=== PATIENT | male | born 1940 | race Caucasian/White ===

== ENCOUNTER 2016-11-11 22:28 | Inpatient (IN) | payer MEDICARE, MEDICAID ==
--- NOTE | 2016-11-11 22:32 | ED Physician Chart ---
Chief Complaint/HPI - Patient Information Date Seen:: 11/11/16 Time Seen:: 22:32 Chief Complaint:: abnormal labs History of Present Illness:: 76-year-old male brought in with acute, severe, abnormal labs that were discovered this morning. Patient has elevated creatinine above 5 and elevated BUN above 100. History limited as patient has underlying dementia and is unable to provide any history History provided by EMS, EMS run sheet and transfer documents Allergies:: Allergies Allergy/AdvReac Type Severity Reaction Status Date / Time No Known Allergies Allergy Verified 09/14/16 12:32 Historian:: EMS Review:: Nurse's Note Reviewed, EMS run form Reviewed, Transfer documents Reviewed Review of Systems - Review of Systems Other: Complete system review otherwise unremarkable except as noted in HPI. Past Medical History - Past Medical History Past Medical History: HTN, CVA/TIA, Dementia Family History: None Social History: Non Smoker, No Alcohol, No Drug Use, Care Facility Surgical History: None Psychiatricy History: Dementia Medication: Reviewed Family Medical History - Family Member Mother History Unknown: Yes Physical Exam - Physical Examination Other:: INITIAL VITAL SIGNS: Reviewed by tn GENERAL: Patient is lying on gurney HEAD: Head is normocephalic. No evidence of trauma. No scalp or facial swelling EYES: No scleral icterus bilaterally ENT: Oropharynx is clear of exudate and erythema. Mucous membranes are dry. NECK: Supple. No meningismus. No masses. No evidence of trauma. No cervical spine bony step-offs or crepitus to palpation RESPIRATORY: No tachypnea. Clear to auscultation bilaterally. CV: Regular rate and rhythm. No murmurs, rubs, or gallops ABDOMEN: Soft, non-distended. No masses. G-tube in place. BACK: No ecchymoses. No evidence of trauma EXTREMITIES: Normal to inspection and palpation. No deformity SKIN: Warm and dry. No obvious rash. No jaundice NEUROLOGIC: Face is symmetric. Withdraws to pain in all extremities Labs/Radiology/EKG Results - Lab Results Results: Lab Results 11/11/16 11/11/16 11/11/16 Range/Units 22:40 22:58 22:58 WBC 12.6 H D (4.8-10.8) Th/cmm RBC 3.38 L (3.80-5.80) Mil/cmm Hgb 10.5 L D (12.6-17.4) gm/dL Hct 31.5 L D (39.0-49.0) % MCV 93.2 (80-99) fl MCH 31.1 H (27.0-31.0) pg MCHC Differential 33.4 (28.0-36.0) pg RDW 15.1 (11.5-20.0) % Plt Count 184 (150-400) Th/cmm MPV 11.4 fl Neutrophils % 68.6 (40.0-80.0) % Lymphocytes % 15.6 L (20.0-50.0) % Monocytes % 7.5 (2.0-10.0) % Eosinophils % 7.8 H (0.0-5.0) % Basophils % 0.5 (0.0-2.0) % PT 10.6 (9.5-11.5) SECONDS INR 1.07 (0.5-1.4) PTT (Actin FS) 27.1 (26.0-38.0) SECONDS Potassium (3.5-5.1) mEq/L Chloride (98-107) mEq/L Carbon Dioxide (21.0-31.0) mEq/L Anion Gap (7.0-16.0) BUN (7-25) mg/dL Creatinine (0.7-1.3) mg/dL Est GFR ( Amer) Est GFR (Non-Af Amer) BUN/Creatinine Ratio Glucose (70-105) mg/dL Whole Bld Lactic Acid (0.60-2.00) mmol/L Calcium (8.6-10.3) mg/dL Total Bilirubin (0.3-1.0) mg/dL AST (13-39) U/L ALT (7-52) U/L Alkaline Phosphatase (34-104) U/L Creatine Kinase (30-223) U/L Total Protein (6.0-8.3) gm/dL Albumin (4.2-5.5) gm/dL Globulin gm/dL Albumin/Globulin Ratio (1.0-1.8) Urine Source CATH Urine Color YELLOW Urine Clarity HAZY (CLEAR) Urine pH 7.5 Ur Specific [place] 1.020 (1.005-1.030) Urine Protein >300 H (NEGATIVE) mg/dL Urine Glucose (UA) NEGATIVE (NEGATIVE) mg/dL Urine Ketones NEGATIVE (NEGATIVE) mg/dL Urine Blood MODERATE H (NEGATIVE) Urine Nitrate NEGATIVE (NEGATIVE) Urine Bilirubin NEGATIVE (NEGATIVE) Urine Urobilinogen 0.2 (0.2 - 1.0) E.U./dL Ur Leukocyte Esterase SMALL H (NEGATIVE) Urine RBC 5-10 H (0-5) /hpf Urine WBC 6-10 H (0-5) /hpf Ur Epithelial Cells FEW (FEW) /lpf Urine Bacteria MODERATE (NONE SEEN) /hpf 11/11/16 11/11/16 Range/Units 22:58 22:58 WBC (4.8-10.8) Th/cmm RBC (3.80-5.80) Mil/cmm Hgb (12.6-17.4) gm/dL Hct (39.0-49.0) % MCV (80-99) fl MCH (27.0-31.0) pg MCHC Differential (28.0-36.0) pg RDW (11.5-20.0) % Plt Count (150-400) Th/cmm MPV fl Neutrophils % (40.0-80.0) % Lymphocytes % (20.0-50.0) % Monocytes % (2.0-10.0) % Eosinophils % (0.0-5.0) % Basophils % (0.0-2.0) % PT (9.5-11.5) SECONDS INR (0.5-1.4) PTT (Actin FS) (26.0-38.0) SECONDS Potassium 4.0 (3.5-5.1) mEq/L Chloride 121 H (98-107) mEq/L Carbon Dioxide 26.9 (21.0-31.0) mEq/L Anion Gap 15.1 (7.0-16.0) BUN 122 H* (7-25) mg/dL Creatinine 5.4 H* (0.7-1.3) mg/dL Est GFR ( Amer) TNP Est GFR (Non-Af Amer) TNP BUN/Creatinine Ratio 22.6 Glucose 88 (70-105) mg/dL Whole Bld Lactic Acid 1.85 (0.60-2.00) mmol/L Calcium 8.7 (8.6-10.3) mg/dL Total Bilirubin 0.3 (0.3-1.0) mg/dL AST 45 H (13-39) U/L ALT 61 H (7-52) U/L Alkaline Phosphatase 68 (34-104) U/L Creatine Kinase 180 (30-223) U/L Total Protein 7.9 (6.0-8.3) gm/dL Albumin 3.0 L (4.2-5.5) gm/dL Globulin 4.9 gm/dL Albumin/Globulin Ratio 0.6 L (1.0-1.8) Urine Source Urine Color Urine Clarity (CLEAR) Urine pH Ur Specific [place] (1.005-1.030) Urine Protein (NEGATIVE) mg/dL Urine Glucose (UA) (NEGATIVE) mg/dL Urine Ketones (NEGATIVE) mg/dL Urine Blood (NEGATIVE) Urine Nitrate (NEGATIVE) Urine Bilirubin (NEGATIVE) Urine Urobilinogen (0.2 - 1.0) E.U./dL Ur Leukocyte Esterase (NEGATIVE) Urine RBC (0-5) /hpf Urine WBC (0-5) /hpf Ur Epithelial Cells (FEW) /lpf Urine Bacteria (NONE SEEN) /hpf - Radiology Results Results: Single AP VIEW Portable Chest X-ray was interpreted independently and contemporaneously by Wilmer Camp MD: No cardiomegaly Normal mediastinum Possible left lower lobe infiltrates. No pneumothorax No soft tissue or bony abnormalities - EKG Interpretations Comments:: 12-lead EKG Interpretation by Wilmer Camp MD: Normal Sinus Rhythm with ventricular rate of 87 beats per minute Normal axis Normal intervals No acute ST or T wave changes. No obvious STEMI ED Septic Shock - . Is Septic Shock (SBP<90, OR Lactate>4 mmol\L) present?: No Reassessment (Disposition) - Reassessment Reassessment:: The patient has acute renal failure with a creatinine of 5.4 and a BUN of 122. Sodium is 160+. Appears to have severe dehydration. We have ordered IV fluids here in the ER. Also appears to have a UTI. We have ordered IV Cipro here in the ER. Discussed the case in detail with Dr. Marsh who expressed good understanding of the case. He will admit the patient his service for further workup and treatment. Reassessment Condition:: Unchanged - Diagnosis Diagnosis:: Acute renal failure Severe dehydration UTI, acute, site unspecified, with hematuria Pneumonia, left lower lobe - Patient Disposition Discharge/Transfer:: Acute Care w/in this hosp Admitted to:: Telemetry Admitting Medical Physician:: Roberto Marsh Time:: 23:33 Condition at Disposition:: Stable ED Discharge Plan - Patient Disposition Admit/Discharge/Transfer: Acute Care w/in this hosp
[2016-11-11] MEDS ORDERED: Sodium Chloride 0.9% 1,000 ML IV ONE (22:38)
[2016-11-11 23:13] LABS: % BASOPHILS 0.5 % (0.0-2.0); % EOSINOPHILS 7.8 % (0.0-5.0); % LYMPHOCYTES 15.6 % (20.0-50.0); % MONOCYTES 7.5 % (2.0-10.0); % NEUTROPHILS 68.6 % (40.0-80.0); MEAN CELL VOLUME 93.2 fl (80-99); MEAN CORPUSCULAR HEMOGLOBIN 31.1 pg (27.0-31.0); MEAN CORPUSCULAR HGB CONC 33.4 pg (28.0-36.0); MEAN PLATELET VOLUME 11.4 fl; NEUTROPHILE ABSOLUTE 8.6 Th/cmm (1.8-8.0); PLATELET COUNT 184 Th/cmm (150-400); RED BLOOD COUNT 3.38 Mil/cmm (3.80-5.80); RED CELL DISTRIBUTION WIDTH 15.1 % (11.5-20.0)
[2016-11-11 23:16] LABS: HEMATOCRIT 31.5 % (39.0-49.0); HEMOGLOBIN 10.5 gm/dL (12.6-17.4); WHITE BLOOD COUNT 12.6 Th/cmm (4.8-10.8)
[2016-11-11 23:21] LABS: URINE BILIRUBIN NEGATIVE (NEGATIVE); URINE BLOOD MODERATE (NEGATIVE); URINE COLOR YELLOW; URINE GLUCOSE (UA) NEGATIVE (NEGATIVE); URINE KETONE NEGATIVE (NEGATIVE); URINE PH 7.5; URINE PROTEIN >300 mg/dL (NEGATIVE); URINE UROBILINOGEN 0.2 E.U./dL (0.2 - 1.0)
[2016-11-11 23:22] LABS: URINE BACTERIA MODERATE /hpf (NONE SEEN); URINE EPITHELIAL CELLS FEW /lpf (FEW)
[2016-11-11 23:23] LABS: INR 1.07 (0.5-1.4); PROTHROMBIN TIME (TEST) 10.6 SECONDS (9.5-11.5)
[2016-11-11 23:24] LABS: ALB/GLOB RATIO 0.6 (1.0-1.8); ALKALINE PHOSPHATASE 68 U/L (34-104); ANION GAP 15.1 (7.0-16.0); BILIRUBIN,TOTAL 0.3 mg/dL (0.3-1.0); BUN/CREATININE RATIO 22.6; CALCIUM SERUM 8.7 mg/dL (8.6-10.3); CARBON DIOXIDE 26.9 mEq/L (21.0-31.0); CHLORIDE 121 mEq/L (98-107); GLUCOSE 88 mg/dL (70-105); SGOT 45 U/L (13-39); SGPT/ALT 61 U/L (7-52)
[2016-11-11] MEDS ORDERED: Piperacillin Sodium/Tazobact 3.375 gm Vial IV ONE (23:42)
[2016-11-11] MEDS ORDERED: Sodium Chloride 0.9% 1,000 ML IV SCH (23:45)
[2016-11-11 23:49] LABS: SODIUM SERUM 159 mEq/L (136-145)
[2016-11-11 23:50] LABS: BUN - UREA NITROGEN 122 mg/dL (7-25); CREATININE - SERUM 5.4 mg/dL (0.7-1.3)
[2016-11-12] MEDS ORDERED: Albuterol Nebulizer 2.5mg/3mL HHN PRN (00:01)
[2016-11-12] MEDS ORDERED: Maalox 30 mL Cup GT PRN (00:01)
[2016-11-12] MEDS ORDERED: Magnesium Hydroxide (MOM) 30 mL UDC GT PRN (00:01)
[2016-11-12] MEDS ORDERED: Levofloxacin 500mg/100mL 500 MG/100 ML BAG IV ONE (00:15)
[2016-11-12 05:35] LABS: % BASOPHILS 0.3 % (0.0-2.0); % LYMPHOCYTES 15.7 % (20.0-50.0); % MONOCYTES 7.8 % (2.0-10.0); % NEUTROPHILS 69.2 % (40.0-80.0); MEAN CORPUSCULAR HEMOGLOBIN 31.7 pg (27.0-31.0); MEAN CORPUSCULAR HGB CONC 34.1 pg (28.0-36.0); MEAN PLATELET VOLUME 10.9 fl; NEUTROPHILE ABSOLUTE 9.4 Th/cmm (1.8-8.0); PLATELET COUNT 174 Th/cmm (150-400); RED BLOOD COUNT 2.84 Mil/cmm (3.80-5.80); RED CELL DISTRIBUTION WIDTH 14.7 % (11.5-20.0); WHITE BLOOD COUNT 13.4 Th/cmm (4.8-10.8)
[2016-11-12 05:41] LABS: HEMATOCRIT 26.4 % (39.0-49.0)
[2016-11-12 05:58] LABS: ANION GAP 11.6 (7.0-16.0); BUN/CREATININE RATIO 22.3; CALCIUM SERUM 8.2 mg/dL (8.6-10.3); CARBON DIOXIDE 25.5 mEq/L (21.0-31.0); CHLORIDE 127 mEq/L (98-107); GLUCOSE 103 mg/dL (70-105); POTASSIUM SERUM 4.1 mEq/L (3.5-5.1)
[2016-11-12 06:01] LABS: SODIUM SERUM 160 mEq/L (136-145)
[2016-11-12 06:02] LABS: BUN - UREA NITROGEN 118 mg/dL (7-25); CREATININE - SERUM 5.3 mg/dL (0.7-1.3)
[2016-11-12] MEDS ORDERED: Fleet Enema 135 mL RC PRN (09:00)
[2016-11-12] MEDS: Levetiracetam 500 mg/5mL 5mL UDC GT SCH ×2 (09:14→21:54)
[2016-11-12] MEDS: Ferrous Sulfate 300 MG/5 ML UDC GT SCH (09:14)
[2016-11-12] MEDS: POLYETHYLENE GLYCOL 3350 17 GM PACK GT SCH (09:16)
[2016-11-12] MEDS: Dextrose 5% 1,000 ML IV SCH (09:16)
[2016-11-12] MEDS: Multivitamin w/ Minerals 15 mL UDC GT SCH (09:22)
--- NOTE | 2016-11-12 10:24 | Diagnostic Imaging Report ---
CHEST X-RAY: AP view INDICATION: Cough COMPARISON: Chest x-ray 09/16/2016 FINDINGS: Small right effusion is noted. No focal consolidation identified. Chronic lung changes are noted. Heart size is at the upper limits of normal. Atherosclerosis is noted. Degenerative changes of the spine are noted. IMPRESSION: Small right pleural effusion. The less likely french of pneumonia right lung base cannot be excluded. Chronic lung changes with no evidence of melissa CHF. Atherosclerotic vascular disease.
[2016-11-12] MEDS: Albuterol/Ipratropium Neb 3 ML AERS HHN SCH ×2 (15:01→19:07)
[2016-11-12] MEDS: Budesonide 0.5 Mg/2 mL Ud HHN SCH (15:03)
--- NOTE | 2016-11-12 18:34 | History & Physical ---
The patient was brought to the ER from normal labs. Yesterday, he was admitted for increasing renal failure. The patient is an elderly 76-year-old male. The patient has high BUN and creatinine and is known to have history of hypertension, history of CVA, history of dementia, and history of TIA. The patient was somewhat dehydrated. PHYSICAL EXAMINATION: HEAD: Normal. ENT: Normal. LUNGS: Clear. CARDIOVASCULAR SYSTEM: . The patient was found to have very high BUN and creatinine and also evidence of urinary infection. BUN was 122, creatinine was 5.4. The patient's chest x-ray showed no cardiomegaly, left pleural lobe infiltrate. DIAGNOSES: Diagnoses of acute on chronic renal failure, severe dehydration, urinary tract infection, and pneumonia were made. The patient is being admitted. I will go ahead and admit the patient and give antibiotics and fluids and I will have Dr. Brown see the patient as well as Dr. Ellis see the patient. I will follow the patient. JOB# [id number]
--- NOTE | 2016-11-13 03:17 | Progress Notes ---
PULMONARY CONSULTATION REASON FOR CONSULTATION: Help the patient with possible pneumonia. CONSULT NOTE: This is a 76-year-old gentleman who was found to have significant mental status abnormality associated with significant level of elevation of renal dysfunction testing. Subsequently, the patient was brought to the hospital for further care and necessary treatment. As the patient's chest x-ray was abnormal, I was asked to see this patient for further care and necessary treatment. The patient has had a stroke before and has been bedridden, has dysphagia, aphasia according to son and has been having G-tube for a long time and other history includes history of hypertension. Other history related to smoking, etc., is not available to me at this particular time. PHYSICAL EXAMINATION: GENERAL: This is an elderly looking gentleman. He is totally bedridden, snoring. Barely opens eyes, not in acute distress. VITAL SIGNS: The patient's recorded vitals: Temperature is 98.5. Blood pressure 133/73, saturation is 94 on supplemental oxygen. HEENT: Examination of the head is essentially unremarkable. Pupils appear to be equal and reactive to light. Oral cavity shows poor dental hygiene, though a thorough examination of the throat could not be done. NECK: No nodes in the neck could be palpated. CHEST: Shows occasional retail pharmacist noise with diminished air entry. HEART: Regular. ABDOMEN: G-tube otherwise unremarkable. EXTREMITIES: Shows significant muscle contractures. The patient's chest x-ray showed right lower lobe haziness, questionable fluid, possibly infiltrate. The patient's other lab shows white count is 12.6, hemoglobin 10.5. Sodium is 159, BUN is 122. Creatinine is 5.4 and slightly elevation of liver profile with albumin 3.0. ASSESSMENT: 1. The patient probably may have pneumonia in right side, though exact etiology not clear, this is either fluid or what. 2. Significant dehydration with renal azotemia. 3. History of previous cerebrovascular accident, hypertension, and also suspect obstructive sleep apnea syndrome and also has some moderate bacteria in urine. PLANS AND SUGGESTIONS: We will go ahead and get a CT of the chest, breathing treatment. We will await for CT so aggressive pneumonia treatment has to be done, and I will also follow up electrolytes, etc., in a closely manner and go from there. JOB# [id number]
[2016-11-13] MEDS: Budesonide 0.5 Mg/2 mL Ud HHN SCH (06:55)
[2016-11-13] MEDS: Albuterol/Ipratropium Neb 3 ML AERS HHN SCH ×4 (06:55→19:07)
[2016-11-13 07:23] LABS: % BASOPHILS 0.6 % (0.0-2.0); % EOSINOPHILS 8.1 % (0.0-5.0); % LYMPHOCYTES 15.1 % (20.0-50.0); % MONOCYTES 7.3 % (2.0-10.0); % NEUTROPHILS 68.9 % (40.0-80.0); HEMATOCRIT 26.4 % (39.0-49.0); HEMOGLOBIN 9.1 gm/dL (12.6-17.4); MEAN CELL VOLUME 92.6 fl (80-99); MEAN CORPUSCULAR HEMOGLOBIN 31.9 pg (27.0-31.0); MEAN CORPUSCULAR HGB CONC 34.5 pg (28.0-36.0); MEAN PLATELET VOLUME 11.4 fl; NEUTROPHILE ABSOLUTE 7.5 Th/cmm (1.8-8.0); PLATELET COUNT 172 Th/cmm (150-400); RED BLOOD COUNT 2.86 Mil/cmm (3.80-5.80); RED CELL DISTRIBUTION WIDTH 14.4 % (11.5-20.0)
[2016-11-13 07:36] LABS: ALB/GLOB RATIO 0.6 (1.0-1.8); ALKALINE PHOSPHATASE 72 U/L (34-104); ANION GAP 9.6 (7.0-16.0); BILIRUBIN,TOTAL 0.3 mg/dL (0.3-1.0); BUN/CREATININE RATIO 22.7; CALCIUM SERUM 8.2 mg/dL (8.6-10.3); CHLORIDE 121 mEq/L (98-107); GLUCOSE 118 mg/dL (70-105); POTASSIUM SERUM 3.6 mEq/L (3.5-5.1); SGOT 35 U/L (13-39); SGPT/ALT 48 U/L (7-52); SODIUM SERUM 154 mEq/L (136-145)
[2016-11-13 07:45] LABS: BUN - UREA NITROGEN 118 mg/dL (7-25); CREATININE - SERUM 5.2 mg/dL (0.7-1.3)
[2016-11-13 09:08] LABS: pH 7.47 (7.35-7.45)
[2016-11-13 09:09] LABS: ABG SOURCE Arterial; ALLEN TEST PASS; BE(B) 3.9 mmol/L (-3.0-3.0); CRITICAL VALUES REPORTED BY PW; FIO2 21; HCO3 27.7 mmol/L (20.0-26.0)
--- NOTE | 2016-11-13 09:31 | Consultation ---
ATTENDING PHYSICIAN: Sean Marsh M.D. INSPECTOR CRYSTAL: Blake Anderson M.D. REASON FOR CONSULTATION: Worsening kidney function, electrolyte imbalance and fluid management. History was taken from son named, Moy. HISTORY OF PRESENT ILLNESS: This is a 76-year-old male with past medical history of chronic kidney disease, who was brought in because of worsening lab values. Two ____ prior to consultation, the patient was diagnosed to have chronic kidney disease. His kidney function gradually deteriorated. A few days prior to admission, labs done revealed a sodium of 167 with a BUN/creatinine of 115/5.23. He was subsequently brought to the Emergency Room. He had a sodium of 160 and BUN/creatinine of 118/5.3. He had no nausea or vomiting, no diarrhea. PAST MEDICAL HISTORY: 1. 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 3. Status post respiratory failure, ventilator dependent and successfully extubated. 4. Chronic kidney disease. 5. Dysphagia. 6. Anemia of chronic disease. 7. History of healthcare-acquired pneumonia. 8. Essential hypertension. PAST SURGICAL HISTORY: 1. Status post tracheostomy. 2. Status post PEG placement. CURRENT MEDICATIONS: The patient is currently on acetaminophen, Albuterol, aspirin, bisacodyl, budesonide, Pepcid, alprazolam, Levetiracetam, levofloxacin, magnesium hydroxide, metoprolol, polyethylene glycol, Senna, Zosyn, amlodipine, clonidine. ALLERGIES: Allergic to cephalexin. FAMILY HISTORY: Unable to obtain directly from the patient. SOCIAL HISTORY: Unable to obtain directly from the patient. REVIEW OF SYSTEMS: Again, I was unable to decipher from the patient. However, per transfer notes, patient currently has a gastrostomy tube feeding. CONSTITUTIONAL: No fever, no chills. HEENT: No mention of headaches, no dizziness. CARDIORESPIRATORY: He did have a history of respiratory failure, vent-dependent, was successfully extubated. At this point, he does not have any shortness of breath, chest pain, palpitations, diaphoresis, or cough. GASTROINTESTINAL: He had no nausea or vomiting, abdominal pain or cramping, hematemesis, melena, hematochezia, no diarrhea. ENDOCRINE: No history of diabetes, thyroid abnormalities or dyslipidemia. MUSCULOSKELETAL: Multiple joint arthralgias. GENITOURINARY: He has a history of chronic kidney disease. No dysuria, no hematuria. However, urinalysis was suggestive of a UTI. HEMATOLOGIC: He has history of anemia of chronic disease. NEUROPSYCHIATRIC: No syncopal episode or seizure activity. He has a history of epilepsy. PHYSICAL EXAMINATION: GENERAL: The patient is stuporous, but comfortable. VITAL SIGNS: His blood pressure is 133/73, pulse 89, temperature 98.5 degrees. SKIN: Poor turgor, warm. No rash, no jaundice appreciated. HEENT: Head normocephalic, atraumatic. Eyes, unable to assess extraocular muscles. Anicteric sclerae. Nose, midline nasal septum. Mouth: Dry mucosa with poor dentition. NECK: Supple, no adenopathy, no thyromegaly, no bruits. He has a midline trach stoma. CHEST AND CVS: S1, S2. No rub, murmur, no gallop appreciated. Point of maximal impulse fifth intercostal space, left midclavicular line. No abdominal or femoral bruits appreciated. LUNGS: Equal expansion. No use of accessory muscles. No supraclavicular retractions. Decreased breath sounds, but no rales or wheezes appreciated. ABDOMEN: Mildly globular, soft. Positive for bowel sounds. No bruits either diastolic or systolic. RECTAL: Lax sphincter tone. GENITOURINARY: Normal appearing male genitalia. MUSCULOSKELETAL: No effusions present in his joints, but unable to assess his range of motion. EXTREMITIES: No evidence of any edema, cyanosis or clubbing with palpable femoral, but unable to fully appreciate popliteal as well as dorsalis pedis pulses. NEUROLOGIC: As mentioned, the patient is stuporous, unable to follow my neuro commands, so I was unable to pursue further on my neuro exam. LABORATORY DATA: Revealed sodium 160, potassium 4.5, chloride 127, bicarbonate 25, BUN 118, creatinine 5.3, glucose 103, calcium 8.2. White count 13.4, hemoglobin 9, hematocrit 26.4, polys 69.2%, platelets 173, albumin 3. Chest x-ray showed small right effusion with questionable right-sided pneumonia. IMPRESSION: 1. Acute kidney injury on chronic kidney disease, MDRD GFR 11.3 mL per minute, stage V. 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 The patient also may have developed chronic interstitial nephritis with exposure to several nephrotoxic medications such as chemotherapy, antibiotics etc. Acute kidney injury is initially prerenal. The patient currently is on tube feedings. However, this may not be enough to replenish both sensible and insensible fluid losses. His physical exam revealed dry oral mucosa with poor skin turgor with a very concentrated urine. These are all suggestive of dehydration, which could lead to a decrease in effective circulating volume. His prerenal azotemia eventually progressed to acute tubular injury. He also has possibly ongoing complicated urinary tract infection and the bacteria may eventually give rise to acute interstitial nephritis. 2. Hypernatremia secondary to severe dehydration. 3. Severe dehydration. 4. Sepsis, possibly due to right-sided healthcare-acquired pneumonia and also a complicated urinary tract infection. 5. Smart's palsy complicated by epilepsy. 6. Status post respiratory failure, vent-dependent, status post extubation. 7. Dysphagia, status post percutaneous endoscopic gastrostomy placement. 8. Anemia of chronic disease. 9. Essential hypertension. PLAN: 1. Switch IV fluids with D5W. 2. Urine sodium, eosinophils, creatinine. 3. A 24-hour urine collection. 4. Renal ultrasound. 5. Follow-up electrolytes. Thank you Dr. Marsh for this consult. I will follow the patient closely with you. JOB# [id number]
[2016-11-13] MEDS: Levetiracetam 500 mg/5mL 5mL UDC GT SCH ×2 (09:46→22:12)
[2016-11-13] MEDS: Ferrous Sulfate 300 MG/5 ML UDC GT SCH (09:46)
[2016-11-13] MEDS: POLYETHYLENE GLYCOL 3350 17 GM PACK GT SCH (09:49)
--- NOTE | 2016-11-13 09:53 | Diagnostic Imaging Report ---
CT scan of the chest without intravenous contrast HISTORY: Pneumonia Total DLP equals 258 CTDI equals 8.1 Axial sections were obtained from a level above the clavicles down to level below the diaphragm. The exam demonstrates a moderate right pleural effusion. The heart size is generous. Coronary artery and atherosclerotic vascular calcification is seen. Normal-sized lymph nodes are noted within the mediastinum. There is a 2 mm calcified nodule within the right lower lobe consistent with old granulomatous disease. No definite hilar abnormalities. Faint infiltrate noted in the left lower lobe along with a minimal left pleural effusion. Degenerative changes seen throughout the spine. IMPRESSION: 1. Moderate right pleural effusion along with evidence of a minimal left pleural effusion. Questionable underlying infiltrate. 2. Questionable faint infiltrate left lower lobe. Pneumonia cannot be excluded. 3. Small calcified nodules within the right lower lobe consistent with old granulomatous disease 4. Cardiomegaly with evidence of coronary artery and atherosclerotic vascular disease.
--- NOTE | 2016-11-13 12:59 | General Progress Note ---
Subjective - Review of Systems Service Date: 11/13/16 Subjective: more awake, trying to communicate Objective - Results Result Diagrams: 11/13/16 05:45 11/13/16 05:45 Recent Labs: Laboratory Last Values WBC 11.0 Th/cmm (4.8-10.8) H 11/13/16 05:45 RBC 2.86 Mil/cmm (3.80-5.80) L 11/13/16 05:45 Hgb 9.1 gm/dL (12.6-17.4) L 11/13/16 05:45 Hct 26.4 % (39.0-49.0) L 11/13/16 05:45 MCV 92.6 fl (80-99) 11/13/16 05:45 MCH 31.9 pg (27.0-31.0) H 11/13/16 05:45 MCHC Differential 34.5 pg (28.0-36.0) 11/13/16 05:45 RDW 14.4 % (11.5-20.0) 11/13/16 05:45 Plt Count 172 Th/cmm (150-400) 11/13/16 05:45 MPV 11.4 fl 11/13/16 05:45 Neutrophils % 68.9 % (40.0-80.0) 11/13/16 05:45 Lymphocytes % 15.1 % (20.0-50.0) L 11/13/16 05:45 Monocytes % 7.3 % (2.0-10.0) 11/13/16 05:45 Eosinophils % 8.1 % (0.0-5.0) H 11/13/16 05:45 Basophils % 0.6 % (0.0-2.0) 11/13/16 05:45 Eos Smear Source URINE 11/12/16 16:30 Eos Smear Total Cells NONE SEEN (NONE SEEN) 11/12/16 16:30 PT 10.6 SECONDS (9.5-11.5) 11/11/16 22:58 INR 1.07 (0.5-1.4) 11/11/16 22:58 PTT (Actin FS) 27.1 SECONDS (26.0-38.0) 11/11/16 22:58 Specimen Source Arterial 11/13/16 08:50 Sample Site Left Radial 11/13/16 08:50 pH 7.47 (7.35-7.45) H 11/13/16 08:50 pCO2 38.0 mmHg (35.0-45.0) 11/13/16 08:50 pO2 67.0 mmHg (80.0-100.0) L 11/13/16 08:50 HCO3 27.7 mmol/L (20.0-26.0) H 11/13/16 08:50 Base Excess 3.9 mmol/L (-3.0-3.0) H 11/13/16 08:50 O2 Saturation 94.0 % (92.0-100.0) 11/13/16 08:50 Juan R Test PASS 11/13/16 08:50 Inspired O2 21 11/13/16 08:50 Critical Value PW 11/13/16 08:50 Sodium 154 mEq/L (136-145) H 11/13/16 05:45 Potassium 3.6 mEq/L (3.5-5.1) 11/13/16 05:45 Chloride 121 mEq/L (98-107) H 11/13/16 05:45 Carbon Dioxide 27.0 mEq/L (21.0-31.0) 11/13/16 05:45 Anion Gap 9.6 (7.0-16.0) 11/13/16 05:45 BUN 118 mg/dL (7-25) H* 11/13/16 05:45 Creatinine 5.2 mg/dL (0.7-1.3) H* 11/13/16 05:45 Est GFR ( Amer) TNP 11/13/16 05:45 Est GFR (Non-Af Amer) TNP 11/13/16 05:45 BUN/Creatinine Ratio 22.7 11/13/16 05:45 Glucose 118 mg/dL (70-105) H 11/13/16 05:45 Whole Bld Lactic Acid 1.85 mmol/L (0.60-2.00) 11/11/16 22:58 Uric Acid 6.9 mg/dL (4.4-7.6) 11/13/16 05:45 Calcium 8.2 mg/dL (8.6-10.3) L 11/13/16 05:45 Total Bilirubin 0.3 mg/dL (0.3-1.0) 11/13/16 05:45 AST 35 U/L (13-39) 11/13/16 05:45 ALT 48 U/L (7-52) 11/13/16 05:45 Alkaline Phosphatase 72 U/L (34-104) 11/13/16 05:45 Ammonia 37 umol/L (16-53) 11/13/16 05:45 Creatine Kinase 180 U/L (30-223) 11/11/16 22:58 Total Protein 7.0 gm/dL (6.0-8.3) 11/13/16 05:45 Albumin 2.7 gm/dL (4.2-5.5) L 11/13/16 05:45 Globulin 4.3 gm/dL 11/13/16 05:45 Albumin/Globulin Ratio 0.6 (1.0-1.8) L 11/13/16 05:45 TSH 3.46 uIU/ml (0.34-5.60) 11/13/16 05:45 Urine Source CATH 11/11/16 22:40 Urine Color YELLOW 11/11/16 22:40 Urine Clarity HAZY (CLEAR) 11/11/16 22:40 Urine pH 7.5 11/11/16 22:40 Ur Specific [place] 1.020 (1.005-1.030) 11/11/16 22:40 Urine Protein >300 mg/dL (NEGATIVE) H 11/11/16 22:40 Urine Glucose (UA) NEGATIVE mg/dL (NEGATIVE) 11/11/16 22:40 Urine Ketones NEGATIVE mg/dL (NEGATIVE) 11/11/16 22:40 Urine Blood MODERATE (NEGATIVE) H 11/11/16 22:40 Urine Nitrate NEGATIVE (NEGATIVE) 11/11/16 22:40 Urine Bilirubin NEGATIVE (NEGATIVE) 11/11/16 22:40 Urine Urobilinogen 0.2 E.U./dL (0.2 - 1.0) 11/11/16 22:40 Ur Leukocyte Esterase SMALL (NEGATIVE) H 11/11/16 22:40 Urine RBC 5-10 /hpf (0-5) H 11/11/16 22:40 Urine WBC 6-10 /hpf (0-5) H 11/11/16 22:40 Ur Epithelial Cells FEW /lpf (FEW) 11/11/16 22:40 Urine Bacteria MODERATE /hpf (NONE SEEN) 11/11/16 22:40 Ur Random Sodium 52 mmol/L 11/12/16 16:30 Urine Creatinine 62.0 mg/dl (39.0-259.0) 11/12/16 16:30 - Physical Exam Vitals and I&O: Vital Signs Temp 97.9 F 11/13/16 09:00 Pulse 80 11/13/16 12:42 Resp 18 11/13/16 11:17 BP 117/64 11/13/16 12:42 Pulse Ox 97 11/13/16 11:17 Intake & Output 11/12/16 11/13/16 11/13/16 18:59 06:59 18:59 Intake Total 505 Output Total 900 Balance -395 Intake: Tube Feeding 505 Output: Urine 900 Active Medications: Current Medications Acetaminophen (Tylenol 650mg/20.3ml Suspension) 650 mg GT Q4HR PRN PRN Reason: Pain (Mild) Acetaminophen (Tylenol 650mg/20.3ml Suspension) 650 mg GT Q4HR PRN PRN Reason: TEMP> 101 Acetaminophen (Tylenol 650mg/20.3ml Suspension) 1,000 mg GT Q4HR PRN PRN Reason: Pain (Moderate) Acetaminophen/Hydrocodone Bitart ([place] 5mg/325mg) 1 tab PO Q6HR PRN PRN Reason: Pain (Severe) Stop: 01/11/17 00:00 Al Hydrox/Mg Hydrox/Simethicone (Maalox) 30 ml GT Q6HR PRN PRN Reason: Heartburn Stop: 01/11/17 00:00 Albuterol Sulfate (Albuterol 2.5mg/3ml Neb Ud) 2.5 mg HHN Q6HR PRN PRN Reason: sob/wheezing Stop: 01/11/17 00:00 Albuterol/Ipratropium (Duoneb Neb) 3 ml HHN [id number] [facility] Stop: 01/11/17 14:59 Last Admin: 11/13/16 11:17 Dose: 3 ml Amlodipine Besylate (Norvasc) 5 mg GT DAILY [facility] Stop: 01/11/17 08:59 Last Admin: 11/13/16 09:48 Dose: 5 mg Aspirin (Aspirin) 325 mg GT DAILY [facility] Stop: 01/11/17 08:59 Last Admin: 11/13/16 09:47 Dose: 325 mg Bisacodyl (Dulcolax 10 Mg Supp) 10 mg RC PRN PRN PRN Reason: Constipation Stop: 01/11/17 00:00 Budesonide (Pulmicort) 0.5 mg HHN DAILYRT [facility] Stop: 01/11/17 14:29 Last Admin: 11/13/16 06:55 Dose: 0.5 mg Clonidine HCl (Catapres) 0.1 mg GT Q12HR PRN PRN Reason: SBP GREATER THAN 160 Stop: 01/11/17 13:59 Famotidine (Pepcid) 20 mg GT DAILY [facility] Stop: 01/11/17 08:59 Last Admin: 11/13/16 09:49 Dose: 20 mg Ferrous Sulfate (Iron) 450 mg GT DAILY [facility] Stop: 01/11/17 08:59 Last Admin: 11/13/16 09:46 Dose: 450 mg Hydralazine HCl (Apresoline) 25 mg GT Q8HR [facility] Stop: 01/11/17 04:59 Last Admin: 11/13/16 12:42 Dose: 25 mg Levofloxacin (Levaquin Pb) 250 mg in 50 mls @ 50 mls/hr IV Q48HR [facility] Stop: 01/12/17 20:59 Dextrose (D5w) 1,000 mls @ 125 mls/hr IV .Q8H [facility] Stop: 01/11/17 08:25 Last Admin: 11/12/16 09:16 Dose: 125 mls/hr Levetiracetam (Keppra) 750 mg GT Q12HR [facility] Stop: 01/11/17 08:59 Last Admin: 11/13/16 09:46 Dose: 750 mg Lorazepam (Ativan) 0.5 mg GT Q6HR PRN; Protocol PRN Reason: Anxiety Stop: 01/11/17 00:00 Magnesium Hydroxide (Milk Of Magnesia) 30 ml GT HS PRN PRN Reason: Constipation Stop: 01/11/17 00:00 Metoprolol Tartrate (Lopressor) 12.5 mg GT BID [facility] Stop: 01/11/17 08:59 Last Admin: 11/13/16 09:48 Dose: 12.5 mg Multivitamins/Minerals (Theragran M) 15 ml GT DAILY [facility] Stop: 01/11/17 08:59 Last Admin: 11/12/16 09:22 Dose: 15 ml Polyethylene Glycol (Miralax) 17 gm GT DAILY [facility] Stop: 01/11/17 08:59 Last Admin: 11/13/16 09:49 Dose: 17 gm Senna (Senna) 17.2 mg GT DAILY [facility] Stop: 01/11/17 08:59 Last Admin: 11/13/16 09:47 Dose: 17.2 mg Sodium Phosphate (Fleet Enema) 135 ml RC DAILY PRN PRN Reason: Constipation Stop: 01/11/17 08:59 General: No acute distress HEENT: Atraumatic, Mucous membr. moist/pink Neck: Supple, +2 carotid pulse wo bruit, Other (open trache stoma) Cardiovascular: Regular rate, Normal S1, Normal S2 Lungs: Other (decrease BS) Abdomen: Bowel sounds, Soft Neurological: Sensation intact Skin: no Rash Assessment/Plan - Problem List Patient Problems: All Active Problems H/O chronic renal failure syndrome (Acute) Z87.448 H/O: HTN (hypertension) (Acute) Z86.79 Respiratory failure (Acute) J96.90 Right lower lobe pneumonia (Acute) J18.9 h/o anemia (Acute) s/p g tube (Acute) - Assessment Assessment: brittany on ckd hypernatremia severe dehydration sepsis 2nd to left hap, Cx UTI Smart's palsy/epilepsy S/P resp failure on vent, s/p extubation dysphaga s/p PEG anemia of cd ess htn - Plan Plan: kidney fnc still the same Na down to 154 CT chest showed B/L effusions, Left pna discussed w/ son, Moy, extensively need for dialysis he will discuss w/ rest of family & decide f/u electrolytes, cbc
--- NOTE | 2016-11-13 15:17 | General Progress Note ---
Subjective - Review of Systems Service Date: 11/13/16 Subjective: awake, alert, nad Objective - Results Result Diagrams: 11/13/16 05:45 11/13/16 05:45 Recent Labs: Laboratory Last Values WBC 11.0 Th/cmm (4.8-10.8) H 11/13/16 05:45 RBC 2.86 Mil/cmm (3.80-5.80) L 11/13/16 05:45 Hgb 9.1 gm/dL (12.6-17.4) L 11/13/16 05:45 Hct 26.4 % (39.0-49.0) L 11/13/16 05:45 MCV 92.6 fl (80-99) 11/13/16 05:45 MCH 31.9 pg (27.0-31.0) H 11/13/16 05:45 MCHC Differential 34.5 pg (28.0-36.0) 11/13/16 05:45 RDW 14.4 % (11.5-20.0) 11/13/16 05:45 Plt Count 172 Th/cmm (150-400) 11/13/16 05:45 MPV 11.4 fl 11/13/16 05:45 Neutrophils % 68.9 % (40.0-80.0) 11/13/16 05:45 Lymphocytes % 15.1 % (20.0-50.0) L 11/13/16 05:45 Monocytes % 7.3 % (2.0-10.0) 11/13/16 05:45 Eosinophils % 8.1 % (0.0-5.0) H 11/13/16 05:45 Basophils % 0.6 % (0.0-2.0) 11/13/16 05:45 Eos Smear Source URINE 11/12/16 16:30 Eos Smear Total Cells NONE SEEN (NONE SEEN) 11/12/16 16:30 PT 10.6 SECONDS (9.5-11.5) 11/11/16 22:58 INR 1.07 (0.5-1.4) 11/11/16 22:58 PTT (Actin FS) 27.1 SECONDS (26.0-38.0) 11/11/16 22:58 Specimen Source Arterial 11/13/16 08:50 Sample Site Left Radial 11/13/16 08:50 pH 7.47 (7.35-7.45) H 11/13/16 08:50 pCO2 38.0 mmHg (35.0-45.0) 11/13/16 08:50 pO2 67.0 mmHg (80.0-100.0) L 11/13/16 08:50 HCO3 27.7 mmol/L (20.0-26.0) H 11/13/16 08:50 Base Excess 3.9 mmol/L (-3.0-3.0) H 11/13/16 08:50 O2 Saturation 94.0 % (92.0-100.0) 11/13/16 08:50 Juan R Test PASS 11/13/16 08:50 Inspired O2 21 11/13/16 08:50 Critical Value PW 11/13/16 08:50 Sodium 154 mEq/L (136-145) H 11/13/16 05:45 Potassium 3.6 mEq/L (3.5-5.1) 11/13/16 05:45 Chloride 121 mEq/L (98-107) H 11/13/16 05:45 Carbon Dioxide 27.0 mEq/L (21.0-31.0) 11/13/16 05:45 Anion Gap 9.6 (7.0-16.0) 11/13/16 05:45 BUN 118 mg/dL (7-25) H* 11/13/16 05:45 Creatinine 5.2 mg/dL (0.7-1.3) H* 11/13/16 05:45 Est GFR ( Amer) TNP 11/13/16 05:45 Est GFR (Non-Af Amer) TNP 11/13/16 05:45 BUN/Creatinine Ratio 22.7 11/13/16 05:45 Glucose 118 mg/dL (70-105) H 11/13/16 05:45 Whole Bld Lactic Acid 1.85 mmol/L (0.60-2.00) 11/11/16 22:58 Uric Acid 6.9 mg/dL (4.4-7.6) 11/13/16 05:45 Calcium 8.2 mg/dL (8.6-10.3) L 11/13/16 05:45 Total Bilirubin 0.3 mg/dL (0.3-1.0) 11/13/16 05:45 AST 35 U/L (13-39) 11/13/16 05:45 ALT 48 U/L (7-52) 11/13/16 05:45 Alkaline Phosphatase 72 U/L (34-104) 11/13/16 05:45 Ammonia 37 umol/L (16-53) 11/13/16 05:45 Creatine Kinase 180 U/L (30-223) 11/11/16 22:58 Total Protein 7.0 gm/dL (6.0-8.3) 11/13/16 05:45 Albumin 2.7 gm/dL (4.2-5.5) L 11/13/16 05:45 Globulin 4.3 gm/dL 11/13/16 05:45 Albumin/Globulin Ratio 0.6 (1.0-1.8) L 11/13/16 05:45 TSH 3.46 uIU/ml (0.34-5.60) 11/13/16 05:45 Urine Source CATH 11/11/16 22:40 Urine Color YELLOW 11/11/16 22:40 Urine Clarity HAZY (CLEAR) 11/11/16 22:40 Urine pH 7.5 11/11/16 22:40 Ur Specific [place] 1.020 (1.005-1.030) 11/11/16 22:40 Urine Protein >300 mg/dL (NEGATIVE) H 11/11/16 22:40 Urine Glucose (UA) NEGATIVE mg/dL (NEGATIVE) 11/11/16 22:40 Urine Ketones NEGATIVE mg/dL (NEGATIVE) 11/11/16 22:40 Urine Blood MODERATE (NEGATIVE) H 11/11/16 22:40 Urine Nitrate NEGATIVE (NEGATIVE) 11/11/16 22:40 Urine Bilirubin NEGATIVE (NEGATIVE) 11/11/16 22:40 Urine Urobilinogen 0.2 E.U./dL (0.2 - 1.0) 11/11/16 22:40 Ur Leukocyte Esterase SMALL (NEGATIVE) H 11/11/16 22:40 Urine RBC 5-10 /hpf (0-5) H 11/11/16 22:40 Urine WBC 6-10 /hpf (0-5) H 11/11/16 22:40 Ur Epithelial Cells FEW /lpf (FEW) 11/11/16 22:40 Urine Bacteria MODERATE /hpf (NONE SEEN) 11/11/16 22:40 Ur Random Sodium 52 mmol/L 11/12/16 16:30 Urine Creatinine 62.0 mg/dl (39.0-259.0) 11/12/16 16:30 - Physical Exam Vitals and I&O: Vital Signs Temp 97.9 F 11/13/16 09:00 Pulse 92 11/13/16 14:01 Resp 18 11/13/16 14:01 BP 117/64 11/13/16 12:42 Pulse Ox 97 11/13/16 14:01 Intake & Output 11/12/16 11/13/16 11/13/16 18:59 06:59 18:59 Intake Total 505 Output Total 900 Balance -395 Intake: Tube Feeding 505 Output: Urine 900 Active Medications: Current Medications Acetaminophen (Tylenol 650mg/20.3ml Suspension) 650 mg GT Q4HR PRN PRN Reason: Pain (Mild) Acetaminophen (Tylenol 650mg/20.3ml Suspension) 650 mg GT Q4HR PRN PRN Reason: TEMP> 101 Acetaminophen (Tylenol 650mg/20.3ml Suspension) 1,000 mg GT Q4HR PRN PRN Reason: Pain (Moderate) Acetaminophen/Hydrocodone Bitart ([place] 5mg/325mg) 1 tab PO Q6HR PRN PRN Reason: Pain (Severe) Stop: 01/11/17 00:00 Al Hydrox/Mg Hydrox/Simethicone (Maalox) 30 ml GT Q6HR PRN PRN Reason: Heartburn Stop: 01/11/17 00:00 Albuterol Sulfate (Albuterol 2.5mg/3ml Neb Ud) 2.5 mg HHN Q6HR PRN PRN Reason: sob/wheezing Stop: 01/11/17 00:00 Albuterol/Ipratropium (Duoneb Neb) 3 ml HHN [id number] [facility] Stop: 01/11/17 14:59 Last Admin: 11/13/16 14:00 Dose: 3 ml Amlodipine Besylate (Norvasc) 5 mg GT DAILY [facility] Stop: 01/11/17 08:59 Last Admin: 11/13/16 09:48 Dose: 5 mg Aspirin (Aspirin) 325 mg GT DAILY [facility] Stop: 01/11/17 08:59 Last Admin: 11/13/16 09:47 Dose: 325 mg Bisacodyl (Dulcolax 10 Mg Supp) 10 mg RC PRN PRN PRN Reason: Constipation Stop: 01/11/17 00:00 Budesonide (Pulmicort) 0.5 mg HHN DAILYRT [facility] Stop: 01/11/17 14:29 Last Admin: 11/13/16 06:55 Dose: 0.5 mg Clonidine HCl (Catapres) 0.1 mg GT Q12HR PRN PRN Reason: SBP GREATER THAN 160 Stop: 01/11/17 13:59 Famotidine (Pepcid) 20 mg GT DAILY [facility] Stop: 01/11/17 08:59 Last Admin: 11/13/16 09:49 Dose: 20 mg Ferrous Sulfate (Iron) 450 mg GT DAILY [facility] Stop: 01/11/17 08:59 Last Admin: 11/13/16 09:46 Dose: 450 mg Hydralazine HCl (Apresoline) 25 mg GT Q8HR [facility] Stop: 01/11/17 04:59 Last Admin: 11/13/16 12:42 Dose: 25 mg Levofloxacin (Levaquin Pb) 250 mg in 50 mls @ 50 mls/hr IV Q48HR [facility] Stop: 01/12/17 20:59 Dextrose (D5w) 1,000 mls @ 125 mls/hr IV .Q8H [facility] Stop: 01/11/17 08:25 Last Admin: 11/12/16 09:16 Dose: 125 mls/hr Levetiracetam (Keppra) 750 mg GT Q12HR [facility] Stop: 01/11/17 08:59 Last Admin: 11/13/16 09:46 Dose: 750 mg Lorazepam (Ativan) 0.5 mg GT Q6HR PRN; Protocol PRN Reason: Anxiety Stop: 01/11/17 00:00 Magnesium Hydroxide (Milk Of Magnesia) 30 ml GT HS PRN PRN Reason: Constipation Stop: 01/11/17 00:00 Metoprolol Tartrate (Lopressor) 12.5 mg GT BID [facility] Stop: 01/11/17 08:59 Last Admin: 11/13/16 09:48 Dose: 12.5 mg Multivitamins/Minerals (Theragran M) 15 ml GT DAILY [facility] Stop: 01/11/17 08:59 Last Admin: 11/12/16 09:22 Dose: 15 ml Polyethylene Glycol (Miralax) 17 gm GT DAILY [facility] Stop: 01/11/17 08:59 Last Admin: 11/13/16 09:49 Dose: 17 gm Senna (Senna) 17.2 mg GT DAILY [facility] Stop: 01/11/17 08:59 Last Admin: 11/13/16 09:47 Dose: 17.2 mg Sodium Phosphate (Fleet Enema) 135 ml RC DAILY PRN PRN Reason: Constipation Stop: 01/11/17 08:59 General: Alert, Cooperative Neck: Supple Cardiovascular: Regular rate Lungs: Clear to auscultation Abdomen: Bowel sounds Assessment/Plan - Problem List Patient Problems: All Active Problems H/O chronic renal failure syndrome (Acute) Z87.448 H/O: HTN (hypertension) (Acute) Z86.79 Respiratory failure (Acute) J96.90 Right lower lobe pneumonia (Acute) J18.9 h/o anemia (Acute) s/p g tube (Acute) - Plan Plan: ivabx cbc/bmp in am cpm
[2016-11-13] MEDS: Dextrose 5% 1,000 ML IV SCH (17:02)
[2016-11-13 18:10] LABS: TOTAL PROTEIN 24 HR URINE 3265.5 mg/24 hr (0-165)
[2016-11-13] MEDS: Multivitamin w/ Minerals 15 mL UDC GT SCH (19:00)
[2016-11-13 19:01] LABS: SURFACE AREA 1.71
[2016-11-13] MEDS: Hydrocodone/APAP 5mg/325mg Tab PO PRN (22:13)
[2016-11-13] MEDS: Levofloxacin 250 mg/50 mL Premix Bag IV SCH (22:48)
--- NOTE | 2016-11-14 00:25 | Admit Criteria Form ---
Admit Criteria Forms - Admit Criteria Diagnosis: UROLOGIC DISEASE [facility] Clinical Indications for Admission to Inpatient Care (Place ' X' for any and all applicable criteria): Hospital admission is needed for appropriate care of the patient because of ANY ONE of the following: [ ]I. New-onset Reduced urine output, or hydronephrosis remaining after emergency or observation level care indicated by ANY ONE the following (1)(2) [ ]a) Urine output less than 0.5 mL/kg/hour for 6 hours in adult [ ]b) Anuria (urine output less than 0.1 mL/kg/hour) for 4 hours in any age group [ ]c) Reduced output in child as indicated by ANY ONE of the following (3) [ ]i) Urine output less than 2 mL/kg/hour for 6 hours in infant younger than 2 [ ]ii) Urine output less than 1 mL/kg/hour for 6 hours in child younger than 12 years [ ]iii) Urine output less than 0.75 mL/kg/hour for 6 hours in adolescent younger than 18 years [ ]II. Acute urinary retention requiring inpatient management as indicated by ANY ONE of the following(1)(13): [ ]a) Hemodynamic instability remaining after emergency or observation level care (as appropriate) [ ]b) Retention cannot be alleviated via emergency or observation level care (eg, urinary catheter placement) [ ]c) Acute neurologic etiology (eg, cauda equina) [ ]d) Dehydration or other complications not manageable with emergency or observation level care [ ]e) Acute kidney injury (that does not qualify as Acute renal failure ) requiring inpatient care indicated by ALL of the following(5)(6)(7)(8)(9): [ ]i) Acute kidney injury indicated by ANY ONE of the following: [ ]1) 2-fold or more rise in serum creatinine from baseline [ ]2) Reduction of more than 50% in estimated glomerular filtration rate from baseline [ ]3) Urine output less than 0.5 mL/kg/hr for 12 hours despite adequate volume status [ ]ii) Worsening clinical status (eg, rising creatinine) despite outpatient and observation care treatment (eg, hydration) [ ]III. Gross hematuria requiring inpatient management as indicated by ANY ONE of the following(1)(2): [ ]a) Evidence of renal obstruction [ ]b) Reduced urine output (eg urine output <0.5mL/kg per hr over 6 hrs) [ ]c) Clot retention after urinary catheterization and irrigation [ ]d) Anemia [ ]e) Systemic cause needing inpatient treatment (eg, Goodpasture syndrome) [X ]IV. Urologic infection requiring inpatient care as indicated by ANY ONE of the following(10)(11)(12): [X ]a) Dehydration that is severe or persistent [ ]b) Hemodynamic instability [ ]c) Failure of, or inability to tolerate, outpatient treatment regimen [ X]d) Increased creatinine without known prior cause [ ]e) Known renal or urologic abnormalities (eg, indwelling catheter , structural abnormalities) [ ]f) Recent urologic manipulation [ ]g) Urinary obstruction [ ]h) Immunocompromised state [ ]V. Renal disease needing inpatient care (eg, nephritis, nephrosis) as indicated by ANY ONE of the following(2)(3)(4): [ ]a) Systemic cause (eg, Goodpasture syndrome) needing inpatient care(5) [ ]b) Rapidly progressive disease needing inpatient care (eg, plasmapheresis, immunosuppression)(6) [ ]c) Hemoptysis [ ]d) Hemolysis or thrombosis [ ]e) Anasarca needing inpatient care [ ]f) Hemolytic uremic syndrome(7)(8) [ ]g) Acute renal failure [ ]h) Significant uremic complications as indicated by ANY ONE of the following(1)(2)(3): [ ]i) Outpatient therapy is ineffective or not feasible for ANY ONE of the following: [ ]1) Severe heart failure [ ]2) Severe hypertension [ ]3) Pleural effusion [ ]4) Pericarditis or pericardial effusion [ ]ii) Cardiac arrhythmias of immediate concern [ ]iii) Recurrent seizures [ ]iv) Bleeding abnormalities (eg, platelet dysfunction) with active (eg, gastrointestinal) bleeding [ ]v) Dialysis indicated before long-term access or ambulatory arrangements can be made [ ]vi) Significant metabolic or electrolyte abnormalities (eg , severe acidosis or hyperkalemia) [ ]vii) Intractable nausea or vomiting [ ]viii) Encephalopathy [ ]. New-onset oliguria, anuria, or hydronephrosis not responsive to emergency and observation care treatment (as appropriate)(1) [ ]VII. Trauma to renal, genital, or urologic system requiring inpatient medical care(14)(15)(16)(17) [ ]VIII.Scrotal, testicular, or epididymal disorder requiring inpatient care indicated by ANY ONE of the following(1)(14)(15)(16): [ ]a) Scrotal edema or infection not manageable with emergency or observation level care [ ]b) Orchitis not manageable with emergency or observation level care [ ]c) Epididymitis not manageable with emergency or observation level of care [ ]d) Other scrotal, testicular, or epididymal disorder (eg, infection, inflammation) not manageable with emergency or observation level care [ ]IX. Urologic Disease and ALL of the following: [ ]a) Symptom or finding for which emergency and observation care have failed or are not considered appropriate (Use General Criteria: Observation Care as appropriate) [ ]b) Presence of ANY ONE of the following: [ ]i) A General Admission Criteria [ ]ii) A Pediatric General Admission Criteria The [facility] content [facility] by [facility] has been revised. The portions of the content which have been revised are identified through the use of italic text or in bold, and [facility] has neither reviewed nor approved the modified material. All other unmodified content is copyright [facility]. Please see references footnoted in the original [facility] edition 2016 Admit Criteria Met?: Yes
--- NOTE | 2016-11-14 03:58 | Progress Notes ---
PROBLEM LIST: 1.Acute tracheobronchitis with possibly pneumonia. 2.Severe dehydration. 3.Previous history of cerebrovascular accident. 4.Chronic tracheocutaneous fistula. SYMPTOMS: Nil. He appears to be more awake than yesterday. No respiratory distress, lot of secretions from tracheocutaneous fistula, though moves his eyes [id number], but no other significant response with communication or moving the extremities, etc. PHYSICAL EXAMINATION: VITAL SIGNS: Temperature is 97.9, pulse is 102, blood pressure 117/64, saturation 97 on supplemental oxygen and oral cavity limited. Exam unremarkable. NECK: Shows lot of secretions from tracheocutaneous fistula. CHEST: Shows diminished air entry with occasional secretory noise. HEART: Regular. ABDOMEN: Shows G-tube, otherwise unremarkable. LABORATORY DATA: The patient's lab white count is 11,000, hemoglobin 9.1. ABG, pO2 is 67 on room air. Sodium has dropped to 154, creatinine is ____ and BUN is still 118. ASSESSMENT: The patient is clinically stable, improving with tracheobronchitis, questionable infiltrate, right basal area. PLANS AND SUGGESTIONS: We will continue current antibiotic, hydration. We will follow through CT of the chest, etc. and go from there. JOB# [id number]
[2016-11-14 05:34] LABS: % BASOPHILS 0.3 % (0.0-2.0); % EOSINOPHILS 7.5 % (0.0-5.0); % LYMPHOCYTES 12.8 % (20.0-50.0); % MONOCYTES 6.6 % (2.0-10.0); % NEUTROPHILS 72.8 % (40.0-80.0); HEMATOCRIT 26.7 % (39.0-49.0); HEMOGLOBIN 9.1 gm/dL (12.6-17.4); MEAN CORPUSCULAR HEMOGLOBIN 31.6 pg (27.0-31.0); MEAN PLATELET VOLUME 11.5 fl; NEUTROPHILE ABSOLUTE 7.2 Th/cmm (1.8-8.0); PLATELET COUNT 177 Th/cmm (150-400); RED BLOOD COUNT 2.88 Mil/cmm (3.80-5.80); RED CELL DISTRIBUTION WIDTH 14.7 % (11.5-20.0); WHITE BLOOD COUNT 9.9 Th/cmm (4.8-10.8)
[2016-11-14 05:46] LABS: ANION GAP 13.2 (7.0-16.0); BUN/CREATININE RATIO 23.8; CALCIUM SERUM 8.7 mg/dL (8.6-10.3); CARBON DIOXIDE 26.6 mEq/L (21.0-31.0); CHLORIDE 116 mEq/L (98-107); GLUCOSE 147 mg/dL (70-105); POTASSIUM SERUM 3.8 mEq/L (3.5-5.1); SODIUM SERUM 152 mEq/L (136-145)
[2016-11-14 05:48] LABS: BUN - UREA NITROGEN 112 mg/dL (7-25)
[2016-11-14 05:49] LABS: CREATININE - SERUM 4.7 mg/dL (0.7-1.3)
[2016-11-14] MEDS: Albuterol/Ipratropium Neb 3 ML AERS HHN SCH ×4 (06:54→19:00)
[2016-11-14] MEDS: Budesonide 0.5 Mg/2 mL Ud HHN SCH (06:54)
--- NOTE | 2016-11-14 09:41 | Diagnostic Imaging Report ---
CHEST X-RAY: AP view INDICATION: Pneumonia COMPARISON: Chest x-ray 11/11/2016 FINDINGS: Small bilateral effusions are noted. Chronic lung changes are seen with no evidence of melissa CHF. No focal consolidation identified. Heart size is at the upper limits of normal. IMPRESSION: Small bilateral effusions. No focal consolidation identified.
[2016-11-14] MEDS: Multivitamin w/ Minerals Tab GT SCH (09:45)
[2016-11-14] MEDS: Levetiracetam 500 mg/5mL 5mL UDC GT SCH ×2 (09:47→22:35)
[2016-11-14] MEDS: Ferrous Sulfate 300 MG/5 ML UDC GT SCH (09:48)
[2016-11-14] MEDS: POLYETHYLENE GLYCOL 3350 17 GM PACK GT SCH (09:50)
--- NOTE | 2016-11-14 10:06 | General Progress Note ---
Subjective - Review of Systems Subjective: awake, alert, nad Objective - Results Result Diagrams: 11/14/16 05:00 11/14/16 05:00 Recent Labs: Laboratory Last Values WBC 9.9 Th/cmm (4.8-10.8) 11/14/16 05:00 RBC 2.88 Mil/cmm (3.80-5.80) L 11/14/16 05:00 Hgb 9.1 gm/dL (12.6-17.4) L 11/14/16 05:00 Hct 26.7 % (39.0-49.0) L 11/14/16 05:00 MCV 93.0 fl (80-99) 11/14/16 05:00 MCH 31.6 pg (27.0-31.0) H 11/14/16 05:00 MCHC Differential 34.0 pg (28.0-36.0) 11/14/16 05:00 RDW 14.7 % (11.5-20.0) 11/14/16 05:00 Plt Count 177 Th/cmm (150-400) 11/14/16 05:00 MPV 11.5 fl 11/14/16 05:00 Neutrophils % 72.8 % (40.0-80.0) 11/14/16 05:00 Lymphocytes % 12.8 % (20.0-50.0) L 11/14/16 05:00 Monocytes % 6.6 % (2.0-10.0) 11/14/16 05:00 Eosinophils % 7.5 % (0.0-5.0) H 11/14/16 05:00 Basophils % 0.3 % (0.0-2.0) 11/14/16 05:00 Eos Smear Source URINE 11/12/16 16:30 Eos Smear Total Cells NONE SEEN (NONE SEEN) 11/12/16 16:30 PT 10.6 SECONDS (9.5-11.5) 11/11/16 22:58 INR 1.07 (0.5-1.4) 11/11/16 22:58 PTT (Actin FS) 27.1 SECONDS (26.0-38.0) 11/11/16 22:58 Specimen Source Arterial 11/13/16 08:50 Sample Site Left Radial 11/13/16 08:50 pH 7.47 (7.35-7.45) H 11/13/16 08:50 pCO2 38.0 mmHg (35.0-45.0) 11/13/16 08:50 pO2 67.0 mmHg (80.0-100.0) L 11/13/16 08:50 HCO3 27.7 mmol/L (20.0-26.0) H 11/13/16 08:50 Base Excess 3.9 mmol/L (-3.0-3.0) H 11/13/16 08:50 O2 Saturation 94.0 % (92.0-100.0) 11/13/16 08:50 Juan R Test PASS 11/13/16 08:50 Inspired O2 21 11/13/16 08:50 Critical Value PW 11/13/16 08:50 Sodium 152 mEq/L (136-145) H 11/14/16 05:00 Potassium 3.8 mEq/L (3.5-5.1) 11/14/16 05:00 Chloride 116 mEq/L (98-107) H 11/14/16 05:00 Carbon Dioxide 26.6 mEq/L (21.0-31.0) 11/14/16 05:00 Anion Gap 13.2 (7.0-16.0) 11/14/16 05:00 BUN 112 mg/dL (7-25) H* 11/14/16 05:00 Creatinine 4.7 mg/dL (0.7-1.3) H* 11/14/16 05:00 Est GFR ( Amer) TNP 11/14/16 05:00 Est GFR (Non-Af Amer) [facility] 11/14/16 05:00 BUN/Creatinine Ratio 23.8 11/14/16 05:00 Glucose 147 mg/dL (70-105) H 11/14/16 05:00 Whole Bld Lactic Acid 1.85 mmol/L (0.60-2.00) 11/11/16 22:58 Uric Acid 6.9 mg/dL (4.4-7.6) 11/13/16 05:45 Calcium 8.7 mg/dL (8.6-10.3) 11/14/16 05:00 Total Bilirubin 0.3 mg/dL (0.3-1.0) 11/13/16 05:45 AST 35 U/L (13-39) 11/13/16 05:45 ALT 48 U/L (7-52) 11/13/16 05:45 Alkaline Phosphatase 72 U/L (34-104) 11/13/16 05:45 Ammonia 37 umol/L (16-53) 11/13/16 05:45 Creatine Kinase 180 U/L (30-223) 11/11/16 22:58 Total Protein 7.0 gm/dL (6.0-8.3) 11/13/16 05:45 Albumin 2.7 gm/dL (4.2-5.5) L 11/13/16 05:45 Globulin 4.3 gm/dL 11/13/16 05:45 Albumin/Globulin Ratio 0.6 (1.0-1.8) L 11/13/16 05:45 TSH 3.46 uIU/ml (0.34-5.60) 11/13/16 05:45 Urine Source CATH 11/11/16 22:40 Urine Color YELLOW 11/11/16 22:40 Urine Clarity HAZY (CLEAR) 11/11/16 22:40 Urine pH 7.5 11/11/16 22:40 Ur Specific [place] 1.020 (1.005-1.030) 11/11/16 22:40 Urine Protein >300 mg/dL (NEGATIVE) H 11/11/16 22:40 Urine Glucose (UA) NEGATIVE mg/dL (NEGATIVE) 11/11/16 22:40 Urine Ketones NEGATIVE mg/dL (NEGATIVE) 11/11/16 22:40 Urine Blood MODERATE (NEGATIVE) H 11/11/16 22:40 Urine Nitrate NEGATIVE (NEGATIVE) 11/11/16 22:40 Urine Bilirubin NEGATIVE (NEGATIVE) 11/11/16 22:40 Urine Urobilinogen 0.2 E.U./dL (0.2 - 1.0) 11/11/16 22:40 Ur Leukocyte Esterase SMALL (NEGATIVE) H 11/11/16 22:40 Urine RBC 5-10 /hpf (0-5) H 11/11/16 22:40 Urine WBC 6-10 /hpf (0-5) H 11/11/16 22:40 Ur Epithelial Cells FEW /lpf (FEW) 11/11/16 22:40 Urine Bacteria MODERATE /hpf (NONE SEEN) 11/11/16 22:40 Urine Osmolality 637 mOsmol/kg 11/12/16 16:30 U Random Total Protein 311.0 mg/dL 11/13/16 16:30 Ur Random Sodium 52 mmol/L 11/12/16 16:30 Urine Collection Time 24 hours 11/13/16 16:30 Urine Total Volume 1050 ml 11/13/16 16:30 Urine Creatinine 63.0 mg/dl (39.0-259.0) 11/13/16 16:30 Creat Clearance 24 Hr 9 ml/min (97.00-137.00) L 11/13/16 16:30 U Tot Protein 24h, Calc 3265.5 mg/24 hr (0-165) H 11/13/16 16:30 Body Surface Area 1.71 11/13/16 16:30 - Physical Exam Vitals and I&O: Vital Signs Temp 98.4 F 11/14/16 08:00 Pulse 93 11/14/16 09:49 Resp 20 11/14/16 08:00 BP 139/75 11/14/16 09:49 Pulse Ox 94 11/14/16 08:00 Intake & Output 11/13/16 11/14/16 11/14/16 18:59 06:59 18:59 Intake Total 125 50 Balance 125 50 Intake: Intake, IV Amount 50 Levofloxacin 250mg/50mL 50 250 mg In 50 ml @ 50 mls/ hr IV Q48HR REPLACED BY [facility] Rx#: [id number] Tube Feeding 125 Other: # Bowel Movements 2 Stool Characteristics Soft Formed Brown Active Medications: Current Medications Acetaminophen (Tylenol 650mg/20.3ml Suspension) 650 mg GT Q4HR PRN PRN Reason: Pain (Mild) Acetaminophen (Tylenol 650mg/20.3ml Suspension) 650 mg GT Q4HR PRN PRN Reason: TEMP> 101 Acetaminophen (Tylenol 650mg/20.3ml Suspension) 1,000 mg GT Q4HR PRN PRN Reason: Pain (Moderate) Acetaminophen/Hydrocodone Bitart ([place] 5mg/325mg) 1 tab PO Q6HR PRN PRN Reason: Pain (Severe) Stop: 01/11/17 00:00 Last Admin: 11/13/16 22:13 Dose: 1 tab Al Hydrox/Mg Hydrox/Simethicone (Maalox) 30 ml GT Q6HR PRN PRN Reason: Heartburn Stop: 01/11/17 00:00 Albuterol Sulfate (Albuterol 2.5mg/3ml Neb Ud) 2.5 mg HHN Q6HR PRN PRN Reason: sob/wheezing Stop: 01/11/17 00:00 Albuterol/Ipratropium (Duoneb Neb) 3 ml HHN [id number] REPLACED BY [facility] Stop: 01/11/17 14:59 Last Admin: 11/14/16 06:54 Dose: 3 ml Amlodipine Besylate (Norvasc) 5 mg GT DAILY REPLACED BY [facility] Stop: 01/11/17 08:59 Last Admin: 11/14/16 09:49 Dose: 5 mg Aspirin (Aspirin) 325 mg GT DAILY REPLACED BY [facility] Stop: 01/11/17 08:59 Last Admin: 11/14/16 09:48 Dose: 325 mg Bisacodyl (Dulcolax 10 Mg Supp) 10 mg RC PRN PRN PRN Reason: Constipation Stop: 01/11/17 00:00 Budesonide (Pulmicort) 0.5 mg HHN DAILYRT REPLACED BY [facility] Stop: 01/11/17 14:29 Last Admin: 11/14/16 06:54 Dose: 0.5 mg Clonidine HCl (Catapres) 0.1 mg GT Q12HR PRN PRN Reason: SBP GREATER THAN 160 Stop: 01/11/17 13:59 Famotidine (Pepcid) 20 mg GT DAILY REPLACED BY [facility] Stop: 01/11/17 08:59 Last Admin: 11/14/16 09:49 Dose: 20 mg Ferrous Sulfate (Iron) 450 mg GT DAILY REPLACED BY [facility] Stop: 01/11/17 08:59 Last Admin: 11/14/16 09:48 Dose: 450 mg Hydralazine HCl (Apresoline) 25 mg GT Q8HR RUY Stop: 01/11/17 04:59 Last Admin: 11/14/16 06:00 Dose: 25 mg Levofloxacin (Levaquin Pb) 250 mg in 50 mls @ 50 mls/hr IV Q48HR REPLACED BY [facility] Stop: 01/12/17 20:59 Last Infusion: 11/14/16 00:07 Dose: Infused Dextrose (D5w) 1,000 mls @ 125 mls/hr IV .Q8H REPLACED BY [facility] Stop: 01/11/17 08:25 Last Admin: 11/13/16 17:02 Dose: 125 mls/hr Levetiracetam (Keppra) 750 mg GT Q12HR RUY Stop: 01/11/17 08:59 Last Admin: 11/14/16 09:47 Dose: 750 mg Lorazepam (Ativan) 0.5 mg GT Q6HR PRN; Protocol PRN Reason: Anxiety Stop: 01/11/17 00:00 Last Admin: 11/14/16 06:31 Dose: 0.5 mg Magnesium Hydroxide (Milk Of Magnesia) 30 ml GT HS PRN PRN Reason: Constipation Stop: 01/11/17 00:00 Metoprolol Tartrate (Lopressor) 12.5 mg GT BID RUY Stop: 01/11/17 08:59 Last Admin: 11/14/16 09:49 Dose: 12.5 mg Polyethylene Glycol (Miralax) 17 gm GT DAILY RUY Stop: 01/11/17 08:59 Last Admin: 11/14/16 09:50 Dose: 17 gm Senna (Senna) 17.2 mg GT DAILY RUY Stop: 01/11/17 08:59 Last Admin: 11/14/16 09:48 Dose: 17.2 mg Sodium Phosphate (Fleet Enema) 135 ml RC DAILY PRN PRN Reason: Constipation Stop: 01/11/17 08:59 Assessment/Plan - Problem List Patient Problems: All Active Problems H/O chronic renal failure syndrome (Acute) Z87.448 H/O: HTN (hypertension) (Acute) Z86.79 Respiratory failure (Acute) J96.90 Right lower lobe pneumonia (Acute) J18.9 h/o anemia (Acute) s/p g tube (Acute) - Plan Plan: ivabx cbc/bmp in am cpm
--- NOTE | 2016-11-14 10:53 | Diagnostic Imaging Report ---
Renal ultrasound HISTORY: Acute on chronic renal disease. COMPARISON: CT chest on 11/12/2016 Technique: Sonography of the kidneys and urinary bladder was performed in multiple planes. FINDINGS: Exam is limited due to bowel gas. A right pleural effusion is noted. The right kidney measures 11.1 x 5.6 cm demonstrating increased echogenicity. Limited evaluation demonstrate no obvious focal lesions or evidence of hydronephrosis. The left kidney was not well-visualized. The urinary bladder wall appears mildly thickened. The right effusion is incidentally noted. IMPRESSION: Limited exam due to bowel gas. The left kidney was not visualized. Increased echogenicity of the right kidney which is likely due to underlying medical renal disease. Mild thickening of the urinary bladder wall. Inflammatory or infectious process cannot be excluded. Please correlate clinically. Right pleural effusion incidentally noted. If necessary CT follow-up may also be obtained.
--- NOTE | 2016-11-14 13:46 | General Progress Note ---
Subjective - Review of Systems Service Date: 11/14/16 Subjective: sleeping, comfortable Objective - Results Result Diagrams: 11/14/16 05:00 11/14/16 05:00 Recent Labs: Laboratory Last Values WBC 9.9 Th/cmm (4.8-10.8) 11/14/16 05:00 RBC 2.88 Mil/cmm (3.80-5.80) L 11/14/16 05:00 Hgb 9.1 gm/dL (12.6-17.4) L 11/14/16 05:00 Hct 26.7 % (39.0-49.0) L 11/14/16 05:00 MCV 93.0 fl (80-99) 11/14/16 05:00 MCH 31.6 pg (27.0-31.0) H 11/14/16 05:00 MCHC Differential 34.0 pg (28.0-36.0) 11/14/16 05:00 RDW 14.7 % (11.5-20.0) 11/14/16 05:00 Plt Count 177 Th/cmm (150-400) 11/14/16 05:00 MPV 11.5 fl 11/14/16 05:00 Neutrophils % 72.8 % (40.0-80.0) 11/14/16 05:00 Lymphocytes % 12.8 % (20.0-50.0) L 11/14/16 05:00 Monocytes % 6.6 % (2.0-10.0) 11/14/16 05:00 Eosinophils % 7.5 % (0.0-5.0) H 11/14/16 05:00 Basophils % 0.3 % (0.0-2.0) 11/14/16 05:00 Eos Smear Source URINE 11/12/16 16:30 Eos Smear Total Cells NONE SEEN (NONE SEEN) 11/12/16 16:30 PT 10.6 SECONDS (9.5-11.5) 11/11/16 22:58 INR 1.07 (0.5-1.4) 11/11/16 22:58 PTT (Actin FS) 27.1 SECONDS (26.0-38.0) 11/11/16 22:58 Specimen Source Arterial 11/13/16 08:50 Sample Site Left Radial 11/13/16 08:50 pH 7.47 (7.35-7.45) H 11/13/16 08:50 pCO2 38.0 mmHg (35.0-45.0) 11/13/16 08:50 pO2 67.0 mmHg (80.0-100.0) L 11/13/16 08:50 HCO3 27.7 mmol/L (20.0-26.0) H 11/13/16 08:50 Base Excess 3.9 mmol/L (-3.0-3.0) H 11/13/16 08:50 O2 Saturation 94.0 % (92.0-100.0) 11/13/16 08:50 Juan R Test PASS 11/13/16 08:50 Inspired O2 21 11/13/16 08:50 Critical Value PW 11/13/16 08:50 Sodium 152 mEq/L (136-145) H 11/14/16 05:00 Potassium 3.8 mEq/L (3.5-5.1) 11/14/16 05:00 Chloride 116 mEq/L (98-107) H 11/14/16 05:00 Carbon Dioxide 26.6 mEq/L (21.0-31.0) 11/14/16 05:00 Anion Gap 13.2 (7.0-16.0) 11/14/16 05:00 BUN 112 mg/dL (7-25) H* 11/14/16 05:00 Creatinine 4.7 mg/dL (0.7-1.3) H* 11/14/16 05:00 Est GFR ( Amer) TNP 11/14/16 05:00 Est GFR (Non-Af Amer) [facility] 11/14/16 05:00 BUN/Creatinine Ratio 23.8 11/14/16 05:00 Glucose 147 mg/dL (70-105) H 11/14/16 05:00 Whole Bld Lactic Acid 1.85 mmol/L (0.60-2.00) 11/11/16 22:58 Uric Acid 6.9 mg/dL (4.4-7.6) 11/13/16 05:45 Calcium 8.7 mg/dL (8.6-10.3) 11/14/16 05:00 Total Bilirubin 0.3 mg/dL (0.3-1.0) 11/13/16 05:45 AST 35 U/L (13-39) 11/13/16 05:45 ALT 48 U/L (7-52) 11/13/16 05:45 Alkaline Phosphatase 72 U/L (34-104) 11/13/16 05:45 Ammonia 37 umol/L (16-53) 11/13/16 05:45 Creatine Kinase 180 U/L (30-223) 11/11/16 22:58 Total Protein 7.0 gm/dL (6.0-8.3) 11/13/16 05:45 Albumin 2.7 gm/dL (4.2-5.5) L 11/13/16 05:45 Globulin 4.3 gm/dL 11/13/16 05:45 Albumin/Globulin Ratio 0.6 (1.0-1.8) L 11/13/16 05:45 TSH 3.46 uIU/ml (0.34-5.60) 11/13/16 05:45 Urine Source CATH 11/11/16 22:40 Urine Color YELLOW 11/11/16 22:40 Urine Clarity HAZY (CLEAR) 11/11/16 22:40 Urine pH 7.5 11/11/16 22:40 Ur Specific [place] 1.020 (1.005-1.030) 11/11/16 22:40 Urine Protein >300 mg/dL (NEGATIVE) H 11/11/16 22:40 Urine Glucose (UA) NEGATIVE mg/dL (NEGATIVE) 11/11/16 22:40 Urine Ketones NEGATIVE mg/dL (NEGATIVE) 11/11/16 22:40 Urine Blood MODERATE (NEGATIVE) H 11/11/16 22:40 Urine Nitrate NEGATIVE (NEGATIVE) 11/11/16 22:40 Urine Bilirubin NEGATIVE (NEGATIVE) 11/11/16 22:40 Urine Urobilinogen 0.2 E.U./dL (0.2 - 1.0) 11/11/16 22:40 Ur Leukocyte Esterase SMALL (NEGATIVE) H 11/11/16 22:40 Urine RBC 5-10 /hpf (0-5) H 11/11/16 22:40 Urine WBC 6-10 /hpf (0-5) H 11/11/16 22:40 Ur Epithelial Cells FEW /lpf (FEW) 11/11/16 22:40 Urine Bacteria MODERATE /hpf (NONE SEEN) 11/11/16 22:40 Urine Osmolality 637 mOsmol/kg 11/12/16 16:30 U Random Total Protein 311.0 mg/dL 11/13/16 16:30 Ur Random Sodium 52 mmol/L 11/12/16 16:30 Urine Collection Time 24 hours 11/13/16 16:30 Urine Total Volume 1050 ml 11/13/16 16:30 Urine Creatinine 63.0 mg/dl (39.0-259.0) 11/13/16 16:30 Creat Clearance 24 Hr 9 ml/min (97.00-137.00) L 11/13/16 16:30 U Tot Protein 24h, Calc 3265.5 mg/24 hr (0-165) H 11/13/16 16:30 Body Surface Area 1.71 11/13/16 16:30 - Physical Exam Vitals and I&O: Vital Signs Temp 98.2 F 11/14/16 12:12 Pulse 84 11/14/16 12:12 Resp 20 11/14/16 12:12 BP 123/75 11/14/16 12:12 Pulse Ox 94 11/14/16 12:12 Intake & Output 11/13/16 11/14/16 11/14/16 18:59 06:59 18:59 Intake Total 125 50 Balance 125 50 Intake: Intake, IV Amount 50 Levofloxacin 250mg/50mL 50 250 mg In 50 ml @ 50 mls/ hr IV Q48HR [facility] Rx#: [id number] Tube Feeding 125 Other: # Bowel Movements 2 Stool Characteristics Soft Formed Brown Active Medications: Current Medications Acetaminophen (Tylenol 650mg/20.3ml Suspension) 650 mg GT Q4HR PRN PRN Reason: Pain (Mild) Acetaminophen (Tylenol 650mg/20.3ml Suspension) 650 mg GT Q4HR PRN PRN Reason: TEMP> 101 Acetaminophen (Tylenol 650mg/20.3ml Suspension) 1,000 mg GT Q4HR PRN PRN Reason: Pain (Moderate) Acetaminophen/Hydrocodone Bitart ([place] 5mg/325mg) 1 tab PO Q6HR PRN PRN Reason: Pain (Severe) Stop: 01/11/17 00:00 Last Admin: 11/13/16 22:13 Dose: 1 tab Al Hydrox/Mg Hydrox/Simethicone (Maalox) 30 ml GT Q6HR PRN PRN Reason: Heartburn Stop: 01/11/17 00:00 Albuterol Sulfate (Albuterol 2.5mg/3ml Neb Ud) 2.5 mg HHN Q6HR PRN PRN Reason: sob/wheezing Stop: 01/11/17 00:00 Albuterol/Ipratropium (Duoneb Neb) 3 ml HHN [id number] [facility] Stop: 01/11/17 14:59 Last Admin: 11/14/16 11:05 Dose: 3 ml Amlodipine Besylate (Norvasc) 5 mg GT DAILY [facility] Stop: 01/11/17 08:59 Last Admin: 11/14/16 09:49 Dose: 5 mg Aspirin (Aspirin) 325 mg GT DAILY [facility] Stop: 01/11/17 08:59 Last Admin: 11/14/16 09:48 Dose: 325 mg Bisacodyl (Dulcolax 10 Mg Supp) 10 mg RC PRN PRN PRN Reason: Constipation Stop: 01/11/17 00:00 Budesonide (Pulmicort) 0.5 mg HHN DAILYRT [facility] Stop: 01/11/17 14:29 Last Admin: 11/14/16 06:54 Dose: 0.5 mg Clonidine HCl (Catapres) 0.1 mg GT Q12HR PRN PRN Reason: SBP GREATER THAN 160 Stop: 01/11/17 13:59 Famotidine (Pepcid) 20 mg GT DAILY [facility] Stop: 01/11/17 08:59 Last Admin: 11/14/16 09:49 Dose: 20 mg Ferrous Sulfate (Iron) 450 mg GT DAILY [facility] Stop: 01/11/17 08:59 Last Admin: 11/14/16 09:48 Dose: 450 mg Hydralazine HCl (Apresoline) 25 mg GT Q8HR [facility] Stop: 01/11/17 04:59 Last Admin: 11/14/16 06:00 Dose: 25 mg Levofloxacin (Levaquin Pb) 250 mg in 50 mls @ 50 mls/hr IV Q48HR [facility] Stop: 01/12/17 20:59 Last Infusion: 11/14/16 00:07 Dose: Infused Dextrose (D5w) 1,000 mls @ 125 mls/hr IV .Q8H [facility] Stop: 01/11/17 08:25 Last Admin: 11/13/16 17:02 Dose: 125 mls/hr Levetiracetam (Keppra) 750 mg GT Q12HR [facility] Stop: 01/11/17 08:59 Last Admin: 11/14/16 09:47 Dose: 750 mg Lorazepam (Ativan) 0.5 mg GT Q6HR PRN; Protocol PRN Reason: Anxiety Stop: 01/11/17 00:00 Last Admin: 11/14/16 06:31 Dose: 0.5 mg Magnesium Hydroxide (Milk Of Magnesia) 30 ml GT HS PRN PRN Reason: Constipation Stop: 01/11/17 00:00 Metoprolol Tartrate (Lopressor) 12.5 mg GT BID [facility] Stop: 01/11/17 08:59 Last Admin: 11/14/16 09:49 Dose: 12.5 mg Polyethylene Glycol (Miralax) 17 gm GT DAILY [facility] Stop: 01/11/17 08:59 Last Admin: 11/14/16 09:50 Dose: 17 gm Senna (Senna) 17.2 mg GT DAILY [facility] Stop: 01/11/17 08:59 Last Admin: 11/14/16 09:48 Dose: 17.2 mg Sodium Phosphate (Fleet Enema) 135 ml RC DAILY PRN PRN Reason: Constipation Stop: 01/11/17 08:59 General: No acute distress HEENT: Atraumatic, Mucous membr. moist/pink Neck: Supple, +2 carotid pulse wo bruit Cardiovascular: Regular rate, Normal S1, Normal S2 Lungs: Clear to auscultation Abdomen: Bowel sounds, Soft Extremities: no Edema Neurological: Sensation intact Skin: no Rash Assessment/Plan - Problem List Patient Problems: All Active Problems H/O chronic renal failure syndrome (Acute) Z87.448 H/O: HTN (hypertension) (Acute) Z86.79 Respiratory failure (Acute) J96.90 Right lower lobe pneumonia (Acute) J18.9 h/o anemia (Acute) s/p g tube (Acute) - Assessment Assessment: brittany on ckd hypernatremia severe dehydration sepsis 2nd to left hap, Cx UTI Smart's palsy/epilepsy S/P resp failure on vent, s/p extubation dysphaga s/p PEG anemia of cd ess htn - Plan Plan: kidney fnc still the same Na down to 152 CT chest showed B/L effusions, Left pna discussed w/ son, Moy, extensively need for dialysis he will discuss w/ rest of family & decide f/u electrolytes
[2016-11-15] MEDS: Dextrose 5% 1,000 ML IV SCH ×2 (05:27→21:47)
[2016-11-15 07:02] LABS: % BASOPHILS 0.4 % (0.0-2.0); % EOSINOPHILS 7.3 % (0.0-5.0); % LYMPHOCYTES 11.8 % (20.0-50.0); % MONOCYTES 4.9 % (2.0-10.0); % NEUTROPHILS 75.6 % (40.0-80.0); HEMATOCRIT 27.8 % (39.0-49.0); HEMOGLOBIN 9.5 gm/dL (12.6-17.4); MEAN CELL VOLUME 91.4 fl (80-99); MEAN CORPUSCULAR HEMOGLOBIN 31.1 pg (27.0-31.0); MEAN PLATELET VOLUME 10.4 fl; NEUTROPHILE ABSOLUTE 8.7 Th/cmm (1.8-8.0); PLATELET COUNT 167 Th/cmm (150-400); RED BLOOD COUNT 3.05 Mil/cmm (3.80-5.80); RED CELL DISTRIBUTION WIDTH 14.3 % (11.5-20.0); WHITE BLOOD COUNT 11.4 Th/cmm (4.8-10.8)
[2016-11-15 07:32] LABS: ANION GAP 12.3 (7.0-16.0); CALCIUM SERUM 9.1 mg/dL (8.6-10.3); CARBON DIOXIDE 24.6 mEq/L (21.0-31.0); CHLORIDE 116 mEq/L (98-107); GLUCOSE 204 mg/dL (70-105); POTASSIUM SERUM 3.9 mEq/L (3.5-5.1); SODIUM SERUM 149 mEq/L (136-145)
[2016-11-15] MEDS: Albuterol/Ipratropium Neb 3 ML AERS HHN SCH ×3 (07:39→15:21)
[2016-11-15] MEDS: Budesonide 0.5 Mg/2 mL Ud HHN SCH (07:39)
[2016-11-15 07:44] LABS: BUN - UREA NITROGEN 103 mg/dL (7-25)
[2016-11-15 07:45] LABS: CREATININE - SERUM 4.3 mg/dL (0.7-1.3)
--- NOTE | 2016-11-15 07:48 | Progress Notes ---
PULMONARY PROGRESS NOTE PROBLEM LIST: 1. Acute tracheobronchitis. 2. Right-sided effusion. 3. Severe dehydration with renal failure. 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 SYMPTOMS: Nil. The patient is snoring, awake, but no meaningful communication could be done. PHYSICAL EXAMINATION: VITAL SIGNS: The patient's recorded vitals: Temperature is 97.6, blood pressure 126/72, and saturation 94 on ____. NECK: A lot of drainage from chronic tracheocutaneous fistula. CHEST: Shows diminished air entry, mostly in the right basal area with occasional secretory noise. HEART: Regular. ABDOMEN: Shows G-tube, otherwise unremarkable. LABORATORY DATA: The patient's white count is trending down to 9900, hemoglobin is 9.1 and electrolytes show sodium has dropped down to 152. Creatinine is still high, but better on downward trend with 4.7 and BUN is ____. ASSESSMENT: The patient clinically appears to be slowly improving, right-sided effusion, tracheobronchitis with tracheocutaneous fistula with suspect obstructive sleep apnea syndrome. PLANS AND SUGGESTIONS: We will go ahead and continue current treatment. We will follow through chest x-ray. Discussed with RN about cleaning the area of tracheocutaneous fully and dressing with OpSite or similar dressing and go from there. JOB# [id number]
[2016-11-15] MEDS: Ferrous Sulfate 300 MG/5 ML UDC GT SCH (08:21)
[2016-11-15] MEDS: Levetiracetam 500 mg/5mL 5mL UDC GT SCH ×2 (08:21→21:45)
[2016-11-15] MEDS: POLYETHYLENE GLYCOL 3350 17 GM PACK GT SCH (08:22)
[2016-11-15] MEDS: Multivitamin w/ Minerals Tab GT SCH (08:22)
--- NOTE | 2016-11-15 09:44 | General Progress Note ---
Subjective - Review of Systems Subjective: awake, alert, nad Objective - Results Result Diagrams: 11/15/16 06:47 11/15/16 06:47 Recent Labs: Laboratory Last Values WBC 11.4 Th/cmm (4.8-10.8) H 11/15/16 06:47 RBC 3.05 Mil/cmm (3.80-5.80) L 11/15/16 06:47 Hgb 9.5 gm/dL (12.6-17.4) L 11/15/16 06:47 Hct 27.8 % (39.0-49.0) L 11/15/16 06:47 MCV 91.4 fl (80-99) 11/15/16 06:47 MCH 31.1 pg (27.0-31.0) H 11/15/16 06:47 MCHC Differential 34.0 pg (28.0-36.0) 11/15/16 06:47 RDW 14.3 % (11.5-20.0) 11/15/16 06:47 Plt Count 167 Th/cmm (150-400) 11/15/16 06:47 MPV 10.4 fl 11/15/16 06:47 Neutrophils % 75.6 % (40.0-80.0) 11/15/16 06:47 Lymphocytes % 11.8 % (20.0-50.0) L 11/15/16 06:47 Monocytes % 4.9 % (2.0-10.0) 11/15/16 06:47 Eosinophils % 7.3 % (0.0-5.0) H 11/15/16 06:47 Basophils % 0.4 % (0.0-2.0) 11/15/16 06:47 Eos Smear Source URINE 11/12/16 16:30 Eos Smear Total Cells NONE SEEN (NONE SEEN) 11/12/16 16:30 PT 10.6 SECONDS (9.5-11.5) 11/11/16 22:58 INR 1.07 (0.5-1.4) 11/11/16 22:58 PTT (Actin FS) 27.1 SECONDS (26.0-38.0) 11/11/16 22:58 Specimen Source Arterial 11/13/16 08:50 Sample Site Left Radial 11/13/16 08:50 pH 7.47 (7.35-7.45) H 11/13/16 08:50 pCO2 38.0 mmHg (35.0-45.0) 11/13/16 08:50 pO2 67.0 mmHg (80.0-100.0) L 11/13/16 08:50 HCO3 27.7 mmol/L (20.0-26.0) H 11/13/16 08:50 Base Excess 3.9 mmol/L (-3.0-3.0) H 11/13/16 08:50 O2 Saturation 94.0 % (92.0-100.0) 11/13/16 08:50 Juan R Test PASS 11/13/16 08:50 Inspired O2 21 11/13/16 08:50 Critical Value PW 11/13/16 08:50 Sodium 149 mEq/L (136-145) H 11/15/16 06:47 Potassium 3.9 mEq/L (3.5-5.1) 11/15/16 06:47 Chloride 116 mEq/L (98-107) H 11/15/16 06:47 Carbon Dioxide 24.6 mEq/L (21.0-31.0) 11/15/16 06:47 Anion Gap 12.3 (7.0-16.0) 11/15/16 06:47 BUN 103 mg/dL (7-25) H* 11/15/16 06:47 Creatinine 4.3 mg/dL (0.7-1.3) H* 11/15/16 06:47 Est GFR ( Amer) TNP 11/15/16 06:47 Est GFR (Non-Af Amer) TNP 11/15/16 06:47 BUN/Creatinine Ratio 24.0 11/15/16 06:47 Glucose 204 mg/dL (70-105) H 11/15/16 06:47 Hemoglobin A1c % 4.8 % (4.0-6.0) 11/15/16 06:47 Whole Bld Lactic Acid 1.85 mmol/L (0.60-2.00) 11/11/16 22:58 Uric Acid 6.9 mg/dL (4.4-7.6) 11/13/16 05:45 Calcium 9.1 mg/dL (8.6-10.3) 11/15/16 06:47 Total Bilirubin 0.3 mg/dL (0.3-1.0) 11/13/16 05:45 AST 35 U/L (13-39) 11/13/16 05:45 ALT 48 U/L (7-52) 11/13/16 05:45 Alkaline Phosphatase 72 U/L (34-104) 11/13/16 05:45 Ammonia 37 umol/L (16-53) 11/13/16 05:45 Creatine Kinase 180 U/L (30-223) 11/11/16 22:58 Total Protein 7.0 gm/dL (6.0-8.3) 11/13/16 05:45 Albumin 2.7 gm/dL (4.2-5.5) L 11/13/16 05:45 Globulin 4.3 gm/dL 11/13/16 05:45 Albumin/Globulin Ratio 0.6 (1.0-1.8) L 11/13/16 05:45 TSH 3.46 uIU/ml (0.34-5.60) 11/13/16 05:45 Urine Source CATH 11/11/16 22:40 Urine Color YELLOW 11/11/16 22:40 Urine Clarity HAZY (CLEAR) 11/11/16 22:40 Urine pH 7.5 11/11/16 22:40 Ur Specific [place] 1.020 (1.005-1.030) 11/11/16 22:40 Urine Protein >300 mg/dL (NEGATIVE) H 11/11/16 22:40 Urine Glucose (UA) NEGATIVE mg/dL (NEGATIVE) 11/11/16 22:40 Urine Ketones NEGATIVE mg/dL (NEGATIVE) 11/11/16 22:40 Urine Blood MODERATE (NEGATIVE) H 11/11/16 22:40 Urine Nitrate NEGATIVE (NEGATIVE) 11/11/16 22:40 Urine Bilirubin NEGATIVE (NEGATIVE) 11/11/16 22:40 Urine Urobilinogen 0.2 E.U./dL (0.2 - 1.0) 11/11/16 22:40 Ur Leukocyte Esterase SMALL (NEGATIVE) H 11/11/16 22:40 Urine RBC 5-10 /hpf (0-5) H 11/11/16 22:40 Urine WBC 6-10 /hpf (0-5) H 11/11/16 22:40 Ur Epithelial Cells FEW /lpf (FEW) 11/11/16 22:40 Urine Bacteria MODERATE /hpf (NONE SEEN) 11/11/16 22:40 Urine Osmolality 637 mOsmol/kg 11/12/16 16:30 U Random Total Protein 311.0 mg/dL 11/13/16 16:30 Ur Random Sodium 52 mmol/L 11/12/16 16:30 Urine Collection Time 24 hours 11/13/16 16:30 Urine Total Volume 1050 ml 11/13/16 16:30 Urine Creatinine 63.0 mg/dl (39.0-259.0) 11/13/16 16:30 Creat Clearance 24 Hr 9 ml/min (97.00-137.00) L 11/13/16 16:30 U Tot Protein 24h, Calc 3265.5 mg/24 hr (0-165) H 11/13/16 16:30 Body Surface Area 1.71 11/13/16 16:30 - Physical Exam Vitals and I&O: Vital Signs Temp 97 F 11/15/16 04:00 Pulse 90 11/15/16 08:23 Resp 19 11/15/16 04:00 BP 114/61 11/15/16 08:23 Pulse Ox 96 11/15/16 04:00 Intake & Output 11/14/16 11/15/16 11/15/16 18:59 06:59 18:59 Intake Total 400 Output Total 2150 Balance -1750 Intake: Tube Feeding 400 Output: Urine 2150 Other: # Bowel Movements 0 Active Medications: Current Medications Acetaminophen (Tylenol 650mg/20.3ml Suspension) 650 mg GT Q4HR PRN PRN Reason: Pain (Mild) Acetaminophen (Tylenol 650mg/20.3ml Suspension) 650 mg GT Q4HR PRN PRN Reason: TEMP> 101 Acetaminophen (Tylenol 650mg/20.3ml Suspension) 1,000 mg GT Q4HR PRN PRN Reason: Pain (Moderate) Acetaminophen/Hydrocodone Bitart ([place] 5mg/325mg) 1 tab PO Q6HR PRN PRN Reason: Pain (Severe) Stop: 01/11/17 00:00 Last Admin: 11/13/16 22:13 Dose: 1 tab Al Hydrox/Mg Hydrox/Simethicone (Maalox) 30 ml GT Q6HR PRN PRN Reason: Heartburn Stop: 01/11/17 00:00 Albuterol Sulfate (Albuterol 2.5mg/3ml Neb Ud) 2.5 mg HHN Q6HR PRN PRN Reason: sob/wheezing Stop: 01/11/17 00:00 Albuterol/Ipratropium (Duoneb Neb) 3 ml HHN [id number] [facility] Stop: 01/11/17 14:59 Last Admin: 11/15/16 07:39 Dose: 3 ml Amlodipine Besylate (Norvasc) 5 mg GT DAILY [facility] Stop: 01/11/17 08:59 Last Admin: 11/15/16 08:22 Dose: 5 mg Aspirin (Aspirin) 325 mg GT DAILY [facility] Stop: 01/11/17 08:59 Last Admin: 11/15/16 08:22 Dose: 325 mg Bisacodyl (Dulcolax 10 Mg Supp) 10 mg RC PRN PRN PRN Reason: Constipation Stop: 01/11/17 00:00 Budesonide (Pulmicort) 0.5 mg HHN DAILYRT [facility] Stop: 01/11/17 14:29 Last Admin: 11/15/16 07:39 Dose: 0.5 mg Clonidine HCl (Catapres) 0.1 mg GT Q12HR PRN PRN Reason: SBP GREATER THAN 160 Stop: 01/11/17 13:59 Famotidine (Pepcid) 20 mg GT DAILY [facility] Stop: 01/11/17 08:59 Last Admin: 11/15/16 08:22 Dose: 20 mg Ferrous Sulfate (Iron) 450 mg GT DAILY [facility] Stop: 01/11/17 08:59 Last Admin: 11/15/16 08:21 Dose: 450 mg Hydralazine HCl (Apresoline) 25 mg GT Q8HR [facility] Stop: 01/11/17 04:59 Last Admin: 11/15/16 05:27 Dose: 25 mg Levofloxacin (Levaquin Pb) 250 mg in 50 mls @ 50 mls/hr IV Q48HR [facility] Stop: 01/12/17 20:59 Last Infusion: 11/14/16 00:07 Dose: Infused Dextrose (D5w) 1,000 mls @ 125 mls/hr IV .Q8H [facility] Stop: 01/11/17 08:25 Last Admin: 11/15/16 05:27 Dose: 125 mls/hr Levetiracetam (Keppra) 750 mg GT Q12HR [facility] Stop: 01/11/17 08:59 Last Admin: 11/15/16 08:21 Dose: 750 mg Lorazepam (Ativan) 0.5 mg GT Q6HR PRN; Protocol PRN Reason: Anxiety Stop: 01/11/17 00:00 Last Admin: 11/14/16 06:31 Dose: 0.5 mg Magnesium Hydroxide (Milk Of Magnesia) 30 ml GT HS PRN PRN Reason: Constipation Stop: 01/11/17 00:00 Metoprolol Tartrate (Lopressor) 12.5 mg GT BID [facility] Stop: 01/11/17 08:59 Last Admin: 11/15/16 08:23 Dose: 12.5 mg Polyethylene Glycol (Miralax) 17 gm GT DAILY [facility] Stop: 01/11/17 08:59 Last Admin: 11/15/16 08:22 Dose: 17 gm Senna (Senna) 17.2 mg GT DAILY [facility] Stop: 01/11/17 08:59 Last Admin: 11/15/16 08:22 Dose: 17.2 mg Sodium Phosphate (Fleet Enema) 135 ml RC DAILY PRN PRN Reason: Constipation Stop: 01/11/17 08:59 Assessment/Plan - Problem List Patient Problems: All Active Problems H/O chronic renal failure syndrome (Acute) Z87.448 H/O: HTN (hypertension) (Acute) Z86.79 Respiratory failure (Acute) J96.90 Right lower lobe pneumonia (Acute) J18.9 h/o anemia (Acute) s/p g tube (Acute) - Plan Plan: ivabx cbc/bmp in am cpm
--- NOTE | 2016-11-15 10:11 | General Progress Note ---
Subjective - Review of Systems Service Date: 11/15/16 Subjective: sleeping, comfortable Objective - Results Result Diagrams: 11/15/16 06:47 11/15/16 06:47 Recent Labs: Laboratory Last Values WBC 11.4 Th/cmm (4.8-10.8) H 11/15/16 06:47 RBC 3.05 Mil/cmm (3.80-5.80) L 11/15/16 06:47 Hgb 9.5 gm/dL (12.6-17.4) L 11/15/16 06:47 Hct 27.8 % (39.0-49.0) L 11/15/16 06:47 MCV 91.4 fl (80-99) 11/15/16 06:47 MCH 31.1 pg (27.0-31.0) H 11/15/16 06:47 MCHC Differential 34.0 pg (28.0-36.0) 11/15/16 06:47 RDW 14.3 % (11.5-20.0) 11/15/16 06:47 Plt Count 167 Th/cmm (150-400) 11/15/16 06:47 MPV 10.4 fl 11/15/16 06:47 Neutrophils % 75.6 % (40.0-80.0) 11/15/16 06:47 Lymphocytes % 11.8 % (20.0-50.0) L 11/15/16 06:47 Monocytes % 4.9 % (2.0-10.0) 11/15/16 06:47 Eosinophils % 7.3 % (0.0-5.0) H 11/15/16 06:47 Basophils % 0.4 % (0.0-2.0) 11/15/16 06:47 Eos Smear Source URINE 11/12/16 16:30 Eos Smear Total Cells NONE SEEN (NONE SEEN) 11/12/16 16:30 PT 10.6 SECONDS (9.5-11.5) 11/11/16 22:58 INR 1.07 (0.5-1.4) 11/11/16 22:58 PTT (Actin FS) 27.1 SECONDS (26.0-38.0) 11/11/16 22:58 Specimen Source Arterial 11/13/16 08:50 Sample Site Left Radial 11/13/16 08:50 pH 7.47 (7.35-7.45) H 11/13/16 08:50 pCO2 38.0 mmHg (35.0-45.0) 11/13/16 08:50 pO2 67.0 mmHg (80.0-100.0) L 11/13/16 08:50 HCO3 27.7 mmol/L (20.0-26.0) H 11/13/16 08:50 Base Excess 3.9 mmol/L (-3.0-3.0) H 11/13/16 08:50 O2 Saturation 94.0 % (92.0-100.0) 11/13/16 08:50 Juan R Test PASS 11/13/16 08:50 Inspired O2 21 11/13/16 08:50 Critical Value PW 11/13/16 08:50 Sodium 149 mEq/L (136-145) H 11/15/16 06:47 Potassium 3.9 mEq/L (3.5-5.1) 11/15/16 06:47 Chloride 116 mEq/L (98-107) H 11/15/16 06:47 Carbon Dioxide 24.6 mEq/L (21.0-31.0) 11/15/16 06:47 Anion Gap 12.3 (7.0-16.0) 11/15/16 06:47 BUN 103 mg/dL (7-25) H* 11/15/16 06:47 Creatinine 4.3 mg/dL (0.7-1.3) H* 11/15/16 06:47 Est GFR ( Amer) TNP 11/15/16 06:47 Est GFR (Non-Af Amer) TN 11/15/16 06:47 BUN/Creatinine Ratio 24.0 11/15/16 06:47 Glucose 204 mg/dL (70-105) H 11/15/16 06:47 Hemoglobin A1c % 4.8 % (4.0-6.0) 11/15/16 06:47 Whole Bld Lactic Acid 1.85 mmol/L (0.60-2.00) 11/11/16 22:58 Uric Acid 6.9 mg/dL (4.4-7.6) 11/13/16 05:45 Calcium 9.1 mg/dL (8.6-10.3) 11/15/16 06:47 Total Bilirubin 0.3 mg/dL (0.3-1.0) 11/13/16 05:45 AST 35 U/L (13-39) 11/13/16 05:45 ALT 48 U/L (7-52) 11/13/16 05:45 Alkaline Phosphatase 72 U/L (34-104) 11/13/16 05:45 Ammonia 37 umol/L (16-53) 11/13/16 05:45 Creatine Kinase 180 U/L (30-223) 11/11/16 22:58 Total Protein 7.0 gm/dL (6.0-8.3) 11/13/16 05:45 Albumin 2.7 gm/dL (4.2-5.5) L 11/13/16 05:45 Globulin 4.3 gm/dL 11/13/16 05:45 Albumin/Globulin Ratio 0.6 (1.0-1.8) L 11/13/16 05:45 TSH 3.46 uIU/ml (0.34-5.60) 11/13/16 05:45 Urine Source CATH 11/11/16 22:40 Urine Color YELLOW 11/11/16 22:40 Urine Clarity HAZY (CLEAR) 11/11/16 22:40 Urine pH 7.5 11/11/16 22:40 Ur Specific [place] 1.020 (1.005-1.030) 11/11/16 22:40 Urine Protein >300 mg/dL (NEGATIVE) H 11/11/16 22:40 Urine Glucose (UA) NEGATIVE mg/dL (NEGATIVE) 11/11/16 22:40 Urine Ketones NEGATIVE mg/dL (NEGATIVE) 11/11/16 22:40 Urine Blood MODERATE (NEGATIVE) H 11/11/16 22:40 Urine Nitrate NEGATIVE (NEGATIVE) 11/11/16 22:40 Urine Bilirubin NEGATIVE (NEGATIVE) 11/11/16 22:40 Urine Urobilinogen 0.2 E.U./dL (0.2 - 1.0) 11/11/16 22:40 Ur Leukocyte Esterase SMALL (NEGATIVE) H 11/11/16 22:40 Urine RBC 5-10 /hpf (0-5) H 11/11/16 22:40 Urine WBC 6-10 /hpf (0-5) H 11/11/16 22:40 Ur Epithelial Cells FEW /lpf (FEW) 11/11/16 22:40 Urine Bacteria MODERATE /hpf (NONE SEEN) 11/11/16 22:40 Urine Osmolality 637 mOsmol/kg 11/12/16 16:30 U Random Total Protein 311.0 mg/dL 11/13/16 16:30 Ur Random Sodium 52 mmol/L 11/12/16 16:30 Urine Collection Time 24 hours 11/13/16 16:30 Urine Total Volume 1050 ml 11/13/16 16:30 Urine Creatinine 63.0 mg/dl (39.0-259.0) 11/13/16 16:30 Creat Clearance 24 Hr 9 ml/min (97.00-137.00) L 11/13/16 16:30 U Tot Protein 24h, Calc 3265.5 mg/24 hr (0-165) H 11/13/16 16:30 Body Surface Area 1.71 11/13/16 16:30 - Physical Exam Vitals and I&O: Vital Signs Temp 97 F 11/15/16 04:00 Pulse 90 11/15/16 08:23 Resp 19 11/15/16 04:00 BP 114/61 11/15/16 08:23 Pulse Ox 96 11/15/16 04:00 Intake & Output 11/14/16 11/15/16 11/15/16 18:59 06:59 18:59 Intake Total 400 Output Total 2150 Balance -1750 Intake: Tube Feeding 400 Output: Urine 2150 Other: # Bowel Movements 0 Active Medications: Current Medications Acetaminophen (Tylenol 650mg/20.3ml Suspension) 650 mg GT Q4HR PRN PRN Reason: Pain (Mild) Acetaminophen (Tylenol 650mg/20.3ml Suspension) 650 mg GT Q4HR PRN PRN Reason: TEMP> 101 Acetaminophen (Tylenol 650mg/20.3ml Suspension) 1,000 mg GT Q4HR PRN PRN Reason: Pain (Moderate) Acetaminophen/Hydrocodone Bitart ([place] 5mg/325mg) 1 tab PO Q6HR PRN PRN Reason: Pain (Severe) Stop: 01/11/17 00:00 Last Admin: 11/13/16 22:13 Dose: 1 tab Al Hydrox/Mg Hydrox/Simethicone (Maalox) 30 ml GT Q6HR PRN PRN Reason: Heartburn Stop: 01/11/17 00:00 Albuterol Sulfate (Albuterol 2.5mg/3ml Neb Ud) 2.5 mg HHN Q6HR PRN PRN Reason: sob/wheezing Stop: 01/11/17 00:00 Albuterol/Ipratropium (Duoneb Neb) 3 ml HHN [id number] [facility] Stop: 01/11/17 14:59 Last Admin: 11/15/16 07:39 Dose: 3 ml Amlodipine Besylate (Norvasc) 5 mg GT DAILY [facility] Stop: 01/11/17 08:59 Last Admin: 11/15/16 08:22 Dose: 5 mg Aspirin (Aspirin) 325 mg GT DAILY [facility] Stop: 01/11/17 08:59 Last Admin: 11/15/16 08:22 Dose: 325 mg Bisacodyl (Dulcolax 10 Mg Supp) 10 mg RC PRN PRN PRN Reason: Constipation Stop: 01/11/17 00:00 Budesonide (Pulmicort) 0.5 mg HHN DAILYRT [facility] Stop: 01/11/17 14:29 Last Admin: 11/15/16 07:39 Dose: 0.5 mg Clonidine HCl (Catapres) 0.1 mg GT Q12HR PRN PRN Reason: SBP GREATER THAN 160 Stop: 01/11/17 13:59 Famotidine (Pepcid) 20 mg GT DAILY [facility] Stop: 01/11/17 08:59 Last Admin: 11/15/16 08:22 Dose: 20 mg Ferrous Sulfate (Iron) 450 mg GT DAILY [facility] Stop: 01/11/17 08:59 Last Admin: 11/15/16 08:21 Dose: 450 mg Hydralazine HCl (Apresoline) 25 mg GT Q8HR [facility] Stop: 01/11/17 04:59 Last Admin: 11/15/16 05:27 Dose: 25 mg Levofloxacin (Levaquin Pb) 250 mg in 50 mls @ 50 mls/hr IV Q48HR [facility] Stop: 01/12/17 20:59 Last Infusion: 11/14/16 00:07 Dose: Infused Dextrose (D5w) 1,000 mls @ 125 mls/hr IV .Q8H [facility] Stop: 01/11/17 08:25 Last Admin: 11/15/16 05:27 Dose: 125 mls/hr Levetiracetam (Keppra) 750 mg GT Q12HR [facility] Stop: 01/11/17 08:59 Last Admin: 11/15/16 08:21 Dose: 750 mg Lorazepam (Ativan) 0.5 mg GT Q6HR PRN; Protocol PRN Reason: Anxiety Stop: 01/11/17 00:00 Last Admin: 11/14/16 06:31 Dose: 0.5 mg Magnesium Hydroxide (Milk Of Magnesia) 30 ml GT HS PRN PRN Reason: Constipation Stop: 01/11/17 00:00 Metoprolol Tartrate (Lopressor) 12.5 mg GT BID [facility] Stop: 01/11/17 08:59 Last Admin: 11/15/16 08:23 Dose: 12.5 mg Polyethylene Glycol (Miralax) 17 gm GT DAILY [facility] Stop: 01/11/17 08:59 Last Admin: 11/15/16 08:22 Dose: 17 gm Senna (Senna) 17.2 mg GT DAILY [facility] Stop: 01/11/17 08:59 Last Admin: 11/15/16 08:22 Dose: 17.2 mg Sodium Phosphate (Fleet Enema) 135 ml RC DAILY PRN PRN Reason: Constipation Stop: 01/11/17 08:59 General: No acute distress HEENT: Atraumatic, Mucous membr. moist/pink Neck: Supple, +2 carotid pulse wo bruit Cardiovascular: Regular rate, Normal S1, Normal S2 Lungs: Other (few rhonchi) Abdomen: Bowel sounds, Soft Extremities: no Edema Neurological: Sensation intact Skin: no Rash Assessment/Plan - Problem List Patient Problems: All Active Problems H/O chronic renal failure syndrome (Acute) Z87.448 H/O: HTN (hypertension) (Acute) Z86.79 Respiratory failure (Acute) J96.90 Right lower lobe pneumonia (Acute) J18.9 h/o anemia (Acute) s/p g tube (Acute) - Assessment Assessment: brittany on ckd hypernatremia severe dehydration sepsis 2nd to left hap, Cx UTI Smart's palsy/epilepsy S/P resp failure on vent, s/p extubation dysphaga s/p PEG anemia of cd ess htn - Plan Plan: kidney fnc barely improved Na down to 149 CT chest showed B/L effusions, Left pna discussed w/ son, Moy, extensively need for dialysis he will discuss w/ rest of family & decide f/u electrolytes
--- NOTE | 2016-11-15 10:27 | Diagnostic Imaging Report ---
Portable chest x-ray HISTORY: Shortness of breath, pneumonia Compared to prior exam of 11/14/2016, there is a very poor inspiration. Evidence for small right pleural effusion. The heart size appears generous. IMPRESSION: 1. Little change in findings consistent with a small right pleural effusion and probable cardiomegaly. The findings may be associated with congestive heart failure. Clinical correlation is needed.
--- NOTE | 2016-11-15 12:12 | Operative Report ---
PREOPERATIVE DIAGNOSES: 1. Acute renal failure on chronic kidney disease. 2. Hypertension. 3. Status post tracheostomy for respiratory failure. 4. Osteosarcoma post chemotherapy. POSTOPERATIVE DIAGNOSES: 1. Acute renal failure on chronic kidney disease. 2. Hypertension. 3. Status post tracheostomy for respiratory failure. 4. Osteosarcoma post chemotherapy. OPERATION DONE: Insertion of Kaden catheter, left subclavian vein under ultrasound guidance. DESCRIPTION OF PROCEDURE: The left chest was prepped with ChloraPrep and draped in appropriate manner. Then, 1% lidocaine was used to infiltrate the site located by ultrasound. Incision was made and size 18 needle was ____. The guidewire was inserted, the dilator and then the triple lumen catheter. It was anchored to chest wall with 3-0 silk. Portable chest x-ray will be ordered. JOB# [id number]
--- NOTE | 2016-11-15 17:18 | Consultation ---
VASCULAR CONSULTATION REFERRING PHYSICIAN: Blake Anderson M.D. REASON FOR CONSULTATION: Need for Kaden catheter for acute renal failure on chronic kidney disease. Thank you for referring this patient to me. HISTORY OF PRESENT ILLNESS: This is a 76-year-old male with worsening kidney function, seen and followed by Dr. Anderson. PAST MEDICAL HISTORY: Includes osteosarcoma post-chemotherapy, Smart's palsy, respiratory failure, chronic kidney disease, dysphagia, anemia, essential hypertension. LABORATORY STUDY: Today shows BUN rising to 103 with creatinine of 4.3. Potassium is 3.9. Hemoglobin is 9.5 with WBC of 11,400. PHYSICAL EXAMINATION: The patient does not respond much to questions. He is speaking. PLAN: There is a recent tracheostomy, which has been removed and is still healing. We will place the Kaden catheter in the subclavian location under ultrasound guidance. Informed consent discussed and given by family. JOB# [id number]
[2016-11-15] MEDS: Levofloxacin 250 mg/50 mL Premix Bag IV SCH (21:43)
[2016-11-16 07:17] LABS: % BASOPHILS 0.4 % (0.0-2.0); % EOSINOPHILS 5.8 % (0.0-5.0); % LYMPHOCYTES 14.4 % (20.0-50.0); % MONOCYTES 6.4 % (2.0-10.0); HEMATOCRIT 27.2 % (39.0-49.0); HEMOGLOBIN 9.4 gm/dL (12.6-17.4); MEAN CELL VOLUME 90.7 fl (80-99); MEAN CORPUSCULAR HEMOGLOBIN 31.3 pg (27.0-31.0); MEAN CORPUSCULAR HGB CONC 34.5 pg (28.0-36.0); MEAN PLATELET VOLUME 10.1 fl; NEUTROPHILE ABSOLUTE 8.8 Th/cmm (1.8-8.0); PLATELET COUNT 170 Th/cmm (150-400); RED BLOOD COUNT 2.99 Mil/cmm (3.80-5.80); RED CELL DISTRIBUTION WIDTH 13.9 % (11.5-20.0)
[2016-11-16] MEDS: Budesonide 0.5 Mg/2 mL Ud HHN SCH (07:26)
[2016-11-16] MEDS: Albuterol/Ipratropium Neb 3 ML AERS HHN SCH ×4 (07:26→20:25)
--- NOTE | 2016-11-16 07:31 | General Progress Note ---
Subjective - Review of Systems Subjective: awake, alert, nad Objective - Results Result Diagrams: 11/15/16 06:47 11/15/16 06:47 Recent Labs: Laboratory Last Values WBC 11.4 Th/cmm (4.8-10.8) H 11/15/16 06:47 RBC 3.05 Mil/cmm (3.80-5.80) L 11/15/16 06:47 Hgb 9.5 gm/dL (12.6-17.4) L 11/15/16 06:47 Hct 27.8 % (39.0-49.0) L 11/15/16 06:47 MCV 91.4 fl (80-99) 11/15/16 06:47 MCH 31.1 pg (27.0-31.0) H 11/15/16 06:47 MCHC Differential 34.0 pg (28.0-36.0) 11/15/16 06:47 RDW 14.3 % (11.5-20.0) 11/15/16 06:47 Plt Count 167 Th/cmm (150-400) 11/15/16 06:47 MPV 10.4 fl 11/15/16 06:47 Neutrophils % 75.6 % (40.0-80.0) 11/15/16 06:47 Lymphocytes % 11.8 % (20.0-50.0) L 11/15/16 06:47 Monocytes % 4.9 % (2.0-10.0) 11/15/16 06:47 Eosinophils % 7.3 % (0.0-5.0) H 11/15/16 06:47 Basophils % 0.4 % (0.0-2.0) 11/15/16 06:47 Eos Smear Source URINE 11/12/16 16:30 Eos Smear Total Cells NONE SEEN (NONE SEEN) 11/12/16 16:30 PT 10.6 SECONDS (9.5-11.5) 11/11/16 22:58 INR 1.07 (0.5-1.4) 11/11/16 22:58 PTT (Actin FS) 27.1 SECONDS (26.0-38.0) 11/11/16 22:58 Specimen Source Arterial 11/13/16 08:50 Sample Site Left Radial 11/13/16 08:50 pH 7.47 (7.35-7.45) H 11/13/16 08:50 pCO2 38.0 mmHg (35.0-45.0) 11/13/16 08:50 pO2 67.0 mmHg (80.0-100.0) L 11/13/16 08:50 HCO3 27.7 mmol/L (20.0-26.0) H 11/13/16 08:50 Base Excess 3.9 mmol/L (-3.0-3.0) H 11/13/16 08:50 O2 Saturation 94.0 % (92.0-100.0) 11/13/16 08:50 Juan R Test PASS 11/13/16 08:50 Inspired O2 21 11/13/16 08:50 Critical Value PW 11/13/16 08:50 Sodium 149 mEq/L (136-145) H 11/15/16 06:47 Potassium 3.9 mEq/L (3.5-5.1) 11/15/16 06:47 Chloride 116 mEq/L (98-107) H 11/15/16 06:47 Carbon Dioxide 24.6 mEq/L (21.0-31.0) 11/15/16 06:47 Anion Gap 12.3 (7.0-16.0) 11/15/16 06:47 BUN 103 mg/dL (7-25) H* 11/15/16 06:47 Creatinine 4.3 mg/dL (0.7-1.3) H* 11/15/16 06:47 Est GFR ( Amer) TNP 11/15/16 06:47 Est GFR (Non-Af Amer) TNP 11/15/16 06:47 BUN/Creatinine Ratio 24.0 11/15/16 06:47 Glucose 204 mg/dL (70-105) H 11/15/16 06:47 Hemoglobin A1c % 4.8 % (4.0-6.0) 11/15/16 06:47 Whole Bld Lactic Acid 1.85 mmol/L (0.60-2.00) 11/11/16 22:58 Uric Acid 6.9 mg/dL (4.4-7.6) 11/13/16 05:45 Calcium 9.1 mg/dL (8.6-10.3) 11/15/16 06:47 Total Bilirubin 0.3 mg/dL (0.3-1.0) 11/13/16 05:45 AST 35 U/L (13-39) 11/13/16 05:45 ALT 48 U/L (7-52) 11/13/16 05:45 Alkaline Phosphatase 72 U/L (34-104) 11/13/16 05:45 Ammonia 37 umol/L (16-53) 11/13/16 05:45 Creatine Kinase 180 U/L (30-223) 11/11/16 22:58 Total Protein 7.0 gm/dL (6.0-8.3) 11/13/16 05:45 Albumin 2.7 gm/dL (4.2-5.5) L 11/13/16 05:45 Globulin 4.3 gm/dL 11/13/16 05:45 Albumin/Globulin Ratio 0.6 (1.0-1.8) L 11/13/16 05:45 TSH 3.46 uIU/ml (0.34-5.60) 11/13/16 05:45 Urine Source CATH 11/11/16 22:40 Urine Color YELLOW 11/11/16 22:40 Urine Clarity HAZY (CLEAR) 11/11/16 22:40 Urine pH 7.5 11/11/16 22:40 Ur Specific [place] 1.020 (1.005-1.030) 11/11/16 22:40 Urine Protein >300 mg/dL (NEGATIVE) H 11/11/16 22:40 Urine Glucose (UA) NEGATIVE mg/dL (NEGATIVE) 11/11/16 22:40 Urine Ketones NEGATIVE mg/dL (NEGATIVE) 11/11/16 22:40 Urine Blood MODERATE (NEGATIVE) H 11/11/16 22:40 Urine Nitrate NEGATIVE (NEGATIVE) 11/11/16 22:40 Urine Bilirubin NEGATIVE (NEGATIVE) 11/11/16 22:40 Urine Urobilinogen 0.2 E.U./dL (0.2 - 1.0) 11/11/16 22:40 Ur Leukocyte Esterase SMALL (NEGATIVE) H 11/11/16 22:40 Urine RBC 5-10 /hpf (0-5) H 11/11/16 22:40 Urine WBC 6-10 /hpf (0-5) H 11/11/16 22:40 Ur Epithelial Cells FEW /lpf (FEW) 11/11/16 22:40 Urine Bacteria MODERATE /hpf (NONE SEEN) 11/11/16 22:40 Urine Osmolality 637 mOsmol/kg 11/12/16 16:30 U Random Total Protein 311.0 mg/dL 11/13/16 16:30 Ur Random Sodium 52 mmol/L 11/12/16 16:30 Urine Collection Time 24 hours 11/13/16 16:30 Urine Total Volume 1050 ml 11/13/16 16:30 Urine Creatinine 63.0 mg/dl (39.0-259.0) 11/13/16 16:30 Creat Clearance 24 Hr 9 ml/min (97.00-137.00) L 11/13/16 16:30 U Tot Protein 24h, Calc 3265.5 mg/24 hr (0-165) H 11/13/16 16:30 Body Surface Area 1.71 11/13/16 16:30 - Physical Exam Vitals and I&O: Vital Signs Temp 96.0 F 11/16/16 04:00 Pulse 89 11/16/16 04:00 Resp 20 11/16/16 04:00 BP 138/84 11/16/16 04:00 Pulse Ox 98 11/16/16 04:00 Intake & Output 11/15/16 11/16/16 11/16/16 18:59 06:59 18:59 Intake Total 1540 Output Total 500 Balance 1040 Intake: Intake, IV Amount 1000 Dextrose 5% 1,000 ml @ 1000 125 mls/hr IV .Q8H [facility] Rx #:[id number] Tube Feeding 540 Output: Hemodialysis 500 Active Medications: Current Medications Acetaminophen (Tylenol 650mg/20.3ml Suspension) 650 mg GT Q4HR PRN PRN Reason: Pain (Mild) Acetaminophen (Tylenol 650mg/20.3ml Suspension) 650 mg GT Q4HR PRN PRN Reason: TEMP> 101 Acetaminophen (Tylenol 650mg/20.3ml Suspension) 1,000 mg GT Q4HR PRN PRN Reason: Pain (Moderate) Acetaminophen/Hydrocodone Bitart ([place] 5mg/325mg) 1 tab PO Q6HR PRN PRN Reason: Pain (Severe) Stop: 01/11/17 00:00 Last Admin: 11/13/16 22:13 Dose: 1 tab Al Hydrox/Mg Hydrox/Simethicone (Maalox) 30 ml GT Q6HR PRN PRN Reason: Heartburn Stop: 01/11/17 00:00 Albuterol Sulfate (Albuterol 2.5mg/3ml Neb Ud) 2.5 mg HHN Q6HR PRN PRN Reason: sob/wheezing Stop: 01/11/17 00:00 Albuterol/Ipratropium (Duoneb Neb) 3 ml HHN [id number] [facility] Stop: 01/11/17 14:59 Last Admin: 11/16/16 07:26 Dose: 3 ml Amlodipine Besylate (Norvasc) 5 mg GT DAILY [facility] Stop: 01/11/17 08:59 Last Admin: 11/15/16 08:22 Dose: 5 mg Aspirin (Aspirin) 325 mg GT DAILY [facility] Stop: 01/11/17 08:59 Last Admin: 11/15/16 08:22 Dose: 325 mg Bisacodyl (Dulcolax 10 Mg Supp) 10 mg RC PRN PRN PRN Reason: Constipation Stop: 01/11/17 00:00 Budesonide (Pulmicort) 0.5 mg HHN DAILYRT [facility] Stop: 01/11/17 14:29 Last Admin: 11/16/16 07:26 Dose: 0.5 mg Clonidine HCl (Catapres) 0.1 mg GT Q12HR PRN PRN Reason: SBP GREATER THAN 160 Stop: 01/11/17 13:59 Famotidine (Pepcid) 20 mg GT DAILY [facility] Stop: 01/11/17 08:59 Last Admin: 11/15/16 08:22 Dose: 20 mg Ferrous Sulfate (Iron) 450 mg GT DAILY [facility] Stop: 01/11/17 08:59 Last Admin: 11/15/16 08:21 Dose: 450 mg Hydralazine HCl (Apresoline) 25 mg GT Q8HR [facility] Stop: 01/11/17 04:59 Last Admin: 11/15/16 21:44 Dose: 25 mg Levofloxacin (Levaquin Pb) 250 mg in 50 mls @ 50 mls/hr IV Q48HR [facility] Stop: 01/12/17 20:59 Last Admin: 11/15/16 21:43 Dose: 50 mls/hr Dextrose (D5w) 1,000 mls @ 125 mls/hr IV .Q8H [facility] Stop: 01/11/17 08:25 Last Admin: 11/15/16 21:47 Dose: 125 mls/hr Levetiracetam (Keppra) 750 mg GT Q12HR [facility] Stop: 01/11/17 08:59 Last Admin: 11/15/16 21:45 Dose: 750 mg Lorazepam (Ativan) 0.5 mg GT Q6HR PRN; Protocol PRN Reason: Anxiety Stop: 01/11/17 00:00 Last Admin: 11/14/16 06:31 Dose: 0.5 mg Magnesium Hydroxide (Milk Of Magnesia) 30 ml GT HS PRN PRN Reason: Constipation Stop: 01/11/17 00:00 Metoprolol Tartrate (Lopressor) 12.5 mg GT BID [facility] Stop: 01/11/17 08:59 Last Admin: 11/15/16 16:31 Dose: Not Given Polyethylene Glycol (Miralax) 17 gm GT DAILY [facility] Stop: 01/11/17 08:59 Last Admin: 11/15/16 08:22 Dose: 17 gm Senna (Senna) 17.2 mg GT DAILY [facility] Stop: 01/11/17 08:59 Last Admin: 11/15/16 08:22 Dose: 17.2 mg Sodium Phosphate (Fleet Enema) 135 ml RC DAILY PRN PRN Reason: Constipation Stop: 01/11/17 08:59 Assessment/Plan - Problem List Patient Problems: All Active Problems H/O chronic renal failure syndrome (Acute) Z87.448 H/O: HTN (hypertension) (Acute) Z86.79 Respiratory failure (Acute) J96.90 Right lower lobe pneumonia (Acute) J18.9 h/o anemia (Acute) s/p g tube (Acute) - Plan Plan: ivabx cbc/bmp in am cpm
[2016-11-16 07:55] LABS: ANION GAP 7.7 (7.0-16.0); BUN - UREA NITROGEN 50 mg/dL (7-25); BUN/CREATININE RATIO 17.2; CALCIUM SERUM 9.5 mg/dL (8.6-10.3); CARBON DIOXIDE 27.1 mEq/L (21.0-31.0); CHLORIDE 108 mEq/L (98-107); CREATININE - SERUM 2.9 mg/dL (0.7-1.3); GLUCOSE 134 mg/dL (70-105); POTASSIUM SERUM 3.8 mEq/L (3.5-5.1); SODIUM SERUM 139 mEq/L (136-145)
[2016-11-16] MEDS: Multivitamin w/ Minerals Tab GT SCH (10:38)
[2016-11-16] MEDS: Ferrous Sulfate 300 MG/5 ML UDC GT SCH (10:38)
[2016-11-16] MEDS: Levetiracetam 500 mg/5mL 5mL UDC GT SCH ×2 (10:39→22:20)
--- NOTE | 2016-11-16 11:03 | Diagnostic Imaging Report ---
Portable chest x-ray HISTORY: Shortness of breath, vascular catheter placement Compared with prior exam performed earlier in the day, a left-sided vascular catheter is been inserted. The tip is in the region of the superior vena cava at the junction with the left brachiocephalic vein. There is a poor inspiration. The heart appears enlarged. Blunting of the right costophrenic angle may be associated with a small effusion. No pneumothorax. IMPRESSION: 1. New vascular catheter with the tip in the region of the superior vena cava at the junction with the left brachiocephalic vein 2. Cardiomegaly 3. Suggestion of a small right pleural effusion
--- NOTE | 2016-11-16 13:17 | Progress Notes ---
PROBLEM LIST: 1. Acute pneumonitis, tracheobronchitis. 2. Right-sided fluid. 3. Prerenal azotemia with renal failure. SYMPTOMS: None, still not verbal. No specific ____ symptomatology. PHYSICAL EXAMINATION: VITAL SIGNS: The patient's temperature is 97.6, blood pressure 115/74. NECK: JVP not visualized. CHEST: Shows diminished air entry with occasional rhonchi. IMAGING: Chest x-ray still shows haziness in the bases, otherwise, unremarkable. LABORATORY DATA: The patient's pertinent laboratory studies, white count is 11.4, hemoglobin 9.5, sodium has gone down to ____ 149, creatinine has dropped down from 5.6 to 4.3, BUN is dropping down to ____ 103. ASSESSMENT: The patient clinically seemingly improving with hydration, etc. Respiratory murray stable, it may with some possible ____ spacing with possibly aspiration. 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 PLANS AND SUGGESTIONS: We will go ahead and continue current treatment or follow through chest x-ray, lab in the next few days and go from there. JOB# [id number]
[2016-11-16] MEDS: POLYETHYLENE GLYCOL 3350 17 GM PACK GT SCH (13:47)
--- NOTE | 2016-11-16 15:47 | General Progress Note ---
Subjective - Review of Systems Service Date: 11/16/16 Subjective: more awale, but looks depressed Objective - Results Result Diagrams: 11/16/16 07:02 11/16/16 07:02 Recent Labs: Laboratory Last Values WBC 12.0 Th/cmm (4.8-10.8) H 11/16/16 07:02 RBC 2.99 Mil/cmm (3.80-5.80) L 11/16/16 07:02 Hgb 9.4 gm/dL (12.6-17.4) L 11/16/16 07:02 Hct 27.2 % (39.0-49.0) L 11/16/16 07:02 MCV 90.7 fl (80-99) 11/16/16 07:02 MCH 31.3 pg (27.0-31.0) H 11/16/16 07:02 MCHC Differential 34.5 pg (28.0-36.0) 11/16/16 07:02 RDW 13.9 % (11.5-20.0) 11/16/16 07:02 Plt Count 170 Th/cmm (150-400) 11/16/16 07:02 MPV 10.1 fl 11/16/16 07:02 Neutrophils % 73.0 % (40.0-80.0) 11/16/16 07:02 Lymphocytes % 14.4 % (20.0-50.0) L 11/16/16 07:02 Monocytes % 6.4 % (2.0-10.0) 11/16/16 07:02 Eosinophils % 5.8 % (0.0-5.0) H 11/16/16 07:02 Basophils % 0.4 % (0.0-2.0) 11/16/16 07:02 Eos Smear Source URINE 11/12/16 16:30 Eos Smear Total Cells NONE SEEN (NONE SEEN) 11/12/16 16:30 PT 10.6 SECONDS (9.5-11.5) 11/11/16 22:58 INR 1.07 (0.5-1.4) 11/11/16 22:58 PTT (Actin FS) 27.1 SECONDS (26.0-38.0) 11/11/16 22:58 Specimen Source Arterial 11/13/16 08:50 Sample Site Left Radial 11/13/16 08:50 pH 7.47 (7.35-7.45) H 11/13/16 08:50 pCO2 38.0 mmHg (35.0-45.0) 11/13/16 08:50 pO2 67.0 mmHg (80.0-100.0) L 11/13/16 08:50 HCO3 27.7 mmol/L (20.0-26.0) H 11/13/16 08:50 Base Excess 3.9 mmol/L (-3.0-3.0) H 11/13/16 08:50 O2 Saturation 94.0 % (92.0-100.0) 11/13/16 08:50 Juan R Test PASS 11/13/16 08:50 Inspired O2 21 11/13/16 08:50 Critical Value PW 11/13/16 08:50 Sodium 139 mEq/L (136-145) 11/16/16 07:02 Potassium 3.8 mEq/L (3.5-5.1) 11/16/16 07:02 Chloride 108 mEq/L (98-107) H 11/16/16 07:02 Carbon Dioxide 27.1 mEq/L (21.0-31.0) 11/16/16 07:02 Anion Gap 7.7 (7.0-16.0) 11/16/16 07:02 BUN 50 mg/dL (7-25) H 11/16/16 07:02 Creatinine 2.9 mg/dL (0.7-1.3) H 11/16/16 07:02 Est GFR ( Amer) TNP 11/16/16 07:02 Est GFR (Non-Af Amer) TNP 11/16/16 07:02 BUN/Creatinine Ratio 17.2 11/16/16 07:02 Glucose 134 mg/dL (70-105) H 11/16/16 07:02 Hemoglobin A1c % 4.8 % (4.0-6.0) 11/15/16 06:47 Whole Bld Lactic Acid 1.85 mmol/L (0.60-2.00) 11/11/16 22:58 Uric Acid 6.9 mg/dL (4.4-7.6) 11/13/16 05:45 Calcium 9.5 mg/dL (8.6-10.3) 11/16/16 07:02 Total Bilirubin 0.3 mg/dL (0.3-1.0) 11/13/16 05:45 AST 35 U/L (13-39) 11/13/16 05:45 ALT 48 U/L (7-52) 11/13/16 05:45 Alkaline Phosphatase 72 U/L (34-104) 11/13/16 05:45 Ammonia 37 umol/L (16-53) 11/13/16 05:45 Creatine Kinase 180 U/L (30-223) 11/11/16 22:58 Total Protein 7.0 gm/dL (6.0-8.3) 11/13/16 05:45 Albumin 2.7 gm/dL (4.2-5.5) L 11/13/16 05:45 Globulin 4.3 gm/dL 11/13/16 05:45 Albumin/Globulin Ratio 0.6 (1.0-1.8) L 11/13/16 05:45 TSH 3.46 uIU/ml (0.34-5.60) 11/13/16 05:45 Urine Source CATH 11/11/16 22:40 Urine Color YELLOW 11/11/16 22:40 Urine Clarity HAZY (CLEAR) 11/11/16 22:40 Urine pH 7.5 11/11/16 22:40 Ur Specific [place] 1.020 (1.005-1.030) 11/11/16 22:40 Urine Protein >300 mg/dL (NEGATIVE) H 11/11/16 22:40 Urine Glucose (UA) NEGATIVE mg/dL (NEGATIVE) 11/11/16 22:40 Urine Ketones NEGATIVE mg/dL (NEGATIVE) 11/11/16 22:40 Urine Blood MODERATE (NEGATIVE) H 11/11/16 22:40 Urine Nitrate NEGATIVE (NEGATIVE) 11/11/16 22:40 Urine Bilirubin NEGATIVE (NEGATIVE) 11/11/16 22:40 Urine Urobilinogen 0.2 E.U./dL (0.2 - 1.0) 11/11/16 22:40 Ur Leukocyte Esterase SMALL (NEGATIVE) H 11/11/16 22:40 Urine RBC 5-10 /hpf (0-5) H 11/11/16 22:40 Urine WBC 6-10 /hpf (0-5) H 11/11/16 22:40 Ur Epithelial Cells FEW /lpf (FEW) 11/11/16 22:40 Urine Bacteria MODERATE /hpf (NONE SEEN) 11/11/16 22:40 Urine Osmolality 637 mOsmol/kg 11/12/16 16:30 U Random Total Protein 311.0 mg/dL 11/13/16 16:30 Ur Random Sodium 52 mmol/L 11/12/16 16:30 Urine Collection Time 24 hours 11/13/16 16:30 Urine Total Volume 1050 ml 11/13/16 16:30 Urine Creatinine 63.0 mg/dl (39.0-259.0) 11/13/16 16:30 Creat Clearance 24 Hr 9 ml/min (97.00-137.00) L 11/13/16 16:30 U Tot Protein 24h, Calc 3265.5 mg/24 hr (0-165) H 11/13/16 16:30 Body Surface Area 1.71 11/13/16 16:30 - Physical Exam Vitals and I&O: Vital Signs Temp 96.0 F 11/16/16 04:00 Pulse 78 11/16/16 13:46 Resp 16 11/16/16 11:05 BP 101/59 11/16/16 13:46 Pulse Ox 95 11/16/16 11:05 Intake & Output 11/15/16 11/16/16 11/16/16 18:59 06:59 18:59 Intake Total 1540 Output Total 500 Balance 1040 Intake: Intake, IV Amount 1000 Dextrose 5% 1,000 ml @ 1000 125 mls/hr IV .Q8H [facility] Rx #:[id number] Tube Feeding 540 Output: Hemodialysis 500 Active Medications: Current Medications Acetaminophen (Tylenol 650mg/20.3ml Suspension) 650 mg GT Q4HR PRN PRN Reason: Pain (Mild) Acetaminophen (Tylenol 650mg/20.3ml Suspension) 650 mg GT Q4HR PRN PRN Reason: TEMP> 101 Acetaminophen (Tylenol 650mg/20.3ml Suspension) 1,000 mg GT Q4HR PRN PRN Reason: Pain (Moderate) Acetaminophen/Hydrocodone Bitart ([place] 5mg/325mg) 1 tab PO Q6HR PRN PRN Reason: Pain (Severe) Stop: 01/11/17 00:00 Last Admin: 11/13/16 22:13 Dose: 1 tab Al Hydrox/Mg Hydrox/Simethicone (Maalox) 30 ml GT Q6HR PRN PRN Reason: Heartburn Stop: 01/11/17 00:00 Albuterol Sulfate (Albuterol 2.5mg/3ml Neb Ud) 2.5 mg HHN Q6HR PRN PRN Reason: sob/wheezing Stop: 01/11/17 00:00 Albuterol/Ipratropium (Duoneb Neb) 3 ml HHN [id number] [facility] Stop: 01/11/17 14:59 Last Admin: 11/16/16 15:29 Dose: 3 ml Amlodipine Besylate (Norvasc) 5 mg GT DAILY [facility] Stop: 01/11/17 08:59 Last Admin: 11/16/16 10:37 Dose: 5 mg Aspirin (Aspirin) 325 mg GT DAILY [facility] Stop: 01/11/17 08:59 Last Admin: 11/16/16 10:37 Dose: 325 mg Bisacodyl (Dulcolax 10 Mg Supp) 10 mg RC PRN PRN PRN Reason: Constipation Stop: 01/11/17 00:00 Budesonide (Pulmicort) 0.5 mg HHN DAILYRT [facility] Stop: 01/11/17 14:29 Last Admin: 11/16/16 07:26 Dose: 0.5 mg Clonidine HCl (Catapres) 0.1 mg GT Q12HR PRN PRN Reason: SBP GREATER THAN 160 Stop: 01/11/17 13:59 Famotidine (Pepcid) 20 mg GT DAILY [facility] Stop: 01/11/17 08:59 Last Admin: 11/16/16 10:38 Dose: 20 mg Ferrous Sulfate (Iron) 450 mg GT DAILY [facility] Stop: 01/11/17 08:59 Last Admin: 11/16/16 10:38 Dose: 450 mg Hydralazine HCl (Apresoline) 25 mg GT Q8HR [facility] Stop: 01/11/17 04:59 Last Admin: 11/16/16 13:46 Dose: 25 mg Levofloxacin (Levaquin Pb) 250 mg in 50 mls @ 50 mls/hr IV Q48HR [facility] Stop: 01/12/17 20:59 Last Admin: 11/15/16 21:43 Dose: 50 mls/hr Dextrose (D5w) 1,000 mls @ 125 mls/hr IV .Q8H [facility] Stop: 01/11/17 08:25 Last Admin: 11/15/16 21:47 Dose: 125 mls/hr Levetiracetam (Keppra) 750 mg GT Q12HR [facility] Stop: 01/11/17 08:59 Last Admin: 11/16/16 10:39 Dose: 750 mg Lorazepam (Ativan) 0.5 mg GT Q6HR PRN; Protocol PRN Reason: Anxiety Stop: 01/11/17 00:00 Last Admin: 11/14/16 06:31 Dose: 0.5 mg Magnesium Hydroxide (Milk Of Magnesia) 30 ml GT HS PRN PRN Reason: Constipation Stop: 01/11/17 00:00 Metoprolol Tartrate (Lopressor) 12.5 mg GT BID [facility] Stop: 01/11/17 08:59 Last Admin: 11/16/16 10:36 Dose: 12.5 mg Polyethylene Glycol (Miralax) 17 gm GT DAILY [facility] Stop: 01/11/17 08:59 Last Admin: 11/16/16 13:47 Dose: 17 gm Senna (Senna) 17.2 mg GT DAILY [facility] Stop: 01/11/17 08:59 Last Admin: 11/16/16 10:38 Dose: 17.2 mg Sodium Phosphate (Fleet Enema) 135 ml RC DAILY PRN PRN Reason: Constipation Stop: 01/11/17 08:59 General: Alert, No acute distress HEENT: Atraumatic, Mucous membr. moist/pink Neck: Supple, +2 carotid pulse wo bruit Cardiovascular: Regular rate, Normal S1, Normal S2 Lungs: Clear to auscultation Abdomen: Bowel sounds, Soft Extremities: no Edema Neurological: Sensation intact Skin: no Rash Assessment/Plan - Problem List Patient Problems: All Active Problems H/O chronic renal failure syndrome (Acute) Z87.448 H/O: HTN (hypertension) (Acute) Z86.79 Respiratory failure (Acute) J96.90 Right lower lobe pneumonia (Acute) J18.9 h/o anemia (Acute) s/p g tube (Acute) - Assessment Assessment: esrd on hd sepsis 2nd to left hap, Cx UTI Smart's palsy/epilepsy S/P resp failure on vent, s/p extubation dysphaga s/p PEG anemia of cd ess htn - Plan Plan: kidney fnc barely improved Na down to 139 CT chest showed B/L effusions, Left pna schedule for hd in am f/u electrolytes start epogen
[2016-11-16] MEDS: Dextrose 5% 1,000 ML IV SCH (22:28)
--- NOTE | 2016-11-17 04:34 | Progress Notes ---
PROBLEM LIST: 1. Acute tracheobronchitis. 2. Right-sided effusion. 3. Obstructive sleep apnea syndrome. 4. 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 SYMPTOMS: Nil, is more awake though no significant verbal communication could be done. PHYSICAL EXAMINATION: VITAL SIGNS: The patient is afebrile, heart rate is in 70s-80s, blood pressure is normotensive, his saturation is 95 on room air. Trach site appears to be not much changed. NECK: No nodes in the neck could be palpated. CHEST: Shows scattered rhonchi with generalized diminished on the right basal area. HEART: Regular. ABDOMEN: Soft, nontender with G-tube. LABORATORY DATA: Shows hemoglobin 12.0 with hemoglobin 9.4____, sodium is 139____ after dialysis sodium is 139 and BUN is 50, creatinine is 2.9. ASSESSMENT: The patient clinically appears to be stable. Overall, metabolically significantly improved, still the patient has an effusion on the right side. PLANS AND SUGGESTIONS: We will continue current treatment. We will followup chest x-ray in the next day or two and follow up the electrolytes, etc., and then go from there. JOB# [id number]
[2016-11-17 05:33] LABS: % BASOPHILS 0.4 % (0.0-2.0); HEMOGLOBIN 8.7 gm/dL (12.6-17.4); MEAN CELL VOLUME 90.9 fl (80-99); RED BLOOD COUNT 2.74 Mil/cmm (3.80-5.80)
[2016-11-17 05:48] LABS: % EOSINOPHILS 6.1 % (0.0-5.0); % MONOCYTES 7.5 % (2.0-10.0); HEMATOCRIT 24.9 % (39.0-49.0); MEAN CORPUSCULAR HEMOGLOBIN 31.8 pg (27.0-31.0); MEAN PLATELET VOLUME 9.7 fl; NEUTROPHILE ABSOLUTE 7.2 Th/cmm (1.8-8.0); PLATELET COUNT 176 Th/cmm (150-400); RED CELL DISTRIBUTION WIDTH 13.9 % (11.5-20.0); WHITE BLOOD COUNT 10.1 Th/cmm (4.8-10.8)
[2016-11-17] MEDS: Budesonide 0.5 Mg/2 mL Ud HHN SCH (06:39)
[2016-11-17] MEDS: Albuterol/Ipratropium Neb 3 ML AERS HHN SCH ×4 (06:39→19:07)
[2016-11-17] MEDS: POLYETHYLENE GLYCOL 3350 17 GM PACK GT SCH (09:22)
[2016-11-17] MEDS: Levetiracetam 500 mg/5mL 5mL UDC GT SCH ×2 (09:24→21:48)
--- NOTE | 2016-11-17 09:24 | General Progress Note ---
Subjective - Review of Systems Subjective: awake, alert, nad Objective - Results Result Diagrams: 11/17/16 05:05 11/16/16 07:02 Recent Labs: Laboratory Last Values WBC 10.1 Th/cmm (4.8-10.8) 11/17/16 05:05 RBC 2.74 Mil/cmm (3.80-5.80) L 11/17/16 05:05 Hgb 8.7 gm/dL (12.6-17.4) L 11/17/16 05:05 Hct 24.9 % (39.0-49.0) L 11/17/16 05:05 MCV 90.9 fl (80-99) 11/17/16 05:05 MCH 31.8 pg (27.0-31.0) H 11/17/16 05:05 MCHC Differential 35.0 pg (28.0-36.0) 11/17/16 05:05 RDW 13.9 % (11.5-20.0) 11/17/16 05:05 Plt Count 176 Th/cmm (150-400) 11/17/16 05:05 MPV 9.7 fl 11/17/16 05:05 Neutrophils % 71.0 % (40.0-80.0) 11/17/16 05:05 Lymphocytes % 15.0 % (20.0-50.0) L 11/17/16 05:05 Monocytes % 7.5 % (2.0-10.0) 11/17/16 05:05 Eosinophils % 6.1 % (0.0-5.0) H 11/17/16 05:05 Basophils % 0.4 % (0.0-2.0) 11/17/16 05:05 Eos Smear Source URINE 11/12/16 16:30 Eos Smear Total Cells NONE SEEN (NONE SEEN) 11/12/16 16:30 PT 10.6 SECONDS (9.5-11.5) 11/11/16 22:58 INR 1.07 (0.5-1.4) 11/11/16 22:58 PTT (Actin FS) 27.1 SECONDS (26.0-38.0) 11/11/16 22:58 Specimen Source Arterial 11/13/16 08:50 Sample Site Left Radial 11/13/16 08:50 pH 7.47 (7.35-7.45) H 11/13/16 08:50 pCO2 38.0 mmHg (35.0-45.0) 11/13/16 08:50 pO2 67.0 mmHg (80.0-100.0) L 11/13/16 08:50 HCO3 27.7 mmol/L (20.0-26.0) H 11/13/16 08:50 Base Excess 3.9 mmol/L (-3.0-3.0) H 11/13/16 08:50 O2 Saturation 94.0 % (92.0-100.0) 11/13/16 08:50 Juan R Test PASS 11/13/16 08:50 Inspired O2 21 11/13/16 08:50 Critical Value PW 11/13/16 08:50 Sodium 139 mEq/L (136-145) 11/16/16 07:02 Potassium 3.8 mEq/L (3.5-5.1) 11/16/16 07:02 Chloride 108 mEq/L (98-107) H 11/16/16 07:02 Carbon Dioxide 27.1 mEq/L (21.0-31.0) 11/16/16 07:02 Anion Gap 7.7 (7.0-16.0) 11/16/16 07:02 BUN 50 mg/dL (7-25) H 11/16/16 07:02 Creatinine 2.9 mg/dL (0.7-1.3) H 11/16/16 07:02 Est GFR ( Amer) TNP 11/16/16 07:02 Est GFR (Non-Af Amer) TNP 11/16/16 07:02 BUN/Creatinine Ratio 17.2 11/16/16 07:02 Glucose 134 mg/dL (70-105) H 11/16/16 07:02 Hemoglobin A1c % 4.8 % (4.0-6.0) 11/15/16 06:47 Whole Bld Lactic Acid 1.85 mmol/L (0.60-2.00) 11/11/16 22:58 Uric Acid 6.9 mg/dL (4.4-7.6) 11/13/16 05:45 Calcium 9.5 mg/dL (8.6-10.3) 11/16/16 07:02 Total Bilirubin 0.3 mg/dL (0.3-1.0) 11/13/16 05:45 AST 35 U/L (13-39) 11/13/16 05:45 ALT 48 U/L (7-52) 11/13/16 05:45 Alkaline Phosphatase 72 U/L (34-104) 11/13/16 05:45 Ammonia 51 umol/L (16-53) 11/17/16 05:05 Creatine Kinase 180 U/L (30-223) 11/11/16 22:58 Total Protein 7.0 gm/dL (6.0-8.3) 11/13/16 05:45 Albumin 2.7 gm/dL (4.2-5.5) L 11/13/16 05:45 Globulin 4.3 gm/dL 11/13/16 05:45 Albumin/Globulin Ratio 0.6 (1.0-1.8) L 11/13/16 05:45 TSH 3.46 uIU/ml (0.34-5.60) 11/13/16 05:45 Urine Source CATH 11/11/16 22:40 Urine Color YELLOW 11/11/16 22:40 Urine Clarity HAZY (CLEAR) 11/11/16 22:40 Urine pH 7.5 11/11/16 22:40 Ur Specific [place] 1.020 (1.005-1.030) 11/11/16 22:40 Urine Protein >300 mg/dL (NEGATIVE) H 11/11/16 22:40 Urine Glucose (UA) NEGATIVE mg/dL (NEGATIVE) 11/11/16 22:40 Urine Ketones NEGATIVE mg/dL (NEGATIVE) 11/11/16 22:40 Urine Blood MODERATE (NEGATIVE) H 11/11/16 22:40 Urine Nitrate NEGATIVE (NEGATIVE) 11/11/16 22:40 Urine Bilirubin NEGATIVE (NEGATIVE) 11/11/16 22:40 Urine Urobilinogen 0.2 E.U./dL (0.2 - 1.0) 11/11/16 22:40 Ur Leukocyte Esterase SMALL (NEGATIVE) H 11/11/16 22:40 Urine RBC 5-10 /hpf (0-5) H 11/11/16 22:40 Urine WBC 6-10 /hpf (0-5) H 11/11/16 22:40 Ur Epithelial Cells FEW /lpf (FEW) 11/11/16 22:40 Urine Bacteria MODERATE /hpf (NONE SEEN) 11/11/16 22:40 Urine Osmolality 637 mOsmol/kg 11/12/16 16:30 U Random Total Protein 311.0 mg/dL 11/13/16 16:30 Ur Random Sodium 52 mmol/L 11/12/16 16:30 Urine Collection Time 24 hours 11/13/16 16:30 Urine Total Volume 1050 ml 11/13/16 16:30 Urine Creatinine 63.0 mg/dl (39.0-259.0) 11/13/16 16:30 Creat Clearance 24 Hr 9 ml/min (97.00-137.00) L 11/13/16 16:30 U Tot Protein 24h, Calc 3265.5 mg/24 hr (0-165) H 11/13/16 16:30 Body Surface Area 1.71 11/13/16 16:30 - Physical Exam Vitals and I&O: Vital Signs Temp 98 F 11/17/16 04:00 Pulse 94 11/17/16 06:51 Resp 16 11/17/16 06:51 BP 138/77 11/17/16 05:34 Pulse Ox 99 11/17/16 06:51 Intake & Output 11/16/16 11/17/16 11/17/16 18:59 06:59 18:59 Output Total 600 850 Balance -600 -850 Output: Urine 600 850 Active Medications: Current Medications Acetaminophen (Tylenol 650mg/20.3ml Suspension) 650 mg GT Q4HR PRN PRN Reason: Pain (Mild) Acetaminophen (Tylenol 650mg/20.3ml Suspension) 650 mg GT Q4HR PRN PRN Reason: TEMP> 101 Acetaminophen (Tylenol 650mg/20.3ml Suspension) 1,000 mg GT Q4HR PRN PRN Reason: Pain (Moderate) Acetaminophen/Hydrocodone Bitart ([place] 5mg/325mg) 1 tab PO Q6HR PRN PRN Reason: Pain (Severe) Stop: 01/11/17 00:00 Last Admin: 11/13/16 22:13 Dose: 1 tab Al Hydrox/Mg Hydrox/Simethicone (Maalox) 30 ml GT Q6HR PRN PRN Reason: Heartburn Stop: 01/11/17 00:00 Albuterol Sulfate (Albuterol 2.5mg/3ml Neb Ud) 2.5 mg HHN Q6HR PRN PRN Reason: sob/wheezing Stop: 01/11/17 00:00 Albuterol/Ipratropium (Duoneb Neb) 3 ml HHN [id number] [facility] Stop: 01/11/17 14:59 Last Admin: 11/17/16 06:39 Dose: 3 ml Amlodipine Besylate (Norvasc) 5 mg GT DAILY [facility] Stop: 01/11/17 08:59 Last Admin: 11/16/16 10:37 Dose: 5 mg Aspirin (Aspirin) 325 mg GT DAILY RUY Stop: 01/11/17 08:59 Last Admin: 11/16/16 10:37 Dose: 325 mg Bisacodyl (Dulcolax 10 Mg Supp) 10 mg RC PRN PRN PRN Reason: Constipation Stop: 01/11/17 00:00 Budesonide (Pulmicort) 0.5 mg HHN DAILYRT [facility] Stop: 01/11/17 14:29 Last Admin: 11/17/16 06:39 Dose: 0.5 mg Clonidine HCl (Catapres) 0.1 mg GT Q12HR PRN PRN Reason: SBP GREATER THAN 160 Stop: 01/11/17 13:59 Epoetin Lucien (Epogen) 10,000 units SUBQ MoWeFr [facility] Stop: 01/16/17 15:47 Famotidine (Pepcid) 20 mg GT DAILY [facility] Stop: 01/11/17 08:59 Last Admin: 11/16/16 10:38 Dose: 20 mg Ferrous Sulfate (Iron) 450 mg GT DAILY [facility] Stop: 01/11/17 08:59 Last Admin: 11/16/16 10:38 Dose: 450 mg Hydralazine HCl (Apresoline) 25 mg GT Q8HR [facility] Stop: 01/11/17 04:59 Last Admin: 11/17/16 05:34 Dose: 25 mg Levofloxacin (Levaquin Pb) 250 mg in 50 mls @ 50 mls/hr IV Q48HR [facility] Stop: 01/12/17 20:59 Last Admin: 11/15/16 21:43 Dose: 50 mls/hr Dextrose (D5w) 1,000 mls @ 125 mls/hr IV .Q8H [facility] Stop: 01/11/17 08:25 Last Admin: 11/16/16 22:28 Dose: 125 mls/hr Levetiracetam (Keppra) 750 mg GT Q12HR RUY Stop: 01/11/17 08:59 Last Admin: 11/16/16 22:20 Dose: 750 mg Lorazepam (Ativan) 0.5 mg GT Q6HR PRN; Protocol PRN Reason: Anxiety Stop: 01/11/17 00:00 Last Admin: 11/14/16 06:31 Dose: 0.5 mg Magnesium Hydroxide (Milk Of Magnesia) 30 ml GT HS PRN PRN Reason: Constipation Stop: 01/11/17 00:00 Metoprolol Tartrate (Lopressor) 12.5 mg GT BID RUY Stop: 01/11/17 08:59 Last Admin: 11/16/16 17:31 Dose: 12.5 mg Polyethylene Glycol (Miralax) 17 gm GT DAILY RUY Stop: 01/11/17 08:59 Last Admin: 11/16/16 13:47 Dose: 17 gm Senna (Senna) 17.2 mg GT DAILY RUY Stop: 01/11/17 08:59 Last Admin: 11/16/16 10:38 Dose: 17.2 mg Sodium Phosphate (Fleet Enema) 135 ml RC DAILY PRN PRN Reason: Constipation Stop: 01/11/17 08:59 Assessment/Plan - Problem List Patient Problems: All Active Problems H/O chronic renal failure syndrome (Acute) Z87.448 H/O: HTN (hypertension) (Acute) Z86.79 Respiratory failure (Acute) J96.90 Right lower lobe pneumonia (Acute) J18.9 h/o anemia (Acute) s/p g tube (Acute) - Plan Plan: ivabx cbc/bmp in am cpm
[2016-11-17] MEDS: Ferrous Sulfate 300 MG/5 ML UDC GT SCH (09:25)
[2016-11-17] MEDS: Multivitamin w/ Minerals Tab GT SCH (09:26)
[2016-11-17] MEDS: Dextrose 5% 1,000 ML IV SCH ×2 (09:26→22:02)
--- NOTE | 2016-11-17 10:46 | Diagnostic Imaging Report ---
Portable chest x-ray HISTORY: Shortness of breath Compared with prior exam of 11/15/2016, there remains evidence of a small right pleural effusion. IMPRESSION: 1. Little change in the cardiopulmonary status with evidence of a persistent small right pleural effusion
--- NOTE | 2016-11-17 17:09 | General Progress Note ---
Subjective - Review of Systems Service Date: 11/17/16 Subjective: more awale, but looks depressed, not in distress Objective - Results Result Diagrams: 11/17/16 05:05 11/16/16 07:02 Recent Labs: Laboratory Last Values WBC 10.1 Th/cmm (4.8-10.8) 11/17/16 05:05 RBC 2.74 Mil/cmm (3.80-5.80) L 11/17/16 05:05 Hgb 8.7 gm/dL (12.6-17.4) L 11/17/16 05:05 Hct 24.9 % (39.0-49.0) L 11/17/16 05:05 MCV 90.9 fl (80-99) 11/17/16 05:05 MCH 31.8 pg (27.0-31.0) H 11/17/16 05:05 MCHC Differential 35.0 pg (28.0-36.0) 11/17/16 05:05 RDW 13.9 % (11.5-20.0) 11/17/16 05:05 Plt Count 176 Th/cmm (150-400) 11/17/16 05:05 MPV 9.7 fl 11/17/16 05:05 Neutrophils % 71.0 % (40.0-80.0) 11/17/16 05:05 Lymphocytes % 15.0 % (20.0-50.0) L 11/17/16 05:05 Monocytes % 7.5 % (2.0-10.0) 11/17/16 05:05 Eosinophils % 6.1 % (0.0-5.0) H 11/17/16 05:05 Basophils % 0.4 % (0.0-2.0) 11/17/16 05:05 Eos Smear Source URINE 11/12/16 16:30 Eos Smear Total Cells NONE SEEN (NONE SEEN) 11/12/16 16:30 PT 10.6 SECONDS (9.5-11.5) 11/11/16 22:58 INR 1.07 (0.5-1.4) 11/11/16 22:58 PTT (Actin FS) 27.1 SECONDS (26.0-38.0) 11/11/16 22:58 Specimen Source Arterial 11/13/16 08:50 Sample Site Left Radial 11/13/16 08:50 pH 7.47 (7.35-7.45) H 11/13/16 08:50 pCO2 38.0 mmHg (35.0-45.0) 11/13/16 08:50 pO2 67.0 mmHg (80.0-100.0) L 11/13/16 08:50 HCO3 27.7 mmol/L (20.0-26.0) H 11/13/16 08:50 Base Excess 3.9 mmol/L (-3.0-3.0) H 11/13/16 08:50 O2 Saturation 94.0 % (92.0-100.0) 11/13/16 08:50 Juan R Test PASS 11/13/16 08:50 Inspired O2 21 11/13/16 08:50 Critical Value PW 11/13/16 08:50 Sodium 139 mEq/L (136-145) 11/16/16 07:02 Potassium 3.8 mEq/L (3.5-5.1) 11/16/16 07:02 Chloride 108 mEq/L (98-107) H 11/16/16 07:02 Carbon Dioxide 27.1 mEq/L (21.0-31.0) 11/16/16 07:02 Anion Gap 7.7 (7.0-16.0) 11/16/16 07:02 BUN 50 mg/dL (7-25) H 11/16/16 07:02 Creatinine 2.9 mg/dL (0.7-1.3) H 11/16/16 07:02 Est GFR ( Amer) TNP 11/16/16 07:02 Est GFR (Non-Af Amer) TN 11/16/16 07:02 BUN/Creatinine Ratio 17.2 11/16/16 07:02 Glucose 134 mg/dL (70-105) H 11/16/16 07:02 Hemoglobin A1c % 4.8 % (4.0-6.0) 11/15/16 06:47 Whole Bld Lactic Acid 1.85 mmol/L (0.60-2.00) 11/11/16 22:58 Uric Acid 6.9 mg/dL (4.4-7.6) 11/13/16 05:45 Calcium 9.5 mg/dL (8.6-10.3) 11/16/16 07:02 Total Bilirubin 0.3 mg/dL (0.3-1.0) 11/13/16 05:45 AST 35 U/L (13-39) 11/13/16 05:45 ALT 48 U/L (7-52) 11/13/16 05:45 Alkaline Phosphatase 72 U/L (34-104) 11/13/16 05:45 Ammonia 51 umol/L (16-53) 11/17/16 05:05 Creatine Kinase 180 U/L (30-223) 11/11/16 22:58 Total Protein 7.0 gm/dL (6.0-8.3) 11/13/16 05:45 Albumin 2.7 gm/dL (4.2-5.5) L 11/13/16 05:45 Globulin 4.3 gm/dL 11/13/16 05:45 Albumin/Globulin Ratio 0.6 (1.0-1.8) L 11/13/16 05:45 TSH 3.46 uIU/ml (0.34-5.60) 11/13/16 05:45 Urine Source CATH 11/11/16 22:40 Urine Color YELLOW 11/11/16 22:40 Urine Clarity HAZY (CLEAR) 11/11/16 22:40 Urine pH 7.5 11/11/16 22:40 Ur Specific [place] 1.020 (1.005-1.030) 11/11/16 22:40 Urine Protein >300 mg/dL (NEGATIVE) H 11/11/16 22:40 Urine Glucose (UA) NEGATIVE mg/dL (NEGATIVE) 11/11/16 22:40 Urine Ketones NEGATIVE mg/dL (NEGATIVE) 11/11/16 22:40 Urine Blood MODERATE (NEGATIVE) H 11/11/16 22:40 Urine Nitrate NEGATIVE (NEGATIVE) 11/11/16 22:40 Urine Bilirubin NEGATIVE (NEGATIVE) 11/11/16 22:40 Urine Urobilinogen 0.2 E.U./dL (0.2 - 1.0) 11/11/16 22:40 Ur Leukocyte Esterase SMALL (NEGATIVE) H 11/11/16 22:40 Urine RBC 5-10 /hpf (0-5) H 11/11/16 22:40 Urine WBC 6-10 /hpf (0-5) H 11/11/16 22:40 Ur Epithelial Cells FEW /lpf (FEW) 11/11/16 22:40 Urine Bacteria MODERATE /hpf (NONE SEEN) 11/11/16 22:40 Urine Osmolality 637 mOsmol/kg 11/12/16 16:30 U Random Total Protein 311.0 mg/dL 11/13/16 16:30 Ur Random Sodium 52 mmol/L 11/12/16 16:30 Urine Collection Time 24 hours 11/13/16 16:30 Urine Total Volume 1050 ml 11/13/16 16:30 Urine Creatinine 63.0 mg/dl (39.0-259.0) 11/13/16 16:30 Creat Clearance 24 Hr 9 ml/min (97.00-137.00) L 11/13/16 16:30 U Tot Protein 24h, Calc 3265.5 mg/24 hr (0-165) H 11/13/16 16:30 Body Surface Area 1.71 11/13/16 16:30 - Physical Exam Vitals and I&O: Vital Signs Temp 97.1 F 11/17/16 12:00 Pulse 76 11/17/16 15:25 Resp 18 11/17/16 15:25 BP 127/61 11/17/16 12:00 Pulse Ox 96 11/17/16 15:25 Intake & Output 11/16/16 11/17/16 11/17/16 18:59 06:59 18:59 Intake Total 1000 Output Total 600 850 Balance -600 150 Intake: Intake, IV Amount 1000 Dextrose 5% 1,000 ml @ 1000 125 mls/hr IV .Q8H [facility] Rx #:[id number] Output: Urine 600 850 Active Medications: Current Medications Acetaminophen (Tylenol 650mg/20.3ml Suspension) 650 mg GT Q4HR PRN PRN Reason: Pain (Mild) Acetaminophen (Tylenol 650mg/20.3ml Suspension) 650 mg GT Q4HR PRN PRN Reason: TEMP> 101 Acetaminophen (Tylenol 650mg/20.3ml Suspension) 1,000 mg GT Q4HR PRN PRN Reason: Pain (Moderate) Acetaminophen/Hydrocodone Bitart ([place] 5mg/325mg) 1 tab PO Q6HR PRN PRN Reason: Pain (Severe) Stop: 01/11/17 00:00 Last Admin: 11/13/16 22:13 Dose: 1 tab Al Hydrox/Mg Hydrox/Simethicone (Maalox) 30 ml GT Q6HR PRN PRN Reason: Heartburn Stop: 01/11/17 00:00 Albuterol Sulfate (Albuterol 2.5mg/3ml Neb Ud) 2.5 mg HHN Q6HR PRN PRN Reason: sob/wheezing Stop: 01/11/17 00:00 Albuterol/Ipratropium (Duoneb Neb) 3 ml HHN [id number] [facility] Stop: 01/11/17 14:59 Last Admin: 11/17/16 15:16 Dose: 3 ml Amlodipine Besylate (Norvasc) 5 mg GT DAILY [facility] Stop: 01/11/17 08:59 Last Admin: 11/17/16 09:23 Dose: 5 mg Aspirin (Aspirin) 325 mg GT DAILY [facility] Stop: 01/11/17 08:59 Last Admin: 11/17/16 09:22 Dose: 325 mg Bisacodyl (Dulcolax 10 Mg Supp) 10 mg RC PRN PRN PRN Reason: Constipation Stop: 01/11/17 00:00 Budesonide (Pulmicort) 0.5 mg HHN DAILYRT [facility] Stop: 01/11/17 14:29 Last Admin: 11/17/16 06:39 Dose: 0.5 mg Clonidine HCl (Catapres) 0.1 mg GT Q12HR PRN PRN Reason: SBP GREATER THAN 160 Stop: 01/11/17 13:59 Epoetin Lucien (Epogen) 10,000 units SUBQ MoWeFr [facility] Stop: 01/16/17 15:47 Famotidine (Pepcid) 20 mg GT DAILY [facility] Stop: 01/11/17 08:59 Last Admin: 11/17/16 09:24 Dose: 20 mg Ferrous Sulfate (Iron) 450 mg GT DAILY [facility] Stop: 01/11/17 08:59 Last Admin: 11/17/16 09:25 Dose: 450 mg Hydralazine HCl (Apresoline) 25 mg GT Q8HR [facility] Stop: 01/11/17 04:59 Last Admin: 11/17/16 13:37 Dose: Not Given Levofloxacin (Levaquin Pb) 250 mg in 50 mls @ 50 mls/hr IV Q48HR [facility] Stop: 01/12/17 20:59 Last Admin: 11/15/16 21:43 Dose: 50 mls/hr Dextrose (D5w) 1,000 mls @ 125 mls/hr IV .Q8H RUY Stop: 01/11/17 08:25 Last Admin: 11/17/16 09:26 Dose: 125 mls/hr Levetiracetam (Keppra) 750 mg GT Q12HR RUY Stop: 01/11/17 08:59 Last Admin: 11/17/16 09:24 Dose: 750 mg Lorazepam (Ativan) 0.5 mg GT Q6HR PRN; Protocol PRN Reason: Anxiety Stop: 01/11/17 00:00 Last Admin: 11/14/16 06:31 Dose: 0.5 mg Magnesium Hydroxide (Milk Of Magnesia) 30 ml GT HS PRN PRN Reason: Constipation Stop: 01/11/17 00:00 Metoprolol Tartrate (Lopressor) 12.5 mg GT BID RUY Stop: 01/11/17 08:59 Last Admin: 11/17/16 16:39 Dose: Not Given Polyethylene Glycol (Miralax) 17 gm GT DAILY RUY Stop: 01/11/17 08:59 Last Admin: 11/17/16 09:22 Dose: 17 gm Senna (Senna) 17.2 mg GT DAILY RUY Stop: 01/11/17 08:59 Last Admin: 11/17/16 09:22 Dose: 17.2 mg Sodium Phosphate (Fleet Enema) 135 ml RC DAILY PRN PRN Reason: Constipation Stop: 01/11/17 08:59 General: Alert, No acute distress HEENT: Atraumatic, EOMI, Mucous membr. moist/pink Neck: Supple, +2 carotid pulse wo bruit Cardiovascular: Regular rate, Normal S1, Normal S2 Lungs: Other (scattered rhonchi) Abdomen: Bowel sounds, Soft Extremities: no Edema Assessment/Plan - Problem List Patient Problems: All Active Problems H/O chronic renal failure syndrome (Acute) Z87.448 H/O: HTN (hypertension) (Acute) Z86.79 Respiratory failure (Acute) J96.90 Right lower lobe pneumonia (Acute) J18.9 h/o anemia (Acute) s/p g tube (Acute) - Assessment Assessment: esrd on hd sepsis 2nd to left hap, Cx UTI Smart's palsy/epilepsy S/P resp failure on vent, s/p extubation dysphaga s/p PEG anemia of cd ess htn - Plan Plan: no change kidney fnc CT chest showed B/L effusions, Left pna schedule for hd today f/u cxr start epogen
[2016-11-17] MEDS: Epoetin Alfa 20000 Units/mL Vial SUBQ SCH (17:42)
[2016-11-17] MEDS: Levofloxacin 250 mg/50 mL Premix Bag IV SCH (21:46)
--- NOTE | 2016-11-18 03:52 | Progress Notes ---
PROBLEM LIST: 1. Right-sided effusion, infiltrate. 2. Acute renal failure, on hemodialysis. 3. Metabolic disease. 4. 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 The patient is currently on dialysis, offers no specific new____. SYMPTOMS: Appears to be more verbal. PHYSICAL EXAMINATION: VITAL SIGNS: The patient's temperature is 97, saturation is 99% on 2 liters of oxygen, heart rate is in 70s. ENT: Shows no new changes. There is still leak from the previous trach site at tracheocutaneous fistula. CHEST: Shows diminished air entry on the right base. HEART: Regular. ABDOMEN: Shows G-tube; otherwise, unremarkable. LABORATORY DATA: White count is 10,000, hemoglobin 8.7 and the patient's other laboratory studies are pending. Chest x-ray shows some haziness in the right basal area. ASSESSMENT: The patient is clinically stable, not much changed, mentally improving. PLANS AND SUGGESTIONS: Continue current treatment. Follow up electrolytes, etc. and go from there. JOB# [id number]
[2016-11-18 04:12] LABS: HEP B CORE IGM Negative (Negative); HEP C ANTIBODY <0.1 s/co ratio (0.0-0.9)
[2016-11-18 05:04] LABS: % BASOPHILS 0.4 % (0.0-2.0); % EOSINOPHILS 5.5 % (0.0-5.0); % LYMPHOCYTES 14.6 % (20.0-50.0); % MONOCYTES 10.2 % (2.0-10.0); % NEUTROPHILS 69.3 % (40.0-80.0); HEMOGLOBIN 8.1 gm/dL (12.6-17.4); MEAN CELL VOLUME 90.7 fl (80-99); MEAN CORPUSCULAR HEMOGLOBIN 31.1 pg (27.0-31.0); MEAN CORPUSCULAR HGB CONC 34.2 pg (28.0-36.0); MEAN PLATELET VOLUME 10.1 fl; NEUTROPHILE ABSOLUTE 7.2 Th/cmm (1.8-8.0); PLATELET COUNT 178 Th/cmm (150-400); RED CELL DISTRIBUTION WIDTH 14.2 % (11.5-20.0); WHITE BLOOD COUNT 10.4 Th/cmm (4.8-10.8)
[2016-11-18 05:25] LABS: HEMATOCRIT 23.6 % (39.0-49.0)
[2016-11-18] MEDS: Dextrose 5% 1,000 ML IV SCH ×2 (06:25→17:00)
[2016-11-18] MEDS: Albuterol/Ipratropium Neb 3 ML AERS HHN SCH ×4 (07:00→19:54)
[2016-11-18] MEDS: Budesonide 0.5 Mg/2 mL Ud HHN SCH (07:00)
--- NOTE | 2016-11-18 08:00 | General Progress Note ---
Subjective - Review of Systems Subjective: awake, alert, nad Objective - Results Result Diagrams: 11/18/16 04:40 11/16/16 07:02 Recent Labs: Laboratory Last Values WBC 10.4 Th/cmm (4.8-10.8) 11/18/16 04:40 RBC 2.60 Mil/cmm (3.80-5.80) L 11/18/16 04:40 Hgb 8.1 gm/dL (12.6-17.4) L 11/18/16 04:40 Hct 23.6 % (39.0-49.0) L* 11/18/16 04:40 MCV 90.7 fl (80-99) 11/18/16 04:40 MCH 31.1 pg (27.0-31.0) H 11/18/16 04:40 MCHC Differential 34.2 pg (28.0-36.0) 11/18/16 04:40 RDW 14.2 % (11.5-20.0) 11/18/16 04:40 Plt Count 178 Th/cmm (150-400) 11/18/16 04:40 MPV 10.1 fl 11/18/16 04:40 Neutrophils % 69.3 % (40.0-80.0) 11/18/16 04:40 Lymphocytes % 14.6 % (20.0-50.0) L 11/18/16 04:40 Monocytes % 10.2 % (2.0-10.0) H 11/18/16 04:40 Eosinophils % 5.5 % (0.0-5.0) H 11/18/16 04:40 Basophils % 0.4 % (0.0-2.0) 11/18/16 04:40 Eos Smear Source URINE 11/12/16 16:30 Eos Smear Total Cells NONE SEEN (NONE SEEN) 11/12/16 16:30 PT 10.6 SECONDS (9.5-11.5) 11/11/16 22:58 INR 1.07 (0.5-1.4) 11/11/16 22:58 PTT (Actin FS) 27.1 SECONDS (26.0-38.0) 11/11/16 22:58 Specimen Source Arterial 11/13/16 08:50 Sample Site Left Radial 11/13/16 08:50 pH 7.47 (7.35-7.45) H 11/13/16 08:50 pCO2 38.0 mmHg (35.0-45.0) 11/13/16 08:50 pO2 67.0 mmHg (80.0-100.0) L 11/13/16 08:50 HCO3 27.7 mmol/L (20.0-26.0) H 11/13/16 08:50 Base Excess 3.9 mmol/L (-3.0-3.0) H 11/13/16 08:50 O2 Saturation 94.0 % (92.0-100.0) 11/13/16 08:50 Juan R Test PASS 11/13/16 08:50 Inspired O2 21 11/13/16 08:50 Critical Value PW 11/13/16 08:50 Sodium 139 mEq/L (136-145) 11/16/16 07:02 Potassium 3.8 mEq/L (3.5-5.1) 11/16/16 07:02 Chloride 108 mEq/L (98-107) H 11/16/16 07:02 Carbon Dioxide 27.1 mEq/L (21.0-31.0) 11/16/16 07:02 Anion Gap 7.7 (7.0-16.0) 11/16/16 07:02 BUN 50 mg/dL (7-25) H 11/16/16 07:02 Creatinine 2.9 mg/dL (0.7-1.3) H 11/16/16 07:02 Est GFR ( Amer) TNP 11/16/16 07:02 Est GFR (Non-Af Amer) [place] 11/16/16 07:02 BUN/Creatinine Ratio 17.2 11/16/16 07:02 Glucose 134 mg/dL (70-105) H 11/16/16 07:02 Hemoglobin A1c % 4.8 % (4.0-6.0) 11/15/16 06:47 Whole Bld Lactic Acid 1.85 mmol/L (0.60-2.00) 11/11/16 22:58 Uric Acid 6.9 mg/dL (4.4-7.6) 11/13/16 05:45 Calcium 9.5 mg/dL (8.6-10.3) 11/16/16 07:02 Total Bilirubin 0.3 mg/dL (0.3-1.0) 11/13/16 05:45 AST 35 U/L (13-39) 11/13/16 05:45 ALT 48 U/L (7-52) 11/13/16 05:45 Alkaline Phosphatase 72 U/L (34-104) 11/13/16 05:45 Ammonia 51 umol/L (16-53) 11/17/16 05:05 Creatine Kinase 180 U/L (30-223) 11/11/16 22:58 Total Protein 7.0 gm/dL (6.0-8.3) 11/13/16 05:45 Albumin 2.7 gm/dL (4.2-5.5) L 11/13/16 05:45 Globulin 4.3 gm/dL 11/13/16 05:45 Albumin/Globulin Ratio 0.6 (1.0-1.8) L 11/13/16 05:45 TSH 3.46 uIU/ml (0.34-5.60) 11/13/16 05:45 Urine Source CATH 11/11/16 22:40 Urine Color YELLOW 11/11/16 22:40 Urine Clarity HAZY (CLEAR) 11/11/16 22:40 Urine pH 7.5 11/11/16 22:40 Ur Specific [place] 1.020 (1.005-1.030) 11/11/16 22:40 Urine Protein >300 mg/dL (NEGATIVE) H 11/11/16 22:40 Urine Glucose (UA) NEGATIVE mg/dL (NEGATIVE) 11/11/16 22:40 Urine Ketones NEGATIVE mg/dL (NEGATIVE) 11/11/16 22:40 Urine Blood MODERATE (NEGATIVE) H 11/11/16 22:40 Urine Nitrate NEGATIVE (NEGATIVE) 11/11/16 22:40 Urine Bilirubin NEGATIVE (NEGATIVE) 11/11/16 22:40 Urine Urobilinogen 0.2 E.U./dL (0.2 - 1.0) 11/11/16 22:40 Ur Leukocyte Esterase SMALL (NEGATIVE) H 11/11/16 22:40 Urine RBC 5-10 /hpf (0-5) H 11/11/16 22:40 Urine WBC 6-10 /hpf (0-5) H 11/11/16 22:40 Ur Epithelial Cells FEW /lpf (FEW) 11/11/16 22:40 Urine Bacteria MODERATE /hpf (NONE SEEN) 11/11/16 22:40 Urine Osmolality 637 mOsmol/kg 11/12/16 16:30 U Random Total Protein 311.0 mg/dL 11/13/16 16:30 Ur Random Sodium 52 mmol/L 11/12/16 16:30 Urine Collection Time 24 hours 11/13/16 16:30 Urine Total Volume 1050 ml 11/13/16 16:30 Urine Creatinine 63.0 mg/dl (39.0-259.0) 11/13/16 16:30 Creat Clearance 24 Hr 9 ml/min (97.00-137.00) L 11/13/16 16:30 U Tot Protein 24h, Calc 3265.5 mg/24 hr (0-165) H 11/13/16 16:30 Body Surface Area 1.71 11/13/16 16:30 Hepatitis A IgM Ab Negative (Negative) 11/15/16 10:30 Hep Bs Antigen Negative (Negative) 11/15/16 10:30 Hep B Core IgM Ab Negative (Negative) 11/15/16 10:30 Hepatitis C Antibody <0.1 s/co ratio (0.0-0.9) 11/15/16 10:30 - Physical Exam Vitals and I&O: Vital Signs Temp 97.4 F 11/18/16 04:00 Pulse 89 11/18/16 06:16 Resp 18 11/18/16 04:00 BP 138/77 11/18/16 06:16 Pulse Ox 99 11/18/16 04:00 Intake & Output 11/17/16 11/18/16 11/18/16 18:59 06:59 18:59 Intake Total 1000 1000 300 Output Total 800 Balance 1000 1000 -500 Intake: Intake, IV Amount 1000 1000 Dextrose 5% 1,000 ml @ 1000 1000 125 mls/hr IV .Q8H [facility] Rx #:[id number] Oral 0 Tube Feeding 300 Output: Urine 800 Active Medications: Current Medications Acetaminophen (Tylenol 650mg/20.3ml Suspension) 650 mg GT Q4HR PRN PRN Reason: Pain (Mild) Acetaminophen (Tylenol 650mg/20.3ml Suspension) 650 mg GT Q4HR PRN PRN Reason: TEMP> 101 Acetaminophen (Tylenol 650mg/20.3ml Suspension) 1,000 mg GT Q4HR PRN PRN Reason: Pain (Moderate) Acetaminophen/Hydrocodone Bitart ([place] 5mg/325mg) 1 tab PO Q6HR PRN PRN Reason: Pain (Severe) Stop: 01/11/17 00:00 Last Admin: 11/13/16 22:13 Dose: 1 tab Al Hydrox/Mg Hydrox/Simethicone (Maalox) 30 ml GT Q6HR PRN PRN Reason: Heartburn Stop: 01/11/17 00:00 Albuterol Sulfate (Albuterol 2.5mg/3ml Neb Ud) 2.5 mg HHN Q6HR PRN PRN Reason: sob/wheezing Stop: 01/11/17 00:00 Albuterol/Ipratropium (Duoneb Neb) 3 ml HHN [id number] [facility] Stop: 01/11/17 14:59 Last Admin: 11/18/16 07:00 Dose: 3 ml Amlodipine Besylate (Norvasc) 5 mg GT DAILY [facility] Stop: 01/11/17 08:59 Last Admin: 11/17/16 09:23 Dose: 5 mg Aspirin (Aspirin) 325 mg GT DAILY [facility] Stop: 01/11/17 08:59 Last Admin: 11/17/16 09:22 Dose: 325 mg Bisacodyl (Dulcolax 10 Mg Supp) 10 mg RC PRN PRN PRN Reason: Constipation Stop: 01/11/17 00:00 Budesonide (Pulmicort) 0.5 mg HHN DAILYRT [facility] Stop: 01/11/17 14:29 Last Admin: 11/18/16 07:00 Dose: 0.5 mg Clonidine HCl (Catapres) 0.1 mg GT Q12HR PRN PRN Reason: SBP GREATER THAN 160 Stop: 01/11/17 13:59 Epoetin Lucien (Epogen) 10,000 units SUBQ MoWeFr [facility] Stop: 01/16/17 15:47 Last Admin: 11/17/16 17:42 Dose: 10,000 units Famotidine (Pepcid) 20 mg GT DAILY [facility] Stop: 01/11/17 08:59 Last Admin: 11/17/16 09:24 Dose: 20 mg Ferrous Sulfate (Iron) 450 mg GT DAILY [facility] Stop: 01/11/17 08:59 Last Admin: 11/17/16 09:25 Dose: 450 mg Hydralazine HCl (Apresoline) 25 mg GT Q8HR [facility] Stop: 01/11/17 04:59 Last Admin: 11/18/16 06:16 Dose: 25 mg Levofloxacin (Levaquin Pb) 250 mg in 50 mls @ 50 mls/hr IV Q48HR [facility] Stop: 01/12/17 20:59 Last Admin: 11/17/16 21:46 Dose: 50 mls/hr Dextrose (D5w) 1,000 mls @ 125 mls/hr IV .Q8H [facility] Stop: 01/11/17 08:25 Last Admin: 11/18/16 06:25 Dose: 125 mls/hr Levetiracetam (Keppra) 750 mg GT Q12HR [facility] Stop: 01/11/17 08:59 Last Admin: 11/17/16 21:48 Dose: 750 mg Lorazepam (Ativan) 0.5 mg GT Q6HR PRN; Protocol PRN Reason: Anxiety Stop: 01/11/17 00:00 Last Admin: 11/14/16 06:31 Dose: 0.5 mg Magnesium Hydroxide (Milk Of Magnesia) 30 ml GT HS PRN PRN Reason: Constipation Stop: 01/11/17 00:00 Metoprolol Tartrate (Lopressor) 12.5 mg GT BID [facility] Stop: 01/11/17 08:59 Last Admin: 11/17/16 16:39 Dose: Not Given Polyethylene Glycol (Miralax) 17 gm GT DAILY [facility] Stop: 01/11/17 08:59 Last Admin: 11/17/16 09:22 Dose: 17 gm Senna (Senna) 17.2 mg GT DAILY [facility] Stop: 01/11/17 08:59 Last Admin: 11/17/16 09:22 Dose: 17.2 mg Sodium Phosphate (Fleet Enema) 135 ml RC DAILY PRN PRN Reason: Constipation Stop: 01/11/17 08:59 Assessment/Plan - Problem List Patient Problems: All Active Problems H/O chronic renal failure syndrome (Acute) Z87.448 H/O: HTN (hypertension) (Acute) Z86.79 Respiratory failure (Acute) J96.90 Right lower lobe pneumonia (Acute) J18.9 h/o anemia (Acute) s/p g tube (Acute) - Plan Plan: ivabx cbc/bmp in am cpm
[2016-11-18] MEDS: Ferrous Sulfate 300 MG/5 ML UDC GT SCH (08:56)
[2016-11-18] MEDS: POLYETHYLENE GLYCOL 3350 17 GM PACK GT SCH (08:56)
[2016-11-18 08:57] LABS: ANION GAP 10.9 (7.0-16.0); BUN - UREA NITROGEN 27 mg/dL (7-25); BUN/CREATININE RATIO 12.3; CALCIUM SERUM 8.4 mg/dL (8.6-10.3); CARBON DIOXIDE 24.7 mEq/L (21.0-31.0); CHLORIDE 97 mEq/L (98-107); CREATININE - SERUM 2.2 mg/dL (0.7-1.3); GLUCOSE 102 mg/dL (70-105); POTASSIUM SERUM 3.6 mEq/L (3.5-5.1); SODIUM SERUM 129 mEq/L (136-145)
[2016-11-18] MEDS: Levetiracetam 500 mg/5mL 5mL UDC GT SCH ×2 (08:57→21:32)
[2016-11-18] MEDS: Multivitamin w/ Minerals Tab GT SCH (08:58)
[2016-11-18 09:54] LABS: % EOSINOPHILS 5.7 % (0.0-5.0); % LYMPHOCYTES 15.2 % (20.0-50.0); % MONOCYTES 9.2 % (2.0-10.0); % NEUTROPHILS 68.9 % (40.0-80.0); HEMOGLOBIN 8.1 gm/dL (12.6-17.4); MEAN CELL VOLUME 90.1 fl (80-99); MEAN CORPUSCULAR HGB CONC 34.5 pg (28.0-36.0); MEAN PLATELET VOLUME 9.7 fl; NEUTROPHILE ABSOLUTE 6.7 Th/cmm (1.8-8.0); PLATELET COUNT 165 Th/cmm (150-400); RED CELL DISTRIBUTION WIDTH 14.2 % (11.5-20.0); WHITE BLOOD COUNT 9.8 Th/cmm (4.8-10.8)
[2016-11-18 09:56] LABS: HEMATOCRIT 23.4 % (39.0-49.0)
--- NOTE | 2016-11-18 11:14 | Diagnostic Imaging Report ---
Portable chest x-ray HISTORY: Shortness of breath, congestive heart failure Compared with prior exam of 11/17/2016, the heart remains enlarged. Persistent right pleural effusion. No focal pulmonary parenchymal processes. IMPRESSION: 1. Persistent cardiomegaly along with evidence of a small right pleural effusion. The findings may be associated with congestive heart failure. Clinical correlation is needed.
[2016-11-18] MEDS: cefTRIAXone 1 GM in 0.9% NS 50 ML IV SCH (11:47)
[2016-11-18] MEDS: Hydrocodone/APAP 5mg/325mg Tab PO PRN (13:55)
--- NOTE | 2016-11-18 14:54 | General Progress Note ---
Subjective - Review of Systems Service Date: 11/18/16 Subjective: more awake, verbal today, not in distress Objective - Results Result Diagrams: 11/18/16 09:45 11/18/16 04:40 Recent Labs: Laboratory Last Values WBC 9.8 Th/cmm (4.8-10.8) 11/18/16 09:45 RBC 2.60 Mil/cmm (3.80-5.80) L 11/18/16 09:45 Hgb 8.1 gm/dL (12.6-17.4) L 11/18/16 09:45 Hct 23.4 % (39.0-49.0) L* 11/18/16 09:45 MCV 90.1 fl (80-99) 11/18/16 09:45 MCH 31.0 pg (27.0-31.0) 11/18/16 09:45 MCHC Differential 34.5 pg (28.0-36.0) 11/18/16 09:45 RDW 14.2 % (11.5-20.0) 11/18/16 09:45 Plt Count 165 Th/cmm (150-400) 11/18/16 09:45 MPV 9.7 fl 11/18/16 09:45 Neutrophils % 68.9 % (40.0-80.0) 11/18/16 09:45 Lymphocytes % 15.2 % (20.0-50.0) L 11/18/16 09:45 Monocytes % 9.2 % (2.0-10.0) 11/18/16 09:45 Eosinophils % 5.7 % (0.0-5.0) H 11/18/16 09:45 Basophils % 1.0 % (0.0-2.0) 11/18/16 09:45 Eos Smear Source URINE 11/12/16 16:30 Eos Smear Total Cells NONE SEEN (NONE SEEN) 11/12/16 16:30 PT 10.6 SECONDS (9.5-11.5) 11/11/16 22:58 INR 1.07 (0.5-1.4) 11/11/16 22:58 PTT (Actin FS) 27.1 SECONDS (26.0-38.0) 11/11/16 22:58 Specimen Source Arterial 11/13/16 08:50 Sample Site Left Radial 11/13/16 08:50 pH 7.47 (7.35-7.45) H 11/13/16 08:50 pCO2 38.0 mmHg (35.0-45.0) 11/13/16 08:50 pO2 67.0 mmHg (80.0-100.0) L 11/13/16 08:50 HCO3 27.7 mmol/L (20.0-26.0) H 11/13/16 08:50 Base Excess 3.9 mmol/L (-3.0-3.0) H 11/13/16 08:50 O2 Saturation 94.0 % (92.0-100.0) 11/13/16 08:50 Juan R Test PASS 11/13/16 08:50 Inspired O2 21 11/13/16 08:50 Critical Value PW 11/13/16 08:50 Sodium 129 mEq/L (136-145) L 11/18/16 04:40 Potassium 3.6 mEq/L (3.5-5.1) 11/18/16 04:40 Chloride 97 mEq/L (98-107) L 11/18/16 04:40 Carbon Dioxide 24.7 mEq/L (21.0-31.0) 11/18/16 04:40 Anion Gap 10.9 (7.0-16.0) 11/18/16 04:40 BUN 27 mg/dL (7-25) H 11/18/16 04:40 Creatinine 2.2 mg/dL (0.7-1.3) H 11/18/16 04:40 Est GFR ( Amer) TNP 11/18/16 04:40 Est GFR (Non-Af Amer) [facility] 11/18/16 04:40 BUN/Creatinine Ratio 12.3 11/18/16 04:40 Glucose 102 mg/dL (70-105) 11/18/16 04:40 Hemoglobin A1c % 4.8 % (4.0-6.0) 11/15/16 06:47 Whole Bld Lactic Acid 1.85 mmol/L (0.60-2.00) 11/11/16 22:58 Uric Acid 6.9 mg/dL (4.4-7.6) 11/13/16 05:45 Calcium 8.4 mg/dL (8.6-10.3) L 11/18/16 04:40 Total Bilirubin 0.3 mg/dL (0.3-1.0) 11/13/16 05:45 AST 35 U/L (13-39) 11/13/16 05:45 ALT 48 U/L (7-52) 11/13/16 05:45 Alkaline Phosphatase 72 U/L (34-104) 11/13/16 05:45 Ammonia 51 umol/L (16-53) 11/17/16 05:05 Creatine Kinase 180 U/L (30-223) 11/11/16 22:58 Total Protein 7.0 gm/dL (6.0-8.3) 11/13/16 05:45 Albumin 2.7 gm/dL (4.2-5.5) L 11/13/16 05:45 Globulin 4.3 gm/dL 11/13/16 05:45 Albumin/Globulin Ratio 0.6 (1.0-1.8) L 11/13/16 05:45 TSH 3.46 uIU/ml (0.34-5.60) 11/13/16 05:45 Urine Source CATH 11/11/16 22:40 Urine Color YELLOW 11/11/16 22:40 Urine Clarity HAZY (CLEAR) 11/11/16 22:40 Urine pH 7.5 11/11/16 22:40 Ur Specific [place] 1.020 (1.005-1.030) 11/11/16 22:40 Urine Protein >300 mg/dL (NEGATIVE) H 11/11/16 22:40 Urine Glucose (UA) NEGATIVE mg/dL (NEGATIVE) 11/11/16 22:40 Urine Ketones NEGATIVE mg/dL (NEGATIVE) 11/11/16 22:40 Urine Blood MODERATE (NEGATIVE) H 11/11/16 22:40 Urine Nitrate NEGATIVE (NEGATIVE) 11/11/16 22:40 Urine Bilirubin NEGATIVE (NEGATIVE) 11/11/16 22:40 Urine Urobilinogen 0.2 E.U./dL (0.2 - 1.0) 11/11/16 22:40 Ur Leukocyte Esterase SMALL (NEGATIVE) H 11/11/16 22:40 Urine RBC 5-10 /hpf (0-5) H 11/11/16 22:40 Urine WBC 6-10 /hpf (0-5) H 11/11/16 22:40 Ur Epithelial Cells FEW /lpf (FEW) 11/11/16 22:40 Urine Bacteria MODERATE /hpf (NONE SEEN) 11/11/16 22:40 Urine Osmolality 637 mOsmol/kg 11/12/16 16:30 U Random Total Protein 311.0 mg/dL 11/13/16 16:30 Ur Random Sodium 52 mmol/L 11/12/16 16:30 Urine Collection Time 24 hours 11/13/16 16:30 Urine Total Volume 1050 ml 11/13/16 16:30 Urine Creatinine 63.0 mg/dl (39.0-259.0) 11/13/16 16:30 Creat Clearance 24 Hr 9 ml/min (97.00-137.00) L 11/13/16 16:30 U Tot Protein 24h, Calc 3265.5 mg/24 hr (0-165) H 11/13/16 16:30 Body Surface Area 1.71 11/13/16 16:30 Hepatitis A IgM Ab Negative (Negative) 11/15/16 10:30 Hep Bs Antigen Negative (Negative) 11/15/16 10:30 Hep B Core IgM Ab Negative (Negative) 11/15/16 10:30 Hepatitis C Antibody <0.1 s/co ratio (0.0-0.9) 11/15/16 10:30 - Physical Exam Vitals and I&O: Vital Signs Temp 98.4 F 11/18/16 12:00 Pulse 94 11/18/16 14:46 Resp 20 11/18/16 14:46 BP 141/76 11/18/16 12:37 Pulse Ox 98 11/18/16 14:46 Intake & Output 11/17/16 11/18/16 11/18/16 18:59 06:59 18:59 Intake Total 1000 1000 300 Output Total 800 Balance 1000 1000 -500 Intake: Intake, IV Amount 1000 1000 Dextrose 5% 1,000 ml @ 1000 1000 125 mls/hr IV .Q8H [facility] Rx #:[id number] Oral 0 Tube Feeding 300 Output: Urine 800 Active Medications: Current Medications Acetaminophen (Tylenol 650mg/20.3ml Suspension) 650 mg GT Q4HR PRN PRN Reason: Pain (Mild) Acetaminophen (Tylenol 650mg/20.3ml Suspension) 650 mg GT Q4HR PRN PRN Reason: TEMP> 101 Acetaminophen (Tylenol 650mg/20.3ml Suspension) 1,000 mg GT Q4HR PRN PRN Reason: Pain (Moderate) Acetaminophen/Hydrocodone Bitart ([place] 5mg/325mg) 1 tab PO Q6HR PRN PRN Reason: Pain (Severe) Stop: 01/11/17 00:00 Last Admin: 11/18/16 13:55 Dose: 1 tab Al Hydrox/Mg Hydrox/Simethicone (Maalox) 30 ml GT Q6HR PRN PRN Reason: Heartburn Stop: 01/11/17 00:00 Albuterol Sulfate (Albuterol 2.5mg/3ml Neb Ud) 2.5 mg HHN Q6HR PRN PRN Reason: sob/wheezing Stop: 01/11/17 00:00 Albuterol/Ipratropium (Duoneb Neb) 3 ml HHN [id number] [facility] Stop: 01/11/17 14:59 Last Admin: 11/18/16 14:45 Dose: 3 ml Amlodipine Besylate (Norvasc) 5 mg GT DAILY [facility] Stop: 01/11/17 08:59 Last Admin: 11/18/16 08:56 Dose: 5 mg Aspirin (Aspirin) 325 mg GT DAILY [facility] Stop: 01/11/17 08:59 Last Admin: 11/18/16 08:57 Dose: 325 mg Bisacodyl (Dulcolax 10 Mg Supp) 10 mg RC PRN PRN PRN Reason: Constipation Stop: 01/11/17 00:00 Budesonide (Pulmicort) 0.5 mg HHN DAILYRT [facility] Stop: 01/11/17 14:29 Last Admin: 11/18/16 07:00 Dose: 0.5 mg Clonidine HCl (Catapres) 0.1 mg GT Q12HR PRN PRN Reason: SBP GREATER THAN 160 Stop: 01/11/17 13:59 Epoetin Lucien (Epogen) 10,000 units SUBQ MoWeFr [facility] Stop: 01/16/17 15:47 Last Admin: 11/17/16 17:42 Dose: 10,000 units Famotidine (Pepcid) 20 mg GT DAILY [facility] Stop: 01/11/17 08:59 Last Admin: 11/18/16 08:57 Dose: 20 mg Ferrous Sulfate (Iron) 450 mg GT DAILY [facility] Stop: 01/11/17 08:59 Last Admin: 11/18/16 08:56 Dose: 450 mg Hydralazine HCl (Apresoline) 25 mg GT Q8HR [facility] Stop: 01/11/17 04:59 Last Admin: 11/18/16 12:37 Dose: 25 mg Dextrose (D5w) 1,000 mls @ 125 mls/hr IV .Q8H [facility] Stop: 01/11/17 08:25 Last Admin: 11/18/16 06:25 Dose: 125 mls/hr Ceftriaxone Sodium 1 gm/ (Sodium Chloride) 50 mls @ 100 mls/hr IV Q24HR [facility] Stop: 01/17/17 11:59 Last Admin: 11/18/16 11:47 Dose: 100 mls/hr Levetiracetam (Keppra) 750 mg GT Q12HR [facility] Stop: 01/11/17 08:59 Last Admin: 11/18/16 08:57 Dose: 750 mg Lorazepam (Ativan) 0.5 mg GT Q6HR PRN; Protocol PRN Reason: Anxiety Stop: 01/11/17 00:00 Last Admin: 11/14/16 06:31 Dose: 0.5 mg Magnesium Hydroxide (Milk Of Magnesia) 30 ml GT HS PRN PRN Reason: Constipation Stop: 01/11/17 00:00 Metoprolol Tartrate (Lopressor) 12.5 mg GT BID [facility] Stop: 01/11/17 08:59 Last Admin: 11/18/16 08:56 Dose: 12.5 mg Polyethylene Glycol (Miralax) 17 gm GT DAILY [facility] Stop: 01/11/17 08:59 Last Admin: 11/18/16 08:56 Dose: 17 gm Senna (Senna) 17.2 mg GT DAILY [facility] Stop: 01/11/17 08:59 Last Admin: 11/18/16 08:57 Dose: 17.2 mg Sodium Phosphate (Fleet Enema) 135 ml RC DAILY PRN PRN Reason: Constipation Stop: 01/11/17 08:59 General: Alert, No acute distress HEENT: Atraumatic, EOMI, Mucous membr. moist/pink Neck: Supple, +2 carotid pulse wo bruit Cardiovascular: Regular rate, Normal S1, Normal S2 Lungs: Clear to auscultation Abdomen: Bowel sounds, Soft Extremities: no Edema Neurological: Sensation intact Skin: no Rash Assessment/Plan - Problem List Patient Problems: All Active Problems H/O chronic renal failure syndrome (Acute) Z87.448 H/O: HTN (hypertension) (Acute) Z86.79 Respiratory failure (Acute) J96.90 Right lower lobe pneumonia (Acute) J18.9 h/o anemia (Acute) s/p g tube (Acute) - Assessment Assessment: esrd on hd sepsis 2nd to left hap, Cx UTI Smart's palsy/epilepsy S/P resp failure on vent, s/p extubation dysphaga s/p PEG anemia of cd ess htn - Plan Plan: no change kidney fnc CT chest showed B/L effusions, Left pna schedule for hd in am f/u cxr start epogen
--- NOTE | 2016-11-19 02:15 | Consultation ---
Inpatient GI consult REFERRING PHYSICIAN: Dr. Marsh. REASON FOR CONSULTATION: Anemia. HISTORY OF PRESENT ILLNESS: This is a 76-year-old male came to the hospital because of dehydration and was found to be anemic. The patient is not a great historian, unable to give any meaningful history. Per staff, no obvious signs of GI bleeding. No nausea, no vomiting. No diarrhea or constipation. PAST MEDICAL HISTORY: Chronic kidney disease, osteosarcoma, Smart's palsy, respiratory failure, chronic kidney disease, dysphagia, anemia of chronic disease, pneumonia, hypertension. PAST SURGICAL HISTORY: Trach and PEG. FAMILY HISTORY: Noncontributory. SOCIAL HISTORY: I believe resident of skilled resident of [facility] er facility. ALLERGIES: KEFLEX. CURRENT MEDICATIONS: Tylenol, Maalox, albuterol, Norvasc, aspirin, Dulcolax, Pulmicort, ceftriaxone, Catapres, Epogen, Pepcid, iron, ____, Keppra, Ativan, milk of magnesia, MiraLax, Lopressor. REVIEW OF SYSTEMS: Unobtainable. PHYSICAL EXAMINATION: VITAL SIGNS: Temperature 97.7, breathing 20, pulse of 96, blood pressure is 123/65, satting 98%. GENERAL: In no apparent distress. EYES: Anicteric, normal conjunctivae. HEENT: Normocephalic, atraumatic. Moist mucous membranes. NECK: Soft, supple. CHEST: Clear effort. CARDIOVASCULAR: Regular rate and rhythm. ABDOMEN: Soft, nontender, nondistended with a G-tube. SKIN: Warm, dry. EXTREMITIES: Reveal no cyanosis. PSYCHOLOGICAL: Somnolent. LABORATORY DATA: Show white count 9.8, hemoglobin 8.1, MCV of 90, platelets 165, BUN 27, creatinine 2.2. IMPRESSION: This is a 76-year-old male with a normocytic anemia, cause could be multifactorial including anemia of chronic disease from chronic kidney disease. No obvious sign of GI bleeding at this time. Stool studies can be obtained to look for any signs of occult blood loss if there is and that would warrant further workup by way of endoscopy, colonoscopy. PLAN: 1.Check stool occult blood. 2.Follow hemoglobin and hematocrit, transfuse as needed. 3.Esophagogastroduodenoscopy, colonoscopy if stool occult blood positive or obvious signs of gastrointestinal bleeding. Thank you, for allowing me to participate, please call me if you have any questions. YOANA: 11/18/2016 12:28 [facility]# [id number]
[2016-11-19] MEDS: Dextrose 5% 1,000 ML IV SCH ×2 (05:16→20:36)
--- NOTE | 2016-11-19 06:42 | Progress Notes ---
PULMONARY PROGRESS NOTE PROBLEM LIST: 1. Acute tracheobronchitis. 2. History of respiratory failure with tracheocutaneous fistula. 3. Acute prerenal azotemia with effusion, currently at dialysis. SYMPTOMS: The patient currently is much awake, alert, and says he is feeling pretty good. No specific new symptomatology at this particular time. PHYSICAL EXAMINATION: VITAL SIGNS: The patient's recorded vitals: Temperature is 98.4, saturation 98% on 2 liters, and respirations 20. NECK: Veins could not be visualized. Still, there is a lot of secretion from fistula, anterior portion of the neck. CHEST: Shows diminished air entry with occasional rhonchi. HEART: Regular. ABDOMEN: Soft and nontender. EXTREMITIES: Shows no peripheral edema. LABORATORY DATA: The patient's pertinent laboratory studies show white count is 9.8, hemoglobin 8.1 and sodium is 129. The patient's creatinine is 2.2 and BUN is 27. ASSESSMENT: The patient clinically overall significantly improved. Renal murray, prerenal azotemia. There is some haziness in the right base on the chest x-ray. PLANS AND SUGGESTIONS: We will continue current treatment. We will follow through on the lab test including chest x-ray, etc. See how it is and go from there. JOB# [id number]
[2016-11-19] MEDS: Albuterol/Ipratropium Neb 3 ML AERS HHN SCH ×4 (07:13→19:19)
[2016-11-19] MEDS: Budesonide 0.5 Mg/2 mL Ud HHN SCH (07:13)
[2016-11-19 07:50] LABS: ANION GAP 7.9 (7.0-16.0); BUN - UREA NITROGEN 33 mg/dL (7-25); BUN/CREATININE RATIO 11.8; CALCIUM SERUM 8.6 mg/dL (8.6-10.3); CARBON DIOXIDE 30.6 mEq/L (21.0-31.0); CHLORIDE 90 mEq/L (98-107); CREATININE - SERUM 2.8 mg/dL (0.7-1.3); GLUCOSE 102 mg/dL (70-105); POTASSIUM SERUM 3.5 mEq/L (3.5-5.1); SODIUM SERUM 125 mEq/L (136-145)
[2016-11-19] MEDS: Ferrous Sulfate 300 MG/5 ML UDC GT SCH (08:29)
[2016-11-19] MEDS: POLYETHYLENE GLYCOL 3350 17 GM PACK GT SCH (08:29)
[2016-11-19] MEDS: Levetiracetam 500 mg/5mL 5mL UDC GT SCH ×2 (08:30→20:32)
[2016-11-19] MEDS: Multivitamin w/ Minerals Tab GT SCH (08:31)
--- NOTE | 2016-11-19 09:19 | General Progress Note ---
Subjective - Review of Systems Subjective: awake, alert, nad Objective - Results Result Diagrams: 11/18/16 09:45 11/19/16 06:15 Recent Labs: Laboratory Last Values WBC 9.8 Th/cmm (4.8-10.8) 11/18/16 09:45 RBC 2.60 Mil/cmm (3.80-5.80) L 11/18/16 09:45 Hgb 8.1 gm/dL (12.6-17.4) L 11/18/16 09:45 Hct 23.4 % (39.0-49.0) L* 11/18/16 09:45 MCV 90.1 fl (80-99) 11/18/16 09:45 MCH 31.0 pg (27.0-31.0) 11/18/16 09:45 MCHC Differential 34.5 pg (28.0-36.0) 11/18/16 09:45 RDW 14.2 % (11.5-20.0) 11/18/16 09:45 Plt Count 165 Th/cmm (150-400) 11/18/16 09:45 MPV 9.7 fl 11/18/16 09:45 Neutrophils % 68.9 % (40.0-80.0) 11/18/16 09:45 Lymphocytes % 15.2 % (20.0-50.0) L 11/18/16 09:45 Monocytes % 9.2 % (2.0-10.0) 11/18/16 09:45 Eosinophils % 5.7 % (0.0-5.0) H 11/18/16 09:45 Basophils % 1.0 % (0.0-2.0) 11/18/16 09:45 Eos Smear Source URINE 11/12/16 16:30 Eos Smear Total Cells NONE SEEN (NONE SEEN) 11/12/16 16:30 PT 10.6 SECONDS (9.5-11.5) 11/11/16 22:58 INR 1.07 (0.5-1.4) 11/11/16 22:58 PTT (Actin FS) 27.1 SECONDS (26.0-38.0) 11/11/16 22:58 Specimen Source Arterial 11/13/16 08:50 Sample Site Left Radial 11/13/16 08:50 pH 7.47 (7.35-7.45) H 11/13/16 08:50 pCO2 38.0 mmHg (35.0-45.0) 11/13/16 08:50 pO2 67.0 mmHg (80.0-100.0) L 11/13/16 08:50 HCO3 27.7 mmol/L (20.0-26.0) H 11/13/16 08:50 Base Excess 3.9 mmol/L (-3.0-3.0) H 11/13/16 08:50 O2 Saturation 94.0 % (92.0-100.0) 11/13/16 08:50 Juan R Test PASS 11/13/16 08:50 Inspired O2 21 11/13/16 08:50 Critical Value PW 11/13/16 08:50 Sodium 125 mEq/L (136-145) L 11/19/16 06:15 Potassium 3.5 mEq/L (3.5-5.1) 11/19/16 06:15 Chloride 90 mEq/L (98-107) L 11/19/16 06:15 Carbon Dioxide 30.6 mEq/L (21.0-31.0) 11/19/16 06:15 Anion Gap 7.9 (7.0-16.0) 11/19/16 06:15 BUN 33 mg/dL (7-25) H 11/19/16 06:15 Creatinine 2.8 mg/dL (0.7-1.3) H 11/19/16 06:15 Est GFR ( Amer) [facility] 11/19/16 06:15 Est GFR (Non-Af Amer) [facility] 11/19/16 06:15 BUN/Creatinine Ratio 11.8 11/19/16 06:15 Glucose 102 mg/dL (70-105) 11/19/16 06:15 Hemoglobin A1c % 4.8 % (4.0-6.0) 11/15/16 06:47 Whole Bld Lactic Acid 1.85 mmol/L (0.60-2.00) 11/11/16 22:58 Uric Acid 6.9 mg/dL (4.4-7.6) 11/13/16 05:45 Calcium 8.6 mg/dL (8.6-10.3) 11/19/16 06:15 Total Bilirubin 0.3 mg/dL (0.3-1.0) 11/13/16 05:45 AST 35 U/L (13-39) 11/13/16 05:45 ALT 48 U/L (7-52) 11/13/16 05:45 Alkaline Phosphatase 72 U/L (34-104) 11/13/16 05:45 Ammonia 51 umol/L (16-53) 11/17/16 05:05 Creatine Kinase 180 U/L (30-223) 11/11/16 22:58 Total Protein 7.0 gm/dL (6.0-8.3) 11/13/16 05:45 Albumin 2.7 gm/dL (4.2-5.5) L 11/13/16 05:45 Globulin 4.3 gm/dL 11/13/16 05:45 Albumin/Globulin Ratio 0.6 (1.0-1.8) L 11/13/16 05:45 TSH 3.46 uIU/ml (0.34-5.60) 11/13/16 05:45 Urine Source CATH 11/11/16 22:40 Urine Color YELLOW 11/11/16 22:40 Urine Clarity HAZY (CLEAR) 11/11/16 22:40 Urine pH 7.5 11/11/16 22:40 Ur Specific [place] 1.020 (1.005-1.030) 11/11/16 22:40 Urine Protein >300 mg/dL (NEGATIVE) H 11/11/16 22:40 Urine Glucose (UA) NEGATIVE mg/dL (NEGATIVE) 11/11/16 22:40 Urine Ketones NEGATIVE mg/dL (NEGATIVE) 11/11/16 22:40 Urine Blood MODERATE (NEGATIVE) H 11/11/16 22:40 Urine Nitrate NEGATIVE (NEGATIVE) 11/11/16 22:40 Urine Bilirubin NEGATIVE (NEGATIVE) 11/11/16 22:40 Urine Urobilinogen 0.2 E.U./dL (0.2 - 1.0) 11/11/16 22:40 Ur Leukocyte Esterase SMALL (NEGATIVE) H 11/11/16 22:40 Urine RBC 5-10 /hpf (0-5) H 11/11/16 22:40 Urine WBC 6-10 /hpf (0-5) H 11/11/16 22:40 Ur Epithelial Cells FEW /lpf (FEW) 11/11/16 22:40 Urine Bacteria MODERATE /hpf (NONE SEEN) 11/11/16 22:40 Urine Osmolality 637 mOsmol/kg 11/12/16 16:30 U Random Total Protein 311.0 mg/dL 11/13/16 16:30 Ur Random Sodium 52 mmol/L 11/12/16 16:30 Urine Collection Time 24 hours 11/13/16 16:30 Urine Total Volume 1050 ml 11/13/16 16:30 Urine Creatinine 63.0 mg/dl (39.0-259.0) 11/13/16 16:30 Creat Clearance 24 Hr 9 ml/min (97.00-137.00) L 11/13/16 16:30 U Tot Protein 24h, Calc 3265.5 mg/24 hr (0-165) H 11/13/16 16:30 Body Surface Area 1.71 11/13/16 16:30 Stool Occult Blood NEGATIVE (NEGATIVE) 11/18/16 17:50 Hepatitis A IgM Ab Negative (Negative) 11/15/16 10:30 Hep Bs Antigen Negative (Negative) 11/15/16 10:30 Hep B Core IgM Ab Negative (Negative) 11/15/16 10:30 Hepatitis C Antibody <0.1 s/co ratio (0.0-0.9) 11/15/16 10:30 - Physical Exam Vitals and I&O: Vital Signs Temp 98.9 F 11/19/16 04:00 Pulse 93 11/19/16 08:38 Resp 20 11/19/16 07:13 BP 118/76 11/19/16 08:38 Pulse Ox 99 11/19/16 07:13 Intake & Output 11/18/16 11/19/16 11/19/16 18:59 06:59 18:59 Intake Total 1350 1640 Output Total 800 700 Balance 550 940 Intake: Intake, IV Amount 1050 1000 Dextrose 5% 1,000 ml @ 1000 1000 125 mls/hr IV .Q8H [facility] Rx #:[id number] cefTRIAXone 1 gm In 50 Sodium Chloride 0.9% 50 ml @ 100 mls/hr IV Q24HR [facility] Rx#:[id number] Oral 0 Tube Feeding 300 540 Other 100 Output: Urine 800 700 Active Medications: Current Medications Acetaminophen (Tylenol 650mg/20.3ml Suspension) 650 mg GT Q4HR PRN PRN Reason: Pain (Mild) Acetaminophen (Tylenol 650mg/20.3ml Suspension) 650 mg GT Q4HR PRN PRN Reason: TEMP> 101 Acetaminophen (Tylenol 650mg/20.3ml Suspension) 1,000 mg GT Q4HR PRN PRN Reason: Pain (Moderate) Acetaminophen/Hydrocodone Bitart ([place] 5mg/325mg) 1 tab PO Q6HR PRN PRN Reason: Pain (Severe) Stop: 01/11/17 00:00 Last Admin: 11/18/16 13:55 Dose: 1 tab Al Hydrox/Mg Hydrox/Simethicone (Maalox) 30 ml GT Q6HR PRN PRN Reason: Heartburn Stop: 01/11/17 00:00 Albuterol Sulfate (Albuterol 2.5mg/3ml Neb Ud) 2.5 mg HHN Q6HR PRN PRN Reason: sob/wheezing Stop: 01/11/17 00:00 Albuterol/Ipratropium (Duoneb Neb) 3 ml HHN [id number] [facility] Stop: 01/11/17 14:59 Last Admin: 11/19/16 07:13 Dose: 3 ml Amlodipine Besylate (Norvasc) 5 mg GT DAILY [facility] Stop: 01/11/17 08:59 Last Admin: 11/19/16 08:38 Dose: Not Given Aspirin (Aspirin) 325 mg GT DAILY [facility] Stop: 01/11/17 08:59 Last Admin: 11/19/16 08:30 Dose: 325 mg Bisacodyl (Dulcolax 10 Mg Supp) 10 mg RC PRN PRN PRN Reason: Constipation Stop: 01/11/17 00:00 Budesonide (Pulmicort) 0.5 mg HHN DAILYRT [facility] Stop: 01/11/17 14:29 Last Admin: 11/19/16 07:13 Dose: 0.5 mg Clonidine HCl (Catapres) 0.1 mg GT Q12HR PRN PRN Reason: SBP GREATER THAN 160 Stop: 01/11/17 13:59 Epoetin Lucien (Epogen) 10,000 units SUBQ MoWeFr [facility] Stop: 01/16/17 15:47 Last Admin: 11/17/16 17:42 Dose: 10,000 units Famotidine (Pepcid) 20 mg GT DAILY [facility] Stop: 01/11/17 08:59 Last Admin: 11/19/16 08:31 Dose: 20 mg Ferrous Sulfate (Iron) 450 mg GT DAILY [facility] Stop: 01/11/17 08:59 Last Admin: 11/19/16 08:29 Dose: 450 mg Hydralazine HCl (Apresoline) 25 mg GT Q8HR [facility] Stop: 01/11/17 04:59 Last Admin: 11/19/16 05:15 Dose: 25 mg Dextrose (D5w) 1,000 mls @ 125 mls/hr IV .Q8H [facility] Stop: 01/11/17 08:25 Last Admin: 11/19/16 05:16 Dose: 125 mls/hr Ceftriaxone Sodium 1 gm/ (Sodium Chloride) 50 mls @ 100 mls/hr IV Q24HR [facility] Stop: 01/17/17 11:59 Last Infusion: 11/18/16 12:30 Dose: Infused Levetiracetam (Keppra) 750 mg GT Q12HR [facility] Stop: 01/11/17 08:59 Last Admin: 11/19/16 08:30 Dose: 750 mg Lorazepam (Ativan) 0.5 mg GT Q6HR PRN; Protocol PRN Reason: Anxiety Stop: 01/11/17 00:00 Last Admin: 11/14/16 06:31 Dose: 0.5 mg Magnesium Hydroxide (Milk Of Magnesia) 30 ml GT HS PRN PRN Reason: Constipation Stop: 01/11/17 00:00 Metoprolol Tartrate (Lopressor) 12.5 mg GT BID [facility] Stop: 01/11/17 08:59 Last Admin: 11/19/16 08:38 Dose: Not Given Miscellaneous (Clinical Monitoring) 1 ea MC PRN PRN PRN Reason: RENAL DOSING Stop: 01/18/17 08:08 Mupirocin (Bactroban Oint) 1 appl NS BID [facility] Stop: 11/23/16 17:01 Polyethylene Glycol (Miralax) 17 gm GT DAILY [facility] Stop: 01/11/17 08:59 Last Admin: 11/19/16 08:29 Dose: 17 gm Senna (Senna) 17.2 mg GT DAILY [facility] Stop: 01/11/17 08:59 Last Admin: 11/19/16 08:31 Dose: 17.2 mg Sodium Phosphate (Fleet Enema) 135 ml RC DAILY PRN PRN Reason: Constipation Stop: 01/11/17 08:59 Assessment/Plan - Problem List Patient Problems: All Active Problems H/O chronic renal failure syndrome (Acute) Z87.448 H/O: HTN (hypertension) (Acute) Z86.79 Respiratory failure (Acute) J96.90 Right lower lobe pneumonia (Acute) J18.9 h/o anemia (Acute) s/p g tube (Acute) - Plan Plan: ivabx cbc/bmp in am cpm
--- NOTE | 2016-11-19 09:56 | Diagnostic Imaging Report ---
CHEST X-RAY: AP view INDICATION: Effusions, pneumonia COMPARISON: Chest x-ray 11/18/2016 FINDINGS: Left subclavian central line is stable. Mild congestive changes are seen with small effusions. Cardiomegaly is noted. IMPRESSION: Mild congestive changes and small effusions.
[2016-11-19] MEDS: cefTRIAXone 1 GM in 0.9% NS 50 ML IV SCH (11:01)
--- NOTE | 2016-11-19 13:11 | General Progress Note ---
Subjective - Review of Systems Service Date: 11/19/16 Subjective: more awake, verbal today, not in distress Objective - Results Result Diagrams: 11/18/16 09:45 11/19/16 06:15 Recent Labs: Laboratory Last Values WBC 9.8 Th/cmm (4.8-10.8) 11/18/16 09:45 RBC 2.60 Mil/cmm (3.80-5.80) L 11/18/16 09:45 Hgb 8.1 gm/dL (12.6-17.4) L 11/18/16 09:45 Hct 23.4 % (39.0-49.0) L* 11/18/16 09:45 MCV 90.1 fl (80-99) 11/18/16 09:45 MCH 31.0 pg (27.0-31.0) 11/18/16 09:45 MCHC Differential 34.5 pg (28.0-36.0) 11/18/16 09:45 RDW 14.2 % (11.5-20.0) 11/18/16 09:45 Plt Count 165 Th/cmm (150-400) 11/18/16 09:45 MPV 9.7 fl 11/18/16 09:45 Neutrophils % 68.9 % (40.0-80.0) 11/18/16 09:45 Lymphocytes % 15.2 % (20.0-50.0) L 11/18/16 09:45 Monocytes % 9.2 % (2.0-10.0) 11/18/16 09:45 Eosinophils % 5.7 % (0.0-5.0) H 11/18/16 09:45 Basophils % 1.0 % (0.0-2.0) 11/18/16 09:45 Eos Smear Source URINE 11/12/16 16:30 Eos Smear Total Cells NONE SEEN (NONE SEEN) 11/12/16 16:30 PT 10.6 SECONDS (9.5-11.5) 11/11/16 22:58 INR 1.07 (0.5-1.4) 11/11/16 22:58 PTT (Actin FS) 27.1 SECONDS (26.0-38.0) 11/11/16 22:58 Specimen Source Arterial 11/13/16 08:50 Sample Site Left Radial 11/13/16 08:50 pH 7.47 (7.35-7.45) H 11/13/16 08:50 pCO2 38.0 mmHg (35.0-45.0) 11/13/16 08:50 pO2 67.0 mmHg (80.0-100.0) L 11/13/16 08:50 HCO3 27.7 mmol/L (20.0-26.0) H 11/13/16 08:50 Base Excess 3.9 mmol/L (-3.0-3.0) H 11/13/16 08:50 O2 Saturation 94.0 % (92.0-100.0) 11/13/16 08:50 Juan R Test PASS 11/13/16 08:50 Inspired O2 21 11/13/16 08:50 Critical Value PW 11/13/16 08:50 Sodium 125 mEq/L (136-145) L 11/19/16 06:15 Potassium 3.5 mEq/L (3.5-5.1) 11/19/16 06:15 Chloride 90 mEq/L (98-107) L 11/19/16 06:15 Carbon Dioxide 30.6 mEq/L (21.0-31.0) 11/19/16 06:15 Anion Gap 7.9 (7.0-16.0) 11/19/16 06:15 BUN 33 mg/dL (7-25) H 11/19/16 06:15 Creatinine 2.8 mg/dL (0.7-1.3) H 11/19/16 06:15 Est GFR ( Amer) TNP 11/19/16 06:15 Est GFR (Non-Af Amer) [place] 11/19/16 06:15 BUN/Creatinine Ratio 11.8 11/19/16 06:15 Glucose 102 mg/dL (70-105) 11/19/16 06:15 Hemoglobin A1c % 4.8 % (4.0-6.0) 11/15/16 06:47 Whole Bld Lactic Acid 1.85 mmol/L (0.60-2.00) 11/11/16 22:58 Uric Acid 6.9 mg/dL (4.4-7.6) 11/13/16 05:45 Calcium 8.6 mg/dL (8.6-10.3) 11/19/16 06:15 Total Bilirubin 0.3 mg/dL (0.3-1.0) 11/13/16 05:45 AST 35 U/L (13-39) 11/13/16 05:45 ALT 48 U/L (7-52) 11/13/16 05:45 Alkaline Phosphatase 72 U/L (34-104) 11/13/16 05:45 Ammonia 51 umol/L (16-53) 11/17/16 05:05 Creatine Kinase 180 U/L (30-223) 11/11/16 22:58 Total Protein 7.0 gm/dL (6.0-8.3) 11/13/16 05:45 Albumin 2.7 gm/dL (4.2-5.5) L 11/13/16 05:45 Globulin 4.3 gm/dL 11/13/16 05:45 Albumin/Globulin Ratio 0.6 (1.0-1.8) L 11/13/16 05:45 TSH 3.46 uIU/ml (0.34-5.60) 11/13/16 05:45 Urine Source CATH 11/11/16 22:40 Urine Color YELLOW 11/11/16 22:40 Urine Clarity HAZY (CLEAR) 11/11/16 22:40 Urine pH 7.5 11/11/16 22:40 Ur Specific [place] 1.020 (1.005-1.030) 11/11/16 22:40 Urine Protein >300 mg/dL (NEGATIVE) H 11/11/16 22:40 Urine Glucose (UA) NEGATIVE mg/dL (NEGATIVE) 11/11/16 22:40 Urine Ketones NEGATIVE mg/dL (NEGATIVE) 11/11/16 22:40 Urine Blood MODERATE (NEGATIVE) H 11/11/16 22:40 Urine Nitrate NEGATIVE (NEGATIVE) 11/11/16 22:40 Urine Bilirubin NEGATIVE (NEGATIVE) 11/11/16 22:40 Urine Urobilinogen 0.2 E.U./dL (0.2 - 1.0) 11/11/16 22:40 Ur Leukocyte Esterase SMALL (NEGATIVE) H 11/11/16 22:40 Urine RBC 5-10 /hpf (0-5) H 11/11/16 22:40 Urine WBC 6-10 /hpf (0-5) H 11/11/16 22:40 Ur Epithelial Cells FEW /lpf (FEW) 11/11/16 22:40 Urine Bacteria MODERATE /hpf (NONE SEEN) 11/11/16 22:40 Urine Osmolality 637 mOsmol/kg 11/12/16 16:30 U Random Total Protein 311.0 mg/dL 11/13/16 16:30 Ur Random Sodium 52 mmol/L 11/12/16 16:30 Urine Collection Time 24 hours 11/13/16 16:30 Urine Total Volume 1050 ml 11/13/16 16:30 Urine Creatinine 63.0 mg/dl (39.0-259.0) 11/13/16 16:30 Creat Clearance 24 Hr 9 ml/min (97.00-137.00) L 11/13/16 16:30 U Tot Protein 24h, Calc 3265.5 mg/24 hr (0-165) H 11/13/16 16:30 Body Surface Area 1.71 11/13/16 16:30 Stool Occult Blood NEGATIVE (NEGATIVE) 11/18/16 17:50 Hepatitis A IgM Ab Negative (Negative) 11/15/16 10:30 Hep Bs Antigen Negative (Negative) 11/15/16 10:30 Hep B Core IgM Ab Negative (Negative) 11/15/16 10:30 Hepatitis C Antibody <0.1 s/co ratio (0.0-0.9) 11/15/16 10:30 - Physical Exam Vitals and I&O: Vital Signs Temp 98.2 F 11/19/16 12:25 Pulse 88 11/19/16 12:33 Resp 20 11/19/16 12:33 BP 134/86 11/19/16 12:25 Pulse Ox 99 11/19/16 12:33 Intake & Output 11/18/16 11/19/16 11/19/16 18:59 06:59 18:59 Intake Total 1350 1640 Output Total 800 700 Balance 550 940 Intake: Intake, IV Amount 1050 1000 Dextrose 5% 1,000 ml @ 1000 1000 125 mls/hr IV .Q8H [facility] Rx #:[id number] cefTRIAXone 1 gm In 50 Sodium Chloride 0.9% 50 ml @ 100 mls/hr IV Q24HR [facility] Rx#:[id number] Oral 0 Tube Feeding 300 540 Other 100 Output: Urine 800 700 Active Medications: Current Medications Acetaminophen (Tylenol 650mg/20.3ml Suspension) 650 mg GT Q4HR PRN PRN Reason: Pain (Mild) Acetaminophen (Tylenol 650mg/20.3ml Suspension) 650 mg GT Q4HR PRN PRN Reason: TEMP> 101 Acetaminophen (Tylenol 650mg/20.3ml Suspension) 1,000 mg GT Q4HR PRN PRN Reason: Pain (Moderate) Acetaminophen/Hydrocodone Bitart ([place] 5mg/325mg) 1 tab PO Q6HR PRN PRN Reason: Pain (Severe) Stop: 01/11/17 00:00 Last Admin: 11/18/16 13:55 Dose: 1 tab Al Hydrox/Mg Hydrox/Simethicone (Maalox) 30 ml GT Q6HR PRN PRN Reason: Heartburn Stop: 01/11/17 00:00 Albuterol Sulfate (Albuterol 2.5mg/3ml Neb Ud) 2.5 mg HHN Q6HR PRN PRN Reason: sob/wheezing Stop: 01/11/17 00:00 Albuterol/Ipratropium (Duoneb Neb) 3 ml HHN [id number] [facility] Stop: 01/11/17 14:59 Last Admin: 11/19/16 12:33 Dose: 3 ml Amlodipine Besylate (Norvasc) 5 mg GT DAILY [facility] Stop: 01/11/17 08:59 Last Admin: 11/19/16 08:38 Dose: Not Given Aspirin (Aspirin) 325 mg GT DAILY [facility] Stop: 01/11/17 08:59 Last Admin: 11/19/16 08:30 Dose: 325 mg Bisacodyl (Dulcolax 10 Mg Supp) 10 mg RC PRN PRN PRN Reason: Constipation Stop: 01/11/17 00:00 Budesonide (Pulmicort) 0.5 mg HHN DAILYRT [facility] Stop: 01/11/17 14:29 Last Admin: 11/19/16 07:13 Dose: 0.5 mg Clonidine HCl (Catapres) 0.1 mg GT Q12HR PRN PRN Reason: SBP GREATER THAN 160 Stop: 01/11/17 13:59 Epoetin Lucien (Epogen) 10,000 units SUBQ MoWeFr [facility] Stop: 01/16/17 15:47 Last Admin: 11/17/16 17:42 Dose: 10,000 units Famotidine (Pepcid) 20 mg GT DAILY [facility] Stop: 01/11/17 08:59 Last Admin: 11/19/16 08:31 Dose: 20 mg Ferrous Sulfate (Iron) 450 mg GT DAILY [facility] Stop: 01/11/17 08:59 Last Admin: 11/19/16 08:29 Dose: 450 mg Hydralazine HCl (Apresoline) 25 mg GT Q8HR [facility] Stop: 01/11/17 04:59 Last Admin: 11/19/16 12:20 Dose: Not Given Dextrose (D5w) 1,000 mls @ 125 mls/hr IV .Q8H [facility] Stop: 01/11/17 08:25 Last Admin: 11/19/16 05:16 Dose: 125 mls/hr Ceftriaxone Sodium 1 gm/ (Sodium Chloride) 50 mls @ 100 mls/hr IV Q24HR [facility] Stop: 01/17/17 11:59 Last Admin: 11/19/16 11:01 Dose: 100 mls/hr Levetiracetam (Keppra) 750 mg GT Q12HR [facility] Stop: 01/11/17 08:59 Last Admin: 11/19/16 08:30 Dose: 750 mg Lorazepam (Ativan) 0.5 mg GT Q6HR PRN; Protocol PRN Reason: Anxiety Stop: 01/11/17 00:00 Last Admin: 11/14/16 06:31 Dose: 0.5 mg Magnesium Hydroxide (Milk Of Magnesia) 30 ml GT HS PRN PRN Reason: Constipation Stop: 01/11/17 00:00 Metoprolol Tartrate (Lopressor) 12.5 mg GT BID [facility] Stop: 01/11/17 08:59 Last Admin: 11/19/16 08:38 Dose: Not Given Miscellaneous (Clinical Monitoring) 1 ea MC PRN PRN PRN Reason: RENAL DOSING Stop: 01/18/17 08:08 Mupirocin (Bactroban Oint) 1 appl NS BID [facility] Stop: 11/23/16 17:01 Last Admin: 11/19/16 09:39 Dose: 1 appl Polyethylene Glycol (Miralax) 17 gm GT DAILY [facility] Stop: 01/11/17 08:59 Last Admin: 11/19/16 08:29 Dose: 17 gm Senna (Senna) 17.2 mg GT DAILY [facility] Stop: 01/11/17 08:59 Last Admin: 11/19/16 08:31 Dose: 17.2 mg Sodium Phosphate (Fleet Enema) 135 ml RC DAILY PRN PRN Reason: Constipation Stop: 01/11/17 08:59 General: Alert, No acute distress HEENT: Atraumatic, EOMI, Mucous membr. moist/pink Neck: Supple, +2 carotid pulse wo bruit Cardiovascular: Regular rate, Normal S1, Normal S2 Lungs: Other (scattered rhonchi) Abdomen: Bowel sounds, Soft Extremities: Clubbing, Pulses Neurological: Sensation intact Skin: no Rash Assessment/Plan - Problem List Patient Problems: All Active Problems H/O chronic renal failure syndrome (Acute) Z87.448 H/O: HTN (hypertension) (Acute) Z86.79 Respiratory failure (Acute) J96.90 Right lower lobe pneumonia (Acute) J18.9 h/o anemia (Acute) s/p g tube (Acute) - Assessment Assessment: esrd on hd sepsis 2nd to left hap, Cx UTI Smart's palsy/epilepsy S/P resp failure on vent, s/p extubation 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
[2016-11-19] MEDS: Epoetin Alfa 20000 Units/mL Vial SUBQ SCH (16:36)
--- NOTE | 2016-11-20 04:05 | Progress Notes ---
PROBLEM LIST: 1. Acute respiratory failure, improved. 2. Tracheobronchitis with possibly pneumonia. 3. Right-sided effusion. 4. Currently on dialysis. SYMPTOMS: The patient is being dialyzed, relatively symptomatic. No respiratory distress, etc. PHYSICAL EXAMINATION: VITAL SIGNS: Temperature is 98.2, saturation is 98% on room air. Respirations in high teens. ENT: Shows no new changes. 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 CHEST: Essentially diminished air entry with occasional rhonchi. HEART: Regular. LABORATORY DATA: The patient's electrolytes, sodium is 125. Creatinine went up to 2.8, BUN is 33 and chest x-ray still shows some haziness on the right basal area. ASSESSMENT: 1.The patient clinically overall doing better, respiratory murray, we suspect obstructive sleep apnea syndrome. 2.Tracheocutaneous fistula and also recent [id number] renal failure. PLANS AND SUGGESTIONS: We will go ahead and continue current treatment. We will follow through other laboratory studies in the next few days and go from there. JOB# [id number]
[2016-11-20 07:58] LABS: BUN - UREA NITROGEN 25 mg/dL (7-25); BUN/CREATININE RATIO 13.2; CALCIUM SERUM 8.3 mg/dL (8.6-10.3); CARBON DIOXIDE 28.2 mEq/L (21.0-31.0); CHLORIDE 94 mEq/L (98-107); CREATININE - SERUM 1.9 mg/dL (0.7-1.3); GLUCOSE 94 mg/dL (70-105); POTASSIUM SERUM 3.2 mEq/L (3.5-5.1); SODIUM SERUM 126 mEq/L (136-145)
[2016-11-20] MEDS: Levetiracetam 500 mg/5mL 5mL UDC GT SCH ×2 (08:22→23:08)
[2016-11-20] MEDS: Ferrous Sulfate 300 MG/5 ML UDC GT SCH (08:22)
[2016-11-20] MEDS: POLYETHYLENE GLYCOL 3350 17 GM PACK GT SCH (08:22)
[2016-11-20] MEDS: Multivitamin w/ Minerals Tab GT SCH (08:23)
[2016-11-20] MEDS: Albuterol/Ipratropium Neb 3 ML AERS HHN SCH ×4 (08:31→19:32)
[2016-11-20] MEDS: Budesonide 0.5 Mg/2 mL Ud HHN SCH (08:32)
[2016-11-20] MEDS: Dextrose 5% 1,000 ML IV SCH (08:36)
--- NOTE | 2016-11-20 09:59 | General Progress Note ---
Subjective - Review of Systems Subjective: awake, alert, nad Objective - Results Result Diagrams: 11/18/16 09:45 11/20/16 06:30 Recent Labs: Laboratory Last Values WBC 9.8 Th/cmm (4.8-10.8) 11/18/16 09:45 RBC 2.60 Mil/cmm (3.80-5.80) L 11/18/16 09:45 Hgb 8.1 gm/dL (12.6-17.4) L 11/18/16 09:45 Hct 23.4 % (39.0-49.0) L* 11/18/16 09:45 MCV 90.1 fl (80-99) 11/18/16 09:45 MCH 31.0 pg (27.0-31.0) 11/18/16 09:45 MCHC Differential 34.5 pg (28.0-36.0) 11/18/16 09:45 RDW 14.2 % (11.5-20.0) 11/18/16 09:45 Plt Count 165 Th/cmm (150-400) 11/18/16 09:45 MPV 9.7 fl 11/18/16 09:45 Neutrophils % 68.9 % (40.0-80.0) 11/18/16 09:45 Lymphocytes % 15.2 % (20.0-50.0) L 11/18/16 09:45 Monocytes % 9.2 % (2.0-10.0) 11/18/16 09:45 Eosinophils % 5.7 % (0.0-5.0) H 11/18/16 09:45 Basophils % 1.0 % (0.0-2.0) 11/18/16 09:45 Eos Smear Source URINE 11/12/16 16:30 Eos Smear Total Cells NONE SEEN (NONE SEEN) 11/12/16 16:30 PT 10.6 SECONDS (9.5-11.5) 11/11/16 22:58 INR 1.07 (0.5-1.4) 11/11/16 22:58 PTT (Actin FS) 27.1 SECONDS (26.0-38.0) 11/11/16 22:58 Specimen Source Arterial 11/13/16 08:50 Sample Site Left Radial 11/13/16 08:50 pH 7.47 (7.35-7.45) H 11/13/16 08:50 pCO2 38.0 mmHg (35.0-45.0) 11/13/16 08:50 pO2 67.0 mmHg (80.0-100.0) L 11/13/16 08:50 HCO3 27.7 mmol/L (20.0-26.0) H 11/13/16 08:50 Base Excess 3.9 mmol/L (-3.0-3.0) H 11/13/16 08:50 O2 Saturation 94.0 % (92.0-100.0) 11/13/16 08:50 Juan R Test PASS 11/13/16 08:50 Inspired O2 21 11/13/16 08:50 Critical Value PW 11/13/16 08:50 Sodium 126 mEq/L (136-145) L 11/20/16 06:30 Potassium 3.2 mEq/L (3.5-5.1) L 11/20/16 06:30 Chloride 94 mEq/L (98-107) L 11/20/16 06:30 Carbon Dioxide 28.2 mEq/L (21.0-31.0) 11/20/16 06:30 Anion Gap 7.0 (7.0-16.0) 11/20/16 06:30 BUN 25 mg/dL (7-25) 11/20/16 06:30 Creatinine 1.9 mg/dL (0.7-1.3) H 11/20/16 06:30 Est GFR ( Amer) TNP 11/20/16 06:30 Est GFR (Non-Af Amer) [facility] 11/20/16 06:30 BUN/Creatinine Ratio 13.2 11/20/16 06:30 Glucose 94 mg/dL (70-105) 11/20/16 06:30 Hemoglobin A1c % 4.8 % (4.0-6.0) 11/15/16 06:47 Whole Bld Lactic Acid 1.85 mmol/L (0.60-2.00) 11/11/16 22:58 Uric Acid 6.9 mg/dL (4.4-7.6) 11/13/16 05:45 Calcium 8.3 mg/dL (8.6-10.3) L 11/20/16 06:30 Total Bilirubin 0.3 mg/dL (0.3-1.0) 11/13/16 05:45 AST 35 U/L (13-39) 11/13/16 05:45 ALT 48 U/L (7-52) 11/13/16 05:45 Alkaline Phosphatase 72 U/L (34-104) 11/13/16 05:45 Ammonia 51 umol/L (16-53) 11/17/16 05:05 Creatine Kinase 180 U/L (30-223) 11/11/16 22:58 Total Protein 7.0 gm/dL (6.0-8.3) 11/13/16 05:45 Albumin 2.7 gm/dL (4.2-5.5) L 11/13/16 05:45 Globulin 4.3 gm/dL 11/13/16 05:45 Albumin/Globulin Ratio 0.6 (1.0-1.8) L 11/13/16 05:45 TSH 3.46 uIU/ml (0.34-5.60) 11/13/16 05:45 Urine Source CATH 11/11/16 22:40 Urine Color YELLOW 11/11/16 22:40 Urine Clarity HAZY (CLEAR) 11/11/16 22:40 Urine pH 7.5 11/11/16 22:40 Ur Specific [place] 1.020 (1.005-1.030) 11/11/16 22:40 Urine Protein >300 mg/dL (NEGATIVE) H 11/11/16 22:40 Urine Glucose (UA) NEGATIVE mg/dL (NEGATIVE) 11/11/16 22:40 Urine Ketones NEGATIVE mg/dL (NEGATIVE) 11/11/16 22:40 Urine Blood MODERATE (NEGATIVE) H 11/11/16 22:40 Urine Nitrate NEGATIVE (NEGATIVE) 11/11/16 22:40 Urine Bilirubin NEGATIVE (NEGATIVE) 11/11/16 22:40 Urine Urobilinogen 0.2 E.U./dL (0.2 - 1.0) 11/11/16 22:40 Ur Leukocyte Esterase SMALL (NEGATIVE) H 11/11/16 22:40 Urine RBC 5-10 /hpf (0-5) H 11/11/16 22:40 Urine WBC 6-10 /hpf (0-5) H 11/11/16 22:40 Ur Epithelial Cells FEW /lpf (FEW) 11/11/16 22:40 Urine Bacteria MODERATE /hpf (NONE SEEN) 11/11/16 22:40 Urine Osmolality 637 mOsmol/kg 11/12/16 16:30 U Random Total Protein 311.0 mg/dL 11/13/16 16:30 Ur Random Sodium 52 mmol/L 11/12/16 16:30 Urine Collection Time 24 hours 11/13/16 16:30 Urine Total Volume 1050 ml 11/13/16 16:30 Urine Creatinine 63.0 mg/dl (39.0-259.0) 11/13/16 16:30 Creat Clearance 24 Hr 9 ml/min (97.00-137.00) L 11/13/16 16:30 U Tot Protein 24h, Calc 3265.5 mg/24 hr (0-165) H 11/13/16 16:30 Body Surface Area 1.71 11/13/16 16:30 Stool Occult Blood NEGATIVE (NEGATIVE) 11/18/16 17:50 Hepatitis A IgM Ab Negative (Negative) 11/15/16 10:30 Hep Bs Antigen Negative (Negative) 11/15/16 10:30 Hep B Core IgM Ab Negative (Negative) 11/15/16 10:30 Hepatitis C Antibody <0.1 s/co ratio (0.0-0.9) 11/15/16 10:30 - Physical Exam Vitals and I&O: Vital Signs Temp 97.8 F 11/20/16 08:00 Pulse 83 11/20/16 08:36 Resp 18 11/20/16 08:36 BP 146/71 11/20/16 08:27 Pulse Ox 99 11/20/16 08:36 Intake & Output 11/19/16 11/20/16 11/20/16 18:59 06:59 18:59 Intake Total 4588 457 7126 Output Total 350 700 Balance 1300 -50 1000 Intake: Intake, IV Amount 1050 1000 Dextrose 5% 1,000 ml @ 1000 1000 125 mls/hr IV .Q8H [facility] Rx #:[id number] cefTRIAXone 1 gm In 50 Sodium Chloride 0.9% 50 ml @ 100 mls/hr IV Q24HR [facility] Rx#:[id number] Tube Feeding 600 650 Output: Urine 350 700 Other: Stool Characteristics Liquid Formed Green Active Medications: Current Medications Acetaminophen (Tylenol 650mg/20.3ml Suspension) 650 mg GT Q4HR PRN PRN Reason: Pain (Mild) Acetaminophen (Tylenol 650mg/20.3ml Suspension) 650 mg GT Q4HR PRN PRN Reason: TEMP> 101 Acetaminophen (Tylenol 650mg/20.3ml Suspension) 1,000 mg GT Q4HR PRN PRN Reason: Pain (Moderate) Acetaminophen/Hydrocodone Bitart ([place] 5mg/325mg) 1 tab PO Q6HR PRN PRN Reason: Pain (Severe) Stop: 01/11/17 00:00 Last Admin: 11/18/16 13:55 Dose: 1 tab Al Hydrox/Mg Hydrox/Simethicone (Maalox) 30 ml GT Q6HR PRN PRN Reason: Heartburn Stop: 01/11/17 00:00 Albuterol Sulfate (Albuterol 2.5mg/3ml Neb Ud) 2.5 mg HHN Q6HR PRN PRN Reason: sob/wheezing Stop: 01/11/17 00:00 Albuterol/Ipratropium (Duoneb Neb) 3 ml HHN [id number] [facility] Stop: 01/11/17 14:59 Last Admin: 11/20/16 08:31 Dose: 3 ml Amlodipine Besylate (Norvasc) 5 mg GT DAILY [facility] Stop: 01/11/17 08:59 Last Admin: 11/20/16 08:26 Dose: 5 mg Aspirin (Aspirin) 325 mg GT DAILY [facility] Stop: 01/11/17 08:59 Last Admin: 11/20/16 08:23 Dose: 325 mg Bisacodyl (Dulcolax 10 Mg Supp) 10 mg RC PRN PRN PRN Reason: Constipation Stop: 01/11/17 00:00 Budesonide (Pulmicort) 0.5 mg HHN DAILYRT [facility] Stop: 01/11/17 14:29 Last Admin: 11/20/16 08:32 Dose: 0.5 mg Clonidine HCl (Catapres) 0.1 mg GT Q12HR PRN PRN Reason: SBP GREATER THAN 160 Stop: 01/11/17 13:59 Epoetin Lucien (Epogen) 10,000 units SUBQ MoWeFr [facility] Stop: 01/16/17 15:47 Last Admin: 11/19/16 16:36 Dose: 10,000 units Famotidine (Pepcid) 20 mg GT DAILY [facility] Stop: 01/11/17 08:59 Last Admin: 11/20/16 08:23 Dose: 20 mg Ferrous Sulfate (Iron) 450 mg GT DAILY [facility] Stop: 01/11/17 08:59 Last Admin: 11/20/16 08:22 Dose: 450 mg Hydralazine HCl (Apresoline) 25 mg GT Q8HR [facility] Stop: 01/11/17 04:59 Last Admin: 11/20/16 06:00 Dose: 25 mg Dextrose (D5w) 1,000 mls @ 125 mls/hr IV .Q8H [facility] Stop: 01/11/17 08:25 Last Admin: 11/20/16 08:36 Dose: 125 mls/hr Ceftriaxone Sodium 1 gm/ (Sodium Chloride) 50 mls @ 100 mls/hr IV Q24HR [facility] Stop: 01/17/17 11:59 Last Infusion: 11/19/16 11:31 Dose: Infused Levetiracetam (Keppra) 750 mg GT Q12HR [facility] Stop: 01/11/17 08:59 Last Admin: 11/20/16 08:22 Dose: 750 mg Lorazepam (Ativan) 0.5 mg GT Q6HR PRN; Protocol PRN Reason: Anxiety Stop: 01/11/17 00:00 Last Admin: 11/14/16 06:31 Dose: 0.5 mg Magnesium Hydroxide (Milk Of Magnesia) 30 ml GT HS PRN PRN Reason: Constipation Stop: 01/11/17 00:00 Metoprolol Tartrate (Lopressor) 12.5 mg GT BID [facility] Stop: 01/11/17 08:59 Last Admin: 11/20/16 08:27 Dose: 12.5 mg Miscellaneous (Clinical Monitoring) 1 ea MC PRN PRN PRN Reason: RENAL DOSING Stop: 01/18/17 08:08 Mupirocin (Bactroban Oint) 1 appl NS BID [facility] Stop: 11/23/16 17:01 Last Admin: 11/20/16 08:23 Dose: 1 appl Polyethylene Glycol (Miralax) 17 gm GT DAILY [facility] Stop: 01/11/17 08:59 Last Admin: 11/20/16 08:22 Dose: 17 gm Senna (Senna) 17.2 mg GT DAILY [facility] Stop: 01/11/17 08:59 Last Admin: 11/19/16 08:31 Dose: 17.2 mg Sodium Phosphate (Fleet Enema) 135 ml RC DAILY PRN PRN Reason: Constipation Stop: 01/11/17 08:59 Assessment/Plan - Problem List Patient Problems: All Active Problems H/O chronic renal failure syndrome (Acute) Z87.448 H/O: HTN (hypertension) (Acute) Z86.79 Respiratory failure (Acute) J96.90 Right lower lobe pneumonia (Acute) J18.9 h/o anemia (Acute) s/p g tube (Acute) - Plan Plan: ivabx cbc/bmp in am cpm
[2016-11-20] MEDS: cefTRIAXone 1 GM in 0.9% NS 50 ML IV SCH (12:03)
[2016-11-20] MEDS ORDERED: Potassium Chloride 20 mEq ER Tab PO ONE (14:35)
--- NOTE | 2016-11-20 14:35 | General Progress Note ---
Subjective - Review of Systems Service Date: 11/20/16 Subjective: more awake, verbal today, not in distress Objective - Results Result Diagrams: 11/18/16 09:45 11/20/16 06:30 Recent Labs: Laboratory Last Values WBC 9.8 Th/cmm (4.8-10.8) 11/18/16 09:45 RBC 2.60 Mil/cmm (3.80-5.80) L 11/18/16 09:45 Hgb 8.1 gm/dL (12.6-17.4) L 11/18/16 09:45 Hct 23.4 % (39.0-49.0) L* 11/18/16 09:45 MCV 90.1 fl (80-99) 11/18/16 09:45 MCH 31.0 pg (27.0-31.0) 11/18/16 09:45 MCHC Differential 34.5 pg (28.0-36.0) 11/18/16 09:45 RDW 14.2 % (11.5-20.0) 11/18/16 09:45 Plt Count 165 Th/cmm (150-400) 11/18/16 09:45 MPV 9.7 fl 11/18/16 09:45 Neutrophils % 68.9 % (40.0-80.0) 11/18/16 09:45 Lymphocytes % 15.2 % (20.0-50.0) L 11/18/16 09:45 Monocytes % 9.2 % (2.0-10.0) 11/18/16 09:45 Eosinophils % 5.7 % (0.0-5.0) H 11/18/16 09:45 Basophils % 1.0 % (0.0-2.0) 11/18/16 09:45 Eos Smear Source URINE 11/12/16 16:30 Eos Smear Total Cells NONE SEEN (NONE SEEN) 11/12/16 16:30 PT 10.6 SECONDS (9.5-11.5) 11/11/16 22:58 INR 1.07 (0.5-1.4) 11/11/16 22:58 PTT (Actin FS) 27.1 SECONDS (26.0-38.0) 11/11/16 22:58 Specimen Source Arterial 11/13/16 08:50 Sample Site Left Radial 11/13/16 08:50 pH 7.47 (7.35-7.45) H 11/13/16 08:50 pCO2 38.0 mmHg (35.0-45.0) 11/13/16 08:50 pO2 67.0 mmHg (80.0-100.0) L 11/13/16 08:50 HCO3 27.7 mmol/L (20.0-26.0) H 11/13/16 08:50 Base Excess 3.9 mmol/L (-3.0-3.0) H 11/13/16 08:50 O2 Saturation 94.0 % (92.0-100.0) 11/13/16 08:50 Juan R Test PASS 11/13/16 08:50 Inspired O2 21 11/13/16 08:50 Critical Value PW 11/13/16 08:50 Sodium 126 mEq/L (136-145) L 11/20/16 06:30 Potassium 3.2 mEq/L (3.5-5.1) L 11/20/16 06:30 Chloride 94 mEq/L (98-107) L 11/20/16 06:30 Carbon Dioxide 28.2 mEq/L (21.0-31.0) 11/20/16 06:30 Anion Gap 7.0 (7.0-16.0) 11/20/16 06:30 BUN 25 mg/dL (7-25) 11/20/16 06:30 Creatinine 1.9 mg/dL (0.7-1.3) H 11/20/16 06:30 Est GFR ( Amer) TNP 11/20/16 06:30 Est GFR (Non-Af Amer) [facility] 11/20/16 06:30 BUN/Creatinine Ratio 13.2 11/20/16 06:30 Glucose 94 mg/dL (70-105) 11/20/16 06:30 Hemoglobin A1c % 4.8 % (4.0-6.0) 11/15/16 06:47 Whole Bld Lactic Acid 1.85 mmol/L (0.60-2.00) 11/11/16 22:58 Uric Acid 6.9 mg/dL (4.4-7.6) 11/13/16 05:45 Calcium 8.3 mg/dL (8.6-10.3) L 11/20/16 06:30 Total Bilirubin 0.3 mg/dL (0.3-1.0) 11/13/16 05:45 AST 35 U/L (13-39) 11/13/16 05:45 ALT 48 U/L (7-52) 11/13/16 05:45 Alkaline Phosphatase 72 U/L (34-104) 11/13/16 05:45 Ammonia 51 umol/L (16-53) 11/17/16 05:05 Creatine Kinase 180 U/L (30-223) 11/11/16 22:58 Total Protein 7.0 gm/dL (6.0-8.3) 11/13/16 05:45 Albumin 2.7 gm/dL (4.2-5.5) L 11/13/16 05:45 Globulin 4.3 gm/dL 11/13/16 05:45 Albumin/Globulin Ratio 0.6 (1.0-1.8) L 11/13/16 05:45 TSH 3.46 uIU/ml (0.34-5.60) 11/13/16 05:45 Urine Source CATH 11/11/16 22:40 Urine Color YELLOW 11/11/16 22:40 Urine Clarity HAZY (CLEAR) 11/11/16 22:40 Urine pH 7.5 11/11/16 22:40 Ur Specific [place] 1.020 (1.005-1.030) 11/11/16 22:40 Urine Protein >300 mg/dL (NEGATIVE) H 11/11/16 22:40 Urine Glucose (UA) NEGATIVE mg/dL (NEGATIVE) 11/11/16 22:40 Urine Ketones NEGATIVE mg/dL (NEGATIVE) 11/11/16 22:40 Urine Blood MODERATE (NEGATIVE) H 11/11/16 22:40 Urine Nitrate NEGATIVE (NEGATIVE) 11/11/16 22:40 Urine Bilirubin NEGATIVE (NEGATIVE) 11/11/16 22:40 Urine Urobilinogen 0.2 E.U./dL (0.2 - 1.0) 11/11/16 22:40 Ur Leukocyte Esterase SMALL (NEGATIVE) H 11/11/16 22:40 Urine RBC 5-10 /hpf (0-5) H 11/11/16 22:40 Urine WBC 6-10 /hpf (0-5) H 11/11/16 22:40 Ur Epithelial Cells FEW /lpf (FEW) 11/11/16 22:40 Urine Bacteria MODERATE /hpf (NONE SEEN) 11/11/16 22:40 Urine Osmolality 637 mOsmol/kg 11/12/16 16:30 U Random Total Protein 311.0 mg/dL 11/13/16 16:30 Ur Random Sodium 52 mmol/L 11/12/16 16:30 Urine Collection Time 24 hours 11/13/16 16:30 Urine Total Volume 1050 ml 11/13/16 16:30 Urine Creatinine 63.0 mg/dl (39.0-259.0) 11/13/16 16:30 Creat Clearance 24 Hr 9 ml/min (97.00-137.00) L 11/13/16 16:30 U Tot Protein 24h, Calc 3265.5 mg/24 hr (0-165) H 11/13/16 16:30 Body Surface Area 1.71 11/13/16 16:30 Stool Occult Blood NEGATIVE (NEGATIVE) 11/20/16 12:12 Hepatitis A IgM Ab Negative (Negative) 11/15/16 10:30 Hep Bs Antigen Negative (Negative) 11/15/16 10:30 Hep B Core IgM Ab Negative (Negative) 11/15/16 10:30 Hepatitis C Antibody <0.1 s/co ratio (0.0-0.9) 11/15/16 10:30 - Physical Exam Vitals and I&O: Vital Signs Temp 97.6 F 11/20/16 12:00 Pulse 90 11/20/16 12:29 Resp 18 11/20/16 12:29 BP 138/63 11/20/16 12:04 Pulse Ox 98 11/20/16 12:29 Intake & Output 11/19/16 11/20/16 11/20/16 18:59 06:59 18:59 Intake Total 5074 423 4615 Output Total 350 700 Balance 1300 -50 1000 Intake: Intake, IV Amount 1050 1000 Dextrose 5% 1,000 ml @ 1000 1000 125 mls/hr IV .Q8H [facility] Rx #:[id number] cefTRIAXone 1 gm In 50 Sodium Chloride 0.9% 50 ml @ 100 mls/hr IV Q24HR [facility] Rx#:[id number] Tube Feeding 600 650 Output: Urine 350 700 Other: Stool Characteristics Liquid Formed Green Active Medications: Current Medications Acetaminophen (Tylenol 650mg/20.3ml Suspension) 650 mg GT Q4HR PRN PRN Reason: Pain (Mild) Acetaminophen (Tylenol 650mg/20.3ml Suspension) 650 mg GT Q4HR PRN PRN Reason: TEMP> 101 Acetaminophen (Tylenol 650mg/20.3ml Suspension) 1,000 mg GT Q4HR PRN PRN Reason: Pain (Moderate) Last Admin: 11/20/16 10:42 Dose: 1,000 mg Acetaminophen/Hydrocodone Bitart ([place] 5mg/325mg) 1 tab PO Q6HR PRN PRN Reason: Pain (Severe) Stop: 01/11/17 00:00 Last Admin: 11/18/16 13:55 Dose: 1 tab Al Hydrox/Mg Hydrox/Simethicone (Maalox) 30 ml GT Q6HR PRN PRN Reason: Heartburn Stop: 01/11/17 00:00 Albuterol Sulfate (Albuterol 2.5mg/3ml Neb Ud) 2.5 mg HHN Q6HR PRN PRN Reason: sob/wheezing Stop: 01/11/17 00:00 Albuterol/Ipratropium (Duoneb Neb) 3 ml HHN [id number] [facility] Stop: 01/11/17 14:59 Last Admin: 11/20/16 12:26 Dose: 3 ml Amlodipine Besylate (Norvasc) 5 mg GT DAILY [facility] Stop: 01/11/17 08:59 Last Admin: 11/20/16 08:26 Dose: 5 mg Aspirin (Aspirin) 325 mg GT DAILY [facility] Stop: 01/11/17 08:59 Last Admin: 11/20/16 08:23 Dose: 325 mg Bisacodyl (Dulcolax 10 Mg Supp) 10 mg RC PRN PRN PRN Reason: Constipation Stop: 01/11/17 00:00 Budesonide (Pulmicort) 0.5 mg HHN DAILYRT [facility] Stop: 01/11/17 14:29 Last Admin: 11/20/16 08:32 Dose: 0.5 mg Clonidine HCl (Catapres) 0.1 mg GT Q12HR PRN PRN Reason: SBP GREATER THAN 160 Stop: 01/11/17 13:59 Epoetin Lucien (Epogen) 10,000 units SUBQ MoWeFr [facility] Stop: 01/16/17 15:47 Last Admin: 11/19/16 16:36 Dose: 10,000 units Famotidine (Pepcid) 20 mg GT DAILY [facility] Stop: 01/11/17 08:59 Last Admin: 11/20/16 08:23 Dose: 20 mg Ferrous Sulfate (Iron) 450 mg GT DAILY [facility] Stop: 01/11/17 08:59 Last Admin: 11/20/16 08:22 Dose: 450 mg Hydralazine HCl (Apresoline) 25 mg GT Q8HR [facility] Stop: 01/11/17 04:59 Last Admin: 11/20/16 12:04 Dose: 25 mg Dextrose (D5w) 1,000 mls @ 125 mls/hr IV .Q8H [facility] Stop: 01/11/17 08:25 Last Admin: 11/20/16 08:36 Dose: 125 mls/hr Ceftriaxone Sodium 1 gm/ (Sodium Chloride) 50 mls @ 100 mls/hr IV Q24HR [facility] Stop: 01/17/17 11:59 Last Admin: 11/20/16 12:03 Dose: 100 mls/hr Levetiracetam (Keppra) 750 mg GT Q12HR [facility] Stop: 01/11/17 08:59 Last Admin: 11/20/16 08:22 Dose: 750 mg Lorazepam (Ativan) 0.5 mg GT Q6HR PRN; Protocol PRN Reason: Anxiety Stop: 01/11/17 00:00 Last Admin: 11/14/16 06:31 Dose: 0.5 mg Magnesium Hydroxide (Milk Of Magnesia) 30 ml GT HS PRN PRN Reason: Constipation Stop: 01/11/17 00:00 Metoprolol Tartrate (Lopressor) 12.5 mg GT BID [facility] Stop: 01/11/17 08:59 Last Admin: 11/20/16 08:27 Dose: 12.5 mg Miscellaneous (Clinical Monitoring) 1 ea MC PRN PRN PRN Reason: RENAL DOSING Stop: 01/18/17 08:08 Mupirocin (Bactroban Oint) 1 appl NS BID [facility] Stop: 11/23/16 17:01 Last Admin: 11/20/16 08:23 Dose: 1 appl Polyethylene Glycol (Miralax) 17 gm GT DAILY [facility] Stop: 01/11/17 08:59 Last Admin: 11/20/16 08:22 Dose: 17 gm Senna (Senna) 17.2 mg GT DAILY [facility] Stop: 01/11/17 08:59 Last Admin: 11/20/16 10:00 Dose: 17.2 mg Sodium Phosphate (Fleet Enema) 135 ml RC DAILY PRN PRN Reason: Constipation Stop: 01/11/17 08:59 General: Alert, No acute distress HEENT: Atraumatic, Mucous membr. moist/pink Neck: Supple, +2 carotid pulse wo bruit Cardiovascular: Regular rate, Normal S1, Normal S2 Lungs: Clear to auscultation Abdomen: Bowel sounds, Soft Extremities: no Edema Neurological: Sensation intact Skin: no Rash Assessment/Plan - Problem List Patient Problems: All Active Problems H/O chronic renal failure syndrome (Acute) Z87.448 H/O: HTN (hypertension) (Acute) Z86.79 Respiratory failure (Acute) J96.90 Right lower lobe pneumonia (Acute) J18.9 h/o anemia (Acute) s/p g tube (Acute) - Assessment Assessment: esrd on hd sepsis 2nd to left hap, Cx UTI Smart's palsy/epilepsy S/P resp failure on vent, s/p extubation dysphaga s/p PEG anemia of cd ess htn hyponatremia, hypokalemia - Plan Plan: no change kidney fnc CT chest showed B/L effusions, Left pna schedule for hd in am start epogen replace K
--- NOTE | 2016-11-20 22:30 | Progress Notes ---
PULMONARY PROGRESS NOTE PROBLEM LIST: 1. Right-sided effusion. 2. Tracheobronchitis. 3. Severe electrolyte imbalance. 4. Tracheocutaneous fistula. SYMPTOMS: Nil. The patient is sleeping, arousable, no specific new symptomatology at this particular time. PHYSICAL EXAMINATION: VITAL SIGNS: The patient's recorded vitals: Blood pressure is within normal limits. The patient is afebrile. CHEST: Shows occasional rhonchi with diminished air entry. HEART: Regular. ABDOMEN: Soft and nontender. LABORATORY DATA: The patient still has slightly elevated creatinine and BUN. ASSESSMENT: The patient clinically appears to be slightly improved and improving. PLANS AND SUGGESTIONS: We will go ahead and continue current treatment. I agree with ____ and we will be glad to follow along the ____ and go from there. JOB# [id number]
[2016-11-21] MEDS: Albuterol/Ipratropium Neb 3 ML AERS HHN SCH ×4 (07:23→19:46)
[2016-11-21] MEDS: Budesonide 0.5 Mg/2 mL Ud HHN SCH (07:23)
[2016-11-21 07:59] LABS: ANION GAP 8.6 (7.0-16.0); BUN - UREA NITROGEN 35 mg/dL (7-25); BUN/CREATININE RATIO 15.9; CALCIUM SERUM 8.4 mg/dL (8.6-10.3); CARBON DIOXIDE 26.5 mEq/L (21.0-31.0); CHLORIDE 91 mEq/L (98-107); CREATININE - SERUM 2.2 mg/dL (0.7-1.3); GLUCOSE 123 mg/dL (70-105); MAGNESIUM 2.4 mg/dL (1.9-2.7); POTASSIUM SERUM 3.1 mEq/L (3.5-5.1); SODIUM SERUM 123 mEq/L (136-145)
--- NOTE | 2016-11-21 08:34 | General Progress Note ---
Subjective - Review of Systems Subjective: awake, alert, nad Objective - Results Result Diagrams: 11/18/16 09:45 11/21/16 06:19 Recent Labs: Laboratory Last Values WBC 9.8 Th/cmm (4.8-10.8) 11/18/16 09:45 RBC 2.60 Mil/cmm (3.80-5.80) L 11/18/16 09:45 Hgb 8.1 gm/dL (12.6-17.4) L 11/18/16 09:45 Hct 23.4 % (39.0-49.0) L* 11/18/16 09:45 MCV 90.1 fl (80-99) 11/18/16 09:45 MCH 31.0 pg (27.0-31.0) 11/18/16 09:45 MCHC Differential 34.5 pg (28.0-36.0) 11/18/16 09:45 RDW 14.2 % (11.5-20.0) 11/18/16 09:45 Plt Count 165 Th/cmm (150-400) 11/18/16 09:45 MPV 9.7 fl 11/18/16 09:45 Neutrophils % 68.9 % (40.0-80.0) 11/18/16 09:45 Lymphocytes % 15.2 % (20.0-50.0) L 11/18/16 09:45 Monocytes % 9.2 % (2.0-10.0) 11/18/16 09:45 Eosinophils % 5.7 % (0.0-5.0) H 11/18/16 09:45 Basophils % 1.0 % (0.0-2.0) 11/18/16 09:45 Eos Smear Source URINE 11/12/16 16:30 Eos Smear Total Cells NONE SEEN (NONE SEEN) 11/12/16 16:30 PT 10.6 SECONDS (9.5-11.5) 11/11/16 22:58 INR 1.07 (0.5-1.4) 11/11/16 22:58 PTT (Actin FS) 27.1 SECONDS (26.0-38.0) 11/11/16 22:58 Specimen Source Arterial 11/13/16 08:50 Sample Site Left Radial 11/13/16 08:50 pH 7.47 (7.35-7.45) H 11/13/16 08:50 pCO2 38.0 mmHg (35.0-45.0) 11/13/16 08:50 pO2 67.0 mmHg (80.0-100.0) L 11/13/16 08:50 HCO3 27.7 mmol/L (20.0-26.0) H 11/13/16 08:50 Base Excess 3.9 mmol/L (-3.0-3.0) H 11/13/16 08:50 O2 Saturation 94.0 % (92.0-100.0) 11/13/16 08:50 Juan R Test PASS 11/13/16 08:50 Inspired O2 21 11/13/16 08:50 Critical Value PW 11/13/16 08:50 Sodium 123 mEq/L (136-145) L 11/21/16 06:19 Potassium 3.1 mEq/L (3.5-5.1) L 11/21/16 06:19 Chloride 91 mEq/L (98-107) L 11/21/16 06:19 Carbon Dioxide 26.5 mEq/L (21.0-31.0) 11/21/16 06:19 Anion Gap 8.6 (7.0-16.0) 11/21/16 06:19 BUN 35 mg/dL (7-25) H 11/21/16 06:19 Creatinine 2.2 mg/dL (0.7-1.3) H 11/21/16 06:19 Est GFR ( Amer) TNP 11/21/16 06:19 Est GFR (Non-Af Amer) TNP 11/21/16 06:19 BUN/Creatinine Ratio 15.9 11/21/16 06:19 Glucose 123 mg/dL (70-105) H 11/21/16 06:19 Hemoglobin A1c % 4.8 % (4.0-6.0) 11/15/16 06:47 Whole Bld Lactic Acid 1.85 mmol/L (0.60-2.00) 11/11/16 22:58 Uric Acid 6.9 mg/dL (4.4-7.6) 11/13/16 05:45 Calcium 8.4 mg/dL (8.6-10.3) L 11/21/16 06:19 Magnesium 2.4 mg/dL (1.9-2.7) 11/21/16 06:19 Total Bilirubin 0.3 mg/dL (0.3-1.0) 11/13/16 05:45 AST 35 U/L (13-39) 11/13/16 05:45 ALT 48 U/L (7-52) 11/13/16 05:45 Alkaline Phosphatase 72 U/L (34-104) 11/13/16 05:45 Ammonia 51 umol/L (16-53) 11/17/16 05:05 Creatine Kinase 180 U/L (30-223) 11/11/16 22:58 Total Protein 7.0 gm/dL (6.0-8.3) 11/13/16 05:45 Albumin 2.7 gm/dL (4.2-5.5) L 11/13/16 05:45 Globulin 4.3 gm/dL 11/13/16 05:45 Albumin/Globulin Ratio 0.6 (1.0-1.8) L 11/13/16 05:45 TSH 3.46 uIU/ml (0.34-5.60) 11/13/16 05:45 Urine Source CATH 11/11/16 22:40 Urine Color YELLOW 11/11/16 22:40 Urine Clarity HAZY (CLEAR) 11/11/16 22:40 Urine pH 7.5 11/11/16 22:40 Ur Specific [place] 1.020 (1.005-1.030) 11/11/16 22:40 Urine Protein >300 mg/dL (NEGATIVE) H 11/11/16 22:40 Urine Glucose (UA) NEGATIVE mg/dL (NEGATIVE) 11/11/16 22:40 Urine Ketones NEGATIVE mg/dL (NEGATIVE) 11/11/16 22:40 Urine Blood MODERATE (NEGATIVE) H 11/11/16 22:40 Urine Nitrate NEGATIVE (NEGATIVE) 11/11/16 22:40 Urine Bilirubin NEGATIVE (NEGATIVE) 11/11/16 22:40 Urine Urobilinogen 0.2 E.U./dL (0.2 - 1.0) 11/11/16 22:40 Ur Leukocyte Esterase SMALL (NEGATIVE) H 11/11/16 22:40 Urine RBC 5-10 /hpf (0-5) H 11/11/16 22:40 Urine WBC 6-10 /hpf (0-5) H 11/11/16 22:40 Ur Epithelial Cells FEW /lpf (FEW) 11/11/16 22:40 Urine Bacteria MODERATE /hpf (NONE SEEN) 11/11/16 22:40 Urine Osmolality 637 mOsmol/kg 11/12/16 16:30 U Random Total Protein 311.0 mg/dL 11/13/16 16:30 Ur Random Sodium 52 mmol/L 11/12/16 16:30 Urine Collection Time 24 hours 11/13/16 16:30 Urine Total Volume 1050 ml 11/13/16 16:30 Urine Creatinine 63.0 mg/dl (39.0-259.0) 11/13/16 16:30 Creat Clearance 24 Hr 9 ml/min (97.00-137.00) L 11/13/16 16:30 U Tot Protein 24h, Calc 3265.5 mg/24 hr (0-165) H 11/13/16 16:30 Body Surface Area 1.71 11/13/16 16:30 Stool Occult Blood NEGATIVE (NEGATIVE) 11/20/16 12:12 Hepatitis A IgM Ab Negative (Negative) 11/15/16 10:30 Hep Bs Antigen Negative (Negative) 11/15/16 10:30 Hep B Core IgM Ab Negative (Negative) 11/15/16 10:30 Hepatitis C Antibody <0.1 s/co ratio (0.0-0.9) 11/15/16 10:30 - Physical Exam Vitals and I&O: Vital Signs Temp 97.6 F 11/21/16 08:00 Pulse 86 11/21/16 08:00 Resp 18 11/21/16 08:00 BP 134/58 11/21/16 08:00 Pulse Ox 96 11/21/16 08:00 Intake & Output 11/20/16 11/21/16 11/21/16 18:59 06:59 18:59 Intake Total 1000 500 Output Total 301 1200 Balance 699 -700 Intake: Intake, IV Amount 1000 Dextrose 5% 1,000 ml @ 1000 125 mls/hr IV .Q8H [facility] Rx #:[id number] Tube Feeding 500 Output: Urine 300 1200 Stool 1 Other: # Bowel Movements 1 Stool Characteristics Formed Formed Active Medications: Current Medications Acetaminophen (Tylenol 650mg/20.3ml Suspension) 650 mg GT Q4HR PRN PRN Reason: Pain (Mild) Acetaminophen (Tylenol 650mg/20.3ml Suspension) 650 mg GT Q4HR PRN PRN Reason: TEMP> 101 Acetaminophen (Tylenol 650mg/20.3ml Suspension) 1,000 mg GT Q4HR PRN PRN Reason: Pain (Moderate) Last Admin: 11/20/16 10:42 Dose: 1,000 mg Acetaminophen/Hydrocodone Bitart ([place] 5mg/325mg) 1 tab PO Q6HR PRN PRN Reason: Pain (Severe) Stop: 01/11/17 00:00 Last Admin: 11/18/16 13:55 Dose: 1 tab Al Hydrox/Mg Hydrox/Simethicone (Maalox) 30 ml GT Q6HR PRN PRN Reason: Heartburn Stop: 01/11/17 00:00 Albuterol Sulfate (Albuterol 2.5mg/3ml Neb Ud) 2.5 mg HHN Q6HR PRN PRN Reason: sob/wheezing Stop: 01/11/17 00:00 Albuterol/Ipratropium (Duoneb Neb) 3 ml HHN [id number] [facility] Stop: 01/11/17 14:59 Last Admin: 11/21/16 07:23 Dose: 3 ml Amlodipine Besylate (Norvasc) 5 mg GT DAILY [facility] Stop: 01/11/17 08:59 Last Admin: 11/20/16 08:26 Dose: 5 mg Aspirin (Aspirin) 325 mg GT DAILY [facility] Stop: 01/11/17 08:59 Last Admin: 11/20/16 08:23 Dose: 325 mg Bisacodyl (Dulcolax 10 Mg Supp) 10 mg RC PRN PRN PRN Reason: Constipation Stop: 01/11/17 00:00 Budesonide (Pulmicort) 0.5 mg HHN DAILYRT [facility] Stop: 01/11/17 14:29 Last Admin: 11/21/16 07:23 Dose: 0.5 mg Clonidine HCl (Catapres) 0.1 mg GT Q12HR PRN PRN Reason: SBP GREATER THAN 160 Stop: 01/11/17 13:59 Epoetin Lucien (Epogen) 10,000 units SUBQ MoWeFr [facility] Stop: 01/16/17 15:47 Last Admin: 11/19/16 16:36 Dose: 10,000 units Famotidine (Pepcid) 20 mg GT DAILY [facility] Stop: 01/11/17 08:59 Last Admin: 11/20/16 08:23 Dose: 20 mg Ferrous Sulfate (Iron) 450 mg GT DAILY [facility] Stop: 01/11/17 08:59 Last Admin: 11/20/16 08:22 Dose: 450 mg Hydralazine HCl (Apresoline) 25 mg GT Q8HR [facility] Stop: 01/11/17 04:59 Last Admin: 11/21/16 05:28 Dose: 25 mg Dextrose (D5w) 1,000 mls @ 125 mls/hr IV .Q8H [facility] Stop: 01/11/17 08:25 Last Admin: 11/20/16 08:36 Dose: 125 mls/hr Ceftriaxone Sodium 1 gm/ (Sodium Chloride) 50 mls @ 100 mls/hr IV Q24HR [facility] Stop: 01/17/17 11:59 Last Admin: 11/20/16 12:03 Dose: 100 mls/hr Levetiracetam (Keppra) 750 mg GT Q12HR [facility] Stop: 01/11/17 08:59 Last Admin: 11/20/16 23:08 Dose: 750 mg Lorazepam (Ativan) 0.5 mg GT Q6HR PRN; Protocol PRN Reason: Anxiety Stop: 01/11/17 00:00 Last Admin: 11/14/16 06:31 Dose: 0.5 mg Magnesium Hydroxide (Milk Of Magnesia) 30 ml GT HS PRN PRN Reason: Constipation Stop: 01/11/17 00:00 Metoprolol Tartrate (Lopressor) 12.5 mg GT BID [facility] Stop: 01/11/17 08:59 Last Admin: 11/20/16 16:27 Dose: 12.5 mg Miscellaneous (Clinical Monitoring) 1 ea MC PRN PRN PRN Reason: RENAL DOSING Stop: 01/18/17 08:08 Mupirocin (Bactroban Oint) 1 appl NS BID [facility] Stop: 11/23/16 17:01 Last Admin: 11/20/16 08:23 Dose: 1 appl Polyethylene Glycol (Miralax) 17 gm GT DAILY [facility] Stop: 01/11/17 08:59 Last Admin: 11/20/16 08:22 Dose: 17 gm Senna (Senna) 17.2 mg GT DAILY [facility] Stop: 01/11/17 08:59 Last Admin: 11/20/16 10:00 Dose: 17.2 mg Sodium Phosphate (Fleet Enema) 135 ml RC DAILY PRN PRN Reason: Constipation Stop: 01/11/17 08:59 Assessment/Plan - Problem List Patient Problems: All Active Problems H/O chronic renal failure syndrome (Acute) Z87.448 H/O: HTN (hypertension) (Acute) Z86.79 Respiratory failure (Acute) J96.90 Right lower lobe pneumonia (Acute) J18.9 h/o anemia (Acute) s/p g tube (Acute) - Plan Plan: ivabx cbc/bmp in am cpm
[2016-11-21] MEDS: Ferrous Sulfate 300 MG/5 ML UDC GT SCH (08:58)
[2016-11-21] MEDS: Multivitamin w/ Minerals Tab GT SCH (08:58)
[2016-11-21] MEDS: Levetiracetam 500 mg/5mL 5mL UDC GT SCH ×2 (08:58→22:11)
[2016-11-21] MEDS: POLYETHYLENE GLYCOL 3350 17 GM PACK GT SCH (08:58)
[2016-11-21] MEDS: Dextrose 5% 1,000 ML IV SCH ×2 (09:49→18:03)
[2016-11-21] MEDS: cefTRIAXone 1 GM in 0.9% NS 50 ML IV SCH (11:23)
--- NOTE | 2016-11-21 13:33 | General Progress Note ---
Subjective - Review of Systems Service Date: 11/21/16 Subjective: more awake, verbal today, not in distress, being dialyzed Objective - Results Result Diagrams: 11/18/16 09:45 11/21/16 06:19 Recent Labs: Laboratory Last Values WBC 9.8 Th/cmm (4.8-10.8) 11/18/16 09:45 RBC 2.60 Mil/cmm (3.80-5.80) L 11/18/16 09:45 Hgb 8.1 gm/dL (12.6-17.4) L 11/18/16 09:45 Hct 23.4 % (39.0-49.0) L* 11/18/16 09:45 MCV 90.1 fl (80-99) 11/18/16 09:45 MCH 31.0 pg (27.0-31.0) 11/18/16 09:45 MCHC Differential 34.5 pg (28.0-36.0) 11/18/16 09:45 RDW 14.2 % (11.5-20.0) 11/18/16 09:45 Plt Count 165 Th/cmm (150-400) 11/18/16 09:45 MPV 9.7 fl 11/18/16 09:45 Neutrophils % 68.9 % (40.0-80.0) 11/18/16 09:45 Lymphocytes % 15.2 % (20.0-50.0) L 11/18/16 09:45 Monocytes % 9.2 % (2.0-10.0) 11/18/16 09:45 Eosinophils % 5.7 % (0.0-5.0) H 11/18/16 09:45 Basophils % 1.0 % (0.0-2.0) 11/18/16 09:45 Eos Smear Source URINE 11/12/16 16:30 Eos Smear Total Cells NONE SEEN (NONE SEEN) 11/12/16 16:30 PT 10.6 SECONDS (9.5-11.5) 11/11/16 22:58 INR 1.07 (0.5-1.4) 11/11/16 22:58 PTT (Actin FS) 27.1 SECONDS (26.0-38.0) 11/11/16 22:58 Specimen Source Arterial 11/13/16 08:50 Sample Site Left Radial 11/13/16 08:50 pH 7.47 (7.35-7.45) H 11/13/16 08:50 pCO2 38.0 mmHg (35.0-45.0) 11/13/16 08:50 pO2 67.0 mmHg (80.0-100.0) L 11/13/16 08:50 HCO3 27.7 mmol/L (20.0-26.0) H 11/13/16 08:50 Base Excess 3.9 mmol/L (-3.0-3.0) H 11/13/16 08:50 O2 Saturation 94.0 % (92.0-100.0) 11/13/16 08:50 Juan R Test PASS 11/13/16 08:50 Inspired O2 21 11/13/16 08:50 Critical Value PW 11/13/16 08:50 Sodium 123 mEq/L (136-145) L 11/21/16 06:19 Potassium 3.1 mEq/L (3.5-5.1) L 11/21/16 06:19 Chloride 91 mEq/L (98-107) L 11/21/16 06:19 Carbon Dioxide 26.5 mEq/L (21.0-31.0) 11/21/16 06:19 Anion Gap 8.6 (7.0-16.0) 11/21/16 06:19 BUN 35 mg/dL (7-25) H 11/21/16 06:19 Creatinine 2.2 mg/dL (0.7-1.3) H 11/21/16 06:19 Est GFR ( Amer) TNP 11/21/16 06:19 Est GFR (Non-Af Amer) [facility] 11/21/16 06:19 BUN/Creatinine Ratio 15.9 11/21/16 06:19 Glucose 123 mg/dL (70-105) H 11/21/16 06:19 Hemoglobin A1c % 4.8 % (4.0-6.0) 11/15/16 06:47 Whole Bld Lactic Acid 1.85 mmol/L (0.60-2.00) 11/11/16 22:58 Uric Acid 6.9 mg/dL (4.4-7.6) 11/13/16 05:45 Calcium 8.4 mg/dL (8.6-10.3) L 11/21/16 06:19 Magnesium 2.4 mg/dL (1.9-2.7) 11/21/16 06:19 Total Bilirubin 0.3 mg/dL (0.3-1.0) 11/13/16 05:45 AST 35 U/L (13-39) 11/13/16 05:45 ALT 48 U/L (7-52) 11/13/16 05:45 Alkaline Phosphatase 72 U/L (34-104) 11/13/16 05:45 Ammonia 51 umol/L (16-53) 11/17/16 05:05 Creatine Kinase 180 U/L (30-223) 11/11/16 22:58 Total Protein 7.0 gm/dL (6.0-8.3) 11/13/16 05:45 Albumin 2.7 gm/dL (4.2-5.5) L 11/13/16 05:45 Globulin 4.3 gm/dL 11/13/16 05:45 Albumin/Globulin Ratio 0.6 (1.0-1.8) L 11/13/16 05:45 TSH 3.46 uIU/ml (0.34-5.60) 11/13/16 05:45 Urine Source CATH 11/11/16 22:40 Urine Color YELLOW 11/11/16 22:40 Urine Clarity HAZY (CLEAR) 11/11/16 22:40 Urine pH 7.5 11/11/16 22:40 Ur Specific [place] 1.020 (1.005-1.030) 11/11/16 22:40 Urine Protein >300 mg/dL (NEGATIVE) H 11/11/16 22:40 Urine Glucose (UA) NEGATIVE mg/dL (NEGATIVE) 11/11/16 22:40 Urine Ketones NEGATIVE mg/dL (NEGATIVE) 11/11/16 22:40 Urine Blood MODERATE (NEGATIVE) H 11/11/16 22:40 Urine Nitrate NEGATIVE (NEGATIVE) 11/11/16 22:40 Urine Bilirubin NEGATIVE (NEGATIVE) 11/11/16 22:40 Urine Urobilinogen 0.2 E.U./dL (0.2 - 1.0) 11/11/16 22:40 Ur Leukocyte Esterase SMALL (NEGATIVE) H 11/11/16 22:40 Urine RBC 5-10 /hpf (0-5) H 11/11/16 22:40 Urine WBC 6-10 /hpf (0-5) H 11/11/16 22:40 Ur Epithelial Cells FEW /lpf (FEW) 11/11/16 22:40 Urine Bacteria MODERATE /hpf (NONE SEEN) 11/11/16 22:40 Urine Osmolality 637 mOsmol/kg 11/12/16 16:30 U Random Total Protein 311.0 mg/dL 11/13/16 16:30 Ur Random Sodium 52 mmol/L 11/12/16 16:30 Urine Collection Time 24 hours 11/13/16 16:30 Urine Total Volume 1050 ml 11/13/16 16:30 Urine Creatinine 63.0 mg/dl (39.0-259.0) 11/13/16 16:30 Creat Clearance 24 Hr 9 ml/min (97.00-137.00) L 11/13/16 16:30 U Tot Protein 24h, Calc 3265.5 mg/24 hr (0-165) H 11/13/16 16:30 Body Surface Area 1.71 11/13/16 16:30 Stool Occult Blood NEGATIVE (NEGATIVE) 11/20/16 12:12 Hepatitis A IgM Ab Negative (Negative) 11/15/16 10:30 Hep Bs Antigen Negative (Negative) 11/15/16 10:30 Hep B Core IgM Ab Negative (Negative) 11/15/16 10:30 Hepatitis C Antibody <0.1 s/co ratio (0.0-0.9) 11/15/16 10:30 - Physical Exam Vitals and I&O: Vital Signs Temp 98.1 F 11/21/16 12:00 Pulse 87 11/21/16 12:00 Resp 18 11/21/16 12:00 BP 126/51 11/21/16 12:00 Pulse Ox 99 11/21/16 12:00 Intake & Output 11/20/16 11/21/16 11/21/16 18:59 06:59 18:59 Intake Total 2050 500 Output Total 301 1200 Balance 1749 -700 Intake: Intake, IV Amount 2050 Dextrose 5% 1,000 ml @ 2000 125 mls/hr IV .Q8H [facility] Rx #:[id number] [id number] 1 gm In 50 Sodium Chloride 0.9% 50 ml @ 100 mls/hr IV Q24HR [facility] Rx#:[id number] Tube Feeding 500 Output: Urine 300 1200 Stool 1 Other: # Bowel Movements 1 Stool Characteristics Formed Formed Active Medications: Current Medications Acetaminophen (Tylenol 650mg/20.3ml Suspension) 650 mg GT Q4HR PRN PRN Reason: Pain (Mild) Acetaminophen (Tylenol 650mg/20.3ml Suspension) 650 mg GT Q4HR PRN PRN Reason: TEMP> 101 Acetaminophen (Tylenol 650mg/20.3ml Suspension) 1,000 mg GT Q4HR PRN PRN Reason: Pain (Moderate) Last Admin: 11/20/16 10:42 Dose: 1,000 mg Acetaminophen/Hydrocodone Bitart ([place] 5mg/325mg) 1 tab PO Q6HR PRN PRN Reason: Pain (Severe) Stop: 01/11/17 00:00 Last Admin: 11/18/16 13:55 Dose: 1 tab Al Hydrox/Mg Hydrox/Simethicone (Maalox) 30 ml GT Q6HR PRN PRN Reason: Heartburn Stop: 01/11/17 00:00 Albuterol Sulfate (Albuterol 2.5mg/3ml Neb Ud) 2.5 mg HHN Q6HR PRN PRN Reason: sob/wheezing Stop: 01/11/17 00:00 Albuterol/Ipratropium (Duoneb Neb) 3 ml HHN [id number] [facility] Stop: 01/11/17 14:59 Last Admin: 11/21/16 11:03 Dose: 3 ml Amlodipine Besylate (Norvasc) 5 mg GT DAILY [facility] Stop: 01/11/17 08:59 Last Admin: 11/21/16 08:57 Dose: 5 mg Aspirin (Aspirin) 325 mg GT DAILY [facility] Stop: 01/11/17 08:59 Last Admin: 11/21/16 08:56 Dose: 325 mg Bisacodyl (Dulcolax 10 Mg Supp) 10 mg RC PRN PRN PRN Reason: Constipation Stop: 01/11/17 00:00 Budesonide (Pulmicort) 0.5 mg HHN DAILYRT [facility] Stop: 01/11/17 14:29 Last Admin: 11/21/16 07:23 Dose: 0.5 mg Clonidine HCl (Catapres) 0.1 mg GT Q12HR PRN PRN Reason: SBP GREATER THAN 160 Stop: 01/11/17 13:59 Epoetin Lucien (Epogen) 10,000 units SUBQ MoWeFr [facility] Stop: 01/16/17 15:47 Last Admin: 11/19/16 16:36 Dose: 10,000 units Famotidine (Pepcid) 20 mg GT DAILY [facility] Stop: 01/11/17 08:59 Last Admin: 11/21/16 08:58 Dose: 20 mg Ferrous Sulfate (Iron) 450 mg GT DAILY [facility] Stop: 01/11/17 08:59 Last Admin: 11/21/16 08:58 Dose: 450 mg Hydralazine HCl (Apresoline) 25 mg GT Q8HR [facility] Stop: 01/11/17 04:59 Last Admin: 11/21/16 05:28 Dose: 25 mg Dextrose (D5w) 1,000 mls @ 125 mls/hr IV .Q8H [facility] Stop: 01/11/17 08:25 Last Admin: 11/21/16 09:49 Dose: 125 mls/hr Ceftriaxone Sodium 1 gm/ (Sodium Chloride) 50 mls @ 100 mls/hr IV Q24HR [facility] Stop: 01/17/17 11:59 Last Admin: 11/21/16 11:23 Dose: 100 mls/hr Levetiracetam (Keppra) 750 mg GT Q12HR [facility] Stop: 01/11/17 08:59 Last Admin: 11/21/16 08:58 Dose: 750 mg Lorazepam (Ativan) 0.5 mg GT Q6HR PRN; Protocol PRN Reason: Anxiety Stop: 01/11/17 00:00 Last Admin: 11/14/16 06:31 Dose: 0.5 mg Magnesium Hydroxide (Milk Of Magnesia) 30 ml GT HS PRN PRN Reason: Constipation Stop: 01/11/17 00:00 Metoprolol Tartrate (Lopressor) 12.5 mg GT BID [facility] Stop: 01/11/17 08:59 Last Admin: 11/21/16 08:56 Dose: 12.5 mg Miscellaneous (Clinical Monitoring) 1 ea MC PRN PRN PRN Reason: RENAL DOSING Stop: 01/18/17 08:08 Mupirocin (Bactroban Oint) 1 appl NS BID [facility] Stop: 11/23/16 17:01 Last Admin: 11/21/16 09:01 Dose: 1 appl Polyethylene Glycol (Miralax) 17 gm GT DAILY [facility] Stop: 01/11/17 08:59 Last Admin: 11/21/16 08:58 Dose: 17 gm Senna (Senna) 17.2 mg GT DAILY [facility] Stop: 01/11/17 08:59 Last Admin: 11/21/16 08:56 Dose: 17.2 mg Sodium Phosphate (Fleet Enema) 135 ml RC DAILY PRN PRN Reason: Constipation Stop: 01/11/17 08:59 General: Alert, No acute distress HEENT: Atraumatic, Mucous membr. moist/pink Neck: Supple, +2 carotid pulse wo bruit Cardiovascular: Regular rate, Normal S1, Normal S2 Lungs: Other (few rhonchi) Abdomen: Bowel sounds, Soft Extremities: no Edema Assessment/Plan - Problem List Patient Problems: All Active Problems H/O chronic renal failure syndrome (Acute) Z87.448 H/O: HTN (hypertension) (Acute) Z86.79 Respiratory failure (Acute) J96.90 Right lower lobe pneumonia (Acute) J18.9 h/o anemia (Acute) s/p g tube (Acute) - Assessment Assessment: esrd on hd sepsis 2nd to left hap, Cx UTI Smart's palsy/epilepsy S/P resp failure on vent, s/p extubation dysphaga s/p PEG anemia of cd ess htn hyponatremia, hypokalemia - Plan Plan: no change kidney fnc CT chest showed B/L effusions, Left pna schedule for hd today start epogen replace K
[2016-11-21 13:40] LABS: % BASOPHILS 0.2 % (0.0-2.0); % EOSINOPHILS 5.5 % (0.0-5.0); % LYMPHOCYTES 10.5 % (20.0-50.0); % MONOCYTES 10.5 % (2.0-10.0); % NEUTROPHILS 73.3 % (40.0-80.0); MEAN CELL VOLUME 91.9 fl (80-99); MEAN CORPUSCULAR HEMOGLOBIN 31.7 pg (27.0-31.0); MEAN CORPUSCULAR HGB CONC 34.5 pg (28.0-36.0); MEAN PLATELET VOLUME 9.2 fl; NEUTROPHILE ABSOLUTE 8.8 Th/cmm (1.8-8.0); PLATELET COUNT 234 Th/cmm (150-400); RED BLOOD COUNT 2.32 Mil/cmm (3.80-5.80); RED CELL DISTRIBUTION WIDTH 14.8 % (11.5-20.0)
[2016-11-21 13:59] LABS: WHITE BLOOD COUNT 11.8 Th/cmm (4.8-10.8)
[2016-11-21 14:03] LABS: HEMATOCRIT 21.4 % (39.0-49.0); HEMOGLOBIN 7.4 gm/dL (12.6-17.4)
[2016-11-21] MEDS ORDERED: Potassium Chloride Elixir 20 mEq /15 mL UDC GT ONE (15:00)
[2016-11-21] MEDS: Epoetin Alfa 20000 Units/mL Vial SUBQ SCH (17:23)
[2016-11-22 05:46] LABS: % BASOPHILS 0.2 % (0.0-2.0); % EOSINOPHILS 6.1 % (0.0-5.0); % MONOCYTES 11.4 % (2.0-10.0); % NEUTROPHILS 69.3 % (40.0-80.0); HEMATOCRIT 30.2 % (39.0-49.0); MEAN CELL VOLUME 87.1 fl (80-99); MEAN CORPUSCULAR HEMOGLOBIN 31.1 pg (27.0-31.0); MEAN CORPUSCULAR HGB CONC 35.7 pg (28.0-36.0); MEAN PLATELET VOLUME 8.3 fl; NEUTROPHILE ABSOLUTE 6.5 Th/cmm (1.8-8.0); PLATELET COUNT 218 Th/cmm (150-400); RED BLOOD COUNT 3.47 Mil/cmm (3.80-5.80); RED CELL DISTRIBUTION WIDTH 14.8 % (11.5-20.0); WHITE BLOOD COUNT 9.4 Th/cmm (4.8-10.8)
[2016-11-22 06:40] LABS: ANION GAP 5.9 (7.0-16.0); BUN - UREA NITROGEN 31 mg/dL (7-25); BUN/CREATININE RATIO 17.2; CALCIUM SERUM 8.9 mg/dL (8.6-10.3); CARBON DIOXIDE 28.1 mEq/L (21.0-31.0); CHLORIDE 97 mEq/L (98-107); CREATININE - SERUM 1.8 mg/dL (0.7-1.3); GLUCOSE 93 mg/dL (70-105); SODIUM SERUM 127 mEq/L (136-145)
[2016-11-22] MEDS: Budesonide 0.5 Mg/2 mL Ud HHN SCH (07:38)
[2016-11-22] MEDS: Albuterol/Ipratropium Neb 3 ML AERS HHN SCH ×3 (07:38→14:51)
[2016-11-22] MEDS: Multivitamin w/ Minerals Tab GT SCH (08:57)
[2016-11-22] MEDS: POLYETHYLENE GLYCOL 3350 17 GM PACK GT SCH (08:58)
[2016-11-22] MEDS: Ferrous Sulfate 300 MG/5 ML UDC GT SCH (08:58)
[2016-11-22] MEDS: Levetiracetam 500 mg/5mL 5mL UDC GT SCH ×2 (08:58→21:29)
--- NOTE | 2016-11-22 09:13 | General Progress Note ---
Subjective - Review of Systems Service Date: 11/22/16 Subjective: more awake, verbal today, not in distress, Objective - Results Result Diagrams: 11/22/16 05:35 11/22/16 05:35 Recent Labs: Laboratory Last Values WBC 9.4 Th/cmm (4.8-10.8) D 11/22/16 05:35 RBC 3.47 Mil/cmm (3.80-5.80) L 11/22/16 05:35 Hgb 7.4 gm/dL (12.6-17.4) L* 11/21/16 06:14 Hct 30.2 % (39.0-49.0) L D 11/22/16 05:35 MCV 87.1 fl (80-99) 11/22/16 05:35 MCH 31.1 pg (27.0-31.0) H 11/22/16 05:35 MCHC Differential 35.7 pg (28.0-36.0) 11/22/16 05:35 RDW 14.8 % (11.5-20.0) 11/22/16 05:35 Plt Count 218 Th/cmm (150-400) 11/22/16 05:35 MPV 8.3 fl 11/22/16 05:35 Neutrophils % 69.3 % (40.0-80.0) 11/22/16 05:35 Lymphocytes % 13.0 % (20.0-50.0) L 11/22/16 05:35 Monocytes % 11.4 % (2.0-10.0) H 11/22/16 05:35 Eosinophils % 6.1 % (0.0-5.0) H 11/22/16 05:35 Basophils % 0.2 % (0.0-2.0) 11/22/16 05:35 Eos Smear Source URINE 11/12/16 16:30 Eos Smear Total Cells NONE SEEN (NONE SEEN) 11/12/16 16:30 PT 10.6 SECONDS (9.5-11.5) 11/11/16 22:58 INR 1.07 (0.5-1.4) 11/11/16 22:58 PTT (Actin FS) 27.1 SECONDS (26.0-38.0) 11/11/16 22:58 Specimen Source Arterial 11/13/16 08:50 Sample Site Left Radial 11/13/16 08:50 pH 7.47 (7.35-7.45) H 11/13/16 08:50 pCO2 38.0 mmHg (35.0-45.0) 11/13/16 08:50 pO2 67.0 mmHg (80.0-100.0) L 11/13/16 08:50 HCO3 27.7 mmol/L (20.0-26.0) H 11/13/16 08:50 Base Excess 3.9 mmol/L (-3.0-3.0) H 11/13/16 08:50 O2 Saturation 94.0 % (92.0-100.0) 11/13/16 08:50 Juan R Test PASS 11/13/16 08:50 Inspired O2 21 11/13/16 08:50 Critical Value PW 11/13/16 08:50 Sodium 127 mEq/L (136-145) L 11/22/16 05:35 Potassium 4.0 mEq/L (3.5-5.1) 11/22/16 05:35 Chloride 97 mEq/L (98-107) L 11/22/16 05:35 Carbon Dioxide 28.1 mEq/L (21.0-31.0) 11/22/16 05:35 Anion Gap 5.9 (7.0-16.0) L 11/22/16 05:35 BUN 31 mg/dL (7-25) H 11/22/16 05:35 Creatinine 1.8 mg/dL (0.7-1.3) H 11/22/16 05:35 Est GFR ( Amer) [facility] 11/22/16 05:35 Est GFR (Non-Af Amer) [facility] 11/22/16 05:35 BUN/Creatinine Ratio 17.2 11/22/16 05:35 Glucose 93 mg/dL (70-105) 11/22/16 05:35 Hemoglobin A1c % 4.8 % (4.0-6.0) 11/15/16 06:47 Whole Bld Lactic Acid 1.85 mmol/L (0.60-2.00) 11/11/16 22:58 Uric Acid 6.9 mg/dL (4.4-7.6) 11/13/16 05:45 Calcium 8.9 mg/dL (8.6-10.3) 11/22/16 05:35 Magnesium 2.4 mg/dL (1.9-2.7) 11/21/16 06:19 Total Bilirubin 0.3 mg/dL (0.3-1.0) 11/13/16 05:45 AST 35 U/L (13-39) 11/13/16 05:45 ALT 48 U/L (7-52) 11/13/16 05:45 Alkaline Phosphatase 72 U/L (34-104) 11/13/16 05:45 Ammonia 51 umol/L (16-53) 11/17/16 05:05 Creatine Kinase 180 U/L (30-223) 11/11/16 22:58 Total Protein 7.0 gm/dL (6.0-8.3) 11/13/16 05:45 Albumin 2.7 gm/dL (4.2-5.5) L 11/13/16 05:45 Globulin 4.3 gm/dL 11/13/16 05:45 Albumin/Globulin Ratio 0.6 (1.0-1.8) L 11/13/16 05:45 TSH 3.46 uIU/ml (0.34-5.60) 11/13/16 05:45 Urine Source CATH 11/11/16 22:40 Urine Color YELLOW 11/11/16 22:40 Urine Clarity HAZY (CLEAR) 11/11/16 22:40 Urine pH 7.5 11/11/16 22:40 Ur Specific [place] 1.020 (1.005-1.030) 11/11/16 22:40 Urine Protein >300 mg/dL (NEGATIVE) H 11/11/16 22:40 Urine Glucose (UA) NEGATIVE mg/dL (NEGATIVE) 11/11/16 22:40 Urine Ketones NEGATIVE mg/dL (NEGATIVE) 11/11/16 22:40 Urine Blood MODERATE (NEGATIVE) H 11/11/16 22:40 Urine Nitrate NEGATIVE (NEGATIVE) 11/11/16 22:40 Urine Bilirubin NEGATIVE (NEGATIVE) 11/11/16 22:40 Urine Urobilinogen 0.2 E.U./dL (0.2 - 1.0) 11/11/16 22:40 Ur Leukocyte Esterase SMALL (NEGATIVE) H 11/11/16 22:40 Urine RBC 5-10 /hpf (0-5) H 11/11/16 22:40 Urine WBC 6-10 /hpf (0-5) H 11/11/16 22:40 Ur Epithelial Cells FEW /lpf (FEW) 11/11/16 22:40 Urine Bacteria MODERATE /hpf (NONE SEEN) 11/11/16 22:40 Urine Osmolality 637 mOsmol/kg 11/12/16 16:30 U Random Total Protein 311.0 mg/dL 11/13/16 16:30 Ur Random Sodium 52 mmol/L 11/12/16 16:30 Urine Collection Time 24 hours 11/13/16 16:30 Urine Total Volume 1050 ml 11/13/16 16:30 Urine Creatinine 63.0 mg/dl (39.0-259.0) 11/13/16 16:30 Creat Clearance 24 Hr 9 ml/min (97.00-137.00) L 11/13/16 16:30 U Tot Protein 24h, Calc 3265.5 mg/24 hr (0-165) H 11/13/16 16:30 Body Surface Area 1.71 11/13/16 16:30 Stool Occult Blood NEGATIVE (NEGATIVE) 11/20/16 12:12 Hepatitis A IgM Ab Negative (Negative) 11/15/16 10:30 Hep Bs Antigen Negative (Negative) 11/15/16 10:30 Hep B Core IgM Ab Negative (Negative) 11/15/16 10:30 Hepatitis C Antibody <0.1 s/co ratio (0.0-0.9) 11/15/16 10:30 Blood Type A POSITIVE 11/21/16 15:56 Antibody Screen NEGATIVE 11/21/16 15:56 Crossmatch See Detail 11/21/16 15:56 - Physical Exam Vitals and I&O: Vital Signs Temp 98.0 F 11/22/16 08:19 Pulse 86 11/22/16 09:01 Resp 18 11/22/16 08:19 BP 155/75 11/22/16 09:01 Pulse Ox 100 11/22/16 08:19 Intake & Output 11/21/16 11/22/16 11/22/16 18:59 06:59 18:59 Intake Total 1000 970 Output Total 600 Balance 1000 370 Intake: Intake, IV Amount 1000 Dextrose 5% 1,000 ml @ 1000 125 mls/hr IV .Q8H [facility] Rx #:[id number] Tube Feeding 970 Output: Urine 600 Other: # Bowel Movements 0 Active Medications: Current Medications Acetaminophen (Tylenol 650mg/20.3ml Suspension) 650 mg GT Q4HR PRN PRN Reason: Pain (Mild) Acetaminophen (Tylenol 650mg/20.3ml Suspension) 650 mg GT Q4HR PRN PRN Reason: TEMP> 101 Acetaminophen (Tylenol 650mg/20.3ml Suspension) 1,000 mg GT Q4HR PRN PRN Reason: Pain (Moderate) Last Admin: 11/20/16 10:42 Dose: 1,000 mg Acetaminophen/Hydrocodone Bitart ([place] 5mg/325mg) 1 tab PO Q6HR PRN PRN Reason: Pain (Severe) Stop: 01/11/17 00:00 Last Admin: 11/18/16 13:55 Dose: 1 tab Al Hydrox/Mg Hydrox/Simethicone (Maalox) 30 ml GT Q6HR PRN PRN Reason: Heartburn Stop: 01/11/17 00:00 Albuterol Sulfate (Albuterol 2.5mg/3ml Neb Ud) 2.5 mg HHN Q6HR PRN PRN Reason: sob/wheezing Stop: 01/11/17 00:00 Albuterol/Ipratropium (Duoneb Neb) 3 ml HHN [id number] [facility] Stop: 01/11/17 14:59 Last Admin: 11/22/16 07:38 Dose: 3 ml Amlodipine Besylate (Norvasc) 5 mg GT DAILY [facility] Stop: 01/11/17 08:59 Last Admin: 11/22/16 09:01 Dose: 5 mg Aspirin (Aspirin) 325 mg GT DAILY [facility] Stop: 01/11/17 08:59 Last Admin: 11/22/16 08:57 Dose: 325 mg Bisacodyl (Dulcolax 10 Mg Supp) 10 mg RC PRN PRN PRN Reason: Constipation Stop: 01/11/17 00:00 Budesonide (Pulmicort) 0.5 mg HHN DAILYRT [facility] Stop: 01/11/17 14:29 Last Admin: 11/22/16 07:38 Dose: 0.5 mg Clonidine HCl (Catapres) 0.1 mg GT Q12HR PRN PRN Reason: SBP GREATER THAN 160 Stop: 01/11/17 13:59 Epoetin Lucien (Epogen) 10,000 units SUBQ MoWeFr [facility] Stop: 01/16/17 15:47 Last Admin: 11/21/16 17:23 Dose: 10,000 units Famotidine (Pepcid) 20 mg GT DAILY [facility] Stop: 01/11/17 08:59 Last Admin: 11/22/16 09:04 Dose: 20 mg Ferrous Sulfate (Iron) 450 mg GT DAILY [facility] Stop: 01/11/17 08:59 Last Admin: 11/22/16 08:58 Dose: 450 mg Hydralazine HCl (Apresoline) 25 mg GT Q8HR [facility] Stop: 01/11/17 04:59 Last Admin: 11/22/16 05:38 Dose: 25 mg Dextrose (D5w) 1,000 mls @ 125 mls/hr IV .Q8H [facility] Stop: 01/11/17 08:25 Last Admin: 11/21/16 18:03 Dose: 125 mls/hr Ceftriaxone Sodium 1 gm/ (Sodium Chloride) 50 mls @ 100 mls/hr IV Q24HR [facility] Stop: 01/17/17 11:59 Last Admin: 11/21/16 11:23 Dose: 100 mls/hr Levetiracetam (Keppra) 750 mg GT Q12HR [facility] Stop: 01/11/17 08:59 Last Admin: 11/22/16 08:58 Dose: 750 mg Lorazepam (Ativan) 0.5 mg GT Q6HR PRN; Protocol PRN Reason: Anxiety Stop: 01/11/17 00:00 Last Admin: 11/14/16 06:31 Dose: 0.5 mg Magnesium Hydroxide (Milk Of Magnesia) 30 ml GT HS PRN PRN Reason: Constipation Stop: 01/11/17 00:00 Metoprolol Tartrate (Lopressor) 12.5 mg GT BID [facility] Stop: 01/11/17 08:59 Last Admin: 11/22/16 09:01 Dose: 12.5 mg Miscellaneous (Clinical Monitoring) 1 ea MC PRN PRN PRN Reason: RENAL DOSING Stop: 01/18/17 08:08 Mupirocin (Bactroban Oint) 1 appl NS BID [facility] Stop: 11/23/16 17:01 Last Admin: 01/21/17 09:03 Dose: 1 appl Polyethylene Glycol (Miralax) 17 gm GT DAILY [facility] Stop: 01/11/17 08:59 Last Admin: 11/22/16 08:58 Dose: 17 gm Senna (Senna) 17.2 mg GT DAILY [facility] Stop: 01/11/17 08:59 Last Admin: 11/22/16 08:58 Dose: 17.2 mg Sodium Phosphate (Fleet Enema) 135 ml RC DAILY PRN PRN Reason: Constipation Stop: 01/11/17 08:59 General: Alert, No acute distress HEENT: Atraumatic, Mucous membr. moist/pink Neck: Supple, +2 carotid pulse wo bruit Cardiovascular: Regular rate, Normal S1, Normal S2 Lungs: Other (few rhonchi) Abdomen: Bowel sounds, Soft Extremities: no Edema Neurological: Sensation intact Skin: no Rash Assessment/Plan - Problem List Patient Problems: All Active Problems H/O chronic renal failure syndrome (Acute) Z87.448 H/O: HTN (hypertension) (Acute) Z86.79 Respiratory failure (Acute) J96.90 Right lower lobe pneumonia (Acute) J18.9 h/o anemia (Acute) s/p g tube (Acute) - Assessment Assessment: esrd on hd sepsis 2nd to left hap, Cx UTI Smart's palsy/epilepsy S/P resp failure on vent, s/p extubation dysphaga s/p PEG anemia of cd ess htn hyponatremia, hypokalemia - Plan Plan: no change kidney fnc CT chest showed B/L effusions, Left pna pt. dialyzed yesterday & tolerated it well continue epogen replace K
--- NOTE | 2016-11-22 10:02 | General Progress Note ---
Subjective - Review of Systems Service Date: 11/22/16 Events since last encounter: no distress Subjective: awake, alert, nad Objective - Results Result Diagrams: 11/22/16 05:35 11/22/16 05:35 Recent Labs: Laboratory Last Values WBC 9.4 Th/cmm (4.8-10.8) D 11/22/16 05:35 RBC 3.47 Mil/cmm (3.80-5.80) L 11/22/16 05:35 Hgb 7.4 gm/dL (12.6-17.4) L* 11/21/16 06:14 Hct 30.2 % (39.0-49.0) L D 11/22/16 05:35 MCV 87.1 fl (80-99) 11/22/16 05:35 MCH 31.1 pg (27.0-31.0) H 11/22/16 05:35 MCHC Differential 35.7 pg (28.0-36.0) 11/22/16 05:35 RDW 14.8 % (11.5-20.0) 11/22/16 05:35 Plt Count 218 Th/cmm (150-400) 11/22/16 05:35 MPV 8.3 fl 11/22/16 05:35 Neutrophils % 69.3 % (40.0-80.0) 11/22/16 05:35 Lymphocytes % 13.0 % (20.0-50.0) L 11/22/16 05:35 Monocytes % 11.4 % (2.0-10.0) H 11/22/16 05:35 Eosinophils % 6.1 % (0.0-5.0) H 11/22/16 05:35 Basophils % 0.2 % (0.0-2.0) 11/22/16 05:35 Eos Smear Source URINE 11/12/16 16:30 Eos Smear Total Cells NONE SEEN (NONE SEEN) 11/12/16 16:30 PT 10.6 SECONDS (9.5-11.5) 11/11/16 22:58 INR 1.07 (0.5-1.4) 11/11/16 22:58 PTT (Actin FS) 27.1 SECONDS (26.0-38.0) 11/11/16 22:58 Specimen Source Arterial 11/13/16 08:50 Sample Site Left Radial 11/13/16 08:50 pH 7.47 (7.35-7.45) H 11/13/16 08:50 pCO2 38.0 mmHg (35.0-45.0) 11/13/16 08:50 pO2 67.0 mmHg (80.0-100.0) L 11/13/16 08:50 HCO3 27.7 mmol/L (20.0-26.0) H 11/13/16 08:50 Base Excess 3.9 mmol/L (-3.0-3.0) H 11/13/16 08:50 O2 Saturation 94.0 % (92.0-100.0) 11/13/16 08:50 Juan R Test PASS 11/13/16 08:50 Inspired O2 21 11/13/16 08:50 Critical Value PW 11/13/16 08:50 Sodium 127 mEq/L (136-145) L 11/22/16 05:35 Potassium 4.0 mEq/L (3.5-5.1) 11/22/16 05:35 Chloride 97 mEq/L (98-107) L 11/22/16 05:35 Carbon Dioxide 28.1 mEq/L (21.0-31.0) 11/22/16 05:35 Anion Gap 5.9 (7.0-16.0) L 11/22/16 05:35 BUN 31 mg/dL (7-25) H 11/22/16 05:35 Creatinine 1.8 mg/dL (0.7-1.3) H 11/22/16 05:35 Est GFR ( Amer) [facility] 11/22/16 05:35 Est GFR (Non-Af Amer) [facility] 11/22/16 05:35 BUN/Creatinine Ratio 17.2 11/22/16 05:35 Glucose 93 mg/dL (70-105) 11/22/16 05:35 Hemoglobin A1c % 4.8 % (4.0-6.0) 11/15/16 06:47 Whole Bld Lactic Acid 1.85 mmol/L (0.60-2.00) 11/11/16 22:58 Uric Acid 6.9 mg/dL (4.4-7.6) 11/13/16 05:45 Calcium 8.9 mg/dL (8.6-10.3) 11/22/16 05:35 Magnesium 2.4 mg/dL (1.9-2.7) 11/21/16 06:19 Total Bilirubin 0.3 mg/dL (0.3-1.0) 11/13/16 05:45 AST 35 U/L (13-39) 11/13/16 05:45 ALT 48 U/L (7-52) 11/13/16 05:45 Alkaline Phosphatase 72 U/L (34-104) 11/13/16 05:45 Ammonia 51 umol/L (16-53) 11/17/16 05:05 Creatine Kinase 180 U/L (30-223) 11/11/16 22:58 Total Protein 7.0 gm/dL (6.0-8.3) 11/13/16 05:45 Albumin 2.7 gm/dL (4.2-5.5) L 11/13/16 05:45 Globulin 4.3 gm/dL 11/13/16 05:45 Albumin/Globulin Ratio 0.6 (1.0-1.8) L 11/13/16 05:45 TSH 3.46 uIU/ml (0.34-5.60) 11/13/16 05:45 Urine Source CATH 11/11/16 22:40 Urine Color YELLOW 11/11/16 22:40 Urine Clarity HAZY (CLEAR) 11/11/16 22:40 Urine pH 7.5 11/11/16 22:40 Ur Specific [place] 1.020 (1.005-1.030) 11/11/16 22:40 Urine Protein >300 mg/dL (NEGATIVE) H 11/11/16 22:40 Urine Glucose (UA) NEGATIVE mg/dL (NEGATIVE) 11/11/16 22:40 Urine Ketones NEGATIVE mg/dL (NEGATIVE) 11/11/16 22:40 Urine Blood MODERATE (NEGATIVE) H 11/11/16 22:40 Urine Nitrate NEGATIVE (NEGATIVE) 11/11/16 22:40 Urine Bilirubin NEGATIVE (NEGATIVE) 11/11/16 22:40 Urine Urobilinogen 0.2 E.U./dL (0.2 - 1.0) 11/11/16 22:40 Ur Leukocyte Esterase SMALL (NEGATIVE) H 11/11/16 22:40 Urine RBC 5-10 /hpf (0-5) H 11/11/16 22:40 Urine WBC 6-10 /hpf (0-5) H 11/11/16 22:40 Ur Epithelial Cells FEW /lpf (FEW) 11/11/16 22:40 Urine Bacteria MODERATE /hpf (NONE SEEN) 11/11/16 22:40 Urine Osmolality 637 mOsmol/kg 11/12/16 16:30 U Random Total Protein 311.0 mg/dL 11/13/16 16:30 Ur Random Sodium 52 mmol/L 11/12/16 16:30 Urine Collection Time 24 hours 11/13/16 16:30 Urine Total Volume 1050 ml 11/13/16 16:30 Urine Creatinine 63.0 mg/dl (39.0-259.0) 11/13/16 16:30 Creat Clearance 24 Hr 9 ml/min (97.00-137.00) L 11/13/16 16:30 U Tot Protein 24h, Calc 3265.5 mg/24 hr (0-165) H 11/13/16 16:30 Body Surface Area 1.71 11/13/16 16:30 Stool Occult Blood NEGATIVE (NEGATIVE) 11/20/16 12:12 Hepatitis A IgM Ab Negative (Negative) 11/15/16 10:30 Hep Bs Antigen Negative (Negative) 11/15/16 10:30 Hep B Core IgM Ab Negative (Negative) 11/15/16 10:30 Hepatitis C Antibody <0.1 s/co ratio (0.0-0.9) 11/15/16 10:30 Blood Type A POSITIVE 11/21/16 15:56 Antibody Screen NEGATIVE 11/21/16 15:56 Crossmatch See Detail 11/21/16 15:56 - Physical Exam Vitals and I&O: Vital Signs Temp 98.0 F 11/22/16 08:19 Pulse 86 11/22/16 09:01 Resp 18 11/22/16 08:19 BP 155/75 11/22/16 09:01 Pulse Ox 100 11/22/16 08:19 Intake & Output 11/21/16 11/22/16 11/22/16 18:59 06:59 18:59 Intake Total 1000 970 Output Total 600 Balance 1000 370 Intake: Intake, IV Amount 1000 Dextrose 5% 1,000 ml @ 1000 125 mls/hr IV .Q8H [facility] Rx #:[id number] Tube Feeding 970 Output: Urine 600 Other: # Bowel Movements 0 Active Medications: Current Medications Acetaminophen (Tylenol 650mg/20.3ml Suspension) 650 mg GT Q4HR PRN PRN Reason: Pain (Mild) Acetaminophen (Tylenol 650mg/20.3ml Suspension) 650 mg GT Q4HR PRN PRN Reason: TEMP> 101 Acetaminophen (Tylenol 650mg/20.3ml Suspension) 1,000 mg GT Q4HR PRN PRN Reason: Pain (Moderate) Last Admin: 11/20/16 10:42 Dose: 1,000 mg Acetaminophen/Hydrocodone Bitart ([place] 5mg/325mg) 1 tab PO Q6HR PRN PRN Reason: Pain (Severe) Stop: 01/11/17 00:00 Last Admin: 11/18/16 13:55 Dose: 1 tab Al Hydrox/Mg Hydrox/Simethicone (Maalox) 30 ml GT Q6HR PRN PRN Reason: Heartburn Stop: 01/11/17 00:00 Albuterol Sulfate (Albuterol 2.5mg/3ml Neb Ud) 2.5 mg HHN Q6HR PRN PRN Reason: sob/wheezing Stop: 01/11/17 00:00 Albuterol/Ipratropium (Duoneb Neb) 3 ml HHN [id number] [facility] Stop: 01/11/17 14:59 Last Admin: 11/22/16 07:38 Dose: 3 ml Amlodipine Besylate (Norvasc) 5 mg GT DAILY [facility] Stop: 01/11/17 08:59 Last Admin: 11/22/16 09:01 Dose: 5 mg Aspirin (Aspirin) 325 mg GT DAILY [facility] Stop: 01/11/17 08:59 Last Admin: 11/22/16 08:57 Dose: 325 mg Bisacodyl (Dulcolax 10 Mg Supp) 10 mg RC PRN PRN PRN Reason: Constipation Stop: 01/11/17 00:00 Budesonide (Pulmicort) 0.5 mg HHN DAILYRT [facility] Stop: 01/11/17 14:29 Last Admin: 11/22/16 07:38 Dose: 0.5 mg Clonidine HCl (Catapres) 0.1 mg GT Q12HR PRN PRN Reason: SBP GREATER THAN 160 Stop: 01/11/17 13:59 Epoetin Lucien (Epogen) 10,000 units SUBQ MoWeFr [facility] Stop: 01/16/17 15:47 Last Admin: 11/21/16 17:23 Dose: 10,000 units Famotidine (Pepcid) 20 mg GT DAILY [facility] Stop: 01/11/17 08:59 Last Admin: 11/22/16 09:04 Dose: 20 mg Ferrous Sulfate (Iron) 450 mg GT DAILY [facility] Stop: 01/11/17 08:59 Last Admin: 11/22/16 08:58 Dose: 450 mg Hydralazine HCl (Apresoline) 25 mg GT Q8HR [facility] Stop: 01/11/17 04:59 Last Admin: 11/22/16 05:38 Dose: 25 mg Dextrose (D5w) 1,000 mls @ 125 mls/hr IV .Q8H [facility] Stop: 01/11/17 08:25 Last Admin: 11/21/16 18:03 Dose: 125 mls/hr Ceftriaxone Sodium 1 gm/ (Sodium Chloride) 50 mls @ 100 mls/hr IV Q24HR [facility] Stop: 01/17/17 11:59 Last Admin: 11/21/16 11:23 Dose: 100 mls/hr Levetiracetam (Keppra) 750 mg GT Q12HR [facility] Stop: 01/11/17 08:59 Last Admin: 11/22/16 08:58 Dose: 750 mg Lorazepam (Ativan) 0.5 mg GT Q6HR PRN; Protocol PRN Reason: Anxiety Stop: 01/11/17 00:00 Last Admin: 11/14/16 06:31 Dose: 0.5 mg Magnesium Hydroxide (Milk Of Magnesia) 30 ml GT HS PRN PRN Reason: Constipation Stop: 01/11/17 00:00 Metoprolol Tartrate (Lopressor) 12.5 mg GT BID [facility] Stop: 01/11/17 08:59 Last Admin: 11/22/16 09:01 Dose: 12.5 mg Miscellaneous (Clinical Monitoring) 1 ea MC PRN PRN PRN Reason: RENAL DOSING Stop: 01/18/17 08:08 Mupirocin (Bactroban Oint) 1 appl NS BID [facility] Stop: 11/23/16 17:01 Last Admin: 11/22/16 09:03 Dose: 1 appl Polyethylene Glycol (Miralax) 17 gm GT DAILY [facility] Stop: 01/11/17 08:59 Last Admin: 11/22/16 08:58 Dose: 17 gm Senna (Senna) 17.2 mg GT DAILY [facility] Stop: 01/11/17 08:59 Last Admin: 11/22/16 08:58 Dose: 17.2 mg Sodium Phosphate (Fleet Enema) 135 ml RC DAILY PRN PRN Reason: Constipation Stop: 01/11/17 08:59 General: No acute distress HEENT: Atraumatic, PERRLA Neck: Supple, JVD, Thyromegaly Cardiovascular: Regular rate Lungs: Clear to auscultation Abdomen: Bowel sounds Assessment/Plan - Problem List Patient Problems: All Active Problems H/O chronic renal failure syndrome (Acute) Z87.448 H/O: HTN (hypertension) (Acute) Z86.79 Respiratory failure (Acute) J96.90 Right lower lobe pneumonia (Acute) J18.9 h/o anemia (Acute) s/p g tube (Acute) - Plan Plan: ivabx cbc/bmp in am cpm
--- NOTE | 2016-11-22 12:03 | Progress Notes ---
PROBLEM LIST: 1. Acute tracheobronchitis, improving right-sided effusion, persistent. 2. 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 3. [id number] renal failure, improving. SYMPTOMS: Nil, feeling okay, still goes to sleep very easily, but no specific other symptomatology otherwise. PHYSICAL EXAMINATION: VITAL SIGNS: The patient's recorded vitals, patient's ____ 98.7, blood pressure 136/76. NECK: Veins could not visualized. 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 CHEST: Shows some secretory noise without any other adventitious breath sounds. HEART: Regular. ABDOMEN: Soft, nontender. LABORATORY DATA: White count is 11.8, hemoglobin 7.4 and sodium is 123, creatinine is 2.2. ASSESSMENT: The patient clinically respiratory murray slightly better, slowly improving, still electrolyte imbalance with renal failure with metabolic syndrome, with some persistent effusion, right side. PLANS AND SUGGESTIONS: We will go and continue current treatment, aggressive inhalation treatment, nocturnal BiPAP and also renal electrolyte imbalance per marketing director assisted living and go from there. JOB# [id number]
[2016-11-22] MEDS: cefTRIAXone 1 GM in 0.9% NS 50 ML IV SCH (12:04)
[2016-11-22] MEDS: Dextrose 5% 1,000 ML IV SCH (17:34)
[2016-11-22 18:45] LABS: HEMOGLOBIN 10.8 gm/dL (12.6-17.4)
[2016-11-23] MEDS: Dextrose 5% 1,000 ML IV SCH ×3 (03:30→21:35)
[2016-11-23] MEDS: Albuterol/Ipratropium Neb 3 ML AERS HHN SCH ×4 (06:51→19:38)
[2016-11-23] MEDS: Budesonide 0.5 Mg/2 mL Ud HHN SCH (06:51)
--- NOTE | 2016-11-23 08:22 | General Progress Note ---
Subjective - Review of Systems Service Date: 11/23/16 Subjective: awake, alert, nad Objective - Results Result Diagrams: 11/22/16 05:35 11/22/16 05:35 Recent Labs: Laboratory Last Values WBC 9.4 Th/cmm (4.8-10.8) D 11/22/16 05:35 RBC 3.47 Mil/cmm (3.80-5.80) L 11/22/16 05:35 Hgb 10.8 gm/dL (12.6-17.4) L D 11/22/16 05:35 Hct 30.2 % (39.0-49.0) L D 11/22/16 05:35 MCV 87.1 fl (80-99) 11/22/16 05:35 MCH 31.1 pg (27.0-31.0) H 11/22/16 05:35 MCHC Differential 35.7 pg (28.0-36.0) 11/22/16 05:35 RDW 14.8 % (11.5-20.0) 11/22/16 05:35 Plt Count 218 Th/cmm (150-400) 11/22/16 05:35 MPV 8.3 fl 11/22/16 05:35 Neutrophils % 69.3 % (40.0-80.0) 11/22/16 05:35 Lymphocytes % 13.0 % (20.0-50.0) L 11/22/16 05:35 Monocytes % 11.4 % (2.0-10.0) H 11/22/16 05:35 Eosinophils % 6.1 % (0.0-5.0) H 11/22/16 05:35 Basophils % 0.2 % (0.0-2.0) 11/22/16 05:35 Eos Smear Source URINE 11/12/16 16:30 Eos Smear Total Cells NONE SEEN (NONE SEEN) 11/12/16 16:30 PT 10.6 SECONDS (9.5-11.5) 11/11/16 22:58 INR 1.07 (0.5-1.4) 11/11/16 22:58 PTT (Actin FS) 27.1 SECONDS (26.0-38.0) 11/11/16 22:58 Specimen Source Arterial 11/13/16 08:50 Sample Site Left Radial 11/13/16 08:50 pH 7.47 (7.35-7.45) H 11/13/16 08:50 pCO2 38.0 mmHg (35.0-45.0) 11/13/16 08:50 pO2 67.0 mmHg (80.0-100.0) L 11/13/16 08:50 HCO3 27.7 mmol/L (20.0-26.0) H 11/13/16 08:50 Base Excess 3.9 mmol/L (-3.0-3.0) H 11/13/16 08:50 O2 Saturation 94.0 % (92.0-100.0) 11/13/16 08:50 Juan R Test PASS 11/13/16 08:50 Inspired O2 21 11/13/16 08:50 Critical Value PW 11/13/16 08:50 Sodium 127 mEq/L (136-145) L 11/22/16 05:35 Potassium 4.0 mEq/L (3.5-5.1) 11/22/16 05:35 Chloride 97 mEq/L (98-107) L 11/22/16 05:35 Carbon Dioxide 28.1 mEq/L (21.0-31.0) 11/22/16 05:35 Anion Gap 5.9 (7.0-16.0) L 11/22/16 05:35 BUN 31 mg/dL (7-25) H 11/22/16 05:35 Creatinine 1.8 mg/dL (0.7-1.3) H 11/22/16 05:35 Est GFR ( Amer) [place] 11/22/16 05:35 Est GFR (Non-Af Amer) [facility] 11/22/16 05:35 BUN/Creatinine Ratio 17.2 11/22/16 05:35 Glucose 93 mg/dL (70-105) 11/22/16 05:35 Hemoglobin A1c % 4.8 % (4.0-6.0) 11/15/16 06:47 Whole Bld Lactic Acid 1.85 mmol/L (0.60-2.00) 11/11/16 22:58 Uric Acid 6.9 mg/dL (4.4-7.6) 11/13/16 05:45 Calcium 8.9 mg/dL (8.6-10.3) 11/22/16 05:35 Magnesium 2.4 mg/dL (1.9-2.7) 11/21/16 06:19 Total Bilirubin 0.3 mg/dL (0.3-1.0) 11/13/16 05:45 AST 35 U/L (13-39) 11/13/16 05:45 ALT 48 U/L (7-52) 11/13/16 05:45 Alkaline Phosphatase 72 U/L (34-104) 11/13/16 05:45 Ammonia 51 umol/L (16-53) 11/17/16 05:05 Creatine Kinase 180 U/L (30-223) 11/11/16 22:58 Total Protein 7.0 gm/dL (6.0-8.3) 11/13/16 05:45 Albumin 2.7 gm/dL (4.2-5.5) L 11/13/16 05:45 Globulin 4.3 gm/dL 11/13/16 05:45 Albumin/Globulin Ratio 0.6 (1.0-1.8) L 11/13/16 05:45 TSH 3.46 uIU/ml (0.34-5.60) 11/13/16 05:45 Urine Source CATH 11/11/16 22:40 Urine Color YELLOW 11/11/16 22:40 Urine Clarity HAZY (CLEAR) 11/11/16 22:40 Urine pH 7.5 11/11/16 22:40 Ur Specific [place] 1.020 (1.005-1.030) 11/11/16 22:40 Urine Protein >300 mg/dL (NEGATIVE) H 11/11/16 22:40 Urine Glucose (UA) NEGATIVE mg/dL (NEGATIVE) 11/11/16 22:40 Urine Ketones NEGATIVE mg/dL (NEGATIVE) 11/11/16 22:40 Urine Blood MODERATE (NEGATIVE) H 11/11/16 22:40 Urine Nitrate NEGATIVE (NEGATIVE) 11/11/16 22:40 Urine Bilirubin NEGATIVE (NEGATIVE) 11/11/16 22:40 Urine Urobilinogen 0.2 E.U./dL (0.2 - 1.0) 11/11/16 22:40 Ur Leukocyte Esterase SMALL (NEGATIVE) H 11/11/16 22:40 Urine RBC 5-10 /hpf (0-5) H 11/11/16 22:40 Urine WBC 6-10 /hpf (0-5) H 11/11/16 22:40 Ur Epithelial Cells FEW /lpf (FEW) 11/11/16 22:40 Urine Bacteria MODERATE /hpf (NONE SEEN) 11/11/16 22:40 Urine Osmolality 637 mOsmol/kg 11/12/16 16:30 U Random Total Protein 311.0 mg/dL 11/13/16 16:30 Ur Random Sodium 52 mmol/L 11/12/16 16:30 Urine Collection Time 24 hours 11/13/16 16:30 Urine Total Volume 1050 ml 11/13/16 16:30 Urine Creatinine 63.0 mg/dl (39.0-259.0) 11/13/16 16:30 Creat Clearance 24 Hr 9 ml/min (97.00-137.00) L 11/13/16 16:30 U Tot Protein 24h, Calc 3265.5 mg/24 hr (0-165) H 11/13/16 16:30 Body Surface Area 1.71 11/13/16 16:30 Stool Occult Blood NEGATIVE (NEGATIVE) 11/20/16 12:12 Hepatitis A IgM Ab Negative (Negative) 11/15/16 10:30 Hep Bs Antigen Negative (Negative) 11/15/16 10:30 Hep B Core IgM Ab Negative (Negative) 11/15/16 10:30 Hepatitis C Antibody <0.1 s/co ratio (0.0-0.9) 11/15/16 10:30 Blood Type A POSITIVE 11/21/16 15:56 Antibody Screen NEGATIVE 11/21/16 15:56 Crossmatch See Detail 11/21/16 15:56 - Physical Exam Vitals and I&O: Vital Signs Temp 97.8 F 11/23/16 07:45 Pulse 89 11/23/16 07:45 Resp 18 11/23/16 07:45 BP 152/102 11/23/16 07:45 Pulse Ox 96 11/23/16 07:45 Intake & Output 11/22/16 11/23/16 11/23/16 18:59 06:59 18:59 Intake Total 900 1540 Output Total 1000 Balance 900 540 Intake: Intake, IV Amount 1000 Dextrose 5% 1,000 ml @ 1000 125 mls/hr IV .Q8H [facility] Rx #:[id number] Tube Feeding 900 540 Output: Urine 1000 Other: # Bowel Movements 2 Stool Characteristics Soft Soft Liquid Liquid Active Medications: Current Medications Acetaminophen (Tylenol 650mg/20.3ml Suspension) 650 mg GT Q4HR PRN PRN Reason: Pain (Mild) Acetaminophen (Tylenol 650mg/20.3ml Suspension) 650 mg GT Q4HR PRN PRN Reason: TEMP> 101 Acetaminophen (Tylenol 650mg/20.3ml Suspension) 1,000 mg GT Q4HR PRN PRN Reason: Pain (Moderate) Last Admin: 11/20/16 10:42 Dose: 1,000 mg Acetaminophen/Hydrocodone Bitart ([place] 5mg/325mg) 1 tab PO Q6HR PRN PRN Reason: Pain (Severe) Stop: 01/11/17 00:00 Last Admin: 11/18/16 13:55 Dose: 1 tab Al Hydrox/Mg Hydrox/Simethicone (Maalox) 30 ml GT Q6HR PRN PRN Reason: Heartburn Stop: 01/11/17 00:00 Albuterol Sulfate (Albuterol 2.5mg/3ml Neb Ud) 2.5 mg HHN Q6HR PRN PRN Reason: sob/wheezing Stop: 01/11/17 00:00 Last Admin: 11/22/16 20:29 Dose: 2.5 mg Albuterol/Ipratropium (Duoneb Neb) 3 ml HHN [id number] [facility] Stop: 01/11/17 14:59 Last Admin: 11/23/16 06:51 Dose: 3 ml Amlodipine Besylate (Norvasc) 5 mg GT DAILY [facility] Stop: 01/11/17 08:59 Last Admin: 11/22/16 09:01 Dose: 5 mg Aspirin (Aspirin) 325 mg GT DAILY [facility] Stop: 01/11/17 08:59 Last Admin: 11/22/16 08:57 Dose: 325 mg Bisacodyl (Dulcolax 10 Mg Supp) 10 mg RC PRN PRN PRN Reason: Constipation Stop: 01/11/17 00:00 Budesonide (Pulmicort) 0.5 mg HHN DAILYRT [facility] Stop: 01/11/17 14:29 Last Admin: 11/23/16 06:51 Dose: 0.5 mg Clonidine HCl (Catapres) 0.1 mg GT Q12HR PRN PRN Reason: SBP GREATER THAN 160 Stop: 01/11/17 13:59 Epoetin Lucien (Epogen) 10,000 units SUBQ MoWeFr [facility] Stop: 01/16/17 15:47 Last Admin: 11/21/16 17:23 Dose: 10,000 units Famotidine (Pepcid) 20 mg GT DAILY [facility] Stop: 01/11/17 08:59 Last Admin: 11/22/16 09:04 Dose: 20 mg Ferrous Sulfate (Iron) 450 mg GT DAILY [facility] Stop: 01/11/17 08:59 Last Admin: 11/22/16 08:58 Dose: 450 mg Hydralazine HCl (Apresoline) 25 mg GT Q8HR [facility] Stop: 01/11/17 04:59 Last Admin: 11/23/16 05:33 Dose: 25 mg Dextrose (D5w) 1,000 mls @ 125 mls/hr IV .Q8H [facility] Stop: 01/11/17 08:25 Last Admin: 11/23/16 03:30 Dose: 125 mls/hr Ceftriaxone Sodium 1 gm/ (Sodium Chloride) 50 mls @ 100 mls/hr IV Q24HR [facility] Stop: 01/17/17 11:59 Last Admin: 11/22/16 12:04 Dose: 100 mls/hr Levetiracetam (Keppra) 750 mg GT Q12HR [facility] Stop: 01/11/17 08:59 Last Admin: 11/22/16 21:29 Dose: 750 mg Lorazepam (Ativan) 0.5 mg GT Q6HR PRN; Protocol PRN Reason: Anxiety Stop: 01/11/17 00:00 Last Admin: 11/14/16 06:31 Dose: 0.5 mg Magnesium Hydroxide (Milk Of Magnesia) 30 ml GT HS PRN PRN Reason: Constipation Stop: 01/11/17 00:00 Metoprolol Tartrate (Lopressor) 12.5 mg GT BID [facility] Stop: 01/11/17 08:59 Last Admin: 11/22/16 17:29 Dose: 12.5 mg Miscellaneous (Clinical Monitoring) 1 ea MC PRN PRN PRN Reason: RENAL DOSING Stop: 01/18/17 08:08 Mupirocin (Bactroban Oint) 1 appl NS BID [facility] Stop: 11/23/16 17:01 Last Admin: 11/22/16 17:32 Dose: 1 appl Polyethylene Glycol (Miralax) 17 gm GT DAILY [facility] Stop: 01/11/17 08:59 Last Admin: 11/22/16 08:58 Dose: 17 gm Senna (Senna) 17.2 mg GT DAILY [facility] Stop: 01/11/17 08:59 Last Admin: 11/22/16 08:58 Dose: 17.2 mg Sodium Phosphate (Fleet Enema) 135 ml RC DAILY PRN PRN Reason: Constipation Stop: 01/11/17 08:59 General: No acute distress HEENT: Atraumatic, PERRLA Neck: Supple, JVD Cardiovascular: Regular rate Lungs: Clear to auscultation Assessment/Plan - Problem List Patient Problems: All Active Problems H/O chronic renal failure syndrome (Acute) Z87.448 H/O: HTN (hypertension) (Acute) Z86.79 Respiratory failure (Acute) J96.90 Right lower lobe pneumonia (Acute) J18.9 h/o anemia (Acute) s/p g tube (Acute) - Plan Plan: ivabx cbc/bmp in am cpm
[2016-11-23] MEDS: Ferrous Sulfate 300 MG/5 ML UDC GT SCH (08:50)
[2016-11-23] MEDS: Levetiracetam 500 mg/5mL 5mL UDC GT SCH ×2 (08:50→21:46)
[2016-11-23] MEDS: POLYETHYLENE GLYCOL 3350 17 GM PACK GT SCH (08:50)
[2016-11-23] MEDS: Multivitamin w/ Minerals Tab GT SCH (08:51)
[2016-11-23] MEDS: cefTRIAXone 1 GM in 0.9% NS 50 ML IV SCH (12:33)
--- NOTE | 2016-11-23 13:06 | General Progress Note ---
Subjective - Review of Systems Service Date: 11/23/16 Subjective: sleeping, arousable, not in distress, Objective - Results Result Diagrams: 11/22/16 05:35 11/22/16 05:35 Recent Labs: Laboratory Last Values WBC 9.4 Th/cmm (4.8-10.8) D 11/22/16 05:35 RBC 3.47 Mil/cmm (3.80-5.80) L 11/22/16 05:35 Hgb 10.8 gm/dL (12.6-17.4) L D 11/22/16 05:35 Hct 30.2 % (39.0-49.0) L D 11/22/16 05:35 MCV 87.1 fl (80-99) 11/22/16 05:35 MCH 31.1 pg (27.0-31.0) H 11/22/16 05:35 MCHC Differential 35.7 pg (28.0-36.0) 11/22/16 05:35 RDW 14.8 % (11.5-20.0) 11/22/16 05:35 Plt Count 218 Th/cmm (150-400) 11/22/16 05:35 MPV 8.3 fl 11/22/16 05:35 Neutrophils % 69.3 % (40.0-80.0) 11/22/16 05:35 Lymphocytes % 13.0 % (20.0-50.0) L 11/22/16 05:35 Monocytes % 11.4 % (2.0-10.0) H 11/22/16 05:35 Eosinophils % 6.1 % (0.0-5.0) H 11/22/16 05:35 Basophils % 0.2 % (0.0-2.0) 11/22/16 05:35 Eos Smear Source URINE 11/12/16 16:30 Eos Smear Total Cells NONE SEEN (NONE SEEN) 11/12/16 16:30 PT 10.6 SECONDS (9.5-11.5) 11/11/16 22:58 INR 1.07 (0.5-1.4) 11/11/16 22:58 PTT (Actin FS) 27.1 SECONDS (26.0-38.0) 11/11/16 22:58 Specimen Source Arterial 11/13/16 08:50 Sample Site Left Radial 11/13/16 08:50 pH 7.47 (7.35-7.45) H 11/13/16 08:50 pCO2 38.0 mmHg (35.0-45.0) 11/13/16 08:50 pO2 67.0 mmHg (80.0-100.0) L 11/13/16 08:50 HCO3 27.7 mmol/L (20.0-26.0) H 11/13/16 08:50 Base Excess 3.9 mmol/L (-3.0-3.0) H 11/13/16 08:50 O2 Saturation 94.0 % (92.0-100.0) 11/13/16 08:50 Juan R Test PASS 11/13/16 08:50 Inspired O2 21 11/13/16 08:50 Critical Value PW 11/13/16 08:50 Sodium 127 mEq/L (136-145) L 11/22/16 05:35 Potassium 4.0 mEq/L (3.5-5.1) 11/22/16 05:35 Chloride 97 mEq/L (98-107) L 11/22/16 05:35 Carbon Dioxide 28.1 mEq/L (21.0-31.0) 11/22/16 05:35 Anion Gap 5.9 (7.0-16.0) L 11/22/16 05:35 BUN 31 mg/dL (7-25) H 11/22/16 05:35 Creatinine 1.8 mg/dL (0.7-1.3) H 11/22/16 05:35 Est GFR ( Amer) [facility] 11/22/16 05:35 Est GFR (Non-Af Amer) [facility] 11/22/16 05:35 BUN/Creatinine Ratio 17.2 11/22/16 05:35 Glucose 93 mg/dL (70-105) 11/22/16 05:35 Hemoglobin A1c % 4.8 % (4.0-6.0) 11/15/16 06:47 Whole Bld Lactic Acid 1.85 mmol/L (0.60-2.00) 11/11/16 22:58 Uric Acid 6.9 mg/dL (4.4-7.6) 11/13/16 05:45 Calcium 8.9 mg/dL (8.6-10.3) 11/22/16 05:35 Magnesium 2.4 mg/dL (1.9-2.7) 11/21/16 06:19 Total Bilirubin 0.3 mg/dL (0.3-1.0) 11/13/16 05:45 AST 35 U/L (13-39) 11/13/16 05:45 ALT 48 U/L (7-52) 11/13/16 05:45 Alkaline Phosphatase 72 U/L (34-104) 11/13/16 05:45 Ammonia 51 umol/L (16-53) 11/17/16 05:05 Creatine Kinase 180 U/L (30-223) 11/11/16 22:58 Total Protein 7.0 gm/dL (6.0-8.3) 11/13/16 05:45 Albumin 2.7 gm/dL (4.2-5.5) L 11/13/16 05:45 Globulin 4.3 gm/dL 11/13/16 05:45 Albumin/Globulin Ratio 0.6 (1.0-1.8) L 11/13/16 05:45 TSH 3.46 uIU/ml (0.34-5.60) 11/13/16 05:45 Urine Source CATH 11/11/16 22:40 Urine Color YELLOW 11/11/16 22:40 Urine Clarity HAZY (CLEAR) 11/11/16 22:40 Urine pH 7.5 11/11/16 22:40 Ur Specific [place] 1.020 (1.005-1.030) 11/11/16 22:40 Urine Protein >300 mg/dL (NEGATIVE) H 11/11/16 22:40 Urine Glucose (UA) NEGATIVE mg/dL (NEGATIVE) 11/11/16 22:40 Urine Ketones NEGATIVE mg/dL (NEGATIVE) 11/11/16 22:40 Urine Blood MODERATE (NEGATIVE) H 11/11/16 22:40 Urine Nitrate NEGATIVE (NEGATIVE) 11/11/16 22:40 Urine Bilirubin NEGATIVE (NEGATIVE) 11/11/16 22:40 Urine Urobilinogen 0.2 E.U./dL (0.2 - 1.0) 11/11/16 22:40 Ur Leukocyte Esterase SMALL (NEGATIVE) H 11/11/16 22:40 Urine RBC 5-10 /hpf (0-5) H 11/11/16 22:40 Urine WBC 6-10 /hpf (0-5) H 11/11/16 22:40 Ur Epithelial Cells FEW /lpf (FEW) 11/11/16 22:40 Urine Bacteria MODERATE /hpf (NONE SEEN) 11/11/16 22:40 Urine Osmolality 637 mOsmol/kg 11/12/16 16:30 U Random Total Protein 311.0 mg/dL 11/13/16 16:30 Ur Random Sodium 52 mmol/L 11/12/16 16:30 Urine Collection Time 24 hours 11/13/16 16:30 Urine Total Volume 1050 ml 11/13/16 16:30 Urine Creatinine 63.0 mg/dl (39.0-259.0) 11/13/16 16:30 Creat Clearance 24 Hr 9 ml/min (97.00-137.00) L 11/13/16 16:30 U Tot Protein 24h, Calc 3265.5 mg/24 hr (0-165) H 11/13/16 16:30 Body Surface Area 1.71 11/13/16 16:30 Stool Occult Blood NEGATIVE (NEGATIVE) 11/20/16 12:12 Hepatitis A IgM Ab Negative (Negative) 11/15/16 10:30 Hep Bs Antigen Negative (Negative) 11/15/16 10:30 Hep B Core IgM Ab Negative (Negative) 11/15/16 10:30 Hepatitis C Antibody <0.1 s/co ratio (0.0-0.9) 11/15/16 10:30 Blood Type A POSITIVE 11/21/16 15:56 Antibody Screen NEGATIVE 11/21/16 15:56 Crossmatch See Detail 11/21/16 15:56 - Physical Exam Vitals and I&O: Vital Signs Temp 97.3 F 11/23/16 12:08 Pulse 81 11/23/16 12:35 Resp 19 11/23/16 12:08 BP 144/87 11/23/16 12:35 Pulse Ox 95 11/23/16 12:08 Intake & Output 11/22/16 11/23/16 11/23/16 18:59 06:59 18:59 Intake Total 950 1540 1000 Output Total 1000 Balance 162 987 2572 Intake: Intake, IV Amount 50 1000 1000 Dextrose 5% 1,000 ml @ 1000 1000 125 mls/hr IV .Q8H [facility] Rx #:[id number] cefTRIAXone 1 gm In 50 Sodium Chloride 0.9% 50 ml @ 100 mls/hr IV Q24HR [facility] Rx#:[id number] Tube Feeding 900 540 Output: Urine 1000 Other: # Bowel Movements 2 Stool Characteristics Soft Soft Soft Liquid Liquid Liquid Active Medications: Current Medications Acetaminophen (Tylenol 650mg/20.3ml Suspension) 650 mg GT Q4HR PRN PRN Reason: Pain (Mild) Acetaminophen (Tylenol 650mg/20.3ml Suspension) 650 mg GT Q4HR PRN PRN Reason: TEMP> 101 Acetaminophen (Tylenol 650mg/20.3ml Suspension) 1,000 mg GT Q4HR PRN PRN Reason: Pain (Moderate) Last Admin: 11/20/16 10:42 Dose: 1,000 mg Acetaminophen/Hydrocodone Bitart ([place] 5mg/325mg) 1 tab PO Q6HR PRN PRN Reason: Pain (Severe) Stop: 01/11/17 00:00 Last Admin: 11/18/16 13:55 Dose: 1 tab Al Hydrox/Mg Hydrox/Simethicone (Maalox) 30 ml GT Q6HR PRN PRN Reason: Heartburn Stop: 01/11/17 00:00 Albuterol Sulfate (Albuterol 2.5mg/3ml Neb Ud) 2.5 mg HHN Q6HR PRN PRN Reason: sob/wheezing Stop: 01/11/17 00:00 Last Admin: 11/22/16 20:29 Dose: 2.5 mg Albuterol/Ipratropium (Duoneb Neb) 3 ml HHN [id number] [facility] Stop: 01/11/17 14:59 Last Admin: 11/23/16 10:55 Dose: 3 ml Amlodipine Besylate (Norvasc) 5 mg GT DAILY [facility] Stop: 01/11/17 08:59 Last Admin: 11/23/16 08:51 Dose: 5 mg Aspirin (Aspirin) 325 mg GT DAILY [facility] Stop: 01/11/17 08:59 Last Admin: 11/23/16 08:50 Dose: 325 mg Bisacodyl (Dulcolax 10 Mg Supp) 10 mg RC PRN PRN PRN Reason: Constipation Stop: 01/11/17 00:00 Budesonide (Pulmicort) 0.5 mg HHN DAILYRT [facility] Stop: 01/11/17 14:29 Last Admin: 11/23/16 06:51 Dose: 0.5 mg Clonidine HCl (Catapres) 0.1 mg GT Q12HR PRN PRN Reason: SBP GREATER THAN 160 Stop: 01/11/17 13:59 Epoetin Lucien (Epogen) 10,000 units SUBQ MoWeFr [facility] Stop: 01/16/17 15:47 Last Admin: 11/21/16 17:23 Dose: 10,000 units Famotidine (Pepcid) 20 mg GT DAILY [facility] Stop: 01/11/17 08:59 Last Admin: 11/23/16 08:51 Dose: 20 mg Ferrous Sulfate (Iron) 450 mg GT DAILY [facility] Stop: 01/11/17 08:59 Last Admin: 11/23/16 08:50 Dose: 450 mg Hydralazine HCl (Apresoline) 25 mg GT Q8HR [facility] Stop: 01/11/17 04:59 Last Admin: 11/23/16 12:35 Dose: 25 mg Dextrose (D5w) 1,000 mls @ 125 mls/hr IV .Q8H [facility] Stop: 01/11/17 08:25 Last Admin: 11/23/16 12:33 Dose: 125 mls/hr Ceftriaxone Sodium 1 gm/ (Sodium Chloride) 50 mls @ 100 mls/hr IV Q24HR [facility] Stop: 01/17/17 11:59 Last Admin: 11/23/16 12:33 Dose: 100 mls/hr Levetiracetam (Keppra) 750 mg GT Q12HR [facility] Stop: 01/11/17 08:59 Last Admin: 11/23/16 08:50 Dose: 750 mg Lorazepam (Ativan) 0.5 mg GT Q6HR PRN; Protocol PRN Reason: Anxiety Stop: 01/11/17 00:00 Last Admin: 11/14/16 06:31 Dose: 0.5 mg Magnesium Hydroxide (Milk Of Magnesia) 30 ml GT HS PRN PRN Reason: Constipation Stop: 01/11/17 00:00 Metoprolol Tartrate (Lopressor) 12.5 mg GT BID [facility] Stop: 01/11/17 08:59 Last Admin: 11/23/16 08:51 Dose: 12.5 mg Miscellaneous (Clinical Monitoring) 1 ea MC PRN PRN PRN Reason: RENAL DOSING Stop: 01/18/17 08:08 Mupirocin (Bactroban Oint) 1 appl NS BID [facility] Stop: 11/23/16 17:01 Last Admin: 11/23/16 09:01 Dose: 1 appl Polyethylene Glycol (Miralax) 17 gm GT DAILY [facility] Stop: 01/11/17 08:59 Last Admin: 11/23/16 08:50 Dose: 17 gm Senna (Senna) 17.2 mg GT DAILY [facility] Stop: 01/11/17 08:59 Last Admin: 11/23/16 08:51 Dose: 17.2 mg Sodium Phosphate (Fleet Enema) 135 ml RC DAILY PRN PRN Reason: Constipation Stop: 01/11/17 08:59 General: No acute distress HEENT: Atraumatic, Mucous membr. moist/pink Neck: Supple, +2 carotid pulse wo bruit Cardiovascular: Regular rate, Normal S1, Normal S2 Lungs: Other (few rhonchi) Abdomen: Bowel sounds, Soft Extremities: no Edema Neurological: Sensation intact Skin: no Rash Assessment/Plan - Problem List Patient Problems: All Active Problems H/O chronic renal failure syndrome (Acute) Z87.448 H/O: HTN (hypertension) (Acute) Z86.79 Respiratory failure (Acute) J96.90 Right lower lobe pneumonia (Acute) J18.9 h/o anemia (Acute) s/p g tube (Acute) - Assessment Assessment: esrd on hd sepsis 2nd to left hap, Cx UTI Smart's palsy/epilepsy S/P resp failure on vent, s/p extubation 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
[2016-11-24] MEDS: Albuterol/Ipratropium Neb 3 ML AERS HHN SCH ×4 (06:32→18:41)
[2016-11-24] MEDS: Budesonide 0.5 Mg/2 mL Ud HHN SCH (06:32)
[2016-11-24 07:26] LABS: % BASOPHILS 0.3 % (0.0-2.0); % EOSINOPHILS 6.5 % (0.0-5.0); % MONOCYTES 13.9 % (2.0-10.0); % NEUTROPHILS 64.3 % (40.0-80.0); HEMATOCRIT 28.8 % (39.0-49.0); HEMOGLOBIN 9.9 gm/dL (12.6-17.4); MEAN CELL VOLUME 89.3 fl (80-99); MEAN CORPUSCULAR HEMOGLOBIN 30.7 pg (27.0-31.0); MEAN CORPUSCULAR HGB CONC 34.3 pg (28.0-36.0); NEUTROPHILE ABSOLUTE 5.7 Th/cmm (1.8-8.0); PLATELET COUNT 238 Th/cmm (150-400); RED BLOOD COUNT 3.22 Mil/cmm (3.80-5.80); RED CELL DISTRIBUTION WIDTH 14.7 % (11.5-20.0)
[2016-11-24 07:41] LABS: ANION GAP 1.3 (7.0-16.0); BUN - UREA NITROGEN 42 mg/dL (7-25); CARBON DIOXIDE 29.1 mEq/L (21.0-31.0); CHLORIDE 89 mEq/L (98-107); CREATININE - SERUM 2.1 mg/dL (0.7-1.3); GLUCOSE 105 mg/dL (70-105); POTASSIUM SERUM 3.4 mEq/L (3.5-5.1)
[2016-11-24 08:08] LABS: SODIUM SERUM 116 mEq/L (136-145)
[2016-11-24] MEDS: POLYETHYLENE GLYCOL 3350 17 GM PACK GT SCH (08:37)
[2016-11-24] MEDS: Levetiracetam 500 mg/5mL 5mL UDC GT SCH ×2 (08:37→21:44)
[2016-11-24] MEDS: Ferrous Sulfate 300 MG/5 ML UDC GT SCH (08:38)
[2016-11-24] MEDS: Multivitamin w/ Minerals Tab GT SCH (08:39)
[2016-11-24 08:51] LABS: HCO3 31.3 mmol/L (20.0-26.0); pH 7.46 (7.35-7.45)
[2016-11-24 08:52] LABS: ABG SOURCE Arterial; BE(B) 6.6 mmol/L (-3.0-3.0); CRITICAL VALUES REPORTED BY SH; FIO2 21
--- NOTE | 2016-11-24 09:35 | Diagnostic Imaging Report ---
Portable chest x-ray HISTORY: Shortness of breath Compared with prior exam of 11/19/2016, the heart remains enlarged. Density noted about the right costophrenic angle consistent with a small pleural effusion. Density noted in the left lower hemithorax that may also be associated with a small effusion. IMPRESSION: 1. Findings consistent with a decrease in a right pleural effusion. 2. Questionable small left pleural effusion 3. Cardiomegaly
--- NOTE | 2016-11-24 10:41 | Progress Notes ---
PULMONARY PROGRESS NOTE PROBLEM LIST: 1. Acute respiratory failure, improving. 2. Suspect obstructive sleep apnea syndrome. SYMPTOMS: Noncommunicative, but not in any acute distress. PHYSICAL EXAMINATION: VITAL SIGNS: The patient's recorded vital signs, temperature ____ and blood pressure 144/85, pulse is 97. HEENT: There is still lot of secretions around the old trache site, ____, mild respiratory distress. LUNGS: Occasional rhonchi with diminished air entry. HEART: Regular. EXTREMITIES: ____. LABORATORY DATA: The patient's white count is 11.8, sodium is 122 and ____. ASSESSMENT: The patient clinically is slowly improving. PLANS AND SUGGESTIONS: We will continue current treatment. We will follow up other laboratory studies including chest x-ray in next day or two. JOB# [id number]
--- NOTE | 2016-11-24 10:47 | Progress Notes ---
PROBLEM LIST: 1. Respiratory failure, improving. 2. Tracheobronchitis. 3. Left-sided effusion. 4. Status post previous intubation including tracheocutaneous fistula. 5. Sakvi-ww-pemoieb renal failure, improved. SYMPTOMS: Nil. The patient is quite ____ with respiratory distress ____. PHYSICAL EXAMINATION: VITAL SIGNS: Temperature is 97, blood pressure 144/87, saturation is ____ on 2 liters of oxygen. ENT: There is still a lot of secretions noted on tracheocutaneous fistula; otherwise, unremarkable. CHEST: Shows occasional secretory noise with diminished air entry. HEART: Regular. ABDOMEN: Shows G-tube; otherwise, unremarkable. LABORATORY DATA: White count is 9.4, hemoglobin 10.8, and sodium is improved to 127, BUN and creatinine is significantly improved, creatinine is now 1.8 with BUN of 31. ASSESSMENT: The patient clinically overall seemingly is slowly improving. PLANS AND SUGGESTIONS: We will go ahead and continue current treatment. We will follow through chest x-ray tomorrow, etc., and go from there. JOB# [id number]
[2016-11-24] MEDS: cefTRIAXone 1 GM in 0.9% NS 50 ML IV SCH (12:23)
[2016-11-24] MEDS ORDERED: Potassium Chloride Elixir 20 mEq /15 mL UDC GT ONE (13:34)
--- NOTE | 2016-11-24 13:34 | General Progress Note ---
Subjective - Review of Systems Service Date: 11/24/16 Subjective: more alert, verbal, comfortable Objective - Results Result Diagrams: 11/24/16 06:05 11/24/16 06:05 Recent Labs: Laboratory Last Values WBC 9.0 Th/cmm (4.8-10.8) 11/24/16 06:05 RBC 3.22 Mil/cmm (3.80-5.80) L 11/24/16 06:05 Hgb 9.9 gm/dL (12.6-17.4) L 11/24/16 06:05 Hct 28.8 % (39.0-49.0) L 11/24/16 06:05 MCV 89.3 fl (80-99) 11/24/16 06:05 MCH 30.7 pg (27.0-31.0) 11/24/16 06:05 MCHC Differential 34.3 pg (28.0-36.0) 11/24/16 06:05 RDW 14.7 % (11.5-20.0) 11/24/16 06:05 Plt Count 238 Th/cmm (150-400) 11/24/16 06:05 MPV 8.0 fl 11/24/16 06:05 Neutrophils % 64.3 % (40.0-80.0) 11/24/16 06:05 Lymphocytes % 15.0 % (20.0-50.0) L 11/24/16 06:05 Monocytes % 13.9 % (2.0-10.0) H 11/24/16 06:05 Eosinophils % 6.5 % (0.0-5.0) H 11/24/16 06:05 Basophils % 0.3 % (0.0-2.0) 11/24/16 06:05 Eos Smear Source URINE 11/12/16 16:30 Eos Smear Total Cells NONE SEEN (NONE SEEN) 11/12/16 16:30 PT 10.6 SECONDS (9.5-11.5) 11/11/16 22:58 INR 1.07 (0.5-1.4) 11/11/16 22:58 PTT (Actin FS) 27.1 SECONDS (26.0-38.0) 11/11/16 22:58 Specimen Source Arterial 11/24/16 08:30 Sample Site RB 11/24/16 08:30 pH 7.46 (7.35-7.45) H 11/24/16 08:30 pCO2 44.0 mmHg (35.0-45.0) 11/24/16 08:30 pO2 72.0 mmHg (80.0-100.0) L 11/24/16 08:30 HCO3 31.3 mmol/L (20.0-26.0) H 11/24/16 08:30 Base Excess 6.6 mmol/L (-3.0-3.0) H 11/24/16 08:30 O2 Saturation 95.0 % (92.0-100.0) 11/24/16 08:30 Juan R Test NA 11/24/16 08:30 Vent Rate NA 11/24/16 08:30 Inspired O2 21 11/24/16 08:30 Tidal Volume NA 11/24/16 08:30 PEEP NA 11/24/16 08:30 Pressure (ins/psv/peep) NA 11/24/16 08:30 Critical Value SH 11/24/16 08:30 Sodium 116 mEq/L (136-145) L* 11/24/16 06:05 Potassium 3.4 mEq/L (3.5-5.1) L 11/24/16 06:05 Chloride 89 mEq/L (98-107) L 11/24/16 06:05 Carbon Dioxide 29.1 mEq/L (21.0-31.0) 11/24/16 06:05 Anion Gap 1.3 (7.0-16.0) L 11/24/16 06:05 BUN 42 mg/dL (7-25) H 11/24/16 06:05 Creatinine 2.1 mg/dL (0.7-1.3) H 11/24/16 06:05 Est GFR ( Amer) TNP 11/24/16 06:05 Est GFR (Non-Af Amer) TNP 11/24/16 06:05 BUN/Creatinine Ratio 20.0 11/24/16 06:05 Glucose 105 mg/dL (70-105) 11/24/16 06:05 Hemoglobin A1c % 4.8 % (4.0-6.0) 11/15/16 06:47 Whole Bld Lactic Acid 1.85 mmol/L (0.60-2.00) 11/11/16 22:58 Uric Acid 6.9 mg/dL (4.4-7.6) 11/13/16 05:45 Calcium 9.0 mg/dL (8.6-10.3) 11/24/16 06:05 Magnesium 2.4 mg/dL (1.9-2.7) 11/21/16 06:19 Total Bilirubin 0.3 mg/dL (0.3-1.0) 11/13/16 05:45 AST 35 U/L (13-39) 11/13/16 05:45 ALT 48 U/L (7-52) 11/13/16 05:45 Alkaline Phosphatase 72 U/L (34-104) 11/13/16 05:45 Ammonia 51 umol/L (16-53) 11/17/16 05:05 Creatine Kinase 180 U/L (30-223) 11/11/16 22:58 Total Protein 7.0 gm/dL (6.0-8.3) 11/13/16 05:45 Albumin 2.7 gm/dL (4.2-5.5) L 11/13/16 05:45 Globulin 4.3 gm/dL 11/13/16 05:45 Albumin/Globulin Ratio 0.6 (1.0-1.8) L 11/13/16 05:45 TSH 3.46 uIU/ml (0.34-5.60) 11/13/16 05:45 Urine Source CATH 11/11/16 22:40 Urine Color YELLOW 11/11/16 22:40 Urine Clarity HAZY (CLEAR) 11/11/16 22:40 Urine pH 7.5 11/11/16 22:40 Ur Specific [place] 1.020 (1.005-1.030) 11/11/16 22:40 Urine Protein >300 mg/dL (NEGATIVE) H 11/11/16 22:40 Urine Glucose (UA) NEGATIVE mg/dL (NEGATIVE) 11/11/16 22:40 Urine Ketones NEGATIVE mg/dL (NEGATIVE) 11/11/16 22:40 Urine Blood MODERATE (NEGATIVE) H 11/11/16 22:40 Urine Nitrate NEGATIVE (NEGATIVE) 11/11/16 22:40 Urine Bilirubin NEGATIVE (NEGATIVE) 11/11/16 22:40 Urine Urobilinogen 0.2 E.U./dL (0.2 - 1.0) 11/11/16 22:40 Ur Leukocyte Esterase SMALL (NEGATIVE) H 11/11/16 22:40 Urine RBC 5-10 /hpf (0-5) H 11/11/16 22:40 Urine WBC 6-10 /hpf (0-5) H 11/11/16 22:40 Ur Epithelial Cells FEW /lpf (FEW) 11/11/16 22:40 Urine Bacteria MODERATE /hpf (NONE SEEN) 11/11/16 22:40 Urine Osmolality 637 mOsmol/kg 11/12/16 16:30 U Random Total Protein 311.0 mg/dL 11/13/16 16:30 Ur Random Sodium 52 mmol/L 11/12/16 16:30 Urine Collection Time 24 hours 11/13/16 16:30 Urine Total Volume 1050 ml 11/13/16 16:30 Urine Creatinine 63.0 mg/dl (39.0-259.0) 11/13/16 16:30 Creat Clearance 24 Hr 9 ml/min (97.00-137.00) L 11/13/16 16:30 U Tot Protein 24h, Calc 3265.5 mg/24 hr (0-165) H 11/13/16 16:30 Body Surface Area 1.71 11/13/16 16:30 Stool Occult Blood NEGATIVE (NEGATIVE) 11/20/16 12:12 Hepatitis A IgM Ab Negative (Negative) 11/15/16 10:30 Hep Bs Antigen Negative (Negative) 11/15/16 10:30 Hep B Core IgM Ab Negative (Negative) 11/15/16 10:30 Hepatitis C Antibody <0.1 s/co ratio (0.0-0.9) 11/15/16 10:30 Blood Type A POSITIVE 11/21/16 15:56 Antibody Screen NEGATIVE 11/21/16 15:56 Crossmatch See Detail 11/21/16 15:56 - Physical Exam Vitals and I&O: Vital Signs Temp 97.8 F 11/24/16 08:00 Pulse 85 11/24/16 10:37 Resp 18 11/24/16 10:37 BP 141/75 11/24/16 08:00 Pulse Ox 99 11/24/16 10:37 Intake & Output 11/23/16 11/24/16 11/24/16 18:59 06:59 18:59 Intake Total 1590 1540 Output Total 1600 1700 Balance -10 -160 Intake: Intake, IV Amount 1050 1000 Dextrose 5% 1,000 ml @ 1000 1000 125 mls/hr IV .Q8H [facility] Rx #:[id number] cefTRIAXone 1 gm In 50 Sodium Chloride 0.9% 50 ml @ 100 mls/hr IV Q24HR [facility] Rx#:[id number] Tube Feeding 540 540 Output: Urine 1600 1700 Other: # Bowel Movements 2 Stool Characteristics Soft Soft Liquid Liquid Liquid Active Medications: Current Medications Acetaminophen (Tylenol 650mg/20.3ml Suspension) 650 mg GT Q4HR PRN PRN Reason: Pain (Mild) Acetaminophen (Tylenol 650mg/20.3ml Suspension) 650 mg GT Q4HR PRN PRN Reason: TEMP> 101 Acetaminophen (Tylenol 650mg/20.3ml Suspension) 1,000 mg GT Q4HR PRN PRN Reason: Pain (Moderate) Last Admin: 11/20/16 10:42 Dose: 1,000 mg Acetaminophen/Hydrocodone Bitart ([place] 5mg/325mg) 1 tab PO Q6HR PRN PRN Reason: Pain (Severe) Stop: 01/11/17 00:00 Last Admin: 11/18/16 13:55 Dose: 1 tab Al Hydrox/Mg Hydrox/Simethicone (Maalox) 30 ml GT Q6HR PRN PRN Reason: Heartburn Stop: 01/11/17 00:00 Albuterol Sulfate (Albuterol 2.5mg/3ml Neb Ud) 2.5 mg HHN Q6HR PRN PRN Reason: sob/wheezing Stop: 01/11/17 00:00 Last Admin: 11/22/16 20:29 Dose: 2.5 mg Albuterol/Ipratropium (Duoneb Neb) 3 ml HHN [id number] [facility] Stop: 01/11/17 14:59 Last Admin: 11/24/16 10:33 Dose: 3 ml Amlodipine Besylate (Norvasc) 5 mg GT DAILY [facility] Stop: 01/11/17 08:59 Last Admin: 11/23/16 08:51 Dose: 5 mg Aspirin (Aspirin) 325 mg GT DAILY [facility] Stop: 01/11/17 08:59 Last Admin: 11/24/16 08:39 Dose: 325 mg Bisacodyl (Dulcolax 10 Mg Supp) 10 mg RC PRN PRN PRN Reason: Constipation Stop: 01/11/17 00:00 Budesonide (Pulmicort) 0.5 mg HHN DAILYRT [facility] Stop: 01/11/17 14:29 Last Admin: 11/24/16 06:32 Dose: 0.5 mg Clonidine HCl (Catapres) 0.1 mg GT Q12HR PRN PRN Reason: SBP GREATER THAN 160 Stop: 01/11/17 13:59 Epoetin Lucien (Epogen) 10,000 units SUBQ MoWeFr [facility] Stop: 01/16/17 15:47 Last Admin: 11/21/16 17:23 Dose: 10,000 units Famotidine (Pepcid) 20 mg GT DAILY [facility] Stop: 01/11/17 08:59 Last Admin: 11/24/16 08:39 Dose: 20 mg Ferrous Sulfate (Iron) 450 mg GT DAILY [facility] Stop: 01/11/17 08:59 Last Admin: 11/24/16 08:38 Dose: 450 mg Hydralazine HCl (Apresoline) 25 mg GT Q8HR [facility] Stop: 01/11/17 04:59 Last Admin: 11/24/16 05:45 Dose: 25 mg Dextrose (D5w) 1,000 mls @ 125 mls/hr IV .Q8H [facility] Stop: 01/11/17 08:25 Last Admin: 11/23/16 21:35 Dose: 125 mls/hr Ceftriaxone Sodium 1 gm/ (Sodium Chloride) 50 mls @ 100 mls/hr IV Q24HR [facility] Stop: 01/17/17 11:59 Last Admin: 11/24/16 12:23 Dose: 100 mls/hr Levetiracetam (Keppra) 750 mg GT Q12HR [facility] Stop: 01/11/17 08:59 Last Admin: 11/24/16 08:37 Dose: 750 mg Lorazepam (Ativan) 0.5 mg GT Q6HR PRN; Protocol PRN Reason: Anxiety Stop: 01/11/17 00:00 Last Admin: 11/14/16 06:31 Dose: 0.5 mg Magnesium Hydroxide (Milk Of Magnesia) 30 ml GT HS PRN PRN Reason: Constipation Stop: 01/11/17 00:00 Metoprolol Tartrate (Lopressor) 12.5 mg GT BID [facility] Stop: 01/11/17 08:59 Last Admin: 11/23/16 16:27 Dose: 12.5 mg Miscellaneous (Clinical Monitoring) 1 ea MC PRN PRN PRN Reason: RENAL DOSING Stop: 01/18/17 08:08 Polyethylene Glycol (Miralax) 17 gm GT DAILY [facility] Stop: 01/11/17 08:59 Last Admin: 11/24/16 08:37 Dose: 17 gm Senna (Senna) 17.2 mg GT DAILY [facility] Stop: 01/11/17 08:59 Last Admin: 11/24/16 08:39 Dose: 17.2 mg Sodium Chloride (Nacl Tab) 1 gm PO Q8HR [facility] Stop: 01/23/17 12:59 Sodium Phosphate (Fleet Enema) 135 ml RC DAILY PRN PRN Reason: Constipation Stop: 01/11/17 08:59 General: Alert, No acute distress HEENT: Atraumatic, Mucous membr. moist/pink Neck: Supple, +2 carotid pulse wo bruit Cardiovascular: Regular rate, Normal S1, Normal S2 Lungs: Other (few rhonchi) Abdomen: Bowel sounds, Soft Extremities: no Edema Neurological: Sensation intact Skin: no Rash - Procedures Procedures: Procedures Procedure Code Date INSERT TUNNELED CV CATH 91827 11/11/16 INSERTION OF INFUSION DEV INTO L SUBCLAV VEIN, PERC APPROACH 16H082U 11/11/16 ULTRASONOGRAPHY OF LEFT SUBCLAVIAN VEIN, GUIDANCE [id number] 11/11/16 Assessment/Plan - Problem List Patient Problems: All Active Problems H/O chronic renal failure syndrome (Acute) Z87.448 H/O: HTN (hypertension) (Acute) Z86.79 Respiratory failure (Acute) J96.90 Right lower lobe pneumonia (Acute) J18.9 h/o anemia (Acute) s/p g tube (Acute) - Assessment Assessment: esrd on hd sepsis 2nd to left hap, Cx UTI Smart's palsy/epilepsy S/P resp failure on vent, s/p extubation dysphaga s/p PEG anemia of cd ess htn hyponatremia, hypokalemia - Plan Plan: no change kidney fnc CT chest showed B/L effusions, Left pna schedule for HD today continue epogen replace K, use increased Na bath
--- NOTE | 2016-11-24 15:00 | General Progress Note ---
Subjective - Review of Systems Subjective: awake, alert, nad Objective - Results Result Diagrams: 11/24/16 06:05 11/24/16 06:05 Recent Labs: Laboratory Last Values WBC 9.0 Th/cmm (4.8-10.8) 11/24/16 06:05 RBC 3.22 Mil/cmm (3.80-5.80) L 11/24/16 06:05 Hgb 9.9 gm/dL (12.6-17.4) L 11/24/16 06:05 Hct 28.8 % (39.0-49.0) L 11/24/16 06:05 MCV 89.3 fl (80-99) 11/24/16 06:05 MCH 30.7 pg (27.0-31.0) 11/24/16 06:05 MCHC Differential 34.3 pg (28.0-36.0) 11/24/16 06:05 RDW 14.7 % (11.5-20.0) 11/24/16 06:05 Plt Count 238 Th/cmm (150-400) 11/24/16 06:05 MPV 8.0 fl 11/24/16 06:05 Neutrophils % 64.3 % (40.0-80.0) 11/24/16 06:05 Lymphocytes % 15.0 % (20.0-50.0) L 11/24/16 06:05 Monocytes % 13.9 % (2.0-10.0) H 11/24/16 06:05 Eosinophils % 6.5 % (0.0-5.0) H 11/24/16 06:05 Basophils % 0.3 % (0.0-2.0) 11/24/16 06:05 Eos Smear Source URINE 11/12/16 16:30 Eos Smear Total Cells NONE SEEN (NONE SEEN) 11/12/16 16:30 PT 10.6 SECONDS (9.5-11.5) 11/11/16 22:58 INR 1.07 (0.5-1.4) 11/11/16 22:58 PTT (Actin FS) 27.1 SECONDS (26.0-38.0) 11/11/16 22:58 Specimen Source Arterial 11/24/16 08:30 Sample Site RB 11/24/16 08:30 pH 7.46 (7.35-7.45) H 11/24/16 08:30 pCO2 44.0 mmHg (35.0-45.0) 11/24/16 08:30 pO2 72.0 mmHg (80.0-100.0) L 11/24/16 08:30 HCO3 31.3 mmol/L (20.0-26.0) H 11/24/16 08:30 Base Excess 6.6 mmol/L (-3.0-3.0) H 11/24/16 08:30 O2 Saturation 95.0 % (92.0-100.0) 11/24/16 08:30 Juan R Test NA 11/24/16 08:30 Vent Rate NA 11/24/16 08:30 Inspired O2 21 11/24/16 08:30 Tidal Volume NA 11/24/16 08:30 PEEP NA 11/24/16 08:30 Pressure (ins/psv/peep) NA 11/24/16 08:30 Critical Value SH 11/24/16 08:30 Sodium 116 mEq/L (136-145) L* 11/24/16 06:05 Potassium 3.4 mEq/L (3.5-5.1) L 11/24/16 06:05 Chloride 89 mEq/L (98-107) L 11/24/16 06:05 Carbon Dioxide 29.1 mEq/L (21.0-31.0) 11/24/16 06:05 Anion Gap 1.3 (7.0-16.0) L 11/24/16 06:05 BUN 42 mg/dL (7-25) H 11/24/16 06:05 Creatinine 2.1 mg/dL (0.7-1.3) H 11/24/16 06:05 Est GFR ( Amer) TNP 11/24/16 06:05 Est GFR (Non-Af Amer) TNP 11/24/16 06:05 BUN/Creatinine Ratio 20.0 11/24/16 06:05 Glucose 105 mg/dL (70-105) 11/24/16 06:05 Hemoglobin A1c % 4.8 % (4.0-6.0) 11/15/16 06:47 Whole Bld Lactic Acid 1.85 mmol/L (0.60-2.00) 11/11/16 22:58 Uric Acid 6.9 mg/dL (4.4-7.6) 11/13/16 05:45 Calcium 9.0 mg/dL (8.6-10.3) 11/24/16 06:05 Magnesium 2.4 mg/dL (1.9-2.7) 11/21/16 06:19 Total Bilirubin 0.3 mg/dL (0.3-1.0) 11/13/16 05:45 AST 35 U/L (13-39) 11/13/16 05:45 ALT 48 U/L (7-52) 11/13/16 05:45 Alkaline Phosphatase 72 U/L (34-104) 11/13/16 05:45 Ammonia 51 umol/L (16-53) 11/17/16 05:05 Creatine Kinase 180 U/L (30-223) 11/11/16 22:58 Total Protein 7.0 gm/dL (6.0-8.3) 11/13/16 05:45 Albumin 2.7 gm/dL (4.2-5.5) L 11/13/16 05:45 Globulin 4.3 gm/dL 11/13/16 05:45 Albumin/Globulin Ratio 0.6 (1.0-1.8) L 11/13/16 05:45 TSH 3.46 uIU/ml (0.34-5.60) 11/13/16 05:45 Urine Source CATH 11/11/16 22:40 Urine Color YELLOW 11/11/16 22:40 Urine Clarity HAZY (CLEAR) 11/11/16 22:40 Urine pH 7.5 11/11/16 22:40 Ur Specific [place] 1.020 (1.005-1.030) 11/11/16 22:40 Urine Protein >300 mg/dL (NEGATIVE) H 11/11/16 22:40 Urine Glucose (UA) NEGATIVE mg/dL (NEGATIVE) 11/11/16 22:40 Urine Ketones NEGATIVE mg/dL (NEGATIVE) 11/11/16 22:40 Urine Blood MODERATE (NEGATIVE) H 11/11/16 22:40 Urine Nitrate NEGATIVE (NEGATIVE) 11/11/16 22:40 Urine Bilirubin NEGATIVE (NEGATIVE) 11/11/16 22:40 Urine Urobilinogen 0.2 E.U./dL (0.2 - 1.0) 11/11/16 22:40 Ur Leukocyte Esterase SMALL (NEGATIVE) H 11/11/16 22:40 Urine RBC 5-10 /hpf (0-5) H 11/11/16 22:40 Urine WBC 6-10 /hpf (0-5) H 11/11/16 22:40 Ur Epithelial Cells FEW /lpf (FEW) 11/11/16 22:40 Urine Bacteria MODERATE /hpf (NONE SEEN) 11/11/16 22:40 Urine Osmolality 637 mOsmol/kg 11/12/16 16:30 U Random Total Protein 311.0 mg/dL 11/13/16 16:30 Ur Random Sodium 52 mmol/L 11/12/16 16:30 Urine Collection Time 24 hours 11/13/16 16:30 Urine Total Volume 1050 ml 11/13/16 16:30 Urine Creatinine 63.0 mg/dl (39.0-259.0) 11/13/16 16:30 Creat Clearance 24 Hr 9 ml/min (97.00-137.00) L 11/13/16 16:30 U Tot Protein 24h, Calc 3265.5 mg/24 hr (0-165) H 11/13/16 16:30 Body Surface Area 1.71 11/13/16 16:30 Stool Occult Blood NEGATIVE (NEGATIVE) 11/20/16 12:12 Hepatitis A IgM Ab Negative (Negative) 11/15/16 10:30 Hep Bs Antigen Negative (Negative) 11/15/16 10:30 Hep B Core IgM Ab Negative (Negative) 11/15/16 10:30 Hepatitis C Antibody <0.1 s/co ratio (0.0-0.9) 11/15/16 10:30 Blood Type A POSITIVE 11/21/16 15:56 Antibody Screen NEGATIVE 11/21/16 15:56 Crossmatch See Detail 11/21/16 15:56 - Physical Exam Vitals and I&O: Vital Signs Temp 97.8 F 11/24/16 12:00 Pulse 86 11/24/16 14:37 Resp 16 11/24/16 14:37 BP 141/75 11/24/16 13:50 Pulse Ox 97 11/24/16 14:37 Intake & Output 11/23/16 11/24/16 11/24/16 18:59 06:59 18:59 Intake Total 1590 1540 Output Total 1600 1700 Balance -10 -160 Intake: Intake, IV Amount 1050 1000 Dextrose 5% 1,000 ml @ 1000 1000 125 mls/hr IV .Q8H [facility] Rx #:[id number] cefTRIAXone 1 gm In 50 Sodium Chloride 0.9% 50 ml @ 100 mls/hr IV Q24HR [facility] Rx#:[id number] Tube Feeding 540 540 Output: Urine 1600 1700 Other: # Bowel Movements 2 Stool Characteristics Soft Soft Liquid Liquid Liquid Active Medications: Current Medications Acetaminophen (Tylenol 650mg/20.3ml Suspension) 650 mg GT Q4HR PRN PRN Reason: Pain (Mild) Acetaminophen (Tylenol 650mg/20.3ml Suspension) 650 mg GT Q4HR PRN PRN Reason: TEMP> 101 Acetaminophen (Tylenol 650mg/20.3ml Suspension) 1,000 mg GT Q4HR PRN PRN Reason: Pain (Moderate) Last Admin: 11/20/16 10:42 Dose: 1,000 mg Acetaminophen/Hydrocodone Bitart ([place] 5mg/325mg) 1 tab PO Q6HR PRN PRN Reason: Pain (Severe) Stop: 01/11/17 00:00 Last Admin: 11/18/16 13:55 Dose: 1 tab Al Hydrox/Mg Hydrox/Simethicone (Maalox) 30 ml GT Q6HR PRN PRN Reason: Heartburn Stop: 01/11/17 00:00 Albuterol Sulfate (Albuterol 2.5mg/3ml Neb Ud) 2.5 mg HHN Q6HR PRN PRN Reason: sob/wheezing Stop: 01/11/17 00:00 Last Admin: 11/22/16 20:29 Dose: 2.5 mg Albuterol/Ipratropium (Duoneb Neb) 3 ml HHN [id number] [facility] Stop: 01/11/17 14:59 Last Admin: 11/24/16 14:32 Dose: 3 ml Amlodipine Besylate (Norvasc) 5 mg GT DAILY [facility] Stop: 01/11/17 08:59 Last Admin: 11/24/16 13:49 Dose: Not Given Aspirin (Aspirin) 325 mg GT DAILY [facility] Stop: 01/11/17 08:59 Last Admin: 11/24/16 08:39 Dose: 325 mg Bisacodyl (Dulcolax 10 Mg Supp) 10 mg RC PRN PRN PRN Reason: Constipation Stop: 01/11/17 00:00 Budesonide (Pulmicort) 0.5 mg HHN DAILYRT [facility] Stop: 01/11/17 14:29 Last Admin: 11/24/16 06:32 Dose: 0.5 mg Clonidine HCl (Catapres) 0.1 mg GT Q12HR PRN PRN Reason: SBP GREATER THAN 160 Stop: 01/11/17 13:59 Epoetin Lucien (Epogen) 10,000 units SUBQ MoWeFr [facility] Stop: 01/16/17 15:47 Last Admin: 11/21/16 17:23 Dose: 10,000 units Famotidine (Pepcid) 20 mg GT DAILY [facility] Stop: 01/11/17 08:59 Last Admin: 11/24/16 08:39 Dose: 20 mg Ferrous Sulfate (Iron) 450 mg GT DAILY [facility] Stop: 01/11/17 08:59 Last Admin: 11/24/16 08:38 Dose: 450 mg Heparin Sodium (Porcine) (Heparin) 5,000 units SUBQ PRN PRN PRN Reason: PROCEDURE Stop: 11/24/16 17:00 Hydralazine HCl (Apresoline) 25 mg GT Q8HR [facility] Stop: 01/11/17 04:59 Last Admin: 11/24/16 13:48 Dose: Not Given Dextrose (D5w) 1,000 mls @ 125 mls/hr IV .Q8H [facility] Stop: 01/11/17 08:25 Last Admin: 11/23/16 21:35 Dose: 125 mls/hr Ceftriaxone Sodium 1 gm/ (Sodium Chloride) 50 mls @ 100 mls/hr IV Q24HR [facility] Stop: 01/17/17 11:59 Last Admin: 11/24/16 12:23 Dose: 100 mls/hr Levetiracetam (Keppra) 750 mg GT Q12HR [facility] Stop: 01/11/17 08:59 Last Admin: 11/24/16 08:37 Dose: 750 mg Lorazepam (Ativan) 0.5 mg GT Q6HR PRN; Protocol PRN Reason: Anxiety Stop: 01/11/17 00:00 Last Admin: 11/14/16 06:31 Dose: 0.5 mg Magnesium Hydroxide (Milk Of Magnesia) 30 ml GT HS PRN PRN Reason: Constipation Stop: 01/11/17 00:00 Metoprolol Tartrate (Lopressor) 12.5 mg GT BID [facility] Stop: 01/11/17 08:59 Last Admin: 11/24/16 13:50 Dose: Not Given Miscellaneous (Clinical Monitoring) 1 ea MC PRN PRN PRN Reason: RENAL DOSING Stop: 01/18/17 08:08 Polyethylene Glycol (Miralax) 17 gm GT DAILY [facility] Stop: 01/11/17 08:59 Last Admin: 11/24/16 08:37 Dose: 17 gm Senna (Senna) 17.2 mg GT DAILY [facility] Stop: 01/11/17 08:59 Last Admin: 11/24/16 08:39 Dose: 17.2 mg Sodium Chloride (Nacl Tab) 1 gm PO Q8HR [facility] Stop: 01/23/17 12:59 Last Admin: 11/24/16 13:43 Dose: 1 gm Sodium Phosphate (Fleet Enema) 135 ml RC DAILY PRN PRN Reason: Constipation Stop: 01/11/17 08:59 - Procedures Procedures: Procedures Procedure Code Date INSERT TUNNELED CV CATH 19771 11/11/16 INSERTION OF INFUSION DEV INTO L SUBCLAV VEIN, PERC APPROACH [id number] 11/11/16 ULTRASONOGRAPHY OF LEFT SUBCLAVIAN VEIN, GUIDANCE [id number] 11/11/16 Assessment/Plan - Problem List Patient Problems: All Active Problems H/O chronic renal failure syndrome (Acute) Z87.448 H/O: HTN (hypertension) (Acute) Z86.79 Respiratory failure (Acute) J96.90 Right lower lobe pneumonia (Acute) J18.9 h/o anemia (Acute) s/p g tube (Acute) - Plan Plan: ivabx cbc/bmp in am cpm
[2016-11-24] MEDS: Epoetin Alfa 20000 Units/mL Vial SUBQ SCH (15:09)
[2016-11-24] MEDS: Dextrose 5% 1,000 ML IV SCH (18:59)
[2016-11-25] MEDS: Dextrose 5% 1,000 ML IV SCH (04:06)
[2016-11-25] MEDS: Albuterol/Ipratropium Neb 3 ML AERS HHN SCH ×4 (07:10→19:17)
[2016-11-25] MEDS: Budesonide 0.5 Mg/2 mL Ud HHN SCH (07:10)
[2016-11-25 08:29] LABS: ANION GAP 7.1 (7.0-16.0); BUN - UREA NITROGEN 49 mg/dL (7-25); BUN/CREATININE RATIO 22.3; CALCIUM SERUM 8.9 mg/dL (8.6-10.3); CARBON DIOXIDE 28.3 mEq/L (21.0-31.0); CHLORIDE 88 mEq/L (98-107); CREATININE - SERUM 2.2 mg/dL (0.7-1.3); GLUCOSE 103 mg/dL (70-105); POTASSIUM SERUM 3.4 mEq/L (3.5-5.1)
[2016-11-25 08:34] LABS: SODIUM SERUM 120 mEq/L (136-145)
[2016-11-25] MEDS ORDERED: Heparin Sod 1,000 Units/mL 10ml IVP ONE (08:42)
[2016-11-25] MEDS ORDERED: Lidocaine Mpf 1% 10 mL Amp EPI ONE (08:42)
[2016-11-25] MEDS ORDERED: Midazolam 1mg/ml 2 ml vial IV ONE (09:00)
[2016-11-25] MEDS ORDERED: Lactated Ringer 1,000 ML IV SCH (09:15)
[2016-11-25] MEDS: Ferrous Sulfate 300 MG/5 ML UDC GT SCH (10:33)
[2016-11-25] MEDS: Levetiracetam 500 mg/5mL 5mL UDC GT SCH ×2 (10:33→21:48)
[2016-11-25] MEDS: POLYETHYLENE GLYCOL 3350 17 GM PACK GT SCH (10:33)
[2016-11-25] MEDS: Multivitamin w/ Minerals Tab GT SCH (10:34)
--- NOTE | 2016-11-25 10:42 | Diagnostic Imaging Report ---
Portable chest x-ray HISTORY: Shortness of breath, vascular catheter placement Compared with prior exam 11/24/2016, a left-sided vascular catheter is seen at the tip extending into the superior vena cava. There is a poor inspiration. The heart is enlarged. Blunting of the right costophrenic angle that may be associated with a small pleural effusion. IMPRESSION: 1. Vascular catheter tip extending into the superior vena cava 2. Cardiomegaly 3. Suggestion of a small right pleural effusion
[2016-11-25] MEDS: cefTRIAXone 1 GM in 0.9% NS 50 ML IV SCH (11:19)
--- NOTE | 2016-11-25 14:13 | General Progress Note ---
Subjective - Review of Systems Service Date: 11/25/16 Subjective: sleeping, comfortable Objective - Results Result Diagrams: 11/24/16 06:05 11/25/16 06:30 Recent Labs: Laboratory Last Values WBC 9.0 Th/cmm (4.8-10.8) 11/24/16 06:05 RBC 3.22 Mil/cmm (3.80-5.80) L 11/24/16 06:05 Hgb 9.9 gm/dL (12.6-17.4) L 11/24/16 06:05 Hct 28.8 % (39.0-49.0) L 11/24/16 06:05 MCV 89.3 fl (80-99) 11/24/16 06:05 MCH 30.7 pg (27.0-31.0) 11/24/16 06:05 MCHC Differential 34.3 pg (28.0-36.0) 11/24/16 06:05 RDW 14.7 % (11.5-20.0) 11/24/16 06:05 Plt Count 238 Th/cmm (150-400) 11/24/16 06:05 MPV 8.0 fl 11/24/16 06:05 Neutrophils % 64.3 % (40.0-80.0) 11/24/16 06:05 Lymphocytes % 15.0 % (20.0-50.0) L 11/24/16 06:05 Monocytes % 13.9 % (2.0-10.0) H 11/24/16 06:05 Eosinophils % 6.5 % (0.0-5.0) H 11/24/16 06:05 Basophils % 0.3 % (0.0-2.0) 11/24/16 06:05 Eos Smear Source URINE 11/12/16 16:30 Eos Smear Total Cells NONE SEEN (NONE SEEN) 11/12/16 16:30 PT 10.6 SECONDS (9.5-11.5) 11/11/16 22:58 INR 1.07 (0.5-1.4) 11/11/16 22:58 PTT (Actin FS) 27.1 SECONDS (26.0-38.0) 11/11/16 22:58 Specimen Source Arterial 11/24/16 08:30 Sample Site RB 11/24/16 08:30 pH 7.46 (7.35-7.45) H 11/24/16 08:30 pCO2 44.0 mmHg (35.0-45.0) 11/24/16 08:30 pO2 72.0 mmHg (80.0-100.0) L 11/24/16 08:30 HCO3 31.3 mmol/L (20.0-26.0) H 11/24/16 08:30 Base Excess 6.6 mmol/L (-3.0-3.0) H 11/24/16 08:30 O2 Saturation 95.0 % (92.0-100.0) 11/24/16 08:30 Juan R Test NA 11/24/16 08:30 Vent Rate NA 11/24/16 08:30 Inspired O2 21 11/24/16 08:30 Tidal Volume NA 11/24/16 08:30 PEEP NA 11/24/16 08:30 Pressure (ins/psv/peep) NA 11/24/16 08:30 Critical Value SH 11/24/16 08:30 Sodium 120 mEq/L (136-145) L 11/25/16 06:30 Potassium 3.4 mEq/L (3.5-5.1) L 11/25/16 06:30 Chloride 88 mEq/L (98-107) L 11/25/16 06:30 Carbon Dioxide 28.3 mEq/L (21.0-31.0) 11/25/16 06:30 Anion Gap 7.1 (7.0-16.0) 11/25/16 06:30 BUN 49 mg/dL (7-25) H 11/25/16 06:30 Creatinine 2.2 mg/dL (0.7-1.3) H 11/25/16 06:30 Est GFR ( Amer) TNP 11/25/16 06:30 Est GFR (Non-Af Amer) TNP 11/25/16 06:30 BUN/Creatinine Ratio 22.3 11/25/16 06:30 Glucose 103 mg/dL (70-105) 11/25/16 06:30 POC Glucose 111 MG/DL (70 - 105) H 11/25/16 07:33 Hemoglobin A1c % 4.8 % (4.0-6.0) 11/15/16 06:47 Whole Bld Lactic Acid 1.85 mmol/L (0.60-2.00) 11/11/16 22:58 Uric Acid 6.9 mg/dL (4.4-7.6) 11/13/16 05:45 Calcium 8.9 mg/dL (8.6-10.3) 11/25/16 06:30 Magnesium 2.4 mg/dL (1.9-2.7) 11/21/16 06:19 Total Bilirubin 0.3 mg/dL (0.3-1.0) 11/13/16 05:45 AST 35 U/L (13-39) 11/13/16 05:45 ALT 48 U/L (7-52) 11/13/16 05:45 Alkaline Phosphatase 72 U/L (34-104) 11/13/16 05:45 Ammonia 51 umol/L (16-53) 11/17/16 05:05 Creatine Kinase 180 U/L (30-223) 11/11/16 22:58 Total Protein 7.0 gm/dL (6.0-8.3) 11/13/16 05:45 Albumin 2.7 gm/dL (4.2-5.5) L 11/13/16 05:45 Globulin 4.3 gm/dL 11/13/16 05:45 Albumin/Globulin Ratio 0.6 (1.0-1.8) L 11/13/16 05:45 TSH 3.46 uIU/ml (0.34-5.60) 11/13/16 05:45 Urine Source CATH 11/11/16 22:40 Urine Color YELLOW 11/11/16 22:40 Urine Clarity HAZY (CLEAR) 11/11/16 22:40 Urine pH 7.5 11/11/16 22:40 Ur Specific [place] 1.020 (1.005-1.030) 11/11/16 22:40 Urine Protein >300 mg/dL (NEGATIVE) H 11/11/16 22:40 Urine Glucose (UA) NEGATIVE mg/dL (NEGATIVE) 11/11/16 22:40 Urine Ketones NEGATIVE mg/dL (NEGATIVE) 11/11/16 22:40 Urine Blood MODERATE (NEGATIVE) H 11/11/16 22:40 Urine Nitrate NEGATIVE (NEGATIVE) 11/11/16 22:40 Urine Bilirubin NEGATIVE (NEGATIVE) 11/11/16 22:40 Urine Urobilinogen 0.2 E.U./dL (0.2 - 1.0) 11/11/16 22:40 Ur Leukocyte Esterase SMALL (NEGATIVE) H 11/11/16 22:40 Urine RBC 5-10 /hpf (0-5) H 11/11/16 22:40 Urine WBC 6-10 /hpf (0-5) H 11/11/16 22:40 Ur Epithelial Cells FEW /lpf (FEW) 11/11/16 22:40 Urine Bacteria MODERATE /hpf (NONE SEEN) 11/11/16 22:40 Urine Osmolality 637 mOsmol/kg 11/12/16 16:30 U Random Total Protein 311.0 mg/dL 11/13/16 16:30 Ur Random Sodium 52 mmol/L 11/12/16 16:30 Urine Collection Time 24 hours 11/13/16 16:30 Urine Total Volume 1050 ml 11/13/16 16:30 Urine Creatinine 63.0 mg/dl (39.0-259.0) 11/13/16 16:30 Creat Clearance 24 Hr 9 ml/min (97.00-137.00) L 11/13/16 16:30 U Tot Protein 24h, Calc 3265.5 mg/24 hr (0-165) H 11/13/16 16:30 Body Surface Area 1.71 11/13/16 16:30 Stool Occult Blood NEGATIVE (NEGATIVE) 11/20/16 12:12 Hepatitis A IgM Ab Negative (Negative) 11/15/16 10:30 Hep Bs Antigen Negative (Negative) 11/15/16 10:30 Hep B Core IgM Ab Negative (Negative) 11/15/16 10:30 Hepatitis C Antibody <0.1 s/co ratio (0.0-0.9) 11/15/16 10:30 Blood Type A POSITIVE 11/21/16 15:56 Antibody Screen NEGATIVE 11/21/16 15:56 Crossmatch See Detail 11/21/16 15:56 - Physical Exam Vitals and I&O: Vital Signs Temp 97.8 F 11/25/16 08:00 Pulse 84 11/25/16 12:57 Resp 20 11/25/16 11:30 BP 146/76 11/25/16 12:57 Pulse Ox 97 11/25/16 11:30 Intake & Output 01/11/25/16 11/25/16 18:59 06:59 18:59 Intake Total 50 1270 Output Total 600 1800 Balance -550 -530 Intake: Intake, IV Amount 50 1000 Dextrose 5% 1,000 ml @ 1000 125 mls/hr IV .Q8H [facility] Rx #:[id number] cefTRIAXone 1 gm In 50 Sodium Chloride 0.9% 50 ml @ 100 mls/hr IV Q24HR [facility] Rx#:[id number] Tube Feeding 270 Output: Urine 600 1800 Other: # Bowel Movements 2 Stool Characteristics Liquid Liquid Liquid Active Medications: Current Medications Acetaminophen (Tylenol 650mg/20.3ml Suspension) 650 mg GT Q4HR PRN PRN Reason: Pain (Mild) Acetaminophen (Tylenol 650mg/20.3ml Suspension) 650 mg GT Q4HR PRN PRN Reason: TEMP> 101 Acetaminophen (Tylenol 650mg/20.3ml Suspension) 1,000 mg GT Q4HR PRN PRN Reason: Pain (Moderate) Last Admin: 11/20/16 10:42 Dose: 1,000 mg Acetaminophen/Hydrocodone Bitart ([place] 5mg/325mg) 1 tab PO Q6HR PRN PRN Reason: Pain (Severe) Stop: 01/11/17 00:00 Last Admin: 11/18/16 13:55 Dose: 1 tab Al Hydrox/Mg Hydrox/Simethicone (Maalox) 30 ml GT Q6HR PRN PRN Reason: Heartburn Stop: 01/11/17 00:00 Albuterol Sulfate (Albuterol 2.5mg/3ml Neb Ud) 2.5 mg HHN Q6HR PRN PRN Reason: sob/wheezing Stop: 01/11/17 00:00 Last Admin: 11/22/16 20:29 Dose: 2.5 mg Albuterol/Ipratropium (Duoneb Neb) 3 ml HHN [id number] [facility] Stop: 01/11/17 14:59 Last Admin: 11/25/16 11:30 Dose: 3 ml Amlodipine Besylate (Norvasc) 5 mg GT DAILY [facility] Stop: 01/11/17 08:59 Last Admin: 11/25/16 10:35 Dose: Not Given Aspirin (Aspirin) 325 mg GT DAILY [facility] Stop: 01/11/17 08:59 Last Admin: 11/25/16 10:34 Dose: 325 mg Bisacodyl (Dulcolax 10 Mg Supp) 10 mg RC PRN PRN PRN Reason: Constipation Stop: 01/11/17 00:00 Budesonide (Pulmicort) 0.5 mg HHN DAILYRT [facility] Stop: 01/11/17 14:29 Last Admin: 11/25/16 07:10 Dose: 0.5 mg Clonidine HCl (Catapres) 0.1 mg GT Q12HR PRN PRN Reason: SBP GREATER THAN 160 Stop: 01/11/17 13:59 Famotidine (Pepcid) 20 mg GT DAILY [facility] Stop: 01/11/17 08:59 Last Admin: 11/25/16 10:34 Dose: 20 mg Ferrous Sulfate (Iron) 450 mg GT DAILY [facility] Stop: 01/11/17 08:59 Last Admin: 11/25/16 10:33 Dose: 450 mg Hydralazine HCl (Apresoline) 25 mg GT Q8HR [facility] Stop: 01/11/17 04:59 Last Admin: 11/25/16 12:57 Dose: Not Given Ceftriaxone Sodium 1 gm/ (Sodium Chloride) 50 mls @ 100 mls/hr IV Q24HR [facility] Stop: 01/17/17 11:59 Last Admin: 11/25/16 11:19 Dose: 100 mls/hr Levetiracetam (Keppra) 750 mg GT Q12HR [facility] Stop: 01/11/17 08:59 Last Admin: 11/25/16 10:33 Dose: 750 mg Lorazepam (Ativan) 0.5 mg GT Q6HR PRN; Protocol PRN Reason: Anxiety Stop: 01/11/17 00:00 Last Admin: 11/14/16 06:31 Dose: 0.5 mg Magnesium Hydroxide (Milk Of Magnesia) 30 ml GT HS PRN PRN Reason: Constipation Stop: 01/11/17 00:00 Metoprolol Tartrate (Lopressor) 12.5 mg GT BID [facility] Stop: 01/11/17 08:59 Last Admin: 11/25/16 10:35 Dose: Not Given Miscellaneous (Clinical Monitoring) 1 ea MC PRN PRN PRN Reason: RENAL DOSING Stop: 01/18/17 08:08 Polyethylene Glycol (Miralax) 17 gm GT DAILY [facility] Stop: 01/11/17 08:59 Last Admin: 11/25/16 10:33 Dose: 17 gm Potassium Chloride (Potassium Chloride Elixir) 20 meq GT DAILY [facility] Stop: 01/24/17 14:14 Senna (Senna) 17.2 mg GT DAILY [facility] Stop: 01/11/17 08:59 Last Admin: 11/25/16 10:34 Dose: 17.2 mg Sodium Chloride (Nacl Tab) 1 gm PO Q8HR [facility] Stop: 01/23/17 12:59 Last Admin: 11/25/16 12:56 Dose: 1 gm Sodium Phosphate (Fleet Enema) 135 ml RC DAILY PRN PRN Reason: Constipation Stop: 01/11/17 08:59 General: No acute distress HEENT: Atraumatic, Mucous membr. moist/pink Neck: Supple, +2 carotid pulse wo bruit Cardiovascular: Regular rate, Normal S1, Normal S2 Lungs: Other (few rhonchi) Abdomen: Bowel sounds, Soft Extremities: no Edema Neurological: Sensation intact Skin: no Rash - Procedures Procedures: Procedures Procedure Code Date INSERT TUNNELED CV CATH [id number] 11/11/16 INSERTION OF INFUSION DEV INTO L SUBCLAV VEIN, PERC APPROACH 43N702F 11/11/16 ULTRASONOGRAPHY OF LEFT SUBCLAVIAN VEIN, GUIDANCE [id number] 11/11/16 Assessment/Plan - Problem List Patient Problems: All Active Problems H/O chronic renal failure syndrome (Acute) Z87.448 H/O: HTN (hypertension) (Acute) Z86.79 Respiratory failure (Acute) J96.90 Right lower lobe pneumonia (Acute) J18.9 h/o anemia (Acute) s/p g tube (Acute) - Assessment Assessment: esrd on hd sepsis 2nd to left hap, Cx UTI Smart's palsy/epilepsy S/P resp failure on vent, s/p extubation dysphaga s/p PEG anemia of cd ess htn hyponatremia, hypokalemia - Plan Plan: no change kidney fnc CT chest showed B/L effusions, Left pna schedule for HD in am continue epogen replace K, DC ivf
--- NOTE | 2016-11-25 14:46 | Operative Report ---
PREOPERATIVE DIAGNOSES: 1. Malfunctioning Kaden catheter, left subclavian vein. 2. Acute renal failure. 3. Hypertension. 4. Osteosarcoma. POSTOPERATIVE DIAGNOSES: 1. Malfunctioning Kaden catheter, left subclavian vein. 2. Acute renal failure. 3. Hypertension. 4. Osteosarcoma. OPERATION DONE: Placement of [id number], left subclavian vein under fluoroscopy. SURGEON: Christal Gates MD ANESTHESIA: MAC. ANESTHESIOLOGIST: Ramos Posada M.D. DESCRIPTION OF PROCEDURE: The patient was given IV sedation. The left chest and the external components of the Kaden catheter were prepped with Betadine and draped. Then, 1% lidocaine was used to infiltrate the exit site of the catheter. A guidewire was inserted under fluoroscopy. It was found to follow the course into the inferior vena cava. The old catheter was removed and the retained guidewire was used to place the dilator and then the introducer. A 24 cm Medcomp catheter was then inserted and the tip ofthe catheter is in the superior vena cava. It was anchored in place with 2-0 nylon. The patient tolerated the procedure well. JOB# [id number]
[2016-11-25] MEDS: Potassium Chloride Elixir 20 mEq /15 mL UDC GT SCH (14:52)
--- NOTE | 2016-11-25 16:19 | Diagnostic Imaging Report ---
Vascular catheter placement (intraoperative fluoroscopic images and services) HISTORY: Vascular catheter placement Intraoperative fluoroscopic images and services were provided for facilitation of a vascular catheter placement. 37 seconds fluoroscopy time was utilized.
--- NOTE | 2016-11-26 04:53 | Progress Notes ---
PROBLEM LIST: 1. Recurrent tracheobronchitis. 2. Right-sided effusion. 3. Tracheocutaneous fistula. 4. Suspect obstructive sleep apnea syndrome. 5. Renal failure, on hemodialysis. SYMPTOMS: The patient is quite deeply sleepy, no respiratory distress, barely opens eyes on phonic stimulation. PHYSICAL EXAMINATION: VITAL SIGNS: Temperature is 98.8, blood pressure is 146/76 and saturation is 97 on supplemental oxygen. NECK: Veins could not be visualized. CHEST: Shows occasional secretory noise with diminished air entry. HEART: Regular. ABDOMEN: Soft, nontender. EXTREMITIES: Shows no peripheral edema. LABORATORY DATA: Electrolytes still shows a labile sodium and creatinine is 2.2 and BUN is 49 and ABG done yesterday appears to be okay on room air with pO2 of 72. ASSESSMENT: The patient clinically respiratory murray improving though has significant metabolic disease, etc. PLANS AND SUGGESTIONS: We will go and continue followup chest x-ray including repeat electrolytes, CBC and go from there. JOB# [id number]
[2016-11-26 07:45] LABS: HEMATOCRIT 27.2 % (39.0-49.0); HEMOGLOBIN 9.5 gm/dL (12.6-17.4); MEAN CELL VOLUME 89.5 fl (80-99); MEAN CORPUSCULAR HEMOGLOBIN 31.1 pg (27.0-31.0); MEAN CORPUSCULAR HGB CONC 34.8 pg (28.0-36.0); MEAN PLATELET VOLUME 7.7 fl; PLATELET COUNT 222 Th/cmm (150-400); RED BLOOD COUNT 3.04 Mil/cmm (3.80-5.80); RED CELL DISTRIBUTION WIDTH 15.4 % (11.5-20.0); WHITE BLOOD COUNT 7.9 Th/cmm (4.8-10.8)
[2016-11-26 07:55] LABS: ANION GAP 3.8 (7.0-16.0); BUN - UREA NITROGEN 24 mg/dL (7-25); CALCIUM SERUM 9.1 mg/dL (8.6-10.3); CARBON DIOXIDE 28.9 mEq/L (21.0-31.0); CHLORIDE 106 mEq/L (98-107); CREATININE - SERUM 1.5 mg/dL (0.7-1.3); GLUCOSE 100 mg/dL (70-105); POTASSIUM SERUM 3.7 mEq/L (3.5-5.1)
[2016-11-26] MEDS: Budesonide 0.5 Mg/2 mL Ud HHN SCH (07:58)
[2016-11-26] MEDS: Albuterol/Ipratropium Neb 3 ML AERS HHN SCH ×4 (07:58→19:44)
[2016-11-26 08:05] LABS: SODIUM SERUM 135 mEq/L (136-145)
[2016-11-26 08:32] LABS: BAND NEUTROPHILE 1 % (0-10); EOSINOPHIL 3 % (0-5); NEUTROPHILS 66 % (40-80); TOTAL CELLS COUNTED 100
[2016-11-26 08:33] LABS: ANISOCYTOSIS 1+; PLATELET ESTIMATE ADEQUATE (NORMAL); PLATELET MORPHOLOGY NORMAL (NORMAL); POLYCHROMASIA 1+
--- NOTE | 2016-11-26 08:38 | General Progress Note ---
Subjective - Review of Systems Subjective: awake, alert, nad Objective - Results Result Diagrams: 11/26/16 06:20 11/26/16 06:20 Recent Labs: Laboratory Last Values WBC 7.9 Th/cmm (4.8-10.8) 11/26/16 06:20 RBC 3.04 Mil/cmm (3.80-5.80) L 11/26/16 06:20 Hgb 9.5 gm/dL (12.6-17.4) L 11/26/16 06:20 Hct 27.2 % (39.0-49.0) L 11/26/16 06:20 MCV 89.5 fl (80-99) 11/26/16 06:20 MCH 31.1 pg (27.0-31.0) H 11/26/16 06:20 MCHC Differential 34.8 pg (28.0-36.0) 11/26/16 06:20 RDW 15.4 % (11.5-20.0) 11/26/16 06:20 Plt Count 222 Th/cmm (150-400) 11/26/16 06:20 MPV 7.7 fl 11/26/16 06:20 Neutrophils % 64.3 % (40.0-80.0) 11/24/16 06:05 Band Neutrophils % 1 % (0-10) 11/26/16 06:20 Lymphocytes % 15.0 % (20.0-50.0) L 11/24/16 06:05 Monocytes % 13.9 % (2.0-10.0) H 11/24/16 06:05 Eosinophils % 6.5 % (0.0-5.0) H 11/24/16 06:05 Basophils % 0.3 % (0.0-2.0) 11/24/16 06:05 Neutrophils (Manual) 66 % (40-80) 11/26/16 06:20 Lymphocytes 17 % (20-50) L 11/26/16 06:20 Monocytes 11 % (2-10) H 11/26/16 06:20 Eosinophils 3 % (0-5) 11/26/16 06:20 Atypical Lymphocytes 2 % 11/26/16 06:20 Platelet Estimate ADEQUATE (NORMAL) 11/26/16 06:20 Platelet Morphology NORMAL (NORMAL) 11/26/16 06:20 Polychromasia 1+ 11/26/16 06:20 Anisocytosis 1+ 11/26/16 06:20 RBC Morph Micro Appear ABNORMAL (NORMAL) 11/26/16 06:20 Eos Smear Source URINE 11/12/16 16:30 Eos Smear Total Cells NONE SEEN (NONE SEEN) 11/12/16 16:30 PT 10.6 SECONDS (9.5-11.5) 11/11/16 22:58 INR 1.07 (0.5-1.4) 11/11/16 22:58 PTT (Actin FS) 27.1 SECONDS (26.0-38.0) 11/11/16 22:58 Specimen Source Arterial 11/24/16 08:30 Sample Site RB 11/24/16 08:30 pH 7.46 (7.35-7.45) H 11/24/16 08:30 pCO2 44.0 mmHg (35.0-45.0) 11/24/16 08:30 pO2 72.0 mmHg (80.0-100.0) L 11/24/16 08:30 HCO3 31.3 mmol/L (20.0-26.0) H 11/24/16 08:30 Base Excess 6.6 mmol/L (-3.0-3.0) H 11/24/16 08:30 O2 Saturation 95.0 % (92.0-100.0) 11/24/16 08:30 Juan R Test NA 11/24/16 08:30 Vent Rate NA 11/24/16 08:30 Inspired O2 21 11/24/16 08:30 Tidal Volume NA 11/24/16 08:30 PEEP NA 11/24/16 08:30 Pressure (ins/psv/peep) NA 11/24/16 08:30 Critical Value SH 11/24/16 08:30 Sodium 135 mEq/L (136-145) L D 11/26/16 06:20 Potassium 3.7 mEq/L (3.5-5.1) 11/26/16 06:20 Chloride 106 mEq/L (98-107) 11/26/16 06:20 Carbon Dioxide 28.9 mEq/L (21.0-31.0) 11/26/16 06:20 Anion Gap 3.8 (7.0-16.0) L 11/26/16 06:20 BUN 24 mg/dL (7-25) 11/26/16 06:20 Creatinine 1.5 mg/dL (0.7-1.3) H 11/26/16 06:20 Est GFR ( Amer) TNP 11/26/16 06:20 Est GFR (Non-Af Amer) TNP 11/26/16 06:20 BUN/Creatinine Ratio 16.0 11/26/16 06:20 Glucose 100 mg/dL (70-105) 11/26/16 06:20 POC Glucose 111 MG/DL (70 - 105) H 11/25/16 07:33 Hemoglobin A1c % 4.8 % (4.0-6.0) 11/15/16 06:47 Whole Bld Lactic Acid 1.85 mmol/L (0.60-2.00) 11/11/16 22:58 Uric Acid 6.9 mg/dL (4.4-7.6) 11/13/16 05:45 Calcium 9.1 mg/dL (8.6-10.3) 11/26/16 06:20 Magnesium 2.2 mg/dL (1.9-2.7) 11/26/16 06:20 Total Bilirubin 0.3 mg/dL (0.3-1.0) 11/13/16 05:45 AST 35 U/L (13-39) 11/13/16 05:45 ALT 48 U/L (7-52) 11/13/16 05:45 Alkaline Phosphatase 72 U/L (34-104) 11/13/16 05:45 Ammonia 51 umol/L (16-53) 11/17/16 05:05 Creatine Kinase 180 U/L (30-223) 11/11/16 22:58 Total Protein 7.0 gm/dL (6.0-8.3) 11/13/16 05:45 Albumin 2.7 gm/dL (4.2-5.5) L 11/13/16 05:45 Globulin 4.3 gm/dL 11/13/16 05:45 Albumin/Globulin Ratio 0.6 (1.0-1.8) L 11/13/16 05:45 TSH 3.46 uIU/ml (0.34-5.60) 11/13/16 05:45 Urine Source CATH 11/11/16 22:40 Urine Color YELLOW 11/11/16 22:40 Urine Clarity HAZY (CLEAR) 11/11/16 22:40 Urine pH 7.5 11/11/16 22:40 Ur Specific [place] 1.020 (1.005-1.030) 11/11/16 22:40 Urine Protein >300 mg/dL (NEGATIVE) H 11/11/16 22:40 Urine Glucose (UA) NEGATIVE mg/dL (NEGATIVE) 11/11/16 22:40 Urine Ketones NEGATIVE mg/dL (NEGATIVE) 11/11/16 22:40 Urine Blood MODERATE (NEGATIVE) H 11/11/16 22:40 Urine Nitrate NEGATIVE (NEGATIVE) 11/11/16 22:40 Urine Bilirubin NEGATIVE (NEGATIVE) 11/11/16 22:40 Urine Urobilinogen 0.2 E.U./dL (0.2 - 1.0) 11/11/16 22:40 Ur Leukocyte Esterase SMALL (NEGATIVE) H 11/11/16 22:40 Urine RBC 5-10 /hpf (0-5) H 11/11/16 22:40 Urine WBC 6-10 /hpf (0-5) H 11/11/16 22:40 Ur Epithelial Cells FEW /lpf (FEW) 11/11/16 22:40 Urine Bacteria MODERATE /hpf (NONE SEEN) 11/11/16 22:40 Urine Osmolality 637 mOsmol/kg 11/12/16 16:30 U Random Total Protein 311.0 mg/dL 11/13/16 16:30 Ur Random Sodium 52 mmol/L 11/12/16 16:30 Urine Collection Time 24 hours 11/13/16 16:30 Urine Total Volume 1050 ml 11/13/16 16:30 Urine Creatinine 63.0 mg/dl (39.0-259.0) 11/13/16 16:30 Creat Clearance 24 Hr 9 ml/min (97.00-137.00) L 11/13/16 16:30 U Tot Protein 24h, Calc 3265.5 mg/24 hr (0-165) H 11/13/16 16:30 Body Surface Area 1.71 11/13/16 16:30 Stool Occult Blood NEGATIVE (NEGATIVE) 11/20/16 12:12 Hepatitis A IgM Ab Negative (Negative) 11/15/16 10:30 Hep Bs Antigen Negative (Negative) 11/15/16 10:30 Hep B Core IgM Ab Negative (Negative) 11/15/16 10:30 Hepatitis C Antibody <0.1 s/co ratio (0.0-0.9) 11/15/16 10:30 Blood Type A POSITIVE 11/21/16 15:56 Antibody Screen NEGATIVE 11/21/16 15:56 Crossmatch See Detail 11/21/16 15:56 - Physical Exam Vitals and I&O: Vital Signs Temp 98.8 F 11/26/16 07:50 Pulse 84 11/26/16 08:00 Resp 20 11/26/16 08:00 BP 141/66 11/26/16 07:50 Pulse Ox 97 11/26/16 08:00 Intake & Output 11/25/16 11/26/16 11/26/16 18:59 06:59 18:59 Intake Total 600 540 Output Total 300 Balance 300 540 Intake: Tube Feeding 600 540 Output: Urine 300 Other: # Voids 350 Stool Characteristics Liquid Liquid Active Medications: Current Medications Acetaminophen (Tylenol 650mg/20.3ml Suspension) 650 mg GT Q4HR PRN PRN Reason: Pain (Mild) Acetaminophen (Tylenol 650mg/20.3ml Suspension) 650 mg GT Q4HR PRN PRN Reason: TEMP> 101 Acetaminophen (Tylenol 650mg/20.3ml Suspension) 1,000 mg GT Q4HR PRN PRN Reason: Pain (Moderate) Last Admin: 11/20/16 10:42 Dose: 1,000 mg Acetaminophen/Hydrocodone Bitart ([place] 5mg/325mg) 1 tab PO Q6HR PRN PRN Reason: Pain (Severe) Stop: 01/11/17 00:00 Last Admin: 11/18/16 13:55 Dose: 1 tab Al Hydrox/Mg Hydrox/Simethicone (Maalox) 30 ml GT Q6HR PRN PRN Reason: Heartburn Stop: 01/11/17 00:00 Albuterol Sulfate (Albuterol 2.5mg/3ml Neb Ud) 2.5 mg HHN Q6HR PRN PRN Reason: sob/wheezing Stop: 01/11/17 00:00 Last Admin: 11/22/16 20:29 Dose: 2.5 mg Albuterol/Ipratropium (Duoneb Neb) 3 ml HHN [id number] [facility] Stop: 01/11/17 14:59 Last Admin: 11/26/16 07:58 Dose: 3 ml Amlodipine Besylate (Norvasc) 5 mg GT DAILY [facility] Stop: 01/11/17 08:59 Last Admin: 11/25/16 10:35 Dose: Not Given Aspirin (Aspirin) 325 mg GT DAILY [facility] Stop: 01/11/17 08:59 Last Admin: 11/25/16 10:34 Dose: 325 mg Bisacodyl (Dulcolax 10 Mg Supp) 10 mg RC PRN PRN PRN Reason: Constipation Stop: 01/11/17 00:00 Budesonide (Pulmicort) 0.5 mg HHN DAILYRT [facility] Stop: 01/11/17 14:29 Last Admin: 11/26/16 07:58 Dose: 0.5 mg Clonidine HCl (Catapres) 0.1 mg GT Q12HR PRN PRN Reason: SBP GREATER THAN 160 Stop: 01/11/17 13:59 Famotidine (Pepcid) 20 mg GT DAILY [facility] Stop: 01/11/17 08:59 Last Admin: 11/25/16 10:34 Dose: 20 mg Ferrous Sulfate (Iron) 450 mg GT DAILY [facility] Stop: 01/11/17 08:59 Last Admin: 11/25/16 10:33 Dose: 450 mg Hydralazine HCl (Apresoline) 25 mg GT Q8HR [facility] Stop: 01/11/17 04:59 Last Admin: 11/26/16 05:30 Dose: 25 mg Levetiracetam (Keppra) 750 mg GT Q12HR [facility] Stop: 01/11/17 08:59 Last Admin: 11/25/16 21:48 Dose: 750 mg Lorazepam (Ativan) 0.5 mg GT Q6HR PRN; Protocol PRN Reason: Anxiety Stop: 01/11/17 00:00 Last Admin: 11/14/16 06:31 Dose: 0.5 mg Magnesium Hydroxide (Milk Of Magnesia) 30 ml GT HS PRN PRN Reason: Constipation Stop: 01/11/17 00:00 Metoprolol Tartrate (Lopressor) 12.5 mg GT BID [facility] Stop: 01/11/17 08:59 Last Admin: 11/25/16 16:49 Dose: Not Given Miscellaneous (Clinical Monitoring) 1 ea MC PRN PRN PRN Reason: RENAL DOSING Stop: 01/18/17 08:08 Polyethylene Glycol (Miralax) 17 gm GT DAILY [facility] Stop: 01/11/17 08:59 Last Admin: 11/25/16 10:33 Dose: 17 gm Potassium Chloride (Potassium Chloride Elixir) 20 meq GT DAILY [facility] Stop: 01/24/17 14:14 Last Admin: 11/25/16 14:52 Dose: 20 meq Senna (Senna) 17.2 mg GT DAILY [facility] Stop: 01/11/17 08:59 Last Admin: 11/25/16 10:34 Dose: 17.2 mg Sodium Chloride (Nacl Tab) 1 gm PO Q8HR [facility] Stop: 01/23/17 12:59 Last Admin: 11/26/16 05:31 Dose: 1 gm Sodium Phosphate (Fleet Enema) 135 ml RC DAILY PRN PRN Reason: Constipation Stop: 01/11/17 08:59 - Procedures Procedures: Procedures Procedure Code Date FLUOROSCOPY OF SUP VENA CAVA USING H OSM CONTRAST, GUIDANCE [id number] 11/11/16 INSERT TUNNELED CV CATH 50512 11/11/16 INSERTION OF INFUSION DEV INTO L SUBCLAV VEIN, PERC APPROACH [id number] 11/11/16 INSERTION OF INFUSION DEV INTO SUP VENA CAVA, PERC APPROACH [id number] 11/11/[address] CATHETER IN VEIN [address]9944 11/11/16 ULTRASONOGRAPHY OF LEFT SUBCLAVIAN VEIN, GUIDANCE [id number] 11/11/16 Assessment/Plan - Problem List Patient Problems: All Active Problems H/O chronic renal failure syndrome (Acute) Z87.448 H/O: HTN (hypertension) (Acute) Z86.79 Respiratory failure (Acute) J96.90 Right lower lobe pneumonia (Acute) J18.9 h/o anemia (Acute) s/p g tube (Acute) - Plan Plan: ivabx cbc/bmp in am cpm
[2016-11-26] MEDS: Levetiracetam 500 mg/5mL 5mL UDC GT SCH (09:42)
[2016-11-26] MEDS: Multivitamin w/ Minerals Tab GT SCH (10:04)
[2016-11-26] MEDS: Ferrous Sulfate 300 MG/5 ML UDC GT SCH (10:15)
[2016-11-26] MEDS: Potassium Chloride Elixir 20 mEq /15 mL UDC GT SCH (10:16)
[2016-11-26] MEDS: POLYETHYLENE GLYCOL 3350 17 GM PACK GT SCH (10:21)
--- NOTE | 2016-11-26 11:02 | Diagnostic Imaging Report ---
Portable chest x-ray HISTORY: Shortness of breath Compared with the prior exam of 11/25/2016, the heart remains enlarged. There is evidence of persistent small right pleural effusion. No other changes. IMPRESSION: 1. No change in the cardiopulmonary status as noted above.
--- NOTE | 2016-11-26 13:08 | General Progress Note ---
Subjective - Review of Systems Service Date: 11/26/16 Subjective: sleeping, comfortable Objective - Results Result Diagrams: 11/26/16 06:20 11/26/16 06:20 Recent Labs: Laboratory Last Values WBC 7.9 Th/cmm (4.8-10.8) 11/26/16 06:20 RBC 3.04 Mil/cmm (3.80-5.80) L 11/26/16 06:20 Hgb 9.5 gm/dL (12.6-17.4) L 11/26/16 06:20 Hct 27.2 % (39.0-49.0) L 11/26/16 06:20 MCV 89.5 fl (80-99) 11/26/16 06:20 MCH 31.1 pg (27.0-31.0) H 11/26/16 06:20 MCHC Differential 34.8 pg (28.0-36.0) 11/26/16 06:20 RDW 15.4 % (11.5-20.0) 11/26/16 06:20 Plt Count 222 Th/cmm (150-400) 11/26/16 06:20 MPV 7.7 fl 11/26/16 06:20 Neutrophils % 64.3 % (40.0-80.0) 11/24/16 06:05 Band Neutrophils % 1 % (0-10) 11/26/16 06:20 Lymphocytes % 15.0 % (20.0-50.0) L 11/24/16 06:05 Monocytes % 13.9 % (2.0-10.0) H 11/24/16 06:05 Eosinophils % 6.5 % (0.0-5.0) H 11/24/16 06:05 Basophils % 0.3 % (0.0-2.0) 11/24/16 06:05 Neutrophils (Manual) 66 % (40-80) 11/26/16 06:20 Lymphocytes 17 % (20-50) L 11/26/16 06:20 Monocytes 11 % (2-10) H 11/26/16 06:20 Eosinophils 3 % (0-5) 11/26/16 06:20 Atypical Lymphocytes 2 % 11/26/16 06:20 Platelet Estimate ADEQUATE (NORMAL) 11/26/16 06:20 Platelet Morphology NORMAL (NORMAL) 11/26/16 06:20 Polychromasia 1+ 11/26/16 06:20 Anisocytosis 1+ 11/26/16 06:20 RBC Morph Micro Appear ABNORMAL (NORMAL) 11/26/16 06:20 Eos Smear Source URINE 11/12/16 16:30 Eos Smear Total Cells NONE SEEN (NONE SEEN) 11/12/16 16:30 PT 10.6 SECONDS (9.5-11.5) 11/11/16 22:58 INR 1.07 (0.5-1.4) 11/11/16 22:58 PTT (Actin FS) 27.1 SECONDS (26.0-38.0) 11/11/16 22:58 Specimen Source Arterial 11/24/16 08:30 Sample Site RB 11/24/16 08:30 pH 7.46 (7.35-7.45) H 11/24/16 08:30 pCO2 44.0 mmHg (35.0-45.0) 11/24/16 08:30 pO2 72.0 mmHg (80.0-100.0) L 11/24/16 08:30 HCO3 31.3 mmol/L (20.0-26.0) H 11/24/16 08:30 Base Excess 6.6 mmol/L (-3.0-3.0) H 11/24/16 08:30 O2 Saturation 95.0 % (92.0-100.0) 11/24/16 08:30 Juan R Test NA 11/24/16 08:30 Vent Rate NA 11/24/16 08:30 Inspired O2 21 11/24/16 08:30 Tidal Volume NA 11/24/16 08:30 PEEP NA 11/24/16 08:30 Pressure (ins/psv/peep) NA 11/24/16 08:30 Critical Value SH 11/24/16 08:30 Sodium 135 mEq/L (136-145) L D 11/26/16 06:20 Potassium 3.7 mEq/L (3.5-5.1) 11/26/16 06:20 Chloride 106 mEq/L (98-107) 11/26/16 06:20 Carbon Dioxide 28.9 mEq/L (21.0-31.0) 11/26/16 06:20 Anion Gap 3.8 (7.0-16.0) L 11/26/16 06:20 BUN 24 mg/dL (7-25) 11/26/16 06:20 Creatinine 1.5 mg/dL (0.7-1.3) H 11/26/16 06:20 Est GFR ( Amer) TNP 11/26/16 06:20 Est GFR (Non-Af Amer) TNP 11/26/16 06:20 BUN/Creatinine Ratio 16.0 11/26/16 06:20 Glucose 100 mg/dL (70-105) 11/26/16 06:20 POC Glucose 111 MG/DL (70 - 105) H 11/25/16 07:33 Hemoglobin A1c % 4.8 % (4.0-6.0) 11/15/16 06:47 Whole Bld Lactic Acid 1.85 mmol/L (0.60-2.00) 11/11/16 22:58 Uric Acid 6.9 mg/dL (4.4-7.6) 11/13/16 05:45 Calcium 9.1 mg/dL (8.6-10.3) 11/26/16 06:20 Magnesium 2.2 mg/dL (1.9-2.7) 11/26/16 06:20 Total Bilirubin 0.3 mg/dL (0.3-1.0) 11/13/16 05:45 AST 35 U/L (13-39) 11/13/16 05:45 ALT 48 U/L (7-52) 11/13/16 05:45 Alkaline Phosphatase 72 U/L (34-104) 11/13/16 05:45 Ammonia 51 umol/L (16-53) 11/17/16 05:05 Creatine Kinase 180 U/L (30-223) 11/11/16 22:58 Total Protein 7.0 gm/dL (6.0-8.3) 11/13/16 05:45 Albumin 2.7 gm/dL (4.2-5.5) L 11/13/16 05:45 Globulin 4.3 gm/dL 11/13/16 05:45 Albumin/Globulin Ratio 0.6 (1.0-1.8) L 11/13/16 05:45 TSH 3.46 uIU/ml (0.34-5.60) 11/13/16 05:45 Urine Source CATH 11/11/16 22:40 Urine Color YELLOW 11/11/16 22:40 Urine Clarity HAZY (CLEAR) 11/11/16 22:40 Urine pH 7.5 11/11/16 22:40 Ur Specific [place] 1.020 (1.005-1.030) 11/11/16 22:40 Urine Protein >300 mg/dL (NEGATIVE) H 11/11/16 22:40 Urine Glucose (UA) NEGATIVE mg/dL (NEGATIVE) 11/11/16 22:40 Urine Ketones NEGATIVE mg/dL (NEGATIVE) 11/11/16 22:40 Urine Blood MODERATE (NEGATIVE) H 11/11/16 22:40 Urine Nitrate NEGATIVE (NEGATIVE) 11/11/16 22:40 Urine Bilirubin NEGATIVE (NEGATIVE) 11/11/16 22:40 Urine Urobilinogen 0.2 E.U./dL (0.2 - 1.0) 11/11/16 22:40 Ur Leukocyte Esterase SMALL (NEGATIVE) H 11/11/16 22:40 Urine RBC 5-10 /hpf (0-5) H 11/11/16 22:40 Urine WBC 6-10 /hpf (0-5) H 11/11/16 22:40 Ur Epithelial Cells FEW /lpf (FEW) 11/11/16 22:40 Urine Bacteria MODERATE /hpf (NONE SEEN) 11/11/16 22:40 Urine Osmolality 637 mOsmol/kg 11/12/16 16:30 U Random Total Protein 311.0 mg/dL 11/13/16 16:30 Ur Random Sodium 52 mmol/L 11/12/16 16:30 Urine Collection Time 24 hours 11/13/16 16:30 Urine Total Volume 1050 ml 11/13/16 16:30 Urine Creatinine 63.0 mg/dl (39.0-259.0) 11/13/16 16:30 Creat Clearance 24 Hr 9 ml/min (97.00-137.00) L 11/13/16 16:30 U Tot Protein 24h, Calc 3265.5 mg/24 hr (0-165) H 11/13/16 16:30 Body Surface Area 1.71 11/13/16 16:30 Stool Occult Blood NEGATIVE (NEGATIVE) 11/20/16 12:12 Hepatitis A IgM Ab Negative (Negative) 11/15/16 10:30 Hep Bs Antigen Negative (Negative) 11/15/16 10:30 Hep B Core IgM Ab Negative (Negative) 11/15/16 10:30 Hepatitis C Antibody <0.1 s/co ratio (0.0-0.9) 11/15/16 10:30 Blood Type A POSITIVE 11/21/16 15:56 Antibody Screen NEGATIVE 11/21/16 15:56 Crossmatch See Detail 11/21/16 15:56 - Physical Exam Vitals and I&O: Vital Signs Temp 98.6 F 11/26/16 12:00 Pulse 86 11/26/16 12:00 Resp 18 11/26/16 12:00 BP 145/95 11/26/16 12:00 Pulse Ox 100 11/26/16 12:00 Intake & Output 11/25/16 11/26/16 11/26/16 18:59 06:59 18:59 Intake Total 600 540 Output Total 300 Balance 300 540 Intake: Tube Feeding 600 540 Output: Urine 300 Other: # Voids 350 Stool Characteristics Liquid Liquid Active Medications: Current Medications Acetaminophen (Tylenol 650mg/20.3ml Suspension) 650 mg GT Q4HR PRN PRN Reason: Pain (Mild) Acetaminophen (Tylenol 650mg/20.3ml Suspension) 650 mg GT Q4HR PRN PRN Reason: TEMP> 101 Acetaminophen (Tylenol 650mg/20.3ml Suspension) 1,000 mg GT Q4HR PRN PRN Reason: Pain (Moderate) Last Admin: 11/20/16 10:42 Dose: 1,000 mg Acetaminophen/Hydrocodone Bitart ([place] 5mg/325mg) 1 tab PO Q6HR PRN PRN Reason: Pain (Severe) Stop: 01/11/17 00:00 Last Admin: 11/18/16 13:55 Dose: 1 tab Al Hydrox/Mg Hydrox/Simethicone (Maalox) 30 ml GT Q6HR PRN PRN Reason: Heartburn Stop: 01/11/17 00:00 Albuterol Sulfate (Albuterol 2.5mg/3ml Neb Ud) 2.5 mg HHN Q6HR PRN PRN Reason: sob/wheezing Stop: 01/11/17 00:00 Last Admin: 11/22/16 20:29 Dose: 2.5 mg Albuterol/Ipratropium (Duoneb Neb) 3 ml HHN [id number] [facility] Stop: 01/11/17 14:59 Last Admin: 11/26/16 11:19 Dose: 3 ml Amlodipine Besylate (Norvasc) 5 mg GT DAILY [facility] Stop: 01/25/17 10:14 Aspirin (Aspirin) 325 mg GT DAILY [facility] Stop: 01/11/17 08:59 Last Admin: 11/26/16 10:01 Dose: 325 mg Bisacodyl (Dulcolax 10 Mg Supp) 10 mg RC PRN PRN PRN Reason: Constipation Stop: 01/11/17 00:00 Budesonide (Pulmicort) 0.5 mg HHN DAILYRT [facility] Stop: 01/11/17 14:29 Last Admin: 11/26/16 07:58 Dose: 0.5 mg Clonidine HCl (Catapres) 0.1 mg GT Q12HR PRN PRN Reason: SBP GREATER THAN 160 Stop: 01/11/17 13:59 Famotidine (Pepcid) 20 mg GT DAILY [facility] Stop: 01/11/17 08:59 Last Admin: 11/25/16 10:34 Dose: 20 mg Ferrous Sulfate (Iron) 450 mg GT DAILY [facility] Stop: 01/11/17 08:59 Last Admin: 11/26/16 10:15 Dose: 450 mg Hydralazine HCl (Apresoline) 25 mg GT Q8HR [facility] Stop: 01/11/17 04:59 Last Admin: 11/26/16 05:30 Dose: 25 mg Levetiracetam (Keppra) 750 mg GT Q12HR [facility] Stop: 01/11/17 08:59 Last Admin: 11/26/16 09:42 Dose: 750 mg Lorazepam (Ativan) 0.5 mg GT Q6HR PRN; Protocol PRN Reason: Anxiety Stop: 01/11/17 00:00 Last Admin: 11/14/16 06:31 Dose: 0.5 mg Magnesium Hydroxide (Milk Of Magnesia) 30 ml GT HS PRN PRN Reason: Constipation Stop: 01/11/17 00:00 Metoprolol Tartrate (Lopressor) 12.5 mg GT BID [facility] Stop: 01/11/17 08:59 Last Admin: 11/26/16 10:02 Dose: 12.5 mg Miscellaneous (Clinical Monitoring) 1 ea MC PRN PRN PRN Reason: RENAL DOSING Stop: 01/18/17 08:08 Polyethylene Glycol (Miralax) 17 gm GT DAILY [facility] Stop: 01/11/17 08:59 Last Admin: 11/26/16 10:21 Dose: 17 gm Potassium Chloride (Potassium Chloride Elixir) 20 meq GT DAILY [facility] Stop: 01/24/17 14:14 Last Admin: 11/26/16 10:16 Dose: 20 meq Senna (Senna) 17.2 mg GT DAILY [facility] Stop: 01/11/17 08:59 Last Admin: 11/26/16 10:11 Dose: 17.2 mg Sodium Phosphate (Fleet Enema) 135 ml RC DAILY PRN PRN Reason: Constipation Stop: 01/11/17 08:59 General: No acute distress HEENT: Atraumatic, Mucous membr. moist/pink Neck: Supple, +2 carotid pulse wo bruit Cardiovascular: Regular rate, Normal S1, Normal S2 Lungs: Other (few rhonchi) Abdomen: Bowel sounds, Soft Extremities: no Edema Neurological: Sensation intact Skin: no Rash - Procedures Procedures: Procedures Procedure Code Date FLUOROSCOPY OF SUP VENA CAVA USING H OSM CONTRAST, GUIDANCE [id number] 11/11/16 INSERT TUNNELED CV CATH 85645 11/11/16 INSERTION OF INFUSION DEV INTO L SUBCLAV VEIN, PERC APPROACH [id number] 11/11/16 INSERTION OF INFUSION DEV INTO SUP VENA CAVA, PERC APPROACH [id number] 11/11/16 PLACE CATHETER IN VEIN 84845 11/11/16 ULTRASONOGRAPHY OF LEFT SUBCLAVIAN VEIN, GUIDANCE [id number] 11/11/16 Assessment/Plan - Problem List Patient Problems: All Active Problems H/O chronic renal failure syndrome (Acute) Z87.448 H/O: HTN (hypertension) (Acute) Z86.79 Respiratory failure (Acute) J96.90 Right lower lobe pneumonia (Acute) J18.9 h/o anemia (Acute) s/p g tube (Acute) - Assessment Assessment: esrd on hd sepsis 2nd to left hap, Cx UTI Smart's palsy/epilepsy S/P resp failure on vent, s/p extubation dysphaga s/p PEG anemia of cd ess htn electrolytes has corrected - Plan Plan: no change kidney fnc CT chest showed B/L effusions, Left pna schedule for HD today continue epogen Na up to 135
--- NOTE | 2016-11-27 02:11 | Progress Notes ---
PROBLEM LIST: 1. Acute respiratory failure. 2. Tracheobronchitis. 3. Right-sided effusion. 4. 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 SYMPTOMS: Nil. Sleeping. Currently, undergoing dialysis. PHYSICAL EXAMINATION: GENERAL: Not in any acute distress. VITAL SIGNS: Temperature is 98.4, blood pressure 126/64. NECK: JVP not visualized. There is lot of excoriation at the site of fistula anteriorly. CHEST: Shows diminished air entry with occasional rhonchi. HEART: Regular. ABDOMEN: Soft, nontender. EXTREMITIES: Shows no peripheral edema. LABORATORY DATA: The patient's chest x-ray today shows some improvement in haziness on left base, electrolytes okay, creatinine is 1.5, BUN is 24, significantly improved. ASSESSMENT: The patient is clinically improving, effusion getting less, electrolytes improving. PLANS AND SUGGESTIONS: We will go and continue current treatment, we will follow up other lab in the next few days and go from there. JOB# [id number]
== END 2016-11-26 22:10 | DRG 871 ==
LOC: ER 22:28 → TELE 23:35 → MSI 11-12 20:54
PROVIDERS: ADMIT Internal Medicine; ATTEND Internal Medicine
PROC: 05H633Z Insertion of Infusion Device into Left Subclavian Vein, Percutaneous Approach (ICD-10-PCS; principal; 2016-11-15)
PROC: B547ZZA Ultrasonography of Left Subclavian Vein, Guidance (ICD-10-PCS; 2016-11-15)
PROC: 5A1D60Z (ICD-10-PCS; 2016-11-15)
PROC: 05PYX3Z Removal of Infusion Device from Upper Vein, External Approach (ICD-10-PCS; 2016-11-15)
PROC: 30233N1 Transfusion of Nonautologous Red Blood Cells into Peripheral Vein, Percutaneous Approach (ICD-10-PCS; 2016-11-21)
PROC: 02HV33Z Insertion of Infusion Device into Superior Vena Cava, Percutaneous Approach (ICD-10-PCS; 2016-11-25)
PROC: B5180ZA Fluoroscopy of Superior Vena Cava using High Osmolar Contrast, Guidance (ICD-10-PCS; 2016-11-25)
DX: A41.9 Sepsis, unspecified organism (principal); J18.9 Pneumonia, unspecified organism; J96.00 Acute respiratory failure, unspecified whether with hypoxia or hypercapnia; E41 Nutritional marasmus; N17.9 Acute kidney failure, unspecified; J90 Pleural effusion, not elsewhere classified; E87.0 Hyperosmolality and hypernatremia; R53.2 Functional quadriplegia; Z93.0 Tracheostomy status; N18.6 End stage renal disease; I12.0 Hypertensive chronic kidney disease with stage 5 chronic kidney disease or end stage renal disease; N39.0 Urinary tract infection, site not specified; T82.49XA Other complication of vascular dialysis catheter, initial encounter; R13.10 Dysphagia, unspecified; E88.81 Metabolic syndrome and other insulin resistance; E86.0 Dehydration; G51.0 Bell's palsy; G40.909 Epilepsy, unspecified, not intractable, without status epilepticus; J20.9 Acute bronchitis, unspecified; G47.33 Obstructive sleep apnea (adult) (pediatric); E87.6 Hypokalemia; F03.90 Unspecified dementia, unspecified severity, without behavioral disturbance, psychotic disturbance, mood disturbance, and anxiety; D63.1 Anemia in chronic kidney disease; Y83.8 Other surgical procedures as the cause of abnormal reaction of the patient, or of later complication, without mention of misadventure at the time of the procedure; Y92.89 Other specified places as the place of occurrence of the external cause; Z85.830 Personal history of malignant neoplasm of bone; Z86.73 Personal history of transient ischemic attack (TIA), and cerebral infarction without residual deficits; Z68.22 Body mass index [BMI] 22.0-22.9, adult; Z74.01 Bed confinement status; Z93.1 Gastrostomy status; Z88.1 Allergy status to other antibiotic agents; Z99.2 Dependence on renal dialysis
CPT/HCPCS: 36415-UA; 36600-90; 71010-TC; 71250-TC; 76000-TC; 76770-TC; 80048-TC; 80053-TC; 80074-90; 81001-TC; 81015-TC; 81050-TC; 82140-TC; 82270-TC; 82550-TC; 82570-TC; 82575-TC; 82803-TC; 82948-90; 83036-90; 83605; 83735-TC; 83935-90; 84156-TC; 84300-TC; 84443-TC; 84550-TC; 85007-TC; 85025-TC; 85027-TC; 85610-TC; 85730-TC; 86850-TC; 86900-TC; 86901-TC; 86922-TC; 87070; 87086-90; 90937; 93005; 94640; 94760; J0690; J0696; J0885; J1644; J1956; J2001; J2250; J2543; J2704; J7030; J7042; J7070; J7613; P9016; Z7610

== ENCOUNTER 2017-09-07 19:34 | Inpatient (IN) | payer MEDICARE, MEDICAID ==
[2017-09-07] MEDS ORDERED: Levofloxacin 500mg/100mL 500 MG/100 ML BAG IV ONE ×2 (20:39→21:40)
[2017-09-07 21:01] LABS: % BASOPHILS 0.7 % (0.0-2.0); % LYMPHOCYTES 16.6 % (20.0-50.0); % MONOCYTES 9.1 % (2.0-10.0); % NEUTROPHILS 66.6 % (40.0-80.0); HEMATOCRIT 28.1 % (41.0-60); HEMOGLOBIN 9.3 gm/dL (12-16); MEAN CELL VOLUME 93.8 fl (80-99); MEAN CORPUSCULAR HEMOGLOBIN 31.1 pg (27.0-31.0); MEAN CORPUSCULAR HGB CONC 33.1 pg (28.0-36.0); MEAN PLATELET VOLUME 8.1 fl; NEUTROPHILE ABSOLUTE 7.7 Th/cmm (1.8-8.0); RED BLOOD COUNT 2.99 Mil/cmm (3.80-5.80); RED CELL DISTRIBUTION WIDTH 16.8 % (11.5-20.0)
[2017-09-07 21:02] LABS: PLATELET COUNT 398 Th/cmm (150-400); WHITE BLOOD COUNT 11.5 Th/cmm (4.8-10.8)
--- NOTE | 2017-09-07 21:02 | ED Physician Chart ---
ED Chief Complaint/HPI - Patient Information Date Seen:: 09/07/17 Time Seen:: 20:00 Chief Complaint:: cough, pneumonia History of Present Illness:: location: general quality: cough, pneumonia severity: moderate duration: few days context: [facility] pt who is at baseline alert but non-verbal has had cough at [facility] for few days. this am chest xray is performed at facility and pt is found to have right lower lobe patchiness. also with productive cough. SNF RN called PCP who advises send pt to ER for physician eval. medics report pt with stable vital signs during transport. no fever is reported. in ER, pt with stable vital signs. occasional cough. no fever. mod factors: none assoc s/s: none hx from SNF RN, medic Allergies:: Allergies Allergy/AdvReac Type Severity Reaction Status Date / Time cephalexin [From Keflex] Allergy Verified 11/11/16 22:42 Vitals:: Vital Signs - 8 hr 09/07/17 19:35 Temp 98.0 F HR 72 RR 18 BP 122/55 O2 Sat % 97 Historian:: EMS, Other Review:: Nurse's Note Reviewed, EMS run form Reviewed ED Review of Systems - Review of Systems General/Constitutional: No edema Skin: No rash Neck: No stiffness Cardio Vascular: No edema Pulmonary: Cough GI: No vomiting, No diarrhea Allergic/Immuno: No angioedema Neurological: No seizure ED Past Medical History - Past Medical History Past Medical History: HTN, ESRD, Other (pneumonia, anemia) Family History: None Social History: Non Smoker, No Alcohol, No Drug Use, Single, Care Facility Surgical History: PEG/GTube Psychiatricy History: Dementia Medication: Reviewed Family Medical History - Family Member Mother History Unknown: Yes Ethnicity: ED Physical Exam - Physical Examination General/Constitutional: Awake, Well-developed, well-nourished (slender, non- cachectic), Non-toxic appearing (occasional productive cough observed during ER stay. ) Head: Atraumatic Eyes: Lids, conjuctiva normal, PERRL Skin: Nl inspection, No skin lesions ENMT: External ears, nose nl, Nasal exam nl Neck: Nontender, No nuchal rigidity Respiratory: Nl effort/Exclusion, Clear to Auscultation (right lower lobe with reduced breath sounds and crackles, no wheezes. ) Cardio Vascular: RRR, No murmur, gallop, rubs, NL S1 S2 GI: No tenderness/rebounding/guarding, Nondistended : No CVA tenderness Extremities: No tenderness or effusion, No edema Neuro/Psych: Alert/oriented (alert, responds with a nod when questions are asked , responds same way when opposing questions are asked. ) Misc: No paraspinal tenderness ED Labs/Radiology/EKG Results - Lab Results Results: Laboratory Tests 09/07/17 09/07/17 09/07/17 20:50 20:50 20:50 WBC 11.5 H D RBC 2.99 L Hgb 9.3 L Hct 28.1 L MCV 93.8 MCH 31.1 H MCHC Differential 33.1 RDW 16.8 Plt Count 398 D MPV 8.1 Neutrophils % 66.6 Lymphocytes % 16.6 L Monocytes % 9.1 Eosinophils % 7.0 H Basophils % 0.7 Sodium 126 L Potassium 4.0 Chloride 90 L Carbon Dioxide 27.6 Anion Gap 12.4 BUN 78 H Creatinine 5.5 H* Est GFR ( Amer) TNP Est GFR (Non-Af Amer) TNP BUN/Creatinine Ratio 14.2 Glucose 93 Whole Bld Lactic Acid 1.05 Calcium 10.3 Total Bilirubin 0.3 AST 12 L ALT 9 Alkaline Phosphatase 62 Total Protein 8.7 H Albumin 3.3 L Globulin 5.4 Albumin/Globulin Ratio 0.6 L - EKG Interpretations Comments:: EKG NSR 71 normal axis no acute ST elevation no acute ST depression old inferior infarct no ectopy abnormal EKG with no acute findings ER READ ED Assessment - Assessment General Assessment: pt in stable condition while in ER. CXR this am is consistent with right lower lobe pneumonia. pt is dialysis patient. at baseline pt does not appear to produce urine. will cancel initially ordered urinalysis and adjust antibiotic dosing for renal failure. ED Septic Shock - . Is Septic Shock (SBP<90, OR Lactate>4 mmol\L) present?: No - <6hrs of presentation: Vital Signs: Vital Signs - 8 hr 09/07/17 19:35 Temp 98.0 F HR 72 RR 18 BP 122/55 O2 Sat % 97 ED Reassessment (Disposition) - Reassessment Reassessment:: medical decision making: non-verbal dialysis patient with documented right lower lobe pneumonia. blood cultures have been performed and antibiotics ordered. plan to admit pt to med/surg for further treatment. Reassessment Condition:: Improved - Diagnosis Diagnosis:: right lower lobe pneumonia - Patient Disposition Discharge/Transfer:: Acute Care w/in this hosp Admitting Medical Physician:: Roberto Marsh Time:: 22:25 Condition at Disposition:: Stable, Improved
[2017-09-07 21:16] LABS: ALB/GLOB RATIO 0.6 (1.0-1.8); ALKALINE PHOSPHATASE 62 U/L (34-104); ANION GAP 12.4 (7.0-16.0); BILIRUBIN,TOTAL 0.3 mg/dL (0.3-1.0); BUN - UREA NITROGEN 78 mg/dL (7-25); BUN/CREATININE RATIO 14.2; CALCIUM SERUM 10.3 mg/dL (8.6-10.3); CARBON DIOXIDE 27.6 mEq/L (21.0-31.0); CHLORIDE 90 mEq/L (98-107); GLUCOSE 93 mg/dL; SGOT 12 U/L (13-39); SGPT/ALT 9 U/L (7-52); SODIUM SERUM 126 mEq/L (136-145)
[2017-09-07 21:21] LABS: CREATININE - SERUM 5.5 mg/dL (0.7-1.3)
[2017-09-08] MEDS ORDERED: Piperacillin Sodium/Tazobact 3.375 gm Vial IV ONE (01:39)
[2017-09-08 06:29] LABS: % BASOPHILS 0.9 % (0.0-2.0); % EOSINOPHILS 6.5 % (0.0-5.0); % LYMPHOCYTES 14.8 % (20.0-50.0); % MONOCYTES 7.7 % (2.0-10.0); % NEUTROPHILS 70.1 % (40.0-80.0); HEMOGLOBIN 8.6 gm/dL (12-16); MEAN CELL VOLUME 93.4 fl (80-99); MEAN CORPUSCULAR HEMOGLOBIN 30.9 pg (27.0-31.0); MEAN CORPUSCULAR HGB CONC 33.1 pg (28.0-36.0); MEAN PLATELET VOLUME 8.4 fl; NEUTROPHILE ABSOLUTE 8.8 Th/cmm (1.8-8.0); PLATELET COUNT 376 Th/cmm (150-400); RED BLOOD COUNT 2.79 Mil/cmm (3.80-5.80); RED CELL DISTRIBUTION WIDTH 16.9 % (11.5-20.0); WHITE BLOOD COUNT 12.6 Th/cmm (4.8-10.8)
[2017-09-08 06:45] LABS: ANION GAP 11.1 (7.0-16.0); BUN/CREATININE RATIO 14.4; CALCIUM SERUM 9.6 mg/dL (8.6-10.3); CARBON DIOXIDE 28.8 mEq/L (21.0-31.0); CHLORIDE 91 mEq/L (98-107); GLUCOSE 107 mg/dL; POTASSIUM SERUM 3.9 mEq/L (3.5-5.1); SODIUM SERUM 127 mEq/L (136-145)
[2017-09-08 06:50] LABS: BUN - UREA NITROGEN 85 mg/dL (7-25); CREATININE - SERUM 5.9 mg/dL (0.7-1.3)
[2017-09-08] MEDS ORDERED: Hydrocodone/APAP 5mg/325mg Tab PO PRN (07:16)
[2017-09-08] MEDS ORDERED: Magnesium Hydroxide (MOM) 30 mL UDC GT PRN (07:16)
[2017-09-08] MEDS ORDERED: Maalox 30 mL Cup GT PRN (07:16)
[2017-09-08] MEDS ORDERED: Fleet Enema 135 mL RC PRN (07:16)
--- NOTE | 2017-09-08 08:11 | Diagnostic Imaging Report ---
CHEST X-RAY: AP view INDICATION: Pneumonia COMPARISON: Chest x-ray 11/26/2016 FINDINGS: Again noted is small right effusion with right lower lung zone hazy infiltrates. Chronic changes are noted. Heart size is at the upper limits of normal. Degenerative changes of the spine are noted. IMPRESSION: Redemonstration of right effusion and right lower lung zone hazy infiltrates. Similar findings were seen on prior examination. Please correlate with local findings as superimposed acute process cannot be excluded. Follow-up is recommended.
[2017-09-08] MEDS: POLYETHYLENE GLYCOL 3350 17 GM PACK GT SCH (08:59)
[2017-09-08] MEDS: Vitamin B Complex w/Vitamin C Tab GT SCH (08:59)
[2017-09-08] MEDS: Potassium Chloride Elixir 20 mEq /15 mL UDC GT SCH (08:59)
[2017-09-08] MEDS: Multivitamin w/ Minerals Tab GT SCH (08:59)
[2017-09-08] MEDS: Ferrous Sulfate 300 MG/5 ML UDC GT SCH (08:59)
[2017-09-08] MEDS: Levetiracetam 500 mg/5mL 5mL UDC GT SCH (08:59)
[2017-09-08] MEDS ORDERED: FIBER PO SCH (09:00)
[2017-09-08] MEDS ORDERED: [UNRECOGNIZED DRUG - OTHER] PO SCH (09:00)
[2017-09-08] MEDS ORDERED: PROTEIN HYDR PO SCH (09:00)
[2017-09-08] MEDS ORDERED: AMINO ACIDS PO SCH (09:00)
[2017-09-08] MEDS: Piperacillin/Tazobact 2.25 gm in 0.9% NS 50 ML IV SCH ×4 (09:08→23:45)
--- NOTE | 2017-09-08 11:44 | Internal Medicine Prog Note ---
Internal Medicine Subjective - Subjective Service Date: 09/08/17 ([id number]) Internal Medicine Objective - Results Result Diagrams: 09/08/17 05:45 09/08/17 05:45 Recent Labs: Laboratory Last Values WBC 12.6 Th/cmm (4.8-10.8) H 09/08/17 05:45 RBC 2.79 Mil/cmm (3.80-5.80) L 09/08/17 05:45 Hgb 8.6 gm/dL (12-16) L 09/08/17 05:45 Hct 26.0 % (41.0-60) L 09/08/17 05:45 MCV 93.4 fl (80-99) 09/08/17 05:45 MCH 30.9 pg (27.0-31.0) 09/08/17 05:45 MCHC Differential 33.1 pg (28.0-36.0) 09/08/17 05:45 RDW 16.9 % (11.5-20.0) 09/08/17 05:45 Plt Count 376 Th/cmm (150-400) 09/08/17 05:45 MPV 8.4 fl 09/08/17 05:45 Neutrophils % 70.1 % (40.0-80.0) 09/08/17 05:45 Lymphocytes % 14.8 % (20.0-50.0) L 09/08/17 05:45 Monocytes % 7.7 % (2.0-10.0) 09/08/17 05:45 Eosinophils % 6.5 % (0.0-5.0) H 09/08/17 05:45 Basophils % 0.9 % (0.0-2.0) 09/08/17 05:45 Sodium 127 mEq/L (136-145) L 09/08/17 05:45 Potassium 3.9 mEq/L (3.5-5.1) 09/08/17 05:45 Chloride 91 mEq/L (98-107) L 09/08/17 05:45 Carbon Dioxide 28.8 mEq/L (21.0-31.0) 09/08/17 05:45 Anion Gap 11.1 (7.0-16.0) 09/08/17 05:45 BUN 85 mg/dL (7-25) H* 09/08/17 05:45 Creatinine 5.9 mg/dL (0.7-1.3) H* 09/08/17 05:45 Est GFR ( Amer) TNP 09/08/17 05:45 Est GFR (Non-Af Amer) TNP 09/08/17 05:45 BUN/Creatinine Ratio 14.4 09/08/17 05:45 Glucose 107 mg/dL 09/08/17 05:45 Whole Bld Lactic Acid 1.05 mmol/L (0.60-1.99) 09/07/17 20:50 Calcium 9.6 mg/dL (8.6-10.3) 09/08/17 05:45 Total Bilirubin 0.3 mg/dL (0.3-1.0) 09/07/17 20:50 AST 12 U/L (13-39) L 09/07/17 20:50 ALT 9 U/L (7-52) 09/07/17 20:50 Alkaline Phosphatase 62 U/L (34-104) 09/07/17 20:50 Total Protein 8.7 gm/dL (6.0-8.3) H 09/07/17 20:50 Albumin 3.3 gm/dL (4.2-5.5) L 09/07/17 20:50 Globulin 5.4 gm/dL 09/07/17 20:50 Albumin/Globulin Ratio 0.6 (1.0-1.8) L 09/07/17 20:50 Random Vancomycin 32.7 ug/mL (5.0-40.0) 09/08/17 05:45 - Physical Exam Vitals and I&O: Vital Signs Temp 98.0 F 09/08/17 07:55 Pulse 78 09/08/17 09:00 Resp 16 09/08/17 08:16 BP 160/80 09/08/17 09:00 Pulse Ox 78 09/08/17 07:55 Intake & Output 09/07/17 09/08/17 09/08/17 18:59 06:59 18:59 Intake Total 590 50 Balance 590 50 Weight (lbs) 128 lb Intake: Intake, IV Amount 50 50 Piperacillin Sodium/ 50 Tazobact 2.25 gm In Sodium Chloride 0.9% 50 ml @ 100 mls/hr IV Q6HR [facility] Rx#:[id number] Tube Feeding 240 Other 300 Other: # Bowel Movements 1 Stool Characteristics Liquid Black Active Medications: Current Medications Acetaminophen (Tylenol 650mg/20.3ml Suspension) 650 mg GT Q4HR PRN PRN Reason: Pain (Mild) Acetaminophen/Hydrocodone Bitart ([place] 5mg/325mg) 1 tab PO Q6HR PRN PRN Reason: Pain (Severe) Stop: 11/07/17 07:15 Al Hydrox/Mg Hydrox/Simethicone (Maalox) 30 ml GT Q6HR PRN PRN Reason: Heartburn Stop: 11/07/17 07:15 Albuterol Sulfate (Albuterol 2.5mg/3ml Neb Ud) 2.5 mg HHN Q4HRT PRN PRN Reason: sob/wheezing Stop: 11/07/17 07:15 Amlodipine Besylate (Norvasc) 5 mg GT DAILY [facility] Stop: 11/07/17 08:59 Last Admin: 09/08/17 09:00 Dose: 5 mg Aspirin (Aspirin) 325 mg GT DAILY [facility] Stop: 11/07/17 08:59 Last Admin: 09/08/17 09:00 Dose: 325 mg Bisacodyl (Dulcolax 10 Mg Supp) 10 mg RC DAILY PRN PRN Reason: IF MOM INEFFECTIVE Stop: 11/07/17 07:15 Digoxin (Lanoxin) 0.125 mg PO Q48HR [facility] Stop: 11/07/17 08:59 Last Admin: 09/08/17 09:00 Dose: 0.125 mg Famotidine (Pepcid) 20 mg GT DAILY [facility] Stop: 11/07/17 08:59 Last Admin: 09/08/17 09:00 Dose: 20 mg Ferrous Sulfate (Iron) 450 mg GT DAILY [facility] Stop: 11/07/17 08:59 Last Admin: 09/08/17 08:59 Dose: 450 mg Folic Acid (Folate) 1 mg GT DAILY [facility] Stop: 11/07/17 08:59 Last Admin: 09/08/17 09:00 Dose: 1 mg Piperacillin Sod/Tazobactam (Sod 2.25 gm/ Sodium Chloride) 50 mls @ 100 mls/hr IV Q6HR [facility] Stop: 11/07/17 07:59 Last Admin: 09/08/17 11:29 Dose: 100 mls/hr Albumin Human (Albuminar 25%) 25 gm in 100 mls @ 50 mls/hr IV X1 PRN PRN Reason: BP Support During HD Stop: 09/09/17 23:59 Levetiracetam (Keppra) 750 mg GT DAILY [facility] Stop: 11/07/17 08:59 Last Admin: 09/08/17 08:59 Dose: 750 mg Magnesium Hydroxide (Milk Of Magnesia) 30 ml GT HS PRN PRN Reason: Constipation Stop: 11/07/17 07:15 Miscellaneous (Vancomycin Iv Per Pharmacy) 1 ea DAILY [facility] Stop: 11/07/17 08:59 Miscellaneous (Zosyn Iv Per Pharmacy) 1 ea DAILY [facility] Stop: 11/07/17 08:59 Ondansetron HCl (Zofran Odt) 4 mg SL Q6H PRN PRN Reason: Nausea / Vomiting Polyethylene Glycol (Miralax) 17 gm GT DAILY [facility] Stop: 11/07/17 08:59 Last Admin: 09/08/17 08:59 Dose: 17 gm Potassium Chloride (Potassium Chloride Elixir) 20 meq GT DAILY [facility] Stop: 11/07/17 08:59 Last Admin: 09/08/17 08:59 Dose: 20 meq Senna (Senna) 17.2 mg GT DAILY [facility] Stop: 11/07/17 08:59 Last Admin: 09/08/17 09:00 Dose: 17.2 mg Sodium Phosphate (Fleet Enema) 135 ml RC DAILY PRN PRN Reason: IF DULCOLAX INEFFECTIVE Stop: 11/07/17 07:15 Vitamin B Complex/Vit C/Folic Acid (Vitamin B Complex W/Vitamin C) 1 tab GT DAILY [facility] Stop: 11/07/17 08:59 Last Admin: 09/08/17 08:59 Dose: 1 tab - Procedures Procedures: Procedures Procedure Code Date FLUOROSCOPY OF SUP VENA CAVA USING H OSM CONTRAST, GUIDANCE [id number] 11/11/16 INSERT TUNNELED CV CATH 33915 11/11/16 INSERTION OF INFUSION DEV INTO L SUBCLAV VEIN, PERC APPROACH [id number] 11/11/16 INSERTION OF INFUSION DEV INTO SUP VENA CAVA, PERC APPROACH [id number] 11/11/16 PERFORMANCE OF URINARY FILTRATION, MULTIPLE [id number] 11/11/16 PL[address] CATHETER IN VEIN [address]492 11/11/16 REMOVAL OF INFUSION DEVICE FROM UPPER VEIN, FIRE SUPPORT SPECIALIST APPROACH [id number] 11/11/16 TRANSFUSE NONAUT RED BLOOD CELLS IN PERIPH VEIN, PERC [id number] 11/11/16 ULTRASONOGRAPHY OF LEFT SUBCLAVIAN VEIN, GUIDANCE [id number] 11/11/16 Nutritional Asmnt/Malnutr-PDOC - Dietary Evaluation Malnutrition Findings (Please click <Entered> for more info): Nutritional Asmnt/Malnutrition Start: 09/08/17 10: 42 Text: Status: Active Freq: Document 09/08/17 10:42 BERENICE (Rec: 09/08/17 10:50 L[facility] [place] [id number]) Nutritional Asmnt/Malnutrition Patient General Information Nutritional Screening High Risk Consult Diagnosis Peneumonia Pertinent Medical Hx/Surgical Hx HTN, ESRD, pneumonia, anemia, dementia, PEG/GTube Subjective Information Consult for nultiple wounds received. Pt from SNF Current Diet Order/ Nutrition Support Novasource Renal 40ml/hr x 20hrs with water flush 150ml q6hr daily
--- NOTE | 2017-09-08 13:06 | Consultation ---
Consult Note - Consult Note Service Date: 09/08/17 Referring Physician: Roberto Marsh Consult Note: PHYSICIAN Consultation Note: Date of Admission: 09/07/17 Purpose of Consultation: Pneumonia. Chief Complaint: Patient TAMEKA BERMEO was admitted to location Medical[facility]Surgical Unit I with PNEUMONIA. 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 On initial evaluation he was afebrile and WBC count was 11,500. Patient was diagnosed pneumonia and started the patient on Past Medical History: HTN, ESRD, Other (pneumonia, anemia) Allergies Allergy/AdvReac Type Severity Reaction Status Date / Time cephalexin [From Keflex] Allergy Verified 11/11/16 22:42 Vital Signs Temp 98.0 F 09/08/17 12:17 Pulse 77 09/08/17 12:17 Resp 16 09/08/17 12:17 BP 119/62 09/08/17 12:17 Pulse Ox 98 09/08/17 12:17 Intake & Output 09/07/17 09/08/17 09/08/17 18:59 06:59 18:59 Intake Total 590 50 Balance 590 50 Weight (lbs) 58.06 kg Intake: Intake, IV Amount 50 50 Piperacillin Sodium/ 50 Tazobact 2.25 gm In Sodium Chloride 0.9% 50 ml @ 100 mls/hr IV Q6HR [facility] Rx#:[id number] Tube Feeding 240 Other 300 Other: # Bowel Movements 1 Stool Characteristics Liquid Black Laboratory Results - last 24 hr 09/08/17 09/08/17 09/08/17 05:45 05:45 05:45 WBC 12.6 H RBC 2.79 L Hgb 8.6 L Hct 26.0 L MCV 93.4 MCH 30.9 MCHC Differential 33.1 RDW 16.9 Plt Count 376 MPV 8.4 Neutrophils % 70.1 Lymphocytes % 14.8 L Monocytes % 7.7 Eosinophils % 6.5 H Basophils % 0.9 Sodium 127 L Potassium 3.9 Chloride 91 L Carbon Dioxide 28.8 Anion Gap 11.1 BUN 85 H* Creatinine 5.9 H* Est GFR ( Amer) TNP Est GFR (Non-Af Amer) TNP BUN/Creatinine Ratio 14.4 Glucose 107 Calcium 9.6 Random Vancomycin 32.7 Home Medication Medication Instructions Recorded Type Acetaminophen [8 Hour] 1,000 mg GT Q4HR PRN MDD 3GM/24HR 09/14/16 History Acetaminophen [8 Hour] 650 mg GT Q4HR PRN MDD 3GM/24HR 09/14/16 History Acetaminophen [8 Hour] 650 mg GT Q4HR PRN MDD 3GM/24HR 09/14/16 History Albuterol Nebulizer 2.5mg/3mL 2.5 mg IH Q4HR PRN 09/14/16 History [Albuterol Neb UD*] Bisacodyl [Dulcolax] 10 mg RC PRN PRN 09/14/16 History Clonidine HCl [Catapres] 0.1 mg GT Q12HR PRN 09/14/16 History Ferrous Sulfate [Iron] 7.5 ml GT DAILY 09/14/16 History Fleet Enema 135 ml RC PRN PRN 09/14/16 History Hydrocodone/Acetaminophen [[place] 1 tab PO Q6HR PRN MDD 3GRAMS/24HR 09/14/16 History 325 mg-5 mg*] Multivit &Minerals/Ferrous Fum 5 ml GT DAILY 09/14/16 History [Multivitamin Liquid] amLODIPine Besylate [Norvasc*] 5 mg GT DAILY 09/14/16 History Al Hyd/Mg Hyd/Simethicone [Maalox] 30 ml GT Q6HR PRN 11/11/16 History Aspirin 325 mg GT DAILY 11/11/16 History Famotidine [Pepcid] 20 mg GT DAILY 11/11/16 History Magnesium Hydroxide [Milk of 30 ml GT HS PRN 11/11/16 History Magnesia] Polyethylene Glycol 3350 [Miralax] 17 gm GT DAILY 11/11/16 History Sennosides A and B [Senna] 2 tab GT DAILY 11/11/16 History Amino Acids/Protein Hydr/Fiber 30 ml PO DAILY 09/07/17 History [Pro-Stat Sugar Free with Fiber 887 ml] Digoxin [Lanoxin] 0.125 mg PO Q48HR 09/07/17 History Folic Acid [Folate*] 1 mg GT DAILY 09/07/17 History Folic Acid/Vit Bcomp,C [[place] 1 tab GT DAILY 09/07/17 History Tablet] Levetiracetam [Keppra] 750 mg GT DAILY 09/07/17 History Ondansetron HCl [Zofran*] 4 mg GT Q6H PRN 09/07/17 History Potassium Chloride Elixir 20 meq GT DAILY 09/07/17 History Current Medications Generic Name Dose Route Start Last Admin Trade Name Freq PRN Reason Stop Dose Admin Acetaminophen 650 mg 09/08/17 07:16 Tylenol 650mg/20.3ml Suspension GT Q4HR PRN Pain (Mild) Acetaminophen/Hydrocodone Bitart 1 tab 09/08/17 07:16 [place]comb 5mg/325mg PO 11/07/17 07:15 Q6HR PRN Pain (Severe) Al Hydrox/Mg Hydrox/Simethicone 30 ml 09/08/17 07:16 Maalox GT 11/07/17 07:15 Q6HR PRN Heartburn Albuterol Sulfate 2.5 mg 09/08/17 07:16 Albuterol 2.5mg/3ml Neb Ud HHN 11/07/17 07:15 Q4HRT PRN sob/wheezing Amlodipine Besylate 5 mg 09/08/17 09:00 09/08/17 09:00 Norvasc GT 11/07/17 08:59 5 mg DAILY RUY Administration Aspirin 325 mg 09/08/17 09:00 09/08/17 09:00 Aspirin GT 11/07/17 08:59 325 mg DAILY RUY Administration Bisacodyl 10 mg 09/08/17 07:16 Dulcolax 10 Mg Supp RC 11/07/17 07:15 DAILY PRN IF MOM INEFFECTIVE Digoxin 0.125 mg 09/08/17 09:00 09/08/17 09:00 Lanoxin PO 11/07/17 08:59 0.125 mg Q48HR RUY Administration Famotidine 20 mg 09/08/17 09:00 09/08/17 09:00 Pepcid GT 11/07/17 08:59 20 mg DAILY RUY Administration Ferrous Sulfate 450 mg 09/08/17 09:00 09/08/17 08:59 Iron GT 11/07/17 08:59 450 mg DAILY RUY Administration Folic Acid 1 mg 09/08/17 09:00 09/08/17 09:00 Folate GT 11/07/17 08:59 1 mg DAILY RUY Administration Piperacillin Sod/Tazobactam 50 mls @ 100 mls/hr 09/08/17 08:00 09/08/17 11:29 Sod 2.25 gm/ Sodium Chloride IV 11/07/17 07:59 100 mls/hr Q6HR RUY Administration Albumin Human 25 gm in 100 mls @ 50 mls/hr 09/09/17 00:00 Albuminar 25% IV 09/09/17 23:59 X1 PRN BP Support During HD Levetiracetam 750 mg 09/08/17 09:00 09/08/17 08:59 Keppra GT 11/07/17 08:59 750 mg DAILY RUY Administration Magnesium Hydroxide 30 ml 09/08/17 07:16 Milk Of Magnesia GT 11/07/17 07:15 HS PRN Constipation Miscellaneous 1 ea 09/08/17 09:00 Vancomycin Iv Per Pharmacy 11/07/17 08:59 DAILY RUY Miscellaneous 1 ea 09/08/17 09:00 Zosyn Iv Per Pharmacy 11/07/17 08:59 DAILY RUY Ondansetron HCl 4 mg 09/08/17 07:16 Zofran Odt SL Q6H PRN Nausea / Vomiting Polyethylene Glycol 17 gm 09/08/17 09:00 09/08/17 08:59 Miralax GT 11/07/17 08:59 17 gm DAILY RUY Administration Potassium Chloride 20 meq 09/08/17 09:00 09/08/17 08:59 Potassium Chloride Elixir GT 11/07/17 08:59 20 meq DAILY RUY Administration Senna 17.2 mg 09/08/17 09:00 09/08/17 09:00 Senna GT 11/07/17 08:59 17.2 mg DAILY RUY Administration Sodium Phosphate 135 ml 09/08/17 07:16 Fleet Enema RC 11/07/17 07:15 DAILY PRN IF DULCOLAX INEFFECTIVE Vitamin B Complex/Vit C/Folic Acid 1 tab 09/08/17 09:00 09/08/17 08:59 Vitamin B Complex W/Vitamin C GT 11/07/17 08:59 1 tab DAILY RUY Administration Review of Systems: A 12 point ROS was reviewed with the pertinent positive and negatives noted in the HPI. Social History Smoking Status Unknown if ever smoked Drug Use No Alcohol Use No Family Medical History Family Medical History Start: 09/08/17 00: 13 Freq: ONCE Status: Active Document 09/08/17 00:13 KILEY (Rec: 09/08/17 04:30 KILEY MAHARAJ- MS2) Family Medical History Mother History Unknown Yes Physical Exam: General: Comfortable, not in acute distress. Receiving hemodialysis. HEENT: Head: Normocephalic, atraumatic. Oral cavity: Moist, pink tongue. Eyes : No pallor, no icterus. Pupils PERRLA. Face symmetrical. Neck: Supple, no JVD. Patient at the stoma with phlegm. Cardio: S1 and S2 within normal metabolism normal murmur or gallop. Respiratory: Vesicular breath sound, no crackles, no wheezing. Abdominal: Abdomen soft nontender nondistended bowel sounds present. Genital/Urinary: Deferred. Extremities: No cyanosis, no clubbing, no edema. Neurological: Awake. Alert. Assessment: 1. Pneumonia. Likely, aspiration pneumonia. 2. History of vent dependent respiratory failure. Currently on room air. 3. Leukocytosis. 4. Hypertension. 5. 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 Plan: Continue Zosyn. Thank you Dr. Marsh for involving me in taking care of this patient Signed, Delbert Ellis M.D. [id number]
--- NOTE | 2017-09-08 14:07 | History & Physical ---
ADMIT DATE: 09/08/2017 CHIEF COMPLAINT: Cough. HISTORY OF PRESENT ILLNESS: This is a 76-year-old male who is a prison resident, who was brought here to [facility] for 1-day history of cough. The patient had a chest x-ray done at the SNF and the patient was noted to have right lower lobe patchiness. The patient did not have any fevers at the prison. For further management, the patient is now admitted to the med/surg unit. PAST MEDICAL HISTORY: Hypertension, ESRD, pneumonia, anemia. SOCIAL HISTORY: The patient is a prison resident, requiring 24-hour nursing care. PAST SURGICAL HISTORY: PEG. PSYCHIATRIC HISTORY: Dementia. FAMILY HISTORY: Noncontributory. REVIEW OF SYSTEMS: GENERAL: Fevers or chills. CARDIOVASCULAR: Denies chest pain. RESPIRATORY: Denies shortness of breath. GASTROINTESTINAL: Denies nausea, vomiting, or abdominal pain. All other systems are reviewed by me and are negative. PHYSICAL EXAMINATION: GENERAL: The patient is well developed, well nourished, in no acute distress. VITAL SIGNS: Temperature 99.0, heart rate 78, blood pressure 160/80, O2 of 98%. HEENT: Head; normocephalic, atraumatic. NECK: Supple. No mass. LUNGS: Rhonchi bilaterally. HEART: Regular rhythm. ABDOMEN: Soft, nontender. LABORATORY DATA: WBC 12.6, H and H 8.6 and 26.0, platelets of 376. Sodium 127, potassium 3.9, chloride 91, BUN 85, creatinine 5.9. The patient had a chest x-ray done and the impression is redemonstration of right effusion and right lower lung zone hazy infiltrates. ASSESSMENT: Right lower lobe pneumonia, end-stage renal disease, leukocytosis, anemia of chronic disease, mild; severe protein-calorie malnutrition, hypertension. PLAN: The patient to be admitted to the med/surg unit. We will get Nephrology and ID on the case. The patient to have hemodialysis here while admitted. We will keep the patient on empiric IV antibiotics. Monitor patient's electrolytes level. We will continue to monitor this patient. JOB# [id number]
[2017-09-09] MEDS ORDERED: Albumin 25% 25gm/100mL 25 GM/100 ML BTL IV PRN
[2017-09-09] MEDS: Piperacillin/Tazobact 2.25 gm in 0.9% NS 50 ML IV SCH ×3 (05:41→18:21)
[2017-09-09 05:48] LABS: % BASOPHILS 0.2 % (0.0-2.0); % EOSINOPHILS 6.2 % (0.0-5.0); % LYMPHOCYTES 14.2 % (20.0-50.0); % MONOCYTES 9.9 % (2.0-10.0); % NEUTROPHILS 69.5 % (40.0-80.0); HEMOGLOBIN 9.7 gm/dL (12-16); MEAN CELL VOLUME 94.5 fl (80-99); MEAN CORPUSCULAR HEMOGLOBIN 30.7 pg (27.0-31.0); MEAN CORPUSCULAR HGB CONC 32.5 pg (28.0-36.0); MEAN PLATELET VOLUME 7.9 fl; NEUTROPHILE ABSOLUTE 7.4 Th/cmm (1.8-8.0); PLATELET COUNT 399 Th/cmm (150-400); RED BLOOD COUNT 3.15 Mil/cmm (3.80-5.80); RED CELL DISTRIBUTION WIDTH 17.4 % (11.5-20.0); WHITE BLOOD COUNT 10.6 Th/cmm (4.8-10.8)
[2017-09-09 05:54] LABS: HEMATOCRIT 29.8 % (41.0-60)
[2017-09-09 06:04] LABS: ANION GAP 10.6 (7.0-16.0); BUN - UREA NITROGEN 43 mg/dL (7-25); CALCIUM SERUM 9.7 mg/dL (8.6-10.3); CARBON DIOXIDE 31.2 mEq/L (21.0-31.0); CHLORIDE 95 mEq/L (98-107); CREATININE - SERUM 3.9 mg/dL (0.7-1.3); GLUCOSE 122 mg/dL; POTASSIUM SERUM 3.8 mEq/L (3.5-5.1); SODIUM SERUM 133 mEq/L (136-145)
[2017-09-09] MEDS: Albuterol Nebulizer 2.5mg/3mL HHN PRN (07:18)
--- NOTE | 2017-09-09 08:12 | Consultation ---
DATE OF CONSULTATION: 09/08/2017 ATTENDING PHYSICIAN: Sean Marsh M.D. CANDLEMAKING LABORER: Blake Anderson M.D. REASON FOR CONSULTATION: Electrolyte imbalance and fluid management. HISTORY OF PRESENT ILLNESS: This is a 76-year-old male with past medical history of end-stage renal disease, on hemodialysis, who came in because of cough and congestion. A few days prior to admission, the patient developed cough with congestion at the extended care facility. Chest x-ray done showed right lower lobe patchiness. A few hours prior to admission, his condition deteriorated. He was then brought to the Emergency Room. Temperature was 98 degrees with a white count of 11.5. Chest x-ray revealed right lower lobe hazy infiltrate and effusion. He has no fever/chills, headaches, sore throat, nor nasal drip. PAST MEDICAL HISTORY: 1. End-stage renal disease, on hemodialysis. 2. Dementia with behavioral disturbance. 3. Moderate malnutrition. 4. History of malignant pleural effusion. 5. GERD. 6. Status post CVA with left hemiplegia. 7. DJD. 8. Multiple myeloma. 9. Status post respiratory failure. 10. History of AFib. 11. COPD. CURRENT MEDICATIONS: He is currently on acetaminophen, albuterol, protein powder, amlodipine, aspirin, bisacodyl, clonidine, digoxin, famotidine, ferrous sulfate, folic acid, levetiracetam, magnesium hydroxide, multivitamins, ondansetron, Zosyn, sennosides A and B, vancomycin, vitamin B. ALLERGIES: Allergic to cephalexin. SOCIAL AND FAMILY HISTORY: I was not able to obtain directly from the patient because he remains nonverbal. REVIEW OF SYSTEMS: Again, I was not able to decipher directly from the patient because of his inability to communicate. PHYSICAL EXAMINATION: GENERAL: The patient is awake, not in any form of distress, still has cough and congestion. VITAL SIGNS: His blood pressure is 160/80, pulse 78, temperature 98 degrees. SKIN: Good turgor, warm, no rash, no jaundice appreciated. HEENT: Head: Normocephalic, atraumatic. Eyes: Extraocular muscles intact. Pupils equal, round, reactive to light and accommodates. Anicteric sclerae. [place] conjunctivae. Nose, midline nasal septum. Mouth, moist mucosa with adequate dentition. NECK: Supple, no adenopathy, no thyromegaly, no bruits. Trachea palpated in the midline. He has an open stoma at the base of his neck. CHEST AND CVS: S1, S2. No rub, murmur, nor gallop appreciated. Point of maximal impulse, fifth intercostal space, left midclavicular line. No abdominal or femoral bruits appreciated. LUNGS: Equal expansion, minimal use of accessory muscles. No supraclavicular retractions. Scattered coarse rhonchi with some congestion, but no rales, no wheezes appreciated. ABDOMEN: Flat, soft. Positive for bowel sounds. No bruits either diastolic or systolic. RECTAL: Lax sphincter tone. GENITOURINARY: Normal appearing male genitalia. MUSCULOSKELETAL: No effusions present in his joints, but unable to assess his range of motion. EXTREMITIES: No evidence of any edema, cyanosis, or clubbing with palpable femoral, popliteal and dorsalis pedis pulses. NEUROLOGIC: The patient is alert, verbal. Motor is 5/5. Cranial nerves 2-12 intact. Sensory intact. LABORATORY DATA: Revealed white count 12.6, hemoglobin 8.6, hematocrit 26, platelets 376. His sodium was 127, potassium is 3.9, chloride 91, bicarbonate 28, BUN 85, creatinine 5.9, calcium is 9.6. Albumin is 3.3. IMPRESSION: 1. Cough with congestion secondary to right-sided healthcare-acquired pneumonia. 2. Hyponatremia secondary to kidney failure. 3. Dementia with behavioral disturbance. 4. Moderate malnutrition. 5. History of malignant pleural effusion. 6. GERD. 7. Status post cerebrovascular accident with left hemiplegia. 8. Degenerative joint disease. 9. Multiple myeloma. 10. Status post respiratory failure. 11. History of atrial fibrillation. 12. Chronic obstructive pulmonary disease. 13. Anemia of chronic kidney disease. PLAN: 1. Follow up blood culture as well as sputum culture. 2. Continue on Zosyn for now, aware the patient is allergic to cephalexin. 3. Hemodialysis as scheduled. 4. Follow up CBC. 5. Antipyretics. Thank you, Dr. Marsh, for this consult and we will follow the patient closely. JOB# [id number]
--- NOTE | 2017-09-09 09:55 | General Progress Note ---
Subjective - Review of Systems Events since last encounter: no acute distress Objective - Results Result Diagrams: 09/09/17 05:25 09/09/17 05:25 Recent Labs: Laboratory Last Values WBC 10.6 Th/cmm (4.8-10.8) 09/09/17 05:25 RBC 3.15 Mil/cmm (3.80-5.80) L 09/09/17 05:25 Hgb 9.7 gm/dL (12-16) L 09/09/17 05:25 Hct 29.8 % (41.0-60) L D 09/09/17 05:25 MCV 94.5 fl (80-99) 09/09/17 05:25 MCH 30.7 pg (27.0-31.0) 09/09/17 05:25 MCHC Differential 32.5 pg (28.0-36.0) 09/09/17 05:25 RDW 17.4 % (11.5-20.0) 09/09/17 05:25 Plt Count 399 Th/cmm (150-400) 09/09/17 05:25 MPV 7.9 fl 09/09/17 05:25 Neutrophils % 69.5 % (40.0-80.0) 09/09/17 05:25 Lymphocytes % 14.2 % (20.0-50.0) L 09/09/17 05:25 Monocytes % 9.9 % (2.0-10.0) 09/09/17 05:25 Eosinophils % 6.2 % (0.0-5.0) H 09/09/17 05:25 Basophils % 0.2 % (0.0-2.0) 09/09/17 05:25 Sodium 133 mEq/L (136-145) L 09/09/17 05:25 Potassium 3.8 mEq/L (3.5-5.1) 09/09/17 05:25 Chloride 95 mEq/L (98-107) L 09/09/17 05:25 Carbon Dioxide 31.2 mEq/L (21.0-31.0) H 09/09/17 05:25 Anion Gap 10.6 (7.0-16.0) 09/09/17 05:25 BUN 43 mg/dL (7-25) H 09/09/17 05:25 Creatinine 3.9 mg/dL (0.7-1.3) H 09/09/17 05:25 Est GFR ( Amer) TNP 09/09/17 05:25 Est GFR (Non-Af Amer) TNP 09/09/17 05:25 BUN/Creatinine Ratio 11.0 09/09/17 05:25 Glucose 122 mg/dL 09/09/17 05:25 Whole Bld Lactic Acid 1.05 mmol/L (0.60-1.99) 09/07/17 20:50 Calcium 9.7 mg/dL (8.6-10.3) 09/09/17 05:25 Total Bilirubin 0.3 mg/dL (0.3-1.0) 09/07/17 20:50 AST 12 U/L (13-39) L 09/07/17 20:50 ALT 9 U/L (7-52) 09/07/17 20:50 Alkaline Phosphatase 62 U/L (34-104) 09/07/17 20:50 Total Protein 8.7 gm/dL (6.0-8.3) H 09/07/17 20:50 Albumin 3.3 gm/dL (4.2-5.5) L 09/07/17 20:50 Globulin 5.4 gm/dL 09/07/17 20:50 Albumin/Globulin Ratio 0.6 (1.0-1.8) L 09/07/17 20:50 Random Vancomycin 13.8 ug/mL (5.0-40.0) 09/09/17 05:25 - Physical Exam Vitals and I&O: Vital Signs Temp 97.4 F 09/09/17 04:00 Pulse 94 09/09/17 07:57 Resp 20 09/09/17 07:57 BP 126/62 09/09/17 04:00 Pulse Ox 98 09/09/17 07:57 Intake & Output 09/08/17 09/09/17 09/09/17 18:59 06:59 18:59 Intake Total 150 460 Balance 150 460 Weight (lbs) 58.06 kg Intake: Intake, IV Amount 150 100 Piperacillin Sodium/ 150 100 Tazobact 2.25 gm In Sodium Chloride 0.9% 50 ml @ 100 mls/hr IV Q6HR [facility] Rx#:[id number] Oral 0 Tube Feeding 360 Other: # Voids 0 # Bowel Movements 1 Stool Characteristics Liquid Liquid Black Black Active Medications: Current Medications Acetaminophen (Tylenol 650mg/20.3ml Suspension) 650 mg GT Q4HR PRN PRN Reason: Pain (Mild) Acetaminophen/Hydrocodone Bitart ([place] 5mg/325mg) 1 tab PO Q6HR PRN PRN Reason: Pain (Severe) Stop: 11/07/17 07:15 Al Hydrox/Mg Hydrox/Simethicone (Maalox) 30 ml GT Q6HR PRN PRN Reason: Heartburn Stop: 11/07/17 07:15 Albuterol Sulfate (Albuterol 2.5mg/3ml Neb Ud) 2.5 mg HHN Q4HRT PRN PRN Reason: sob/wheezing Stop: 11/07/17 07:15 Last Admin: 09/09/17 07:18 Dose: 2.5 mg Amlodipine Besylate (Norvasc) 5 mg GT DAILY [facility]Y Stop: 11/07/17 08:59 Last Admin: 09/08/17 09:00 Dose: 5 mg Aspirin (Aspirin) 325 mg GT DAILY [facility] Stop: 11/07/17 08:59 Last Admin: 09/08/17 09:00 Dose: 325 mg Bisacodyl (Dulcolax 10 Mg Supp) 10 mg RC DAILY PRN PRN Reason: IF MOM INEFFECTIVE Stop: 11/07/17 07:15 Digoxin (Lanoxin) 0.125 mg PO Q48HR RUY Stop: 11/07/17 08:59 Last Admin: 09/08/17 09:00 Dose: 0.125 mg Famotidine (Pepcid) 20 mg GT DAILY [facility] Stop: 11/07/17 08:59 Last Admin: 09/08/17 09:00 Dose: 20 mg Ferrous Sulfate (Iron) 450 mg GT DAILY [facility] Stop: 11/07/17 08:59 Last Admin: 09/08/17 08:59 Dose: 450 mg Folic Acid (Folate) 1 mg GT DAILY [facility] Stop: 11/07/17 08:59 Last Admin: 09/08/17 09:00 Dose: 1 mg Piperacillin Sod/Tazobactam (Sod 2.25 gm/ Sodium Chloride) 50 mls @ 100 mls/hr IV Q6HR [facility] Stop: 11/07/17 07:59 Last Infusion: 09/09/17 06:22 Dose: Infused Albumin Human (Albuminar 25%) 25 gm in 100 mls @ 50 mls/hr IV PRN PRN PRN Reason: BP Support During HD Vancomycin HCl 1 gm/ Sodium (Chloride) 250 mls @ 165 mls/hr IV ONCE ONE Stop: 09/09/17 10:00 Levetiracetam (Keppra) 750 mg GT DAILY [facility] Stop: 11/07/17 08:59 Last Admin: 09/08/17 08:59 Dose: 750 mg Magnesium Hydroxide (Milk Of Magnesia) 30 ml GT HS PRN PRN Reason: Constipation Stop: 11/07/17 07:15 Miscellaneous (Vancomycin Iv Per Pharmacy) 1 ea DAILY [facility] Stop: 11/07/17 08:59 Miscellaneous (Zosyn Iv Per Pharmacy) 1 [facility] DAILY [facility] Stop: 11/07/17 08:59 Ondansetron HCl (Zofran Odt) 4 mg SL Q6H PRN PRN Reason: Nausea / Vomiting Polyethylene Glycol (Miralax) 17 gm GT DAILY [facility] Stop: 11/07/17 08:59 Last Admin: 09/08/17 08:59 Dose: 17 gm Potassium Chloride (Potassium Chloride Elixir) 20 meq GT DAILY [facility] Stop: 11/07/17 08:59 Last Admin: 09/08/17 08:59 Dose: 20 meq Senna (Senna) 17.2 mg GT DAILY [facility] Stop: 11/07/17 08:59 Last Admin: 09/08/17 09:00 Dose: 17.2 mg Sodium Phosphate (Fleet Enema) 135 ml RC DAILY PRN PRN Reason: IF DULCOLAX INEFFECTIVE Stop: 11/07/17 07:15 Vitamin B Complex/Vit C/Folic Acid (Vitamin B Complex W/Vitamin C) 1 tab GT DAILY [facility] Stop: 11/07/17 08:59 Last Admin: 09/08/17 08:59 Dose: 1 tab General: No acute distress HEENT: Atraumatic, PERRLA Neck: Supple, JVD Cardiovascular: Regular rate, Normal S1 Lungs: Other (rhonchi ) - Procedures Procedures: Procedures Procedure Code Date FLUOROSCOPY OF SUP VENA CAVA USING H OSM CONTRAST, GUIDANCE [id number] 11/11/16 INSERT TUNNELED CV CATH 27789 11/11/16 INSERTION OF INFUSION DEV INTO L SUBCLAV VEIN, PERC APPROACH [id number] 11/11/16 INSERTION OF INFUSION DEV INTO SUP VENA CAVA, PERC APPROACH 32RY91C 11/11/16 PERFORMANCE OF URINARY FILTRATION, MULTIPLE [id number] 11/11/[address] PL[address] CATHETER IN VEIN 55700 11/11/16 REMOVAL OF INFUSION DEVICE FROM UPPER VEIN, FLOOR DIRECTOR APPROACH [id number] 11/11/16 TRANSFUSE NONAUT RED BLOOD CELLS IN PERIPH VEIN, PERC 91103P5 11/11/16 ULTRASONOGRAPHY OF LEFT SUBCLAVIAN VEIN, GUIDANCE [id number] 11/11/16 Assessment/Plan - Problem List Patient Problems: All Active Problems H/O chronic renal failure syndrome (Acute) Z87.448 H/O: HTN (hypertension) (Acute) Z86.79 Respiratory failure (Acute) J96.90 Right lower lobe pneumonia (Acute) J18.9 h/o anemia (Acute) s/p g tube (Acute) - Plan Plan: cpm Nutritional Asmnt/Malnutr-PDOC - Dietary Evaluation Malnutrition Findings (Please click <Entered> for more info): Nutritional Asmnt/Malnutrition Start: 09/08/17 10: 42 Text: Status: Active Freq: Document 09/08/17 10:42 BERENICE (Rec: 09/08/17 10:50 BERENICE [email or web address]) Nutritional Asmnt/Malnutrition Patient General Information Nutritional Screening High Risk Consult Diagnosis [place] Pertinent Medical Hx/Surgical Hx HTN, ESRD on dialysis, pneumonia, anemia, dementia, PEG/GTube Subjective Information Pt is non-verbal noted. At the time of visit, TF is running at 40ml/hr x 20hrs daily. Spoke with NAVARRO Pinon, pt is tolerating well, no residual. Performed physical exam, no fat/muscle wasting on arms, mild muscle wasting on chest. Pt from SNF Current Diet Order/ Nutrition Support Novasource Renal 40ml/hr x 20hrs with water flush 150ml q6hr daily Pertinent Medications Iron, Folate, Miralax, Senna, Viatin B, Vitamin C Pertinent Labs 09/08: Na 127L, Cl 91L, BUN 85H , Cr 5.9H, Glu 107 09/07: AST 12L, ALT 9, Alb 3.3L Nutritional Hx/Data Height 1.68 m Height (Calculated Centimeters) 167.6 Current Weight (lbs) 58.06 kg Weight (Calculated Kilograms) 58.1 Weight (Calculated Grams) 73463.8 [place] Body Weight 142 % [place] Body Weight 90 Body Mass Index (BMI) 20.6 Weight Status Approriate GI Symptoms Food Allergies No Skin Integrity/Comment: intact Estimated Nutritional Goals BEE in Kcals: Using Current wt Calories/Kcals/Kg 25-30 Kcals Calculated 8018-8495 Protein: Using Current wt Protein g/k.2-1.4 Protein Calculated 70-81 Fluid: ml Per MD d/t ESRD on dialysis Nutritional Problem 2. Problem Problem Altered nutrition related lab values Etiology dx of ESRD Signs/Symptoms: BUN 85, Cr 5.9 1. Problem Problem Increased protein needs Etiology protein needs for dialysis Signs/Symptoms: protein needs 70-81g/day Malnutrition Alert Protein-Calorie Malnutrition N/A Is there a minimum of two criteria No selected? Query Text:Check all the applicable criteria. A minimum of two criteria are recommended for diagnosis of either severe or non-severe malnutrition. Intervention/Recommendation Comments 1. Continue current TF regimen , it provides 1600kcal and 73g pro, meeting 100% of nutritional needs. 2. Continue prosource 1pk/day per MD to increase protein intake 3. Monitor labs, wt weekly, TF tolerance and residual. 4. F/U as high risk in 2-3 days, 09/10-09/11 Expected Outcomes/Goals Expected Outcomes/Goals 1. Pt to meet 100% of nutritional needs with tolerance 2. wt stability 3. labs to improve 4. skin to remain intact
[2017-09-09] MEDS: Multivitamin w/ Minerals Tab GT SCH (10:44)
[2017-09-09] MEDS: Vitamin B Complex w/Vitamin C Tab GT SCH (10:44)
[2017-09-09] MEDS: Ferrous Sulfate 300 MG/5 ML UDC GT SCH (10:50)
[2017-09-09] MEDS: Levetiracetam 500 mg/5mL 5mL UDC GT SCH (10:52)
[2017-09-09] MEDS: POLYETHYLENE GLYCOL 3350 17 GM PACK GT SCH (10:53)
[2017-09-09] MEDS: Potassium Chloride Elixir 20 mEq /15 mL UDC GT SCH (10:55)
[2017-09-09 11:17] LABS: HEP B CORE IGM Negative (Negative)
--- NOTE | 2017-09-09 13:41 | Infectious Disease Prog Note ---
Infectious Disease Subjective - Review of Systems Service Date: 09/09/17 Subjective: No new change. Infectious Disease Objective - Results Result Diagrams: 09/09/17 05:25 09/09/17 05:25 Recent Labs: Laboratory Last Values WBC 10.6 Th/cmm (4.8-10.8) 09/09/17 05:25 RBC 3.15 Mil/cmm (3.80-5.80) L 09/09/17 05:25 Hgb 9.7 gm/dL (12-16) L 09/09/17 05:25 Hct 29.8 % (41.0-60) L D 09/09/17 05:25 MCV 94.5 fl (80-99) 09/09/17 05:25 MCH 30.7 pg (27.0-31.0) 09/09/17 05:25 MCHC Differential 32.5 pg (28.0-36.0) 09/09/17 05:25 RDW 17.4 % (11.5-20.0) 09/09/17 05:25 Plt Count 399 Th/cmm (150-400) 09/09/17 05:25 MPV 7.9 fl 09/09/17 05:25 Neutrophils % 69.5 % (40.0-80.0) 09/09/17 05:25 Lymphocytes % 14.2 % (20.0-50.0) L 09/09/17 05:25 Monocytes % 9.9 % (2.0-10.0) 09/09/17 05:25 Eosinophils % 6.2 % (0.0-5.0) H 09/09/17 05:25 Basophils % 0.2 % (0.0-2.0) 09/09/17 05:25 Sodium 133 mEq/L (136-145) L 09/09/17 05:25 Potassium 3.8 mEq/L (3.5-5.1) 09/09/17 05:25 Chloride 95 mEq/L (98-107) L 09/09/17 05:25 Carbon Dioxide 31.2 mEq/L (21.0-31.0) H 09/09/17 05:25 Anion Gap 10.6 (7.0-16.0) 09/09/17 05:25 BUN 43 mg/dL (7-25) H 09/09/17 05:25 Creatinine 3.9 mg/dL (0.7-1.3) H 09/09/17 05:25 Est GFR ( Amer) TNP 09/09/17 05:25 Est GFR (Non-Af Amer) TNP 09/09/17 05:25 BUN/Creatinine Ratio 11.0 09/09/17 05:25 Glucose 122 mg/dL 09/09/17 05:25 Whole Bld Lactic Acid 1.05 mmol/L (0.60-1.99) 09/07/17 20:50 Calcium 9.7 mg/dL (8.6-10.3) 09/09/17 05:25 Total Bilirubin 0.3 mg/dL (0.3-1.0) 09/07/17 20:50 AST 12 U/L (13-39) L 09/07/17 20:50 ALT 9 U/L (7-52) 09/07/17 20:50 Alkaline Phosphatase 62 U/L (34-104) 09/07/17 20:50 Total Protein 8.7 gm/dL (6.0-8.3) H 09/07/17 20:50 Albumin 3.3 gm/dL (4.2-5.5) L 09/07/17 20:50 Globulin 5.4 gm/dL 09/07/17 20:50 Albumin/Globulin Ratio 0.6 (1.0-1.8) L 09/07/17 20:50 Random Vancomycin 13.8 ug/mL (5.0-40.0) 09/09/17 05:25 Hepatitis A IgM Ab Negative (Negative) 09/08/17 05:45 Hep Bs Antigen Negative (Negative) 09/08/17 05:45 Hep B Core IgM Ab Negative (Negative) 09/08/17 05:45 Hepatitis C Antibody 0.1 s/co ratio (0.0-0.9) 09/08/17 05:45 - Physical Exam Vitals and I&O: Vital Signs Temp 97.4 F 09/09/17 04:00 Pulse 94 09/09/17 10:51 Resp 20 09/09/17 07:57 BP 126/62 09/09/17 10:51 Pulse Ox 98 09/09/17 07:57 Intake & Output 11/05/1809/09/17 09/09/17 18:59 06:59 18:59 Intake Total 150 460 44 Balance 150 460 44 Weight (lbs) 58.06 kg Intake: Intake, IV Amount 150 100 44 Piperacillin Sodium/ 150 100 Tazobact 2.25 gm In Sodium Chloride 0.9% 50 ml @ 100 mls/hr IV Q6HR [facility] Rx#:[id number] Vancomycin HCl 1 gm In 44 Sodium Chloride 0.9% 250 ml @ 165 mls/hr IV ONCE ONE Rx#:[id number] Oral 0 Tube Feeding 360 Other: # Voids 0 # Bowel Movements 1 Stool Characteristics Liquid Liquid Black Black Active Medications: Current Medications Acetaminophen (Tylenol 650mg/20.3ml Suspension) 650 mg GT Q4HR PRN PRN Reason: Pain (Mild) Acetaminophen/Hydrocodone Bitart ([place] 5mg/325mg) 1 tab PO Q6HR PRN PRN Reason: Pain (Severe) Stop: 11/07/17 07:15 Al Hydrox/Mg Hydrox/Simethicone (Maalox) 30 ml GT Q6HR PRN PRN Reason: Heartburn Stop: 11/07/17 07:15 Albuterol Sulfate (Albuterol 2.5mg/3ml Neb Ud) 2.5 mg HHN Q4HRT PRN PRN Reason: sob/wheezing Stop: 11/07/17 07:15 Last Admin: 09/09/17 07:18 Dose: 2.5 mg Amlodipine Besylate (Norvasc) 5 mg GT DAILY [facility] Stop: 11/07/17 08:59 Last Admin: 09/09/17 10:51 Dose: 5 mg Aspirin (Aspirin) 325 mg GT DAILY [facility] Stop: 11/07/17 08:59 Last Admin: 09/09/17 10:45 Dose: 325 mg Bisacodyl (Dulcolax 10 Mg Supp) 10 mg RC DAILY PRN PRN Reason: IF MOM INEFFECTIVE Stop: 11/07/17 07:15 Digoxin (Lanoxin) 0.125 mg PO Q48HR [facility] Stop: 11/07/17 08:59 Last Admin: 09/08/17 09:00 Dose: 0.125 mg Famotidine (Pepcid) 20 mg GT DAILY [facility] Stop: 11/07/17 08:59 Last Admin: 09/09/17 10:44 Dose: 20 mg Ferrous Sulfate (Iron) 450 mg GT DAILY [facility] Stop: 11/07/17 08:59 Last Admin: 09/09/17 10:50 Dose: 300 mg Folic Acid (Folate) 1 mg GT DAILY [facility] Stop: 11/07/17 08:59 Last Admin: 09/09/17 10:43 Dose: 1 mg Piperacillin Sod/Tazobactam (Sod 2.25 gm/ Sodium Chloride) 50 mls @ 100 mls/hr IV Q6HR [facility] Stop: 11/07/17 07:59 Last Admin: 09/09/17 13:37 Dose: 100 mls/hr Albumin Human (Albuminar 25%) 25 gm in 100 mls @ 50 mls/hr IV PRN PRN PRN Reason: BP Support During HD Levetiracetam (Keppra) 750 mg GT DAILY [facility] Stop: 11/07/17 08:59 Last Admin: 09/09/17 10:52 Dose: 750 mg Magnesium Hydroxide (Milk Of Magnesia) 30 ml GT HS PRN PRN Reason: Constipation Stop: 11/07/17 07:15 Miscellaneous (Vancomycin Iv Per Pharmacy) 1 ea MC DAILY [facility] Stop: 11/07/17 08:59 Miscellaneous (Zosyn Iv Per Pharmacy) 1 ea MC DAILY [facility] Stop: 11/07/17 08:59 Last Admin: 09/09/17 13:39 Dose: 1 ea Ondansetron HCl (Zofran Odt) 4 mg SL Q6H PRN PRN Reason: Nausea / Vomiting Polyethylene Glycol (Miralax) 17 gm GT DAILY [facility] Stop: 11/07/17 08:59 Last Admin: 09/09/17 10:53 Dose: 17 gm Potassium Chloride (Potassium Chloride Elixir) 20 meq GT DAILY [facility] Stop: 11/07/17 08:59 Last Admin: 09/09/17 10:55 Dose: 20 meq Senna (Senna) 17.2 mg GT DAILY [facility] Stop: 11/07/17 08:59 Last Admin: 09/09/17 13:39 Dose: 17.2 mg Sodium Phosphate (Fleet Enema) 135 ml RC DAILY PRN PRN Reason: IF DULCOLAX INEFFECTIVE Stop: 11/07/17 07:15 Vitamin B Complex/Vit C/Folic Acid (Vitamin B Complex W/Vitamin C) 1 tab GT DAILY [facility] Stop: 11/07/17 08:59 Last Admin: 09/09/17 10:44 Dose: 1 tab General: no acute distress, well developed, well nourished HEENT: atraumatic, normocephalic, PERRLA, EOMI, moist mucous membrane Neck: supple, other (tracheostoma.), no thyromegaly, no lymphadenopathy Cardiovascular: S1S2, regular Lungs: clear to auscultation bilaterally, clear to percussion, crackles Abdomen: soft, no tender, no distended Extremities: no cyanosis, no clubbing, no edema Neurological: awake, alert - Procedures Procedures: Procedures Procedure Code Date FLUOROSCOPY OF SUP VENA CAVA USING H OSM CONTRAST, GUIDANCE M9521AH 11/11/16 INSERT TUNNELED CV CATH 84604 11/11/16 INSERTION OF INFUSION DEV INTO L SUBCLAV VEIN, PERC APPROACH [id number] 11/11/16 INSERTION OF INFUSION DEV INTO SUP VENA CAVA, PERC APPROACH [id number] 11/11/16 PERFORMANCE OF URINARY FILTRATION, MULTIPLE [id number] 11/11/[address] PL[address] CATHETER IN VEIN [address] 11/11/16 REMOVAL OF INFUSION DEVICE FROM UPPER VEIN, INTERNATIONAL RECRUITER APPROACH 72SSD1V 11/11/16 TRANSFUSE NONAUT RED BLOOD CELLS IN PERIPH VEIN, PERC 04905C7 11/11/16 ULTRASONOGRAPHY OF LEFT SUBCLAVIAN VEIN, GUIDANCE [id number] 11/11/16 Infectious Disease Assmt/Plan - Problem List Patient Problems: All Active Problems H/O chronic renal failure syndrome (Acute) Z87.448 H/O: HTN (hypertension) (Acute) Z86.79 Respiratory failure (Acute) J96.90 Right lower lobe pneumonia (Acute) J18.9 h/o anemia (Acute) s/p g tube (Acute) - Assessment Assessment: 1. Pneumonia. Likely, aspiration pneumonia. 2. History of vent dependent respiratory failure. Currently on room air. 3. Leukocytosis. 4. Hypertension. 5. 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 - Plan Plan: Will continue the same treatment. Nutritional Asmnt/Malnutr-PDOC - Dietary Evaluation Malnutrition Findings (Please click <Entered> for more info): Nutritional Asmnt/Malnutrition Start: 09/08/17 10: 42 Text: Status: Active Freq: Document 09/08/17 10:42 LOWELLG (Rec: 09/08/17 10:50 LCHENG [email or web address]) Nutritional Asmnt/Malnutrition Patient General Information Nutritional Screening High Risk Consult Diagnosis [place] Pertinent Medical Hx/Surgical Hx HTN, ESRD on dialysis, pneumonia, anemia, dementia, PEG/GTube Subjective Information Pt is non-verbal noted. At the time of visit, TF is running at 40ml/hr x 20hrs daily. Spoke with NAVARRO Pinon, pt is tolerating well, no residual. Performed physical exam, no fat/muscle wasting on arms, mild muscle wasting on chest. Pt from SNF Current Diet Order/ Nutrition Support Novasource Renal 40ml/hr x 20hrs with water flush 150ml q6hr daily Pertinent Medications Iron, Folate, Miralax, Senna, Viatin B, Vitamin C Pertinent Labs 09/08: Na 127L, Cl 91L, BUN 85H , Cr 5.9H, Glu 107 09/07: AST 12L, ALT 9, Alb 3.3L Nutritional Hx/Data Height 1.68 m Height (Calculated Centimeters) 167.6 Current Weight (lbs) 58.06 kg Weight (Calculated Kilograms) 58.1 Weight (Calculated Grams) 91934.8 [place] Body Weight 142 % [place] Body Weight 90 Body Mass Index (BMI) 20.6 Weight Status Approriate GI Symptoms Food Allergies No Skin Integrity/Comment: intact Estimated Nutritional Goals BEE in Kcals: Using Current wt Calories/Kcals/Kg 25-30 Kcals Calculated 3495-5535 Protein: Using Current wt Protein g/k.2-1.4 Protein Calculated 70-81 Fluid: ml Per MD d/t ESRD on dialysis Nutritional Problem 2. Problem Problem Altered nutrition related lab values Etiology dx of ESRD Signs/Symptoms: BUN 85, Cr 5.9 1. Problem Problem Increased protein needs Etiology protein needs for dialysis Signs/Symptoms: protein needs 70-81g/day Malnutrition Alert Protein-Calorie Malnutrition N/A Is there a minimum of two criteria No selected? Query Text:Check all the applicable criteria. A minimum of two criteria are recommended for diagnosis of either severe or non-severe malnutrition. Intervention/Recommendation Comments 1. Continue current TF regimen , it provides 1600kcal and 73g pro, meeting 100% of nutritional needs. 2. Continue prosource 1pk/day per MD to increase protein intake 3. Monitor labs, wt weekly, TF tolerance and residual. 4. F/U as high risk in 2-3 days, 09/10-09/11 Expected Outcomes/Goals Expected Outcomes/Goals 1. Pt to meet 100% of nutritional needs with tolerance 2. wt stability 3. labs to improve 4. skin to remain intact
--- NOTE | 2017-09-09 15:26 | General Progress Note ---
Subjective - Review of Systems Service Date: 09/09/17 Subjective: sleeping but arousable Objective - Results Result Diagrams: 09/09/17 05:25 09/09/17 05:25 Recent Labs: Laboratory Last Values WBC 10.6 Th/cmm (4.8-10.8) 09/09/17 05:25 RBC 3.15 Mil/cmm (3.80-5.80) L 09/09/17 05:25 Hgb 9.7 gm/dL (12-16) L 09/09/17 05:25 Hct 29.8 % (41.0-60) L D 09/09/17 05:25 MCV 94.5 fl (80-99) 09/09/17 05:25 MCH 30.7 pg (27.0-31.0) 09/09/17 05:25 MCHC Differential 32.5 pg (28.0-36.0) 09/09/17 05:25 RDW 17.4 % (11.5-20.0) 09/09/17 05:25 Plt Count 399 Th/cmm (150-400) 09/09/17 05:25 MPV 7.9 fl 09/09/17 05:25 Neutrophils % 69.5 % (40.0-80.0) 09/09/17 05:25 Lymphocytes % 14.2 % (20.0-50.0) L 09/09/17 05:25 Monocytes % 9.9 % (2.0-10.0) 09/09/17 05:25 Eosinophils % 6.2 % (0.0-5.0) H 09/09/17 05:25 Basophils % 0.2 % (0.0-2.0) 09/09/17 05:25 Sodium 133 mEq/L (136-145) L 09/09/17 05:25 Potassium 3.8 mEq/L (3.5-5.1) 09/09/17 05:25 Chloride 95 mEq/L (98-107) L 09/09/17 05:25 Carbon Dioxide 31.2 mEq/L (21.0-31.0) H 09/09/17 05:25 Anion Gap 10.6 (7.0-16.0) 09/09/17 05:25 BUN 43 mg/dL (7-25) H 09/09/17 05:25 Creatinine 3.9 mg/dL (0.7-1.3) H 09/09/17 05:25 Est GFR ( Amer) TNP 09/09/17 05:25 Est GFR (Non-Af Amer) TNP 09/09/17 05:25 BUN/Creatinine Ratio 11.0 09/09/17 05:25 Glucose 122 mg/dL 09/09/17 05:25 Whole Bld Lactic Acid 1.05 mmol/L (0.60-1.99) 09/07/17 20:50 Calcium 9.7 mg/dL (8.6-10.3) 09/09/17 05:25 Total Bilirubin 0.3 mg/dL (0.3-1.0) 09/07/17 20:50 AST 12 U/L (13-39) L 09/07/17 20:50 ALT 9 U/L (7-52) 09/07/17 20:50 Alkaline Phosphatase 62 U/L (34-104) 09/07/17 20:50 Total Protein 8.7 gm/dL (6.0-8.3) H 09/07/17 20:50 Albumin 3.3 gm/dL (4.2-5.5) L 09/07/17 20:50 Globulin 5.4 gm/dL 09/07/17 20:50 Albumin/Globulin Ratio 0.6 (1.0-1.8) L 09/07/17 20:50 Random Vancomycin 13.8 ug/mL (5.0-40.0) 09/09/17 05:25 Hepatitis A IgM Ab Negative (Negative) 09/08/17 05:45 Hep Bs Antigen Negative (Negative) 09/08/17 05:45 Hep B Core IgM Ab Negative (Negative) 09/08/17 05:45 Hepatitis C Antibody 0.1 s/co ratio (0.0-0.9) 09/08/17 05:45 - Physical Exam Vitals and I&O: Vital Signs Temp 97.4 F 09/09/17 04:00 Pulse 94 09/09/17 10:51 Resp 20 09/09/17 07:57 BP 126/62 09/09/17 10:51 Pulse Ox 98 09/09/17 07:57 Intake & Output 09/08/17 09/09/17 09/09/17 18:59 06:59 18:59 Intake Total 150 460 44 Balance 150 460 44 Weight (lbs) 58.06 kg Intake: Intake, IV Amount 150 100 44 Piperacillin Sodium/ 150 100 Tazobact 2.25 gm In Sodium Chloride 0.9% 50 ml @ 100 mls/hr IV Q6HR [facility] Rx#:[id number] Vancomycin HCl 1 gm In 44 Sodium Chloride 0.9% 250 ml @ 165 mls/hr IV ONCE ONE Rx#:[id number] Oral 0 Tube Feeding 360 Other: # Voids 0 # Bowel Movements 1 Stool Characteristics Liquid Liquid Black Black Active Medications: Current Medications Acetaminophen (Tylenol 650mg/20.3ml Suspension) 650 mg GT Q4HR PRN PRN Reason: Pain (Mild) Acetaminophen/Hydrocodone Bitart (Ridge 5mg/325mg) 1 tab PO Q6HR PRN PRN Reason: Pain (Severe) Stop: 11/07/17 07:15 Al Hydrox/Mg Hydrox/Simethicone (Maalox) 30 ml GT Q6HR PRN PRN Reason: Heartburn Stop: 11/07/17 07:15 Albuterol Sulfate (Albuterol 2.5mg/3ml Neb Ud) 2.5 mg HHN Q4HRT PRN PRN Reason: sob/wheezing Stop: 11/07/17 07:15 Last Admin: 09/09/17 07:18 Dose: 2.5 mg Amlodipine Besylate (Norvasc) 5 mg GT DAILY [facility] Stop: 11/07/17 08:59 Last Admin: 09/09/17 10:51 Dose: 5 mg Aspirin (Aspirin) 325 mg GT DAILY [facility] Stop: 11/07/17 08:59 Last Admin: 09/09/17 10:45 Dose: 325 mg Bisacodyl (Dulcolax 10 Mg Supp) 10 mg RC DAILY PRN PRN Reason: IF MOM INEFFECTIVE Stop: 11/07/17 07:15 Digoxin (Lanoxin) 0.125 mg PO Q48HR [facility] Stop: 11/07/17 08:59 Last Admin: 09/08/17 09:00 Dose: 0.125 mg Famotidine (Pepcid) 20 mg GT DAILY [facility] Stop: 11/07/17 08:59 Last Admin: 09/09/17 10:44 Dose: 20 mg Ferrous Sulfate (Iron) 450 mg GT DAILY [facility] Stop: 11/07/17 08:59 Last Admin: 09/09/17 10:50 Dose: 300 mg Folic Acid (Folate) 1 mg GT DAILY [facility] Stop: 11/07/17 08:59 Last Admin: 09/09/17 10:43 Dose: 1 mg Piperacillin Sod/Tazobactam (Sod 2.25 gm/ Sodium Chloride) 50 mls @ 100 mls/hr IV Q6HR [facility] Stop: 11/07/17 07:59 Last Admin: 09/09/17 13:37 Dose: 100 mls/hr Albumin Human (Albuminar 25%) 25 gm in 100 mls @ 50 mls/hr IV PRN PRN PRN Reason: BP Support During HD Levetiracetam (Keppra) 750 mg GT DAILY [facility] Stop: 11/07/17 08:59 Last Admin: 09/09/17 10:52 Dose: 750 mg Magnesium Hydroxide (Milk Of Magnesia) 30 ml GT HS PRN PRN Reason: Constipation Stop: 11/07/17 07:15 Miscellaneous (Vancomycin Iv Per Pharmacy) 1 ea MC DAILY [facility] Stop: 11/07/17 08:59 Miscellaneous (Zosyn Iv Per Pharmacy) 1 ea MC DAILY [facility] Stop: 11/07/17 08:59 Last Admin: 09/09/17 13:39 Dose: 1 ea Ondansetron HCl (Zofran Odt) 4 mg SL Q6H PRN PRN Reason: Nausea / Vomiting Polyethylene Glycol (Miralax) 17 gm GT DAILY [facility] Stop: 11/07/17 08:59 Last Admin: 09/09/17 10:53 Dose: 17 gm Potassium Chloride (Potassium Chloride Elixir) 20 meq GT DAILY [facility] Stop: 11/07/17 08:59 Last Admin: 09/09/17 10:55 Dose: 20 meq Senna (Senna) 17.2 mg GT DAILY [facility] Stop: 11/07/17 08:59 Last Admin: 09/09/17 13:39 Dose: 17.2 mg Sodium Phosphate (Fleet Enema) 135 ml RC DAILY PRN PRN Reason: IF DULCOLAX INEFFECTIVE Stop: 11/07/17 07:15 Vitamin B Complex/Vit C/Folic Acid (Vitamin B Complex W/Vitamin C) 1 tab GT DAILY [facility] Stop: 11/07/17 08:59 Last Admin: 09/09/17 10:44 Dose: 1 tab General: Alert, No acute distress HEENT: Atraumatic, PERRLA Neck: Supple, JVD, +2 carotid pulse wo bruit Cardiovascular: Regular rate, Normal S1, Normal S2 Lungs: Other (rhonchi ) Abdomen: Bowel sounds, Soft Extremities: no Edema Neurological: Sensation intact Skin: no Rash Psych/Mental Status: Mood NL - Procedures Procedures: Procedures Procedure Code Date FLUOROSCOPY OF SUP VENA CAVA USING H OSM CONTRAST, GUIDANCE M4050PM 11/11/16 INSERT TUNNELED CV CATH 69169 11/11/16 INSERTION OF INFUSION DEV INTO L SUBCLAV VEIN, PERC APPROACH [id number] 11/11/16 INSERTION OF INFUSION DEV INTO SUP VENA CAVA, PERC APPROACH [id number] 11/11/16 PERFORMANCE OF URINARY FILTRATION, MULTIPLE 8H0Z03S 11/11/[address] PL[address] CATHETER IN VEIN [address]221 11/11/16 REMOVAL OF INFUSION DEVICE FROM UPPER VEIN, ORDNANCE OFFICER APPROACH [id number] 11/11/16 TRANSFUSE NONAUT RED BLOOD CELLS IN PERIPH VEIN, PERC 25282R8 11/11/16 ULTRASONOGRAPHY OF LEFT SUBCLAVIAN VEIN, GUIDANCE [id number] 11/11/16 Assessment/Plan - Problem List Patient Problems: All Active Problems H/O chronic renal failure syndrome (Acute) Z87.448 H/O: HTN (hypertension) (Acute) Z86.79 Respiratory failure (Acute) J96.90 Right lower lobe pneumonia (Acute) J18.9 h/o anemia (Acute) s/p g tube (Acute) - Assessment Assessment: ESRD on HD Right sided HAP Mod Malnutrition GERD Dementia w/o orion. disturbance S/P CVA Left hemiplegia - Plan Plan: Lab - Result Diagrams 09/09/17 05:25 09/09/17 05:25 Current Medications Acetaminophen (Tylenol 650mg/20.3ml Suspension) 650 mg GT Q4HR PRN PRN Reason: Pain (Mild) Acetaminophen/Hydrocodone Bitart (Ridge 5mg/325mg) 1 tab PO Q6HR PRN PRN Reason: Pain (Severe) Stop: 11/07/17 07:15 Al Hydrox/Mg Hydrox/Simethicone (Maalox) 30 ml GT Q6HR PRN PRN Reason: Heartburn Stop: 11/07/17 07:15 Albuterol Sulfate (Albuterol 2.5mg/3ml Neb Ud) 2.5 mg HHN Q4HRT PRN PRN Reason: sob/wheezing Stop: 11/07/17 07:15 Last Admin: 09/09/17 07:18 Dose: 2.5 mg Amlodipine Besylate (Norvasc) 5 mg GT DAILY [facility] Stop: 11/07/17 08:59 Last Admin: 09/09/17 10:51 Dose: 5 mg Aspirin (Aspirin) 325 mg GT DAILY [facility] Stop: 11/07/17 08:59 Last Admin: 09/09/17 10:45 Dose: 325 mg Bisacodyl (Dulcolax 10 Mg Supp) 10 mg RC DAILY PRN PRN Reason: IF MOM INEFFECTIVE Stop: 11/07/17 07:15 Digoxin (Lanoxin) 0.125 mg PO Q48HR [facility] Stop: 11/07/17 08:59 Last Admin: 09/08/17 09:00 Dose: 0.125 mg Famotidine (Pepcid) 20 mg GT DAILY [facility] Stop: 11/07/17 08:59 Last Admin: 09/09/17 10:44 Dose: 20 mg Ferrous Sulfate (Iron) 450 mg GT DAILY [facility] Stop: 11/07/17 08:59 Last Admin: 09/09/17 10:50 Dose: 300 mg Folic Acid (Folate) 1 mg GT DAILY [facility] Stop: 11/07/17 08:59 Last Admin: 09/09/17 10:43 Dose: 1 mg Piperacillin Sod/Tazobactam (Sod 2.25 gm/ Sodium Chloride) 50 mls @ 100 mls/hr IV Q6HR [facility] Stop: 11/07/17 07:59 Last Admin: 09/09/17 13:37 Dose: 100 mls/hr Albumin Human (Albuminar 25%) 25 gm in 100 mls @ 50 mls/hr IV PRN PRN PRN Reason: BP Support During HD Levetiracetam (Keppra) 750 mg GT DAILY [facility] Stop: 11/07/17 08:59 Last Admin: 09/09/17 10:52 Dose: 750 mg Magnesium Hydroxide (Milk Of Magnesia) 30 ml GT HS PRN PRN Reason: Constipation Stop: 11/07/17 07:15 Miscellaneous (Vancomycin Iv Per Pharmacy) 1 ea MC DAILY [facility] Stop: 11/07/17 08:59 Miscellaneous (Zosyn Iv Per Pharmacy) 1 ea MC DAILY [facility] Stop: 11/07/17 08:59 Last Admin: 09/09/17 13:39 Dose: 1 ea Ondansetron HCl (Zofran Odt) 4 mg SL Q6H PRN PRN Reason: Nausea / Vomiting Polyethylene Glycol (Miralax) 17 gm GT DAILY [facility] Stop: 11/07/17 08:59 Last Admin: 09/09/17 10:53 Dose: 17 gm Potassium Chloride (Potassium Chloride Elixir) 20 meq GT DAILY [facility] Stop: 11/07/17 08:59 Last Admin: 09/09/17 10:55 Dose: 20 meq Senna (Senna) 17.2 mg GT DAILY [facility] Stop: 11/07/17 08:59 Last Admin: 09/09/17 13:39 Dose: 17.2 mg Sodium Phosphate (Fleet Enema) 135 ml RC DAILY PRN PRN Reason: IF DULCOLAX INEFFECTIVE Stop: 11/07/17 07:15 Vitamin B Complex/Vit C/Folic Acid (Vitamin B Complex W/Vitamin C) 1 tab GT DAILY [facility] Stop: 11/07/17 08:59 Last Admin: 09/09/17 10:44 Dose: 1 tab Lab - Result Diagrams 09/09/17 05:25 schedule for HDDsc 09/09/17 05:25 schedule for HD in am WBC stable @ 10.6 continue Zosyn Nutritional Asmnt/Malnutr-PDOC - Dietary Evaluation Malnutrition Findings (Please click <Entered> for more info): Nutritional Asmnt/Malnutrition Start: 09/08/17 10: 42 Text: Status: Active Freq: Document 09/08/17 10:42 LOWELLG (Rec: 09/08/17 10:50 LCBERENICEG [email or web address]) Nutritional Asmnt/Malnutrition Patient General Information Nutritional Screening High Risk Consult Diagnosis [place] Pertinent Medical Hx/Surgical Hx HTN, ESRD on dialysis, pneumonia, anemia, dementia, PEG/GTube Subjective Information Pt is non-verbal noted. At the time of visit, TF is running at 40ml/hr x 20hrs daily. Spoke with NAVARRO Pinon, pt is tolerating well, no residual. Performed physical exam, no fat/muscle wasting on arms, mild muscle wasting on chest. Pt from SNF Current Diet Order/ Nutrition Support Novasource Renal 40ml/hr x 20hrs with water flush 150ml q6hr daily Pertinent Medications Iron, Folate, Miralax, Senna, Viatin B, Vitamin C Pertinent Labs 09/08: Na 127L, Cl 91L, BUN 85H , Cr 5.9H, Glu 107 09/07: AST 12L, ALT 9, Alb 3.3L Nutritional Hx/Data Height 1.68 m Height (Calculated Centimeters) 167.6 Current Weight (lbs) 58.06 kg Weight (Calculated Kilograms) 58.1 Weight (Calculated Grams) 08980.8 [place] Body Weight 142 % [place] Body Weight 90 Body Mass Index (BMI) 20.6 Weight Status Approriate GI Symptoms Food Allergies No Skin Integrity/Comment: intact Estimated Nutritional Goals BEE in Kcals: Using Current wt Calories/Kcals/Kg 25-30 Kcals Calculated 3384-0565 Protein: Using Current wt Protein g/k.2-1.4 Protein Calculated 70-81 Fluid: ml Per MD d/t ESRD on dialysis Nutritional Problem 2. Problem Problem Altered nutrition related lab values Etiology dx of ESRD Signs/Symptoms: BUN 85, Cr 5.9 1. Problem Problem Increased protein needs Etiology protein needs for dialysis Signs/Symptoms: protein needs 70-81g/day Malnutrition Alert Protein-Calorie Malnutrition N/A Is there a minimum of two criteria No selected? Query Text:Check all the applicable criteria. A minimum of two criteria are recommended for diagnosis of either severe or non-severe malnutrition. Intervention/Recommendation Comments 1. Continue current TF regimen , it provides 1600kcal and 73g pro, meeting 100% of nutritional needs. 2. Continue prosource 1pk/day per MD to increase protein intake 3. Monitor labs, wt weekly, TF tolerance and residual. 4. F/U as high risk in 2-3 days, 09/10-09/11 Expected Outcomes/Goals Expected Outcomes/Goals 1. Pt to meet 100% of nutritional needs with tolerance 2. wt stability 3. labs to improve 4. skin to remain intact
[2017-09-10] MEDS: Piperacillin/Tazobact 2.25 gm in 0.9% NS 50 ML IV SCH ×4 (00:07→18:51)
[2017-09-10 05:52] LABS: % BASOPHILS 0.5 % (0.0-2.0); % LYMPHOCYTES 11.3 % (20.0-50.0); % MONOCYTES 8.2 % (2.0-10.0); HEMATOCRIT 29.6 % (41.0-60); HEMOGLOBIN 9.4 gm/dL (12-16); MEAN CELL VOLUME 94.9 fl (80-99); MEAN CORPUSCULAR HEMOGLOBIN 30.1 pg (27.0-31.0); MEAN CORPUSCULAR HGB CONC 31.7 pg (28.0-36.0); MEAN PLATELET VOLUME 7.9 fl; NEUTROPHILE ABSOLUTE 8.3 Th/cmm (1.8-8.0); PLATELET COUNT 360 Th/cmm (150-400); RED BLOOD COUNT 3.11 Mil/cmm (3.80-5.80); RED CELL DISTRIBUTION WIDTH 17.4 % (11.5-20.0); WHITE BLOOD COUNT 11.5 Th/cmm (4.8-10.8)
[2017-09-10 06:17] LABS: ANION GAP 11.4 (7.0-16.0); BUN - UREA NITROGEN 59 mg/dL (7-25); BUN/CREATININE RATIO 11.1; CALCIUM SERUM 9.5 mg/dL (8.6-10.3); CARBON DIOXIDE 30.7 mEq/L (21.0-31.0); CHLORIDE 100 mEq/L (98-107); GLUCOSE 103 mg/dL (70-105); POTASSIUM SERUM 4.1 mEq/L (3.5-5.1); SODIUM SERUM 138 mEq/L (136-145)
[2017-09-10 06:25] LABS: CREATININE - SERUM 5.3 mg/dL (0.7-1.3)
--- NOTE | 2017-09-10 08:27 | General Progress Note ---
Subjective - Review of Systems Events since last encounter: no distress Objective - Results Result Diagrams: 09/10/17 05:31 09/10/17 05:31 Recent Labs: Laboratory Last Values WBC 11.5 Th/cmm (4.8-10.8) H 09/10/17 05:31 RBC 3.11 Mil/cmm (3.80-5.80) L 09/10/17 05:31 Hgb 9.4 gm/dL (12-16) L 09/10/17 05:31 Hct 29.6 % (41.0-60) L 09/10/17 05:31 MCV 94.9 fl (80-99) 09/10/17 05:31 MCH 30.1 pg (27.0-31.0) 09/10/17 05:31 MCHC Differential 31.7 pg (28.0-36.0) 09/10/17 05:31 RDW 17.4 % (11.5-20.0) 09/10/17 05:31 Plt Count 360 Th/cmm (150-400) 09/10/17 05:31 MPV 7.9 fl 09/10/17 05:31 Neutrophils % 72.0 % (40.0-80.0) 09/10/17 05:31 Lymphocytes % 11.3 % (20.0-50.0) L 09/10/17 05:31 Monocytes % 8.2 % (2.0-10.0) 09/10/17 05:31 Eosinophils % 8.0 % (0.0-5.0) H 09/10/17 05:31 Basophils % 0.5 % (0.0-2.0) 09/10/17 05:31 Sodium 138 mEq/L (136-145) 09/10/17 05:31 Potassium 4.1 mEq/L (3.5-5.1) 09/10/17 05:31 Chloride 100 mEq/L (98-107) 09/10/17 05:31 Carbon Dioxide 30.7 mEq/L (21.0-31.0) 09/10/17 05:31 Anion Gap 11.4 (7.0-16.0) 09/10/17 05:31 BUN 59 mg/dL (7-25) H 09/10/17 05:31 Creatinine 5.3 mg/dL (0.7-1.3) H* 09/10/17 05:31 Est GFR ( Amer) TNP 09/10/17 05:31 Est GFR (Non-Af Amer) TNP 09/10/17 05:31 BUN/Creatinine Ratio 11.1 09/10/17 05:31 Glucose 103 mg/dL (70-105) 09/10/17 05:31 Whole Bld Lactic Acid 1.05 mmol/L (0.60-1.99) 09/07/17 20:50 Calcium 9.5 mg/dL (8.6-10.3) 09/10/17 05:31 Total Bilirubin 0.3 mg/dL (0.3-1.0) 09/07/17 20:50 AST 12 U/L (13-39) L 09/07/17 20:50 ALT 9 U/L (7-52) 09/07/17 20:50 Alkaline Phosphatase 62 U/L (34-104) 09/07/17 20:50 Total Protein 8.7 gm/dL (6.0-8.3) H 09/07/17 20:50 Albumin 3.3 gm/dL (4.2-5.5) L 09/07/17 20:50 Globulin 5.4 gm/dL 09/07/17 20:50 Albumin/Globulin Ratio 0.6 (1.0-1.8) L 09/07/17 20:50 Random Vancomycin 29.0 ug/mL (5.0-40.0) 09/10/17 05:31 Hepatitis A IgM Ab Negative (Negative) 09/08/17 05:45 Hep Bs Antigen Negative (Negative) 09/08/17 05:45 Hep B Core IgM Ab Negative (Negative) 09/08/17 05:45 Hepatitis C Antibody 0.1 s/co ratio (0.0-0.9) 09/08/17 05:45 - Physical Exam Vitals and I&O: Vital Signs Temp 97.2 F 09/10/17 07:38 Pulse 82 09/10/17 07:38 Resp 17 09/10/17 07:38 BP 180/53 09/10/17 07:38 Pulse Ox 94 09/10/17 07:38 Intake & Output 09/09/17 09/10/17 09/10/17 18:59 06:59 18:59 Intake Total 144 680 Balance 144 680 Weight (lbs) 58.06 kg Intake: Intake, IV Amount 144 100 Piperacillin Sodium/ 100 100 Tazobact 2.25 gm In Sodium Chloride 0.9% 50 ml @ 100 mls/hr IV Q6HR [facility] Rx#:[id number] Vancomycin HCl 1 gm In 44 Sodium Chloride 0.9% 250 ml @ 165 mls/hr IV ONCE ONE Rx#:[id number] Tube Feeding 480 Other 100 Other: # Voids 2 # Bowel Movements 1 Stool Characteristics Soft Active Medications: Current Medications Acetaminophen (Tylenol 650mg/20.3ml Suspension) 650 mg GT Q4HR PRN PRN Reason: Pain (Mild) Acetaminophen/Hydrocodone Bitart ([place] 5mg/325mg) 1 tab PO Q6HR PRN PRN Reason: Pain (Severe) Stop: 11/07/17 07:15 Al Hydrox/Mg Hydrox/Simethicone (Maalox) 30 ml GT Q6HR PRN PRN Reason: Heartburn Stop: 11/07/17 07:15 Albuterol Sulfate (Albuterol 2.5mg/3ml Neb Ud) 2.5 mg HHN Q4HRT PRN PRN Reason: sob/wheezing Stop: 11/07/17 07:15 Last Admin: 09/09/17 07:18 Dose: 2.5 mg Amlodipine Besylate (Norvasc) 5 mg GT DAILY [facility] Stop: 11/07/17 08:59 Last Admin: 09/09/17 10:51 Dose: 5 mg Aspirin (Aspirin) 325 mg GT DAILY [facility] Stop: 11/07/17 08:59 Last Admin: 09/09/17 10:45 Dose: 325 mg Bisacodyl (Dulcolax 10 Mg Supp) 10 mg RC DAILY PRN PRN Reason: IF MOM INEFFECTIVE Stop: 11/07/17 07:15 Digoxin (Lanoxin) 0.125 mg PO Q48HR [facility] Stop: 11/07/17 08:59 Last Admin: 09/08/17 09:00 Dose: 0.125 mg Famotidine (Pepcid) 20 mg GT DAILY [facility] Stop: 11/07/17 08:59 Last Admin: 09/09/17 10:44 Dose: 20 mg Ferrous Sulfate (Iron) 450 mg GT DAILY [facility] Stop: 11/07/17 08:59 Last Admin: 09/09/17 10:50 Dose: 300 mg Folic Acid (Folate) 1 mg GT DAILY [facility] Stop: 11/07/17 08:59 Last Admin: 09/09/17 10:43 Dose: 1 mg Piperacillin Sod/Tazobactam (Sod 2.25 gm/ Sodium Chloride) 50 mls @ 100 mls/hr IV Q6HR [facility] Stop: 11/07/17 07:59 Last Infusion: 09/10/17 06:06 Dose: Infused Albumin Human (Albuminar 25%) 25 gm in 100 mls @ 50 mls/hr IV PRN PRN PRN Reason: BP Support During HD Levetiracetam (Keppra) 750 mg GT DAILY [facility] Stop: 11/07/17 08:59 Last Admin: 09/09/17 10:52 Dose: 750 mg Magnesium Hydroxide (Milk Of Magnesia) 30 ml GT HS PRN PRN Reason: Constipation Stop: 11/07/17 07:15 Miscellaneous (Vancomycin Iv Per Pharmacy) 1 ea MC DAILY [facility] Stop: 11/07/17 08:59 Miscellaneous (Zosyn Iv Per Pharmacy) 1 ea MC DAILY [facility] Stop: 11/07/17 08:59 Last Admin: 09/09/17 13:39 Dose: 1 ea Ondansetron HCl (Zofran Odt) 4 mg SL Q6H PRN PRN Reason: Nausea / Vomiting Polyethylene Glycol (Miralax) 17 gm GT DAILY [facility] Stop: 11/07/17 08:59 Last Admin: 09/09/17 10:53 Dose: 17 gm Potassium Chloride (Potassium Chloride Elixir) 20 meq GT DAILY [facility] Stop: 11/07/17 08:59 Last Admin: 09/09/17 10:55 Dose: 20 meq Senna (Senna) 17.2 mg GT DAILY [facility] Stop: 11/07/17 08:59 Last Admin: 09/09/17 13:39 Dose: 17.2 mg Sodium Phosphate (Fleet Enema) 135 ml RC DAILY PRN PRN Reason: IF DULCOLAX INEFFECTIVE Stop: 11/07/17 07:15 Vitamin B Complex/Vit C/Folic Acid (Vitamin B Complex W/Vitamin C) 1 tab GT DAILY [facility] Stop: 11/07/17 08:59 Last Admin: 09/09/17 10:44 Dose: 1 tab General: Alert, No acute distress HEENT: Atraumatic, PERRLA Neck: Supple, JVD, +2 carotid pulse wo bruit Cardiovascular: Regular rate, Normal S1, Normal S2 Lungs: Other (rhonchi ) Abdomen: Bowel sounds, Soft Extremities: no Edema Neurological: Sensation intact Skin: no Rash Psych/Mental Status: Mood NL - Procedures Procedures: Procedures Procedure Code Date FLUOROSCOPY OF SUP VENA CAVA USING H OSM CONTRAST, GUIDANCE [id number] 11/11/16 INSERT TUNNELED CV CATH 70399 11/11/16 INSERTION OF INFUSION DEV INTO L SUBCLAV VEIN, PERC APPROACH [id number] 11/11/16 INSERTION OF INFUSION DEV INTO SUP VENA CAVA, PERC APPROACH [id number] 11/11/16 PERFORMANCE OF URINARY FILTRATION, MULTIPLE [id number] 11/11/16 PLACE CATHETER IN VEIN [address]3334 11/11/16 REMOVAL OF INFUSION DEVICE FROM UPPER VEIN, SEMICONDUCTOR TECHNICIAN APPROACH [id number] 11/11/16 TRANSFUSE NONAUT RED BLOOD CELLS IN PERIPH VEIN, PERC 57296A2 11/11/16 ULTRASONOGRAPHY OF LEFT SUBCLAVIAN VEIN, GUIDANCE [id number] 11/11/16 Assessment/Plan - Problem List Patient Problems: All Active Problems H/O chronic renal failure syndrome (Acute) Z87.448 H/O: HTN (hypertension) (Acute) Z86.79 Respiratory failure (Acute) J96.90 Right lower lobe pneumonia (Acute) J18.9 h/o anemia (Acute) s/p g tube (Acute) - Plan Plan: cpm Nutritional Asmnt/Malnutr-PDOC - Dietary Evaluation Malnutrition Findings (Please click <Entered> for more info): Nutritional Asmnt/Malnutrition Start: 09/08/17 10: 42 Text: Status: Active Freq: Document 09/08/17 10:42 MICKEY (Rec: 09/08/17 10:50 BERENICE [email or web address]) Nutritional Asmnt/Malnutrition Patient General Information Nutritional Screening High Risk Consult Diagnosis [place] Pertinent Medical Hx/Surgical Hx HTN, ESRD on dialysis, pneumonia, anemia, dementia, PEG/GTube Subjective Information Pt is non-verbal noted. At the time of visit, TF is running at 40ml/hr x 20hrs daily. Spoke with NAVARRO Pinon, pt is tolerating well, no residual. Performed physical exam, no fat/muscle wasting on arms, mild muscle wasting on chest. Pt from SNF Current Diet Order/ Nutrition Support Novasource Renal 40ml/hr x 20hrs with water flush 150ml q6hr daily Pertinent Medications Iron, Folate, Miralax, Senna, Viatin B, Vitamin C Pertinent Labs 09/08: Na 127L, Cl 91L, BUN 85H , Cr 5.9H, Glu 107 09/07: AST 12L, ALT 9, Alb 3.3L Nutritional Hx/Data Height 1.68 m Height (Calculated Centimeters) 167.6 Current Weight (lbs) 58.06 kg Weight (Calculated Kilograms) 58.1 Weight (Calculated Grams) 08452.8 [place] Body Weight 142 % [place] Body Weight 90 Body Mass Index (BMI) 20.6 Weight Status Approriate GI Symptoms Food Allergies No Skin Integrity/Comment: intact Estimated Nutritional Goals BEE in Kcals: Using Current wt Calories/Kcals/Kg 25-30 Kcals Calculated 3671-1764 Protein: Using Current wt Protein g/k.2-1.4 Protein Calculated 70-81 Fluid: ml Per MD d/t ESRD on dialysis Nutritional Problem 2. Problem Problem Altered nutrition related lab values Etiology dx of ESRD Signs/Symptoms: BUN 85, Cr 5.9 1. Problem Problem Increased protein needs Etiology protein needs for dialysis Signs/Symptoms: protein needs 70-81g/day Malnutrition Alert Protein-Calorie Malnutrition N/A Is there a minimum of two criteria No selected? Query Text:Check all the applicable criteria. A minimum of two criteria are recommended for diagnosis of either severe or non-severe malnutrition. Intervention/Recommendation Comments 1. Continue current TF regimen , it provides 1600kcal and 73g pro, meeting 100% of nutritional needs. 2. Continue prosource 1pk/day per MD to increase protein intake 3. Monitor labs, wt weekly, TF tolerance and residual. 4. F/U as high risk in 2-3 days, 09/10-09/11 Expected Outcomes/Goals Expected Outcomes/Goals 1. Pt to meet 100% of nutritional needs with tolerance 2. wt stability 3. labs to improve 4. skin to remain intact
--- NOTE | 2017-09-10 09:49 | Diagnostic Imaging Report ---
CHEST X-RAY: AP view INDICATION: Pneumonia COMPARISON: 09/07/2017 FINDINGS: Persistent right effusion and right lower lung zone infiltrates are noted. Chronic lung changes are noted. Cardiomegaly is noted. IMPRESSION: Persistent right effusion and right lower lung zone infiltrates.
[2017-09-10] MEDS: Ferrous Sulfate 300 MG/5 ML UDC GT SCH (09:55)
[2017-09-10] MEDS: Levetiracetam 500 mg/5mL 5mL UDC GT SCH (09:55)
[2017-09-10] MEDS: Vitamin B Complex w/Vitamin C Tab GT SCH (09:55)
[2017-09-10] MEDS: Potassium Chloride Elixir 20 mEq /15 mL UDC GT SCH (09:56)
[2017-09-10] MEDS: POLYETHYLENE GLYCOL 3350 17 GM PACK GT SCH (09:56)
[2017-09-10] MEDS: Multivitamin w/ Minerals Tab GT SCH (09:56)
--- NOTE | 2017-09-10 14:31 | General Progress Note ---
Subjective - Review of Systems Service Date: 09/10/17 Subjective: sleeping but arousable Objective - Results Result Diagrams: 09/10/17 05:31 09/10/17 05:31 Recent Labs: Laboratory Last Values WBC 11.5 Th/cmm (4.8-10.8) H 09/10/17 05:31 RBC 3.11 Mil/cmm (3.80-5.80) L 09/10/17 05:31 Hgb 9.4 gm/dL (12-16) L 09/10/17 05:31 Hct 29.6 % (41.0-60) L 09/10/17 05:31 MCV 94.9 fl (80-99) 09/10/17 05:31 MCH 30.1 pg (27.0-31.0) 09/10/17 05:31 MCHC Differential 31.7 pg (28.0-36.0) 09/10/17 05:31 RDW 17.4 % (11.5-20.0) 09/10/17 05:31 Plt Count 360 Th/cmm (150-400) 09/10/17 05:31 MPV 7.9 fl 09/10/17 05:31 Neutrophils % 72.0 % (40.0-80.0) 09/10/17 05:31 Lymphocytes % 11.3 % (20.0-50.0) L 09/10/17 05:31 Monocytes % 8.2 % (2.0-10.0) 09/10/17 05:31 Eosinophils % 8.0 % (0.0-5.0) H 09/10/17 05:31 Basophils % 0.5 % (0.0-2.0) 09/10/17 05:31 Sodium 138 mEq/L (136-145) 09/10/17 05:31 Potassium 4.1 mEq/L (3.5-5.1) 09/10/17 05:31 Chloride 100 mEq/L (98-107) 09/10/17 05:31 Carbon Dioxide 30.7 mEq/L (21.0-31.0) 09/10/17 05:31 Anion Gap 11.4 (7.0-16.0) 09/10/17 05:31 BUN 59 mg/dL (7-25) H 09/10/17 05:31 Creatinine 5.3 mg/dL (0.7-1.3) H* 09/10/17 05:31 Est GFR ( Amer) TNP 09/10/17 05:31 Est GFR (Non-Af Amer) TNP 09/10/17 05:31 BUN/Creatinine Ratio 11.1 09/10/17 05:31 Glucose 103 mg/dL (70-105) 09/10/17 05:31 Whole Bld Lactic Acid 1.05 mmol/L (0.60-1.99) 09/07/17 20:50 Calcium 9.5 mg/dL (8.6-10.3) 09/10/17 05:31 Total Bilirubin 0.3 mg/dL (0.3-1.0) 09/07/17 20:50 AST 12 U/L (13-39) L 09/07/17 20:50 ALT 9 U/L (7-52) 09/07/17 20:50 Alkaline Phosphatase 62 U/L (34-104) 09/07/17 20:50 Total Protein 8.7 gm/dL (6.0-8.3) H 09/07/17 20:50 Albumin 3.3 gm/dL (4.2-5.5) L 09/07/17 20:50 Globulin 5.4 gm/dL 09/07/17 20:50 Albumin/Globulin Ratio 0.6 (1.0-1.8) L 09/07/17 20:50 Random Vancomycin 29.0 ug/mL (5.0-40.0) 09/10/17 05:31 Hepatitis A IgM Ab Negative (Negative) 09/08/17 05:45 Hep Bs Antigen Negative (Negative) 09/08/17 05:45 Hep B Core IgM Ab Negative (Negative) 09/08/17 05:45 Hepatitis C Antibody 0.1 s/co ratio (0.0-0.9) 09/08/17 05:45 - Physical Exam Vitals and I&O: Vital Signs Temp 98.2 F 09/10/17 12:00 Pulse 82 09/10/17 12:00 Resp 18 09/10/17 12:00 BP 165/75 09/10/17 12:00 Pulse Ox 93 09/10/17 12:00 Intake & Output 11/06/1809/10/17 09/10/17 18:59 06:59 18:59 Intake Total 144 680 Balance 144 680 Weight (lbs) 58.06 kg Intake: Intake, IV Amount 144 100 Piperacillin Sodium/ 100 100 Tazobact 2.25 gm In Sodium Chloride 0.9% 50 ml @ 100 mls/hr IV Q6HR [facility] Rx#:[id number] Vancomycin HCl 1 gm In 44 Sodium Chloride 0.9% 250 ml @ 165 mls/hr IV ONCE ONE Rx#:[id number] Tube Feeding 480 Other 100 Other: # Voids 2 # Bowel Movements 1 Stool Characteristics Soft Active Medications: Current Medications Acetaminophen (Tylenol 650mg/20.3ml Suspension) 650 mg GT Q4HR PRN PRN Reason: Pain (Mild) Acetaminophen/Hydrocodone Bitart ([place] 5mg/325mg) 1 tab PO Q6HR PRN PRN Reason: Pain (Severe) Stop: 11/07/17 07:15 Al Hydrox/Mg Hydrox/Simethicone (Maalox) 30 ml GT Q6HR PRN PRN Reason: Heartburn Stop: 11/07/17 07:15 Albuterol Sulfate (Albuterol 2.5mg/3ml Neb Ud) 2.5 mg HHN Q4HRT PRN PRN Reason: sob/wheezing Stop: 11/07/17 07:15 Last Admin: 09/09/17 07:18 Dose: 2.5 mg Amlodipine Besylate (Norvasc) 5 mg GT DAILY [facility] Stop: 11/07/17 08:59 Last Admin: 09/10/17 09:56 Dose: 5 mg Aspirin (Aspirin) 325 mg GT DAILY [facility] Stop: 11/07/17 08:59 Last Admin: 09/10/17 09:56 Dose: 325 mg Bisacodyl (Dulcolax 10 Mg Supp) 10 mg RC DAILY PRN PRN Reason: IF MOM INEFFECTIVE Stop: 11/07/17 07:15 Digoxin (Lanoxin) 0.125 mg PO Q48HR [facility] Stop: 11/07/17 08:59 Last Admin: 09/10/17 10:36 Dose: 0.125 mg Famotidine (Pepcid) 20 mg GT DAILY [facility] Stop: 11/07/17 08:59 Last Admin: 09/10/17 09:56 Dose: 20 mg Ferrous Sulfate (Iron) 450 mg GT DAILY [facility] Stop: 11/07/17 08:59 Last Admin: 09/10/17 09:55 Dose: 450 mg Folic Acid (Folate) 1 mg GT DAILY [facility] Stop: 11/07/17 08:59 Last Admin: 09/10/17 09:55 Dose: 1 mg Piperacillin Sod/Tazobactam (Sod 2.25 gm/ Sodium Chloride) 50 mls @ 100 mls/hr IV Q6HR [facility] Stop: 11/07/17 07:59 Last Admin: 09/10/17 11:47 Dose: 100 mls/hr Albumin Human (Albuminar 25%) 25 gm in 100 mls @ 50 mls/hr IV PRN PRN PRN Reason: BP Support During HD Levetiracetam (Keppra) 750 mg GT DAILY [facility] Stop: 11/07/17 08:59 Last Admin: 09/10/17 09:55 Dose: 750 mg Magnesium Hydroxide (Milk Of Magnesia) 30 ml GT HS PRN PRN Reason: Constipation Stop: 11/07/17 07:15 Miscellaneous (Vancomycin Iv Per Pharmacy) 1 ea MC DAILY [facility] Stop: 11/07/17 08:59 Miscellaneous (Zosyn Iv Per Pharmacy) 1 ea MC DAILY [facility] Stop: 11/07/17 08:59 Last Admin: 09/09/17 13:39 Dose: 1 ea Mupirocin (Bactroban Oint) 1 appl TP BID [facility] Stop: 11/09/17 16:59 Ondansetron HCl (Zofran Odt) 4 mg SL Q6H PRN PRN Reason: Nausea / Vomiting Polyethylene Glycol (Miralax) 17 gm GT DAILY [facility] Stop: 11/07/17 08:59 Last Admin: 09/10/17 09:56 Dose: 17 gm Potassium Chloride (Potassium Chloride Elixir) 20 meq GT DAILY [facility] Stop: 11/07/17 08:59 Last Admin: 09/10/17 09:56 Dose: 20 meq Senna (Senna) 17.2 mg GT DAILY [facility] Stop: 11/07/17 08:59 Last Admin: 09/10/17 09:56 Dose: 17.2 mg Sodium Phosphate (Fleet Enema) 135 ml RC DAILY PRN PRN Reason: IF DULCOLAX INEFFECTIVE Stop: 11/07/17 07:15 Vitamin B Complex/Vit C/Folic Acid (Vitamin B Complex W/Vitamin C) 1 tab GT DAILY [facility] Stop: 11/07/17 08:59 Last Admin: 09/10/17 09:55 Dose: 1 tab General: Alert, No acute distress HEENT: Atraumatic, PERRLA Neck: Supple, JVD, +2 carotid pulse wo bruit, Other (stoma) Cardiovascular: Regular rate, Normal S1, Normal S2 Lungs: Other (rhonchi ) Abdomen: Bowel sounds, Soft Extremities: no Edema Neurological: Sensation intact Skin: no Rash Psych/Mental Status: Mood NL - Procedures Procedures: Procedures Procedure Code Date FLUOROSCOPY OF SUP VENA CAVA USING H OSM CONTRAST, GUIDANCE [id number] 11/11/16 INSERT TUNNELED CV CATH 26776 11/11/16 INSERTION OF INFUSION DEV INTO L SUBCLAV VEIN, PERC APPROACH [id number] 11/11/16 INSERTION OF INFUSION DEV INTO SUP VENA CAVA, PERC APPROACH [id number] 11/11/16 PERFORMANCE OF URINARY FILTRATION, MULTIPLE [id number] 11/11/[address] PL[address] CATHETER IN VEIN 92223 11/11/16 REMOVAL OF INFUSION DEVICE FROM UPPER VEIN, RACETRACK STEWARD APPROACH [id number] 11/11/16 TRANSFUSE NONAUT RED BLOOD CELLS IN PERIPH VEIN, PERC 20082N0 11/11/16 ULTRASONOGRAPHY OF LEFT SUBCLAVIAN VEIN, GUIDANCE [id number] 11/11/16 Assessment/Plan - Problem List Patient Problems: All Active Problems H/O chronic renal failure syndrome (Acute) Z87.448 H/O: HTN (hypertension) (Acute) Z86.79 Respiratory failure (Acute) J96.90 Right lower lobe pneumonia (Acute) J18.9 h/o anemia (Acute) s/p g tube (Acute) - Assessment Assessment: ESRD on HD Right sided HAP Mod Malnutrition GERD Dementia w/o orion. disturbance S/P CVA Left hemiplegia - Plan Plan: Lab - Result Diagrams 09/09/17 05:25 09/09/17 05:25 Current Medications Acetaminophen (Tylenol 650mg/20.3ml Suspension) 650 mg GT Q4HR PRN PRN Reason: Pain (Mild) Acetaminophen/Hydrocodone Bitart ([place] 5mg/325mg) 1 tab PO Q6HR PRN PRN Reason: Pain (Severe) Stop: 11/07/17 07:15 Al Hydrox/Mg Hydrox/Simethicone (Maalox) 30 ml GT Q6HR PRN PRN Reason: Heartburn Stop: 11/07/17 07:15 Albuterol Sulfate (Albuterol 2.5mg/3ml Neb Ud) 2.5 mg HHN Q4HRT PRN PRN Reason: sob/wheezing Stop: 11/07/17 07:15 Last Admin: 09/09/17 07:18 Dose: 2.5 mg Amlodipine Besylate (Norvasc) 5 mg GT DAILY [facility] Stop: 11/07/17 08:59 Last Admin: 09/09/17 10:51 Dose: 5 mg Aspirin (Aspirin) 325 mg GT DAILY [facility] Stop: 11/07/17 08:59 Last Admin: 09/09/17 10:45 Dose: 325 mg Bisacodyl (Dulcolax 10 Mg Supp) 10 mg RC DAILY PRN PRN Reason: IF MOM INEFFECTIVE Stop: 11/07/17 07:15 Digoxin (Lanoxin) 0.125 mg PO Q48HR [facility] Stop: 11/07/17 08:59 Last Admin: 09/08/17 09:00 Dose: 0.125 mg Famotidine (Pepcid) 20 mg GT DAILY [facility] Stop: 11/07/17 08:59 Last Admin: 09/09/17 10:44 Dose: 20 mg Ferrous Sulfate (Iron) 450 mg GT DAILY [facility] Stop: 11/07/17 08:59 Last Admin: 09/09/17 10:50 Dose: 300 mg Folic Acid (Folate) 1 mg GT DAILY [facility] Stop: 11/07/17 08:59 Last Admin: 09/09/17 10:43 Dose: 1 mg Piperacillin Sod/Tazobactam (Sod 2.25 gm/ Sodium Chloride) 50 mls @ 100 mls/hr IV Q6HR [facility] Stop: 11/07/17 07:59 Last Admin: 09/09/17 13:37 Dose: 100 mls/hr Albumin Human (Albuminar 25%) 25 gm in 100 mls @ 50 mls/hr IV PRN PRN PRN Reason: BP Support During HD Levetiracetam (Keppra) 750 mg GT DAILY [facility] Stop: 11/07/17 08:59 Last Admin: 09/09/17 10:52 Dose: 750 mg Magnesium Hydroxide (Milk Of Magnesia) 30 ml GT HS PRN PRN Reason: Constipation Stop: 11/07/17 07:15 Miscellaneous (Vancomycin Iv Per Pharmacy) 1 ea MC DAILY [facility] Stop: 11/07/17 08:59 Miscellaneous (Zosyn Iv Per Pharmacy) 1 ea MC DAILY [facility] Stop: 11/07/17 08:59 Last Admin: 09/09/17 13:39 Dose: 1 ea Ondansetron HCl (Zofran Odt) 4 mg SL Q6H PRN PRN Reason: Nausea / Vomiting Polyethylene Glycol (Miralax) 17 gm GT DAILY [facility] Stop: 11/07/17 08:59 Last Admin: 09/09/17 10:53 Dose: 17 gm Potassium Chloride (Potassium Chloride Elixir) 20 meq GT DAILY [facility] Stop: 11/07/17 08:59 Last Admin: 09/09/17 10:55 Dose: 20 meq Senna (Senna) 17.2 mg GT DAILY [facility] Stop: 11/07/17 08:59 Last Admin: 09/09/17 13:39 Dose: 17.2 mg Sodium Phosphate (Fleet Enema) 135 ml RC DAILY PRN PRN Reason: IF DULCOLAX INEFFECTIVE Stop: 11/07/17 07:15 Vitamin B Complex/Vit C/Folic Acid (Vitamin B Complex W/Vitamin C) 1 tab GT DAILY [facility] Stop: 11/07/17 08:59 Last Admin: 09/09/17 10:44 Dose: 1 tab Lab - Result Diagrams 09/10/17 05:31 09/10/17 05:31 schedule for HD today WBC stable up to 11.5 continue Zosyn Nutritional Asmnt/Malnutr-PDOC - Dietary Evaluation Malnutrition Findings (Please click <Entered> for more info): Nutritional Asmnt/Malnutrition Start: 09/08/17 10: 42 Text: Status: Active Freq: Document 09/08/17 10:42 MICKEY (Rec: 09/08/17 10:50 MICKEY [email or web address]) Nutritional Asmnt/Malnutrition Patient General Information Nutritional Screening High Risk Consult Diagnosis [place] Pertinent Medical Hx/Surgical Hx HTN, ESRD on dialysis, pneumonia, anemia, dementia, PEG/GTube Subjective Information Pt is non-verbal noted. At the time of visit, TF is running at 40ml/hr x 20hrs daily. Spoke with NAVARRO Pinon, pt is tolerating well, no residual. Performed physical exam, no fat/muscle wasting on arms, mild muscle wasting on chest. Pt from SNF Current Diet Order/ Nutrition Support Novasource Renal 40ml/hr x 20hrs with water flush 150ml q6hr daily Pertinent Medications Iron, Folate, Miralax, Senna, Viatin B, Vitamin C Pertinent Labs 09/08: Na 127L, Cl 91L, BUN 85H , Cr 5.9H, Glu 107 09/07: AST 12L, ALT 9, Alb 3.3L Nutritional Hx/Data Height 1.68 m Height (Calculated Centimeters) 167.6 Current Weight (lbs) 58.06 kg Weight (Calculated Kilograms) 58.1 Weight (Calculated Grams) 54316.8 [place] Body Weight 142 % [place] Body Weight 90 Body Mass Index (BMI) 20.6 Weight Status Approriate GI Symptoms Food Allergies No Skin Integrity/Comment: intact Estimated Nutritional Goals BEE in Kcals: Using Current wt Calories/Kcals/Kg 25-30 Kcals Calculated 9493-3060 Protein: Using Current wt Protein g/k.2-1.4 Protein Calculated 70-81 Fluid: ml Per MD d/t ESRD on dialysis Nutritional Problem 2. Problem Problem Altered nutrition related lab values Etiology dx of ESRD Signs/Symptoms: BUN 85, Cr 5.9 1. Problem Problem Increased protein needs Etiology protein needs for dialysis Signs/Symptoms: protein needs 70-81g/day Malnutrition Alert Protein-Calorie Malnutrition N/A Is there a minimum of two criteria No selected? Query Text:Check all the applicable criteria. A minimum of two criteria are recommended for diagnosis of either severe or non-severe malnutrition. Intervention/Recommendation Comments 1. Continue current TF regimen , it provides 1600kcal and 73g pro, meeting 100% of nutritional needs. 2. Continue prosource 1pk/day per MD to increase protein intake 3. Monitor labs, wt weekly, TF tolerance and residual. 4. F/U as high risk in 2-3 days, 09/10-09/11 Expected Outcomes/Goals Expected Outcomes/Goals 1. Pt to meet 100% of nutritional needs with tolerance 2. wt stability 3. labs to improve 4. skin to remain intact
[2017-09-11] MEDS: Piperacillin/Tazobact 2.25 gm in 0.9% NS 50 ML IV SCH ×5 (00:06→23:06)
[2017-09-11] MEDS: Ferrous Sulfate 300 MG/5 ML UDC GT SCH (08:45)
[2017-09-11] MEDS: Vitamin B Complex w/Vitamin C Tab GT SCH (08:45)
[2017-09-11] MEDS: Levetiracetam 500 mg/5mL 5mL UDC GT SCH (08:46)
[2017-09-11] MEDS: Potassium Chloride Elixir 20 mEq /15 mL UDC GT SCH (08:46)
[2017-09-11] MEDS: POLYETHYLENE GLYCOL 3350 17 GM PACK GT SCH (08:46)
[2017-09-11] MEDS: Multivitamin w/ Minerals Tab GT SCH (08:46)
[2017-09-11 10:21] LABS: % BASOPHILS 0.7 % (0.0-2.0); % EOSINOPHILS 8.1 % (0.0-5.0); % LYMPHOCYTES 14.7 % (20.0-50.0); % MONOCYTES 8.1 % (2.0-10.0); % NEUTROPHILS 68.4 % (40.0-80.0); HEMATOCRIT 30.2 % (41.0-60); HEMOGLOBIN 9.6 gm/dL (12-16); MEAN CELL VOLUME 96.7 fl (80-99); MEAN CORPUSCULAR HEMOGLOBIN 30.7 pg (27.0-31.0); MEAN CORPUSCULAR HGB CONC 31.8 pg (28.0-36.0); MEAN PLATELET VOLUME 8.5 fl; NEUTROPHILE ABSOLUTE 7.1 Th/cmm (1.8-8.0); PLATELET COUNT 398 Th/cmm (150-400); RED BLOOD COUNT 3.12 Mil/cmm (3.80-5.80); RED CELL DISTRIBUTION WIDTH 17.6 % (11.5-20.0); WHITE BLOOD COUNT 10.6 Th/cmm (4.8-10.8)
[2017-09-11 10:25] LABS: ANION GAP 12.9 (7.0-16.0); BUN - UREA NITROGEN 39 mg/dL (7-25); BUN/CREATININE RATIO 10.3; CALCIUM SERUM 9.6 mg/dL (8.6-10.3); CARBON DIOXIDE 29.7 mEq/L (21.0-31.0); CHLORIDE 97 mEq/L (98-107); CREATININE - SERUM 3.8 mg/dL (0.7-1.3); GLUCOSE 101 mg/dL (70-105); POTASSIUM SERUM 3.6 mEq/L (3.5-5.1); SODIUM SERUM 136 mEq/L (136-145)
--- NOTE | 2017-09-11 12:28 | Internal Medicine Prog Note ---
Internal Medicine Subjective - Subjective Service Date: 09/11/17 Patient seen and examined:: with staff Patient is:: awake Per staff patient has:: tolerating meds Internal Medicine Objective - Results Result Diagrams: 09/11/17 05:25 09/11/17 05:25 Recent Labs: Laboratory Last Values WBC 10.6 Th/cmm (4.8-10.8) 09/11/17 05:25 RBC 3.12 Mil/cmm (3.80-5.80) L 09/11/17 05:25 Hgb 9.6 gm/dL (12-16) L 09/11/17 05:25 Hct 30.2 % (41.0-60) L 09/11/17 05:25 MCV 96.7 fl (80-99) 09/11/17 05:25 MCH 30.7 pg (27.0-31.0) 09/11/17 05:25 MCHC Differential 31.8 pg (28.0-36.0) 09/11/17 05:25 RDW 17.6 % (11.5-20.0) 09/11/17 05:25 Plt Count 398 Th/cmm (150-400) 09/11/17 05:25 MPV 8.5 fl 09/11/17 05:25 Neutrophils % 68.4 % (40.0-80.0) 09/11/17 05:25 Lymphocytes % 14.7 % (20.0-50.0) L 09/11/17 05:25 Monocytes % 8.1 % (2.0-10.0) 09/11/17 05:25 Eosinophils % 8.1 % (0.0-5.0) H 09/11/17 05:25 Basophils % 0.7 % (0.0-2.0) 09/11/17 05:25 Sodium 136 mEq/L (136-145) 09/11/17 05:25 Potassium 3.6 mEq/L (3.5-5.1) 09/11/17 05:25 Chloride 97 mEq/L (98-107) L 09/11/17 05:25 Carbon Dioxide 29.7 mEq/L (21.0-31.0) 09/11/17 05:25 Anion Gap 12.9 (7.0-16.0) 09/11/17 05:25 BUN 39 mg/dL (7-25) H 09/11/17 05:25 Creatinine 3.8 mg/dL (0.7-1.3) H 09/11/17 05:25 Est GFR ( Amer) TNP 09/11/17 05:25 Est GFR (Non-Af Amer) TNP 09/11/17 05:25 BUN/Creatinine Ratio 10.3 09/11/17 05:25 Glucose 101 mg/dL (70-105) 09/11/17 05:25 Whole Bld Lactic Acid 1.05 mmol/L (0.60-1.99) 09/07/17 20:50 Calcium 9.6 mg/dL (8.6-10.3) 09/11/17 05:25 Total Bilirubin 0.3 mg/dL (0.3-1.0) 09/07/17 20:50 AST 12 U/L (13-39) L 09/07/17 20:50 ALT 9 U/L (7-52) 09/07/17 20:50 Alkaline Phosphatase 62 U/L (34-104) 09/07/17 20:50 Total Protein 8.7 gm/dL (6.0-8.3) H 09/07/17 20:50 Albumin 3.3 gm/dL (4.2-5.5) L 09/07/17 20:50 Globulin 5.4 gm/dL 09/07/17 20:50 Albumin/Globulin Ratio 0.6 (1.0-1.8) L 09/07/17 20:50 Random Vancomycin 20.9 ug/mL (5.0-40.0) 09/11/17 05:25 Hepatitis A IgM Ab Negative (Negative) 09/08/17 05:45 Hep Bs Antigen Negative (Negative) 09/08/17 05:45 Hep B Core IgM Ab Negative (Negative) 09/08/17 05:45 Hepatitis C Antibody 0.1 s/co ratio (0.0-0.9) 09/08/17 05:45 - Physical Exam Vitals and I&O: Vital Signs Temp 97.8 F 09/11/17 04:00 Pulse 69 09/11/17 08:45 Resp 14 09/11/17 08:00 BP 172/35 09/11/17 08:45 Pulse Ox 99 09/11/17 07:58 Intake & Output 09/10/17 09/11/17 09/11/17 18:59 06:59 18:59 Intake Total 60 700 Balance 60 700 Weight (lbs) 128 lb Intake: Intake, IV Amount 60 140 Piperacillin Sodium/ 60 140 Tazobact 2.25 gm In Sodium Chloride 0.9% 50 ml @ 100 mls/hr IV Q6HR [facility] Rx#:[id number] Tube Feeding 360 Other 200 Other: # Voids 2 # Bowel Movements 1 Active Medications: Current Medications Acetaminophen (Tylenol 650mg/20.3ml Suspension) 650 mg GT Q4HR PRN PRN Reason: Pain (Mild) Acetaminophen/Hydrocodone Bitart ([place] 5mg/325mg) 1 tab PO Q6HR PRN PRN Reason: Pain (Severe) Stop: 11/07/17 07:15 Al Hydrox/Mg Hydrox/Simethicone (Maalox) 30 ml GT Q6HR PRN PRN Reason: Heartburn Stop: 11/07/17 07:15 Albuterol Sulfate (Albuterol 2.5mg/3ml Neb Ud) 2.5 mg HHN Q4HRT PRN PRN Reason: sob/wheezing Stop: 11/07/17 07:15 Last Admin: 09/09/17 07:18 Dose: 2.5 mg Amlodipine Besylate (Norvasc) 5 mg GT DAILY [facility] Stop: 11/07/17 08:59 Last Admin: 09/11/17 08:45 Dose: 5 mg Aspirin (Aspirin) 325 mg GT DAILY [facility] Stop: 11/07/17 08:59 Last Admin: 09/11/17 08:45 Dose: 325 mg Bisacodyl (Dulcolax 10 Mg Supp) 10 mg RC DAILY PRN PRN Reason: IF MOM INEFFECTIVE Stop: 11/07/17 07:15 Digoxin (Lanoxin) 0.125 mg PO Q48HR [facility] Stop: 11/07/17 08:59 Last Admin: 09/10/17 10:36 Dose: 0.125 mg Famotidine (Pepcid) 20 mg GT DAILY [facility] Stop: 11/07/17 08:59 Last Admin: 09/11/17 08:46 Dose: 20 mg Ferrous Sulfate (Iron) 450 mg GT DAILY [facility] Stop: 11/07/17 08:59 Last Admin: 09/11/17 08:45 Dose: 450 mg Folic Acid (Folate) 1 mg GT DAILY [facility] Stop: 11/07/17 08:59 Last Admin: 09/11/17 08:45 Dose: 1 mg Piperacillin Sod/Tazobactam (Sod 2.25 gm/ Sodium Chloride) 50 mls @ 100 mls/hr IV Q6HR [facility] Stop: 11/07/17 07:59 Last Admin: 09/11/17 11:37 Dose: 100 mls/hr Albumin Human (Albuminar 25%) 25 gm in 100 mls @ 50 mls/hr IV PRN PRN PRN Reason: BP Support During HD Vancomycin HCl 1 gm/ Sodium (Chloride) 250 mls @ 165 mls/hr IV ONCE ONE Stop: 09/12/17 15:30 Levetiracetam (Keppra) 750 mg GT DAILY [facility] Stop: 11/07/17 08:59 Last Admin: 09/11/17 08:46 Dose: 750 mg Magnesium Hydroxide (Milk Of Magnesia) 30 ml GT HS PRN PRN Reason: Constipation Stop: 11/07/17 07:15 Miscellaneous (Vancomycin Iv Per Pharmacy) 1 ea MC DAILY [facility] Stop: 11/07/17 08:59 Miscellaneous (Zosyn Iv Per Pharmacy) 1 ea MC DAILY [facility] Stop: 11/07/17 08:59 Last Admin: 09/09/17 13:39 Dose: 1 ea Mupirocin (Bactroban Oint) 1 appl TP BID [facility] Stop: 11/09/17 16:59 Last Admin: 09/11/17 09:50 Dose: 1 appl Ondansetron HCl (Zofran Odt) 4 mg SL Q6H PRN PRN Reason: Nausea / Vomiting Polyethylene Glycol (Miralax) 17 gm GT DAILY [facility] Stop: 11/07/17 08:59 Last Admin: 09/11/17 08:46 Dose: 17 gm Potassium Chloride (Potassium Chloride Elixir) 20 meq GT DAILY [facility] Stop: 11/07/17 08:59 Last Admin: 09/11/17 08:46 Dose: 20 meq Senna (Senna) 17.2 mg GT DAILY [facility] Stop: 11/07/17 08:59 Last Admin: 09/11/17 08:46 Dose: 17.2 mg Sodium Phosphate (Fleet Enema) 135 ml RC DAILY PRN PRN Reason: IF DULCOLAX INEFFECTIVE Stop: 11/07/17 07:15 Vitamin B Complex/Vit C/Folic Acid (Vitamin B Complex W/Vitamin C) 1 tab GT DAILY [facility] Stop: 11/07/17 08:59 Last Admin: 09/11/17 08:45 Dose: 1 tab General: weak, alert HEENT: NC/AT, PERRLA Neck: Supple Lungs: CTAB Cardiovascular: RRR, Normal S1, Normal S2, without murmur Abdomen: soft, non-tender, non-distended, positive bowel sound Neurological: alert - Procedures Procedures: Procedures Procedure Code Date FLUOROSCOPY OF SUP VENA CAVA USING H OSM CONTRAST, GUIDANCE [id number] 11/11/16 INSERT TUNNELED CV CATH 24760 11/11/16 INSERTION OF INFUSION DEV INTO L SUBCLAV VEIN, PERC APPROACH [id number] 11/11/16 INSERTION OF INFUSION DEV INTO SUP VENA CAVA, PERC APPROACH [id number] 11/11/16 PERFORMANCE OF URINARY FILTRATION, MULTIPLE 9M3O17L 11/11/[address] PL[address] CATHETER IN VEIN 37640 11/11/16 REMOVAL OF INFUSION DEVICE FROM UPPER VEIN, MARINE SERVICE MANAGER APPROACH [id number] 11/11/16 TRANSFUSE NONAUT RED BLOOD CELLS IN PERIPH VEIN, PERC 15347X4 11/11/16 ULTRASONOGRAPHY OF LEFT SUBCLAVIAN VEIN, GUIDANCE [id number] 11/11/16 Internal Medicine Assmt/Plan - Assessment Assessment: H/O chronic renal failure syndrome (Acute) Z87.448 H/O: HTN (hypertension) (Acute) Z86.79 Respiratory failure (Acute) J96.90 Right lower lobe pneumonia (Acute) J18.9 h/o anemia (Acute) s/p g tube (Acute) - Plan Plan: ivabx am labs ivf for hydration supplemental o2 continue current plan of care Nutritional Asmnt/Malnutr-PDOC - Dietary Evaluation Malnutrition Findings (Please click <Entered> for more info): Nutritional Asmnt/Malnutrition Start: 09/08/17 10: 42 Text: Status: Active Freq: Document 09/08/17 10:42 MICKEY (Rec: 09/08/17 10:50 MICKEY [email or web address]) Nutritional Asmnt/Malnutrition Patient General Information Nutritional Screening High Risk Consult Diagnosis [place] Pertinent Medical Hx/Surgical Hx HTN, ESRD on dialysis, pneumonia, anemia, dementia, PEG/GTube Subjective Information Pt is non-verbal noted. At the time of visit, TF is running at 40ml/hr x 20hrs daily. Spoke with NAVARRO Pinon, pt is tolerating well, no residual. Performed physical exam, no fat/muscle wasting on arms, mild muscle wasting on chest. Pt from [facility] Current Diet Order/ Nutrition Support Novasource Renal 40ml/hr x 20hrs with water flush 150ml q6hr daily Pertinent Medications Iron, Folate, Miralax, Senna, Viatin B, Vitamin C Pertinent Labs 09/08: Na 127L, Cl 91L, BUN 85H , Cr 5.9H, Glu 107 09/07: AST 12L, ALT 9, Alb 3.3L Nutritional Hx/Data Height 5 ft 6 in Height (Calculated Centimeters) 167.6 Current Weight (lbs) 128 lb Weight (Calculated Kilograms) 58.1 Weight (Calculated Grams) 67294.8 [place] Body Weight 142 % [place] Body Weight 90 Body Mass Index (BMI) 20.6 Weight Status Approriate GI Symptoms Food Allergies No Skin Integrity/Comment: intact Estimated Nutritional Goals BEE in Kcals: Using Current wt Calories/Kcals/Kg 25-30 Kcals Calculated 5444-5687 Protein: Using Current wt Protein g/k.2-1.4 Protein Calculated 70-81 Fluid: ml Per MD d/t ESRD on dialysis Nutritional Problem 2. Problem Problem Altered nutrition related lab values Etiology dx of ESRD Signs/Symptoms: BUN 85, Cr 5.9 1. Problem Problem Increased protein needs Etiology protein needs for dialysis Signs/Symptoms: protein needs 70-81g/day Malnutrition Alert Protein-Calorie Malnutrition N/A Is there a minimum of two criteria No selected? Query Text:Check all the applicable criteria. A minimum of two criteria are recommended for diagnosis of either severe or non-severe malnutrition. Intervention/Recommendation Comments 1. Continue current TF regimen , it provides 1600kcal and 73g pro, meeting 100% of nutritional needs. 2. Continue prosource 1pk/day per MD to increase protein intake 3. Monitor labs, wt weekly, TF tolerance and residual. 4. F/U as high risk in 2-3 days, 09/10-09/11 Expected Outcomes/Goals Expected Outcomes/Goals 1. Pt to meet 100% of nutritional needs with tolerance 2. wt stability 3. labs to improve 4. skin to remain intact
--- NOTE | 2017-09-11 14:44 | General Progress Note ---
Subjective - Review of Systems Service Date: 09/11/17 Subjective: sleeping but arousable Objective - Results Result Diagrams: 09/11/17 05:25 09/11/17 05:25 Recent Labs: Laboratory Last Values WBC 10.6 Th/cmm (4.8-10.8) 09/11/17 05:25 RBC 3.12 Mil/cmm (3.80-5.80) L 09/11/17 05:25 Hgb 9.6 gm/dL (12-16) L 09/11/17 05:25 Hct 30.2 % (41.0-60) L 09/11/17 05:25 MCV 96.7 fl (80-99) 09/11/17 05:25 MCH 30.7 pg (27.0-31.0) 09/11/17 05:25 MCHC Differential 31.8 pg (28.0-36.0) 09/11/17 05:25 RDW 17.6 % (11.5-20.0) 09/11/17 05:25 Plt Count 398 Th/cmm (150-400) 09/11/17 05:25 MPV 8.5 fl 09/11/17 05:25 Neutrophils % 68.4 % (40.0-80.0) 09/11/17 05:25 Lymphocytes % 14.7 % (20.0-50.0) L 09/11/17 05:25 Monocytes % 8.1 % (2.0-10.0) 09/11/17 05:25 Eosinophils % 8.1 % (0.0-5.0) H 09/11/17 05:25 Basophils % 0.7 % (0.0-2.0) 09/11/17 05:25 Sodium 136 mEq/L (136-145) 09/11/17 05:25 Potassium 3.6 mEq/L (3.5-5.1) 09/11/17 05:25 Chloride 97 mEq/L (98-107) L 09/11/17 05:25 Carbon Dioxide 29.7 mEq/L (21.0-31.0) 09/11/17 05:25 Anion Gap 12.9 (7.0-16.0) 09/11/17 05:25 BUN 39 mg/dL (7-25) H 09/11/17 05:25 Creatinine 3.8 mg/dL (0.7-1.3) H 09/11/17 05:25 Est GFR ( Amer) TNP 09/11/17 05:25 Est GFR (Non-Af Amer) TNP 09/11/17 05:25 BUN/Creatinine Ratio 10.3 09/11/17 05:25 Glucose 101 mg/dL (70-105) 09/11/17 05:25 Whole Bld Lactic Acid 1.05 mmol/L (0.60-1.99) 09/07/17 20:50 Calcium 9.6 mg/dL (8.6-10.3) 09/11/17 05:25 Total Bilirubin 0.3 mg/dL (0.3-1.0) 09/07/17 20:50 AST 12 U/L (13-39) L 09/07/17 20:50 ALT 9 U/L (7-52) 09/07/17 20:50 Alkaline Phosphatase 62 U/L (34-104) 09/07/17 20:50 Total Protein 8.7 gm/dL (6.0-8.3) H 09/07/17 20:50 Albumin 3.3 gm/dL (4.2-5.5) L 09/07/17 20:50 Globulin 5.4 gm/dL 09/07/17 20:50 Albumin/Globulin Ratio 0.6 (1.0-1.8) L 09/07/17 20:50 Random Vancomycin 20.9 ug/mL (5.0-40.0) 09/11/17 05:25 Hepatitis A IgM Ab Negative (Negative) 09/08/17 05:45 Hep Bs Antigen Negative (Negative) 09/08/17 05:45 Hep B Core IgM Ab Negative (Negative) 09/08/17 05:45 Hepatitis C Antibody 0.1 s/co ratio (0.0-0.9) 09/08/17 05:45 - Physical Exam Vitals and I&O: Vital Signs Temp 98.4 F 09/11/17 12:36 Pulse 78 09/11/17 12:36 Resp 15 09/11/17 12:36 BP 133/54 09/11/17 12:36 Pulse Ox 85 09/11/17 12:36 Intake & Output 09/10/17 09/11/1709/11/17 18:59 06:59 18:59 Intake Total 60 700 Balance 60 700 Weight (lbs) 58.06 kg Intake: Intake, IV Amount 60 140 Piperacillin Sodium/ 60 140 Tazobact 2.25 gm In Sodium Chloride 0.9% 50 ml @ 100 mls/hr IV Q6HR [facility] Rx#:[id number] Tube Feeding 360 Other 200 Other: # Voids 2 # Bowel Movements 1 Active Medications: Current Medications Acetaminophen (Tylenol 650mg/20.3ml Suspension) 650 mg GT Q4HR PRN PRN Reason: Pain (Mild) Acetaminophen/Hydrocodone Bitart ([place] 5mg/325mg) 1 tab PO Q6HR PRN PRN Reason: Pain (Severe) Stop: 11/07/17 07:15 Al Hydrox/Mg Hydrox/Simethicone (Maalox) 30 ml GT Q6HR PRN PRN Reason: Heartburn Stop: 11/07/17 07:15 Albuterol Sulfate (Albuterol 2.5mg/3ml Neb Ud) 2.5 mg HHN Q4HRT PRN PRN Reason: sob/wheezing Stop: 11/07/17 07:15 Last Admin: 09/09/17 07:18 Dose: 2.5 mg Amlodipine Besylate (Norvasc) 5 mg GT DAILY [facility] Stop: 11/07/17 08:59 Last Admin: 09/11/17 08:45 Dose: 5 mg Aspirin (Aspirin) 325 mg GT DAILY [facility] Stop: 11/07/17 08:59 Last Admin: 09/11/17 08:45 Dose: 325 mg Bisacodyl (Dulcolax 10 Mg Supp) 10 mg RC DAILY PRN PRN Reason: IF MOM INEFFECTIVE Stop: 11/07/17 07:15 Digoxin (Lanoxin) 0.125 mg PO Q48HR [facility] Stop: 11/07/17 08:59 Last Admin: 09/10/17 10:36 Dose: 0.125 mg Famotidine (Pepcid) 20 mg GT DAILY [facility] Stop: 11/07/17 08:59 Last Admin: 09/11/17 08:46 Dose: 20 mg Ferrous Sulfate (Iron) 450 mg GT DAILY [facility] Stop: 11/07/17 08:59 Last Admin: 09/11/17 08:45 Dose: 450 mg Folic Acid (Folate) 1 mg GT DAILY [facility] Stop: 11/07/17 08:59 Last Admin: 09/11/17 08:45 Dose: 1 mg Piperacillin Sod/Tazobactam (Sod 2.25 gm/ Sodium Chloride) 50 mls @ 100 mls/hr IV Q6HR [facility] Stop: 11/07/17 07:59 Last Admin: 09/11/17 11:37 Dose: 100 mls/hr Albumin Human (Albuminar 25%) 25 gm in 100 mls @ 50 mls/hr IV PRN PRN PRN Reason: BP Support During HD Vancomycin HCl 1 gm/ Sodium (Chloride) 250 mls @ 165 mls/hr IV ONCE ONE Stop: 09/12/17 15:30 Levetiracetam (Keppra) 750 mg GT DAILY [facility] Stop: 11/07/17 08:59 Last Admin: 09/11/17 08:46 Dose: 750 mg Magnesium Hydroxide (Milk Of Magnesia) 30 ml GT HS PRN PRN Reason: Constipation Stop: 11/07/17 07:15 Miscellaneous (Vancomycin Iv Per Pharmacy) 1 ea MC DAILY [facility] Stop: 11/07/17 08:59 Miscellaneous (Zosyn Iv Per Pharmacy) 1 ea MC DAILY [facility] Stop: 11/07/17 08:59 Last Admin: 09/09/17 13:39 Dose: 1 ea Mupirocin (Bactroban Oint) 1 appl TP BID [facility] Stop: 11/09/17 16:59 Last Admin: 09/11/17 09:50 Dose: 1 appl Ondansetron HCl (Zofran Odt) 4 mg SL Q6H PRN PRN Reason: Nausea / Vomiting Polyethylene Glycol (Miralax) 17 gm GT DAILY [facility] Stop: 11/07/17 08:59 Last Admin: 09/11/17 08:46 Dose: 17 gm Potassium Chloride (Potassium Chloride Elixir) 20 meq GT DAILY [facility] Stop: 11/07/17 08:59 Last Admin: 09/11/17 08:46 Dose: 20 meq Senna (Senna) 17.2 mg GT DAILY [facility] Stop: 11/07/17 08:59 Last Admin: 09/11/17 08:46 Dose: 17.2 mg Sodium Phosphate (Fleet Enema) 135 ml RC DAILY PRN PRN Reason: IF DULCOLAX INEFFECTIVE Stop: 11/07/17 07:15 Vitamin B Complex/Vit C/Folic Acid (Vitamin B Complex W/Vitamin C) 1 tab GT DAILY [facility] Stop: 11/07/17 08:59 Last Admin: 09/11/17 08:45 Dose: 1 tab General: Alert, No acute distress HEENT: Atraumatic, PERRLA, EOMI Neck: Supple, JVD, +2 carotid pulse wo bruit, Other (stoma) Cardiovascular: Regular rate, Normal S1, Normal S2 Lungs: Other (rhonchi ) Abdomen: Bowel sounds, Soft Extremities: no Edema Neurological: Sensation intact Skin: no Rash Psych/Mental Status: Mood NL - Procedures Procedures: Procedures Procedure Code Date FLUOROSCOPY OF SUP VENA CAVA USING H OSM CONTRAST, GUIDANCE [id number] 11/11/16 INSERT TUNNELED CV CATH 63701 11/11/16 INSERTION OF INFUSION DEV INTO L SUBCLAV VEIN, PERC APPROACH [id number] 11/11/16 INSERTION OF INFUSION DEV INTO SUP VENA CAVA, PERC APPROACH 40KY54S 11/11/16 PERFORMANCE OF URINARY FILTRATION, MULTIPLE [id number] 11/11/[address] PL[address] CATHETER IN VEIN 98661 11/11/16 REMOVAL OF INFUSION DEVICE FROM UPPER VEIN, EQUIPMENT LEAD APPROACH [id number] 11/11/16 TRANSFUSE NONAUT RED BLOOD CELLS IN PERIPH VEIN, PERC 30207H9 11/11/16 ULTRASONOGRAPHY OF LEFT SUBCLAVIAN VEIN, GUIDANCE [id number] 11/11/16 Assessment/Plan - Problem List Patient Problems: All Active Problems H/O chronic renal failure syndrome (Acute) Z87.448 H/O: HTN (hypertension) (Acute) Z86.79 Respiratory failure (Acute) J96.90 Right lower lobe pneumonia (Acute) J18.9 h/o anemia (Acute) s/p g tube (Acute) - Assessment Assessment: ESRD on HD Right sided HAP Mod Malnutrition GERD Dementia w/o orion. disturbance S/P CVA Left hemiplegia - Plan Plan: Lab - Result Diagrams 09/09/17 05:25 09/09/17 05:25 Current Medications Acetaminophen (Tylenol 650mg/20.3ml Suspension) 650 mg GT Q4HR PRN PRN Reason: Pain (Mild) Acetaminophen/Hydrocodone Bitart ([place] 5mg/325mg) 1 tab PO Q6HR PRN PRN Reason: Pain (Severe) Stop: 11/07/17 07:15 Al Hydrox/Mg Hydrox/Simethicone (Maalox) 30 ml GT Q6HR PRN PRN Reason: Heartburn Stop: 11/07/17 07:15 Albuterol Sulfate (Albuterol 2.5mg/3ml Neb Ud) 2.5 mg HHN Q4HRT PRN PRN Reason: sob/wheezing Stop: 11/07/17 07:15 Last Admin: 09/09/17 07:18 Dose: 2.5 mg Amlodipine Besylate (Norvasc) 5 mg GT DAILY [facility] Stop: 11/07/17 08:59 Last Admin: 09/09/17 10:51 Dose: 5 mg Aspirin (Aspirin) 325 mg GT DAILY [facility] Stop: 11/07/17 08:59 Last Admin: 09/09/17 10:45 Dose: 325 mg Bisacodyl (Dulcolax 10 Mg Supp) 10 mg RC DAILY PRN PRN Reason: IF MOM INEFFECTIVE Stop: 11/07/17 07:15 Digoxin (Lanoxin) 0.125 mg PO Q48HR [facility] Stop: 11/07/17 08:59 Last Admin: 09/08/17 09:00 Dose: 0.125 mg Famotidine (Pepcid) 20 mg GT DAILY [facility] Stop: 11/07/17 08:59 Last Admin: 09/09/17 10:44 Dose: 20 mg Ferrous Sulfate (Iron) 450 mg GT DAILY [facility] Stop: 11/07/17 08:59 Last Admin: 09/09/17 10:50 Dose: 300 mg Folic Acid (Folate) 1 mg GT DAILY [facility] Stop: 11/07/17 08:59 Last Admin: 09/09/17 10:43 Dose: 1 mg Piperacillin Sod/Tazobactam (Sod 2.25 gm/ Sodium Chloride) 50 mls @ 100 mls/hr IV Q6HR [facility] Stop: 11/07/17 07:59 Last Admin: 09/09/17 13:37 Dose: 100 mls/hr Albumin Human (Albuminar 25%) 25 gm in 100 mls @ 50 mls/hr IV PRN PRN PRN Reason: BP Support During HD Levetiracetam (Keppra) 750 mg GT DAILY [facility] Stop: 11/07/17 08:59 Last Admin: 09/09/17 10:52 Dose: 750 mg Magnesium Hydroxide (Milk Of Magnesia) 30 ml GT HS PRN PRN Reason: Constipation Stop: 11/07/17 07:15 Miscellaneous (Vancomycin Iv Per Pharmacy) 1 ea MC DAILY [facility] Stop: 11/07/17 08:59 Miscellaneous (Zosyn Iv Per Pharmacy) 1 ea MC DAILY [facility] Stop: 11/07/17 08:59 Last Admin: 09/09/17 13:39 Dose: 1 ea Ondansetron HCl (Zofran Odt) 4 mg SL Q6H PRN PRN Reason: Nausea / Vomiting Polyethylene Glycol (Miralax) 17 gm GT DAILY [facility] Stop: 11/07/17 08:59 Last Admin: 09/09/17 10:53 Dose: 17 gm Potassium Chloride (Potassium Chloride Elixir) 20 meq GT DAILY [facility] Stop: 11/07/17 08:59 Last Admin: 09/09/17 10:55 Dose: 20 meq Senna (Senna) 17.2 mg GT DAILY [facility] Stop: 11/07/17 08:59 Last Admin: 09/09/17 13:39 Dose: 17.2 mg Sodium Phosphate (Fleet Enema) 135 ml RC DAILY PRN PRN Reason: IF DULCOLAX INEFFECTIVE Stop: 11/07/17 07:15 Vitamin B Complex/Vit C/Folic Acid (Vitamin B Complex W/Vitamin C) 1 tab GT DAILY [facility] Stop: 11/07/17 08:59 Last Admin: 09/09/17 10:44 Dose: 1 tab Lab - Result Diagrams 09/11/17 05:25 09/11/17 05:25 pt. was dialyzed yesterday & tolerated it well WBC stable down to 10.6 possible LTAC eval schedule for HD in am continue Zosyn Nutritional Asmnt/Malnutr-PDOC - Dietary Evaluation Malnutrition Findings (Please click <Entered> for more info): Nutritional Asmnt/Malnutrition Start: 09/08/17 10: 42 Text: Status: Active Freq: Document 09/08/17 10:42 MICKEY (Rec: 09/08/17 10:50 MICKEY [email or web address]) Nutritional Asmnt/Malnutrition Patient General Information Nutritional Screening High Risk Consult Diagnosis [place] Pertinent Medical Hx/Surgical Hx HTN, ESRD on dialysis, pneumonia, anemia, dementia, PEG/GTube Subjective Information Pt is non-verbal noted. At the time of visit, TF is running at 40ml/hr x 20hrs daily. Spoke with NAVARRO Pinon, pt is tolerating well, no residual. Performed physical exam, no fat/muscle wasting on arms, mild muscle wasting on chest. Pt from [facility] Current Diet Order/ Nutrition Support Novasource Renal 40ml/hr x 20hrs with water flush 150ml q6hr daily Pertinent Medications Iron, Folate, Miralax, Senna, Viatin B, Vitamin C Pertinent Labs 09/08: Na 127L, Cl 91L, BUN 85H , Cr 5.9H, Glu 107 09/07: AST 12L, ALT 9, Alb 3.3L Nutritional Hx/Data Height 1.68 m Height (Calculated Centimeters) 167.6 Current Weight (lbs) 58.06 kg Weight (Calculated Kilograms) 58.1 Weight (Calculated Grams) 25416.8 [place] Body Weight 142 % [place] Body Weight 90 Body Mass Index (BMI) 20.6 Weight Status Approriate GI Symptoms Food Allergies No Skin Integrity/Comment: intact Estimated Nutritional Goals BEE in Kcals: Using Current wt Calories/Kcals/Kg 25-30 Kcals Calculated 6419-1583 Protein: Using Current wt Protein g/k.2-1.4 Protein Calculated 70-81 Fluid: ml Per MD d/t ESRD on dialysis Nutritional Problem 2. Problem Problem Altered nutrition related lab values Etiology dx of ESRD Signs/Symptoms: BUN 85, Cr 5.9 1. Problem Problem Increased protein needs Etiology protein needs for dialysis Signs/Symptoms: protein needs 70-81g/day Malnutrition Alert Protein-Calorie Malnutrition N/A Is there a minimum of two criteria No selected? Query Text:Check all the applicable criteria. A minimum of two criteria are recommended for diagnosis of either severe or non-severe malnutrition. Intervention/Recommendation Comments 1. Continue current TF regimen , it provides 1600kcal and 73g pro, meeting 100% of nutritional needs. 2. Continue prosource 1pk/day per MD to increase protein intake 3. Monitor labs, wt weekly, TF tolerance and residual. 4. F/U as high risk in 2-3 days, 09/10-09/11 Expected Outcomes/Goals Expected Outcomes/Goals 1. Pt to meet 100% of nutritional needs with tolerance 2. wt stability 3. labs to improve 4. skin to remain intact
[2017-09-11] MEDS ORDERED: Probiotic Screen MC PRN (15:22)
--- NOTE | 2017-09-11 17:12 | Infectious Disease Prog Note ---
Infectious Disease Subjective - Review of Systems Service Date: 09/11/17 Subjective: No new change. Infectious Disease Objective - Results Result Diagrams: 09/11/17 05:25 09/11/17 05:25 Recent Labs: Laboratory Last Values WBC 10.6 Th/cmm (4.8-10.8) 09/11/17 05:25 RBC 3.12 Mil/cmm (3.80-5.80) L 09/11/17 05:25 Hgb 9.6 gm/dL (12-16) L 09/11/17 05:25 Hct 30.2 % (41.0-60) L 09/11/17 05:25 MCV 96.7 fl (80-99) 09/11/17 05:25 MCH 30.7 pg (27.0-31.0) 09/11/17 05:25 MCHC Differential 31.8 pg (28.0-36.0) 09/11/17 05:25 RDW 17.6 % (11.5-20.0) 09/11/17 05:25 Plt Count 398 Th/cmm (150-400) 09/11/17 05:25 MPV 8.5 fl 09/11/17 05:25 Neutrophils % 68.4 % (40.0-80.0) 09/11/17 05:25 Lymphocytes % 14.7 % (20.0-50.0) L 09/11/17 05:25 Monocytes % 8.1 % (2.0-10.0) 09/11/17 05:25 Eosinophils % 8.1 % (0.0-5.0) H 09/11/17 05:25 Basophils % 0.7 % (0.0-2.0) 09/11/17 05:25 Sodium 136 mEq/L (136-145) 09/11/17 05:25 Potassium 3.6 mEq/L (3.5-5.1) 09/11/17 05:25 Chloride 97 mEq/L (98-107) L 09/11/17 05:25 Carbon Dioxide 29.7 mEq/L (21.0-31.0) 09/11/17 05:25 Anion Gap 12.9 (7.0-16.0) 09/11/17 05:25 BUN 39 mg/dL (7-25) H 09/11/17 05:25 Creatinine 3.8 mg/dL (0.7-1.3) H 09/11/17 05:25 Est GFR ( Amer) TNP 09/11/17 05:25 Est GFR (Non-Af Amer) TNP 09/11/17 05:25 BUN/Creatinine Ratio 10.3 09/11/17 05:25 Glucose 101 mg/dL (70-105) 09/11/17 05:25 Whole Bld Lactic Acid 1.05 mmol/L (0.60-1.99) 09/07/17 20:50 Calcium 9.6 mg/dL (8.6-10.3) 09/11/17 05:25 Total Bilirubin 0.3 mg/dL (0.3-1.0) 09/07/17 20:50 AST 12 U/L (13-39) L 09/07/17 20:50 ALT 9 U/L (7-52) 09/07/17 20:50 Alkaline Phosphatase 62 U/L (34-104) 09/07/17 20:50 Total Protein 8.7 gm/dL (6.0-8.3) H 09/07/17 20:50 Albumin 3.3 gm/dL (4.2-5.5) L 09/07/17 20:50 Globulin 5.4 gm/dL 09/07/17 20:50 Albumin/Globulin Ratio 0.6 (1.0-1.8) L 09/07/17 20:50 Random Vancomycin 20.9 ug/mL (5.0-40.0) 09/11/17 05:25 Hepatitis A IgM Ab Negative (Negative) 09/08/17 05:45 Hep Bs Antigen Negative (Negative) 09/08/17 05:45 Hep B Core IgM Ab Negative (Negative) 09/08/17 05:45 Hepatitis C Antibody 0.1 s/co ratio (0.0-0.9) 09/08/17 05:45 - Physical Exam Vitals and I&O: Vital Signs Temp 98.0 F 09/11/17 16:00 Pulse 72 09/11/17 16:00 Resp 16 09/11/17 16:00 BP 129/37 09/11/17 16:00 Pulse Ox 98 09/11/17 16:00 Intake & Output 09/10/17 09/11/17 09/11/17 18:59 06:59 18:59 Intake Total 60 700 Balance 60 700 Weight (lbs) 58.06 kg Intake: Intake, IV Amount 60 140 Piperacillin Sodium/ 60 140 Tazobact 2.25 gm In Sodium Chloride 0.9% 50 ml @ 100 mls/hr IV Q6HR [facility] Rx#:[id number] Tube Feeding 360 Other 200 Other: # Voids 2 # Bowel Movements 1 Active Medications: Current Medications Acetaminophen (Tylenol 650mg/20.3ml Suspension) 650 mg GT Q4HR PRN PRN Reason: Pain (Mild) Acetaminophen/Hydrocodone Bitart ([place] 5mg/325mg) 1 tab PO Q6HR PRN PRN Reason: Pain (Severe) Stop: 11/07/17 07:15 Al Hydrox/Mg Hydrox/Simethicone (Maalox) 30 ml GT Q6HR PRN PRN Reason: Heartburn Stop: 11/07/17 07:15 Albuterol Sulfate (Albuterol 2.5mg/3ml Neb Ud) 2.5 mg HHN Q4HRT PRN PRN Reason: sob/wheezing Stop: 11/07/17 07:15 Last Admin: 09/09/17 07:18 Dose: 2.5 mg Amlodipine Besylate (Norvasc) 5 mg GT DAILY [facility] Stop: 11/07/17 08:59 Last Admin: 09/11/17 08:45 Dose: 5 mg Aspirin (Aspirin) 325 mg GT DAILY [facility] Stop: 11/07/17 08:59 Last Admin: 09/11/17 08:45 Dose: 325 mg Bisacodyl (Dulcolax 10 Mg Supp) 10 mg RC DAILY PRN PRN Reason: IF MOM INEFFECTIVE Stop: 11/07/17 07:15 Digoxin (Lanoxin) 0.125 mg PO Q48HR [facility] Stop: 11/07/17 08:59 Last Admin: 09/10/17 10:36 Dose: 0.125 mg Famotidine (Pepcid) 20 mg GT DAILY [facility] Stop: 11/07/17 08:59 Last Admin: 09/11/17 08:46 Dose: 20 mg Ferrous Sulfate (Iron) 450 mg GT DAILY [facility] Stop: 11/07/17 08:59 Last Admin: 09/11/17 08:45 Dose: 450 mg Folic Acid (Folate) 1 mg GT DAILY [facility] Stop: 11/07/17 08:59 Last Admin: 09/11/17 08:45 Dose: 1 mg Piperacillin Sod/Tazobactam (Sod 2.25 gm/ Sodium Chloride) 50 mls @ 100 mls/hr IV Q6HR [facility] Stop: 11/07/17 07:59 Last Admin: 09/11/17 11:37 Dose: 100 mls/hr Albumin Human (Albuminar 25%) 25 gm in 100 mls @ 50 mls/hr IV PRN PRN PRN Reason: BP Support During HD Vancomycin HCl 1 gm/ Sodium (Chloride) 250 mls @ 165 mls/hr IV ONCE ONE Stop: 09/12/17 15:30 Lactobacillus Rhamnosus (Culturelle) 1 each PO DAILY [facility] Stop: 11/11/17 08:59 Levetiracetam (Keppra) 750 mg GT DAILY [facility] Stop: 11/07/17 08:59 Last Admin: 09/11/17 08:46 Dose: 750 mg Magnesium Hydroxide (Milk Of Magnesia) 30 ml GT HS PRN PRN Reason: Constipation Stop: 11/07/17 07:15 Miscellaneous (Vancomycin Iv Per Pharmacy) 1 ea MC DAILY [facility] Stop: 11/07/17 08:59 Miscellaneous (Zosyn Iv Per Pharmacy) 1 ea MC DAILY [facility] Stop: 11/07/17 08:59 Last Admin: 09/09/17 13:39 Dose: 1 ea Miscellaneous (Probiotic Screen) 1 ea MC PRN PRN PRN Reason: PROTOCOL Stop: 11/10/17 15:21 Mupirocin (Bactroban Oint) 1 appl TP BID [facility] Stop: 11/09/17 16:59 Last Admin: 09/11/17 16:22 Dose: 1 appl Ondansetron HCl (Zofran Odt) 4 mg SL Q6H PRN PRN Reason: Nausea / Vomiting Polyethylene Glycol (Miralax) 17 gm GT DAILY [facility] Stop: 11/07/17 08:59 Last Admin: 09/11/17 08:46 Dose: 17 gm Potassium Chloride (Potassium Chloride Elixir) 20 meq GT DAILY [facility] Stop: 11/07/17 08:59 Last Admin: 09/11/17 08:46 Dose: 20 meq Senna (Senna) 17.2 mg GT DAILY [facility] Stop: 11/07/17 08:59 Last Admin: 09/11/17 08:46 Dose: 17.2 mg Sodium Phosphate (Fleet Enema) 135 ml RC DAILY PRN PRN Reason: IF DULCOLAX INEFFECTIVE Stop: 11/07/17 07:15 Vitamin B Complex/Vit C/Folic Acid (Vitamin B Complex W/Vitamin C) 1 tab GT DAILY [facility] Stop: 11/07/17 08:59 Last Admin: 09/11/17 08:45 Dose: 1 tab General: no acute distress, well developed, well nourished HEENT: atraumatic, normocephalic, PERRLA Neck: supple, no thyromegaly Cardiovascular: S1S2, regular Lungs: clear to auscultation bilaterally, clear to percussion Abdomen: soft, no tender, no distended, no rebound Extremities: no cyanosis, no clubbing, no edema Neurological: awake, alert, oriented Skin: intact - Procedures Procedures: Procedures Procedure Code Date FLUOROSCOPY OF SUP VENA CAVA USING H OSM CONTRAST, GUIDANCE [id number] 11/11/16 INSERT TUNNELED CV CATH [id number] 11/11/16 INSERTION OF INFUSION DEV INTO L SUBCLAV VEIN, PERC APPROACH [id number] 11/11/16 INSERTION OF INFUSION DEV INTO SUP VENA CAVA, PERC APPROACH [id number] 11/11/16 PERFORMANCE OF URINARY FILTRATION, MULTIPLE [id number] 11/11/16 PL[address] CATHETER IN VEIN 89602 11/11/16 REMOVAL OF INFUSION DEVICE FROM UPPER VEIN, LICENSED PRACTICAL NURSE APPROACH [id number] 11/11/16 TRANSFUSE NONAUT RED BLOOD CELLS IN PERIPH VEIN, PERC 13418L2 11/11/16 ULTRASONOGRAPHY OF LEFT SUBCLAVIAN VEIN, GUIDANCE [id number] 11/11/16 Infectious Disease Assmt/Plan - Problem List Patient Problems: All Active Problems H/O chronic renal failure syndrome (Acute) Z87.448 H/O: HTN (hypertension) (Acute) Z86.79 Respiratory failure (Acute) J96.90 Right lower lobe pneumonia (Acute) J18.9 h/o anemia (Acute) s/p g tube (Acute) - Assessment Assessment: 1. Pneumonia. Likely, aspiration pneumonia. 2. History of vent dependent respiratory failure. Currently on room air. 3. Leukocytosis. 4. Hypertension. 5. 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 - Plan Plan: Will continue the same treatment. Nutritional Asmnt/Malnutr-PDOC - Dietary Evaluation Malnutrition Findings (Please click <Entered> for more info): Nutritional Asmnt/Malnutrition Start: 09/08/17 10: 42 Text: Status: Complete Freq: Document 09/08/17 10:42 MICKEY (Rec: 09/08/17 10:50 BERENICEG [email or web address]) Nutritional Asmnt/Malnutrition Patient General Information Nutritional Screening High Risk Consult Diagnosis [place] Pertinent Medical Hx/Surgical Hx HTN, ESRD on dialysis, pneumonia, anemia, dementia, PEG/GTube Subjective Information Pt is non-verbal noted. At the time of visit, TF is running at 40ml/hr x 20hrs daily. Spoke with NAVARRO Pinon, pt is tolerating well, no residual. Performed physical exam, no fat/muscle wasting on arms, mild muscle wasting on chest. Pt from SNF Current Diet Order/ Nutrition Support Novasource Renal 40ml/hr x 20hrs with water flush 150ml q6hr daily Pertinent Medications Iron, Folate, Miralax, Senna, Viatin B, Vitamin C Pertinent Labs 09/08: Na 127L, Cl 91L, BUN 85H , Cr 5.9H, Glu 107 09/07: AST 12L, ALT 9, Alb 3.3L Nutritional Hx/Data Height 1.68 m Height (Calculated Centimeters) 167.6 Current Weight (lbs) 58.06 kg Weight (Calculated Kilograms) 58.1 Weight (Calculated Grams) 08502.8 [place] Body Weight 142 % [place] Body Weight 90 Body Mass Index (BMI) 20.6 Weight Status Approriate GI Symptoms Food Allergies No Skin Integrity/Comment: intact Estimated Nutritional Goals BEE in Kcals: Using Current wt Calories/Kcals/Kg 25-30 Kcals Calculated 4618-2006 Protein: Using Current wt Protein g/k.2-1.4 Protein Calculated 70-81 Fluid: ml Per MD d/t ESRD on dialysis Nutritional Problem 2. Problem Problem Altered nutrition related lab values Etiology dx of ESRD Signs/Symptoms: BUN 85, Cr 5.9 1. Problem Problem Increased protein needs Etiology protein needs for dialysis Signs/Symptoms: protein needs 70-81g/day Malnutrition Alert Protein-Calorie Malnutrition N/A Is there a minimum of two criteria No selected? Query Text:Check all the applicable criteria. A minimum of two criteria are recommended for diagnosis of either severe or non-severe malnutrition. Intervention/Recommendation Comments 1. Continue current TF regimen , it provides 1600kcal and 73g pro, meeting 100% of nutritional needs. 2. Continue prosource 1pk/day per MD to increase protein intake 3. Monitor labs, wt weekly, TF tolerance and residual. 4. F/U as high risk in 2-3 days, 09/10-09/11 Expected Outcomes/Goals Expected Outcomes/Goals 1. Pt to meet 100% of nutritional needs with tolerance 2. wt stability 3. labs to improve 4. skin to remain intact
[2017-09-11] MEDS: Albuterol Nebulizer 2.5mg/3mL HHN PRN (22:13)
[2017-09-12] MEDS: Albuterol Nebulizer 2.5mg/3mL HHN PRN (02:09)
[2017-09-12] MEDS: Piperacillin/Tazobact 2.25 gm in 0.9% NS 50 ML IV SCH (05:04)
[2017-09-12 06:46] LABS: ANION GAP 13.3 (7.0-16.0); BUN - UREA NITROGEN 54 mg/dL (7-25); BUN/CREATININE RATIO 10.4; CALCIUM SERUM 9.4 mg/dL (8.6-10.3); CARBON DIOXIDE 29.3 mEq/L (21.0-31.0); CHLORIDE 101 mEq/L (98-107); GLUCOSE 105 mg/dL (70-105); POTASSIUM SERUM 3.6 mEq/L (3.5-5.1); SODIUM SERUM 140 mEq/L (136-145)
[2017-09-12 07:05] LABS: HEMATOCRIT 29.3 % (41.0-60); HEMOGLOBIN 9.5 gm/dL (12-16); MEAN CELL VOLUME 94.2 fl (80-99); MEAN CORPUSCULAR HEMOGLOBIN 30.4 pg (27.0-31.0); MEAN CORPUSCULAR HGB CONC 32.3 pg (28.0-36.0); MEAN PLATELET VOLUME 8.1 fl; PLATELET COUNT 357 Th/cmm (150-400); RED BLOOD COUNT 3.11 Mil/cmm (3.80-5.80); RED CELL DISTRIBUTION WIDTH 17.1 % (11.5-20.0)
[2017-09-12 07:07] LABS: WHITE BLOOD COUNT 14.6 Th/cmm (4.8-10.8)
[2017-09-12 07:38] LABS: BAND NEUTROPHILE 4 % (0-10); EOSINOPHIL 1 % (0-5); NEUTROPHILS 82 % (40-80); PLATELET ESTIMATE ADEQUATE (NORMAL); TOTAL CELLS COUNTED 100
[2017-09-12 08:17] LABS: CREATININE - SERUM 5.2 mg/dL (0.7-1.3)
[2017-09-12] MEDS ORDERED: Lactobacillus Rhamnosus 10 Billion CFU Capsule PO SCH (09:00)
--- NOTE | 2017-09-13 01:49 | Progress Notes ---
DATE: 09/12/2017 SUBJECTIVE: The patient was seen in his room lying in bed. The patient has ongoing hemodialysis. The patient is a poor historian due to medical condition, otherwise the patient appears to be comfortable in no acute distress. OBJECTIVE: VITAL SIGNS: Temperature 97.7, heart rate 79, blood pressure is 123/60, respirations of 18, 100% on room air. HEENT: Head is atraumatic and normocephalic. Eyes, bilateral conjunctivae are clear. Bilateral pupils are equally round and reactive. NECK: Supple. No JVD. CARDIOVASCULAR: S1 and S2, without murmur. PULMONARY: Fine scattered rhonchi noted. GASTROINTESTINAL: Soft and nontender without guarding. Positive bowel sounds. MUSCULOSKELETAL: No clubbing, no cyanosis noted. ASSESSMENT: 1. End-stage renal disease, hemodialysis dependent. 2. Hypertension. 3. Pneumonia. 4. Anemia. 5. Dementia. 6. Dysphagia. 7. Osteoarthritis. 8. Seizure disorder. PLAN: We will continue IV antibiotics per ID doctor. We will continue hemodialysis as scheduled per activity therapy teacher. The patient will be transferred to long-term acute care for continuity of IV antibiotic management. Treatment plans were discussed with the patient's nurses. Treatment plans were discussed with Dr. Marsh. JOB# [id number]
--- NOTE | 2017-09-15 16:50 | Discharge Summary ---
DATE OF DISCHARGE: 09/12/2017 The patient was admitted on 09/07/2017 and discharged on 09/12/2017 to [facility]. The patient was sent to [facility]. The patient ____ status post PEG; status post trach before, but no more trach use; history of hypertension; ESRD on hemodialysis. The patient was admitted. ____ patient had right lower lobe pneumonia, which was treated. End-stage renal disease, treated with dialysis. The patient had malnutrition and hypertension. The patient was seen by the certified mortician as well as the ID doctor. They feel that patient should continue with treatment. The patient for continuation of care, he was sent to [facility], where I will be following the patient. The patient's condition at the time of discharge is stable. JOB# [id number]
== END 2017-09-12 12:20 | DRG 177 ==
LOC: ER 19:34 → MSI 22:40
PROVIDERS: ADMIT Internal Medicine; ATTEND Internal Medicine
PROC: 5A1D70Z Performance of Urinary Filtration, Intermittent, Less than 6 Hours Per Day (ICD-10-PCS; principal; 2017-09-08)
PROC: 5A1D70Z Performance of Urinary Filtration, Intermittent, Less than 6 Hours Per Day (ICD-10-PCS; 2017-09-10)
PROC: 5A1D70Z Performance of Urinary Filtration, Intermittent, Less than 6 Hours Per Day (ICD-10-PCS; 2017-09-12)
DX: J69.0 Pneumonitis due to inhalation of food and vomit (principal); N18.6 End stage renal disease; E43 Unspecified severe protein-calorie malnutrition; I12.0 Hypertensive chronic kidney disease with stage 5 chronic kidney disease or end stage renal disease; C90.00 Multiple myeloma not having achieved remission; I48.91 Unspecified atrial fibrillation; F03.91 Unspecified dementia, unspecified severity, with behavioral disturbance; E87.1 Hypo-osmolality and hyponatremia; I69.354 Hemiplegia and hemiparesis following cerebral infarction affecting left non-dominant side; K21.9 Gastro-esophageal reflux disease without esophagitis; Y95 Nosocomial condition; M19.90 Unspecified osteoarthritis, unspecified site; D63.1 Anemia in chronic kidney disease; G40.909 Epilepsy, unspecified, not intractable, without status epilepticus; Z99.2 Dependence on renal dialysis; Z93.1 Gastrostomy status; Z88.1 Allergy status to other antibiotic agents; Z79.82 Long term (current) use of aspirin; Z79.51 Long term (current) use of inhaled steroids
CPT/HCPCS: 36415-UA; 71010-TC; 80048-TC; 80053-TC; 80074-90; 80202-TC; 83605; 85007-TC; 85025-TC; 85027-TC; 87070; 90937; 93005; 94664; 94760; J1644; J1956; J2543; J3370; J7030; J7613; Z7610